=== PATIENT | male | born 1990 | race Two or more races ===

== ENCOUNTER 2025-04-06 14:15 | Outpatient (AMB) | payer OTHER, SELFPAY ==
--- NOTE | 2025-04-06 14:23 | HO.NEPHOV ---
Vital Signs 04/06/25 14:34 Height 6 ft 1 in Weight 322 lb 2 oz BMI 42.5 BP 130/100 H Blood Pressure Location Lt brachial Position Sitting Pulse 81 Pulse Source Pulse Oximeter Pulse Oximetry (%) 97 Oxygen Delivery Method Room Air Intake Visit Reasons: ENP: Nephrotic Syndrome-Conf Box Office Manager Required: No Accompanied by: Self / Same As Patient Allergies No Known Allergies Allergy (Verified 04/22/25 11:09) HPI Comments Details: Thank you for referring Heather for evaluation of MARIA ALEJANDRA and nephrotic range proteinuria. He had influenza in December 2024 and after that he started developing edema and was found to have nephrotic range proteinuria. His renal function was normal at that time. He had quite a bit of weight gain with edema as well as shortness of breath. He underwent extensive work by his primary care physician and had seen other renal physicians in different practice for the same complaint. He even underwent renal biopsy and was told at that time that he has FSGS. Initially he refused renal biopsy for some months and he continued to have worsening proteinuria, with a proteinuria going up to over 17 g. He was given Bumex, torsemide, furosemide, metolazone, Aldactone as well as losartan in the past. His previous renal physician felt that he was not adherent with his directions and he had been playing around with medications as well as multiple medical providers. During the course of months his serum creatinine started to rise with a drop in GFR. His previous renal physician has recommended admission to the hospital for intravenous diuretics, kidney biopsy and immunosuppression. He had multiple ER visits as well as urgent care consultations for various reasons including diffuse pains, weight gain and continued worsening of edema. It was thought in the past that he may have bowel wall edema and p.o. medications will be unsuccessful. He was prescribed prednisone by his previous renal MD. He was told that he may end up with ESRD. He is being seen today in consultation for a 2nd opinion as well as take over of his renal care. [facility] Medical History (Updated 04/27/25 @ 07:01 by Joe Dhaliwal MD) Vitamin D deficiency disease Snoring Polyarthralgia Nephrotic syndrome Morbid obesity with body mass index (BMI) of 40.0 or higher Hyperlipidemia Gastroesophageal reflux disease with esophagitis without hemorrhage Fatty liver Erectile dysfunction due to diseases classified elsewhere Elevated ALT measurement Family History Father Bladder cancer Brother Kidney stone Mother Renal cyst Social History Alcohol intake: never Patient Tobacco Use Status: Never used Tobacco Review of Systems Const All systems reviewed & are unremarkable except as noted in HPI and below Physical Exam Vital Signs: Last Vital Signs Pulse 81 04/06/25 14:34 BP 130/100 H 04/06/25 14:34 Pulse Ox 97 04/06/25 14:34 Oxygen Delivery Method Room Air 04/06/25 14:34 BMI result Body Mass Index 42.5 Const General: comfortable and no acute distress Orientation/consciousness: patient oriented x3 HEENT Head: Yes normocephalic Mouth: Normal oral and palatal mucosa present Eyes EOM: EOMs intact bilaterally Neck Neck: Yes supple Resp Auscultation: clear to auscultation bilaterally Cardio Jugular venous distension: no JVD Rate: regular rate GI Palpation (GI): Soft to palpation Auscultation: normal bowel sounds General: Yes no CVA tenderness Back/Spine/Pelvis Back: no CVA tenderness Skin General skin exam: no rashes or lesions noted Neuro General: patient oriented x3 and moves all extremities Extrem General: Yes edema Results Reviewed Nephrology Results: Sodium 139 mmol/L (135-145) 04/20/25 Potassium 4.7 mmol/L (3.3-5.1) 04/20/25 Chloride 105 mmol/L (96-108) 04/20/25 Carbon Dioxide 25 mmol/L (22-29) 04/20/25 BUN 84 mg/dL (9-16) H 04/20/25 Creatinine 1.67 mg/dL (0.5-1.4) H 04/20/25 Urine Creatinine 49.21 mg/dL 04/20/25 Protein/Creatinin Ratio 12.96 (<0.2) H 04/20/25 Assessment & Plan Assessment & Plan (1) MARIA ALEJANDRA (acute kidney injury): Code(s): N17.9 - Acute kidney failure, unspecified Category: Medical (2) FSGS (focal segmental glomerulosclerosis): Code(s): N05.1 - Unspecified nephritic syndrome with focal and segmental glomerular lesions Category: Medical (3) Nephrotic syndrome: Code(s): N04.9 - Nephrotic syndrome with unspecified morphologic changes Category: Medical (4) Edema: Code(s): R60.9 - Edema, unspecified Category: Medical Qualifiers: Edema type: generalized Qualified Code(s): R60.1 - Generalized edema Plan Focus of treatment for his FSGS will include the following Dietary sodium restriction Antihypertensive therapy Renin-angiotensin system inhibition SGLT2 inhibitors Lipid lowering Anticoagulation Treatment of edema For the time being he will continue on high-dose prednisone. He will benefit from calcineurin inhibitor. I plan to initiate him on cyclosporine and see whether he is going to respond to it.Those with glucocorticoid-dependent FSGS may be alternatively treated with MMF/EC-MPS or rituximab or cytotoxic therapy like cyclophosphamide. In general, the duration of therapy varies according to the degree and rapidity of response (eg, faster taper for patients who achieve a quick remission), whether complete or partial remission is achieved, and the degree of glucocorticoid toxicity. If a complete remission is achieved within 8 to 12 weeks, I continue the initial dose of?prednisone for one to two more weeks and then taper the dose over two to three months. One strategy is to switch to alternate-day prednisone (double the daily dose but to a maximum of 80 to 120 mg), and then decrease the dose by approximately one-third every two to three weeks. If a partial remission is achieved by 8 to 12 weeks, we can taper prednisone slowly over three to nine months. We initially switch to alternate-day dosing and decrease the dose by one-third approximately every six weeks. For patients who have had a substantial reduction (>50 percent from baseline) in proteinuria by 8 to 12 weeks but do not meet criteria for partial remission (ie, proteinuria remains >3.5 g/day), the decision to continue high-dose prednisone or modify therapy is based upon the severity of glucocorticoid toxicity, the risk of continued therapy, and whether protein excretion is continuing to fall. Prednisone can be continued, for example, in patients whose proteinuria continues to decline, provided they are not experiencing severe side effects from therapy. If, at any time after a complete or partial remission is attained, proteinuria increases while the prednisone?is being tapered, we stop the taper and temporarily maintain the current prednisone dose while adding a CNI or, if the eGFR is <30 mL/min/1.73 m2, MMF/EC-MPS. Although the use of MMF/EC-MPS is not supported by evidence, some authors and editors of this topic use it in this setting based on its potential role as a glucocorticoid-sparing agent, its safe use in patients with low eGFR, and its role as maintenance therapy in other glomerular diseases such as minimal change disease and lupus nephritis. Adult patients who have little or no reduction in proteinuria after 16 weeks of daily?prednisone are presumed to be glucocorticoid resistant. In such patients, we prefer to add a CNI (or MMF if the eGFR is low) and switch to alternate-day prednisone with a progressive taper in prednisone therapy, reducing the dose by approximately one-third every week. (some of the references in management as mentioned above are taken from up-to-date ([employer]). Follow-up blood work was ordered and is going to see me for continued care. Time spent for retrieving his medical records from other hospitals, reviewing the data, notes, patient encounter, documentation and review of literature included 75 minutes. Answered all questions. Orders: Orders Creatinine 04/06/25 N17.9 - Acute kidney failure, unspecified Protein Creatinine Ratio, Ur 2 Weeks N17.9 - Acute kidney failure, unspecified Creatinine 2 Weeks N17.9 - Acute kidney failure, unspecified Calcium 04/06/25 N17.9 - Acute kidney failure, unspecified Electrolytes 04/06/25 N17.9 - Acute kidney failure, unspecified Blood Urea Nitrogen 04/06/25 N17.9 - Acute kidney failure, unspecified Protein Creatinine Ratio, Ur 04/06/25 N17.9 - Acute kidney failure, unspecified Blood Urea Nitrogen 2 Weeks N17.9 - Acute kidney failure, unspecified Electrolytes 2 Weeks N17.9 - Acute kidney failure, unspecified Coding Level of Care Code New Pt Level 5 (85358) Diagnoses MARIA ALEJANDRA (acute kidney injury) N17.9 FSGS (focal segmental glomerulosclerosis) N05.1 Nephrotic syndrome N04.9 Generalized edema R60.1 Edema type: generalized
--- OUTSIDE RECORDS SUMMARY | 2025-04-06 14:24 | XMS_ITS | Clinical Summary ---
Author Organization [facility] Address [address] [address] Phone Care Team Providers Care Entry Level Chemist Name Role Phone Tiara Fields Primary Care Provider Allergies No known active allergies Medications losartan (COZAAR) 100 MG tablet Take 1 tablet (100 mg total) by mouth 1 (one) time each day 90 tablet 3 01/27/20 25 026 Active furosemide (Lasix) 40 MG tablet Take 1 tablet (40 mg total) by mouth in the morning and 1 tablet (40 mg total) in the evening and 1 tablet (40 mg total) before bedtime. 270 tablet 3 03/15/20 25 Active spironolactone (Aldactone) 25 MG tablet Take 1 tablet (25 mg total) by mouth in the morning and 1 tablet (25 mg total) in the evening. 180 tablet 3 03/15/20 25 026 Active metOLazone 5 MG tablet Take 1 tablet (5 mg total) by mouth 1 (one) time each day if needed (edema) 90 tablet 3 03/15/20 25 026 Active predniSONE (DELTASONE) 20 MG tablet Take 4 tablets (80 mg total) by mouth 1 (one) time each day 120 tablet 03/31/20 25 025 Active ergocalciferol 1.25 MG (61631 UT) capsule Take 1 capsule by mouth 1 (one) time per week 12/15/19 25 025 torsemide (DEMADEX) 20 MG tablet Take 3 tablets (60 mg total) by mouth in the morning and 3 tablets (60 mg total) in the evening. 540 tablet 3 01/27/20 25 025 Discontinued spironolactone (Aldactone) 25 MG tablet Take 1 tablet (25 mg total) by mouth 1 (one) time each day 30 tablet 11 01/27/20 25 025 Discontinued(Re order (does not appear on AVS)) bumetanide (BUMEX) 2 MG tablet Take 1 tablet (2 mg total) by mouth in the morning and 1 tablet (2 mg total) in the evening. 180 tablet 3 02/26/20 25 025 Discontinued Active Problems Problem Noted Date Diagnosed Date Glomerulonephritis 01/26/2025 Hematuria, not otherwise specified 01/26/2025 Localized edema 01/26/2025 Hypertension 01/26/2025 Proteinuria, not otherwise specified 01/25/2025 Nephrotic syndrome 01/14/2025 Fatty liver 01/14/2025 Body mass index 40+ - severely obese 12/14/2024 Multiple joint pain 12/14/2024 Vitamin D deficiency 05/18/2020 Overview (01/25/2025): 98367 units for 8 weeks Dyslipidemia 04/07/2019 Snoring 03/30/2019 Overview (01/25/2025): 03/2019 Home Sleep Study did not reveal sleep apnea or nocturnal hypoxia. Encounters Date Type Department Care Team Description 04/03/2025 Documentation Only [facility] [address] [phone] Valeriy Pulliam MD 04/02/2025 Office Communication [facility] [address] [phone] Valeriy Pulliam MD 04/02/2025 Telephone [facility] [address] [phone] Stephanie Morley MA 03/31/2025 Office Communication [facility] [address] [phone] Radames Malhotra MD 03/31/2025 Documentation Only [facility] [address] [phone] Valeriy Pulliam MD 03/30/2025 Office Communication [facility] [address] [phone] Joanna Hayes 03/22/2025 Orders Only [facility] [address] [phone] Valeriy Pulliam MD Glomerulonephritis; Nephrotic syndrome; Proteinuria, not otherwise specified; Vitamin D deficiency, not otherwise specified; Localized edema; Hypertension; Dyslipidemia 03/19/2025 Telephone [facility] [address] [phone] Glory Stark MD 03/17/2025 Office Communication [facility] [address] [phone] Valeriy Pulliam MD 03/17/2025 Refill [facility] [address] [phone] Radha Nolasco MA 03/17/2025 Refill [facility] [address] [phone] Radha Nolasco MA 03/15/2025 8:40 AM EDT Office Visit [facility] [address] [phone] Valeriy Pulliam MD Glomerulonephritis (Primary Dx); Nephrotic syndrome; Proteinuria, not otherwise specified; Vitamin D deficiency, not otherwise specified; Localized edema; Hypertension; Dyslipidemia 03/15/2025 Orders Only [facility] [address] [phone] Valeriy Pulliam MD 03/15/2025 Office Communication [facility] [address] [phone] Valeriy Pulliam MD 03/15/2025 Office Communication [facility] [address] [phone] Valeriy Pulliam MD 03/08/2025 Office Communication [facility] [address] [phone] Karan Corrigan 03/04/2025 Telephone [facility] [address] [phone] Stephanie Morley MA 02/25/2025 9:40 AM EDT Office Visit [facility] [address] [phone] Valeriy Pulliam MD Glomerulonephritis (Primary Dx); Hypertension; Dyslipidemia; Nephrotic syndrome; Proteinuria, not otherwise specified; Vitamin D deficiency, not otherwise specified 02/08/2025 Office Communication [facility] [address] [phone] Valeriy Pulliam MD 02/03/2025 Office Communication [facility] [address] [phone] Verna Baumann 01/28/2025 Office Communication [facility] [address] [phone] Helen Selby 01/26/2025 11:00 AM EDT Office Visit [facility] [address] [phone] Valeriy Pulliam MD Proteinuria, not otherwise specified (Primary Dx); Nephrotic syndrome; Hyperlipidemia, not otherwise specified; Glomerulonephritis; Hypertension; Hematuria, not otherwise specified; Localized edema 01/26/2025 Office Communication [facility] [address] [phone] Valeriy Pulliam MD 01/26/2025 Office Communication [facility] [address] [phone] Valeriy Pulliam MD from Last 3 Months Social History Tobacco Use Types Packs/Day Years Used Date Smoking Tobacco: Never Assessed Sex and Gender Information Value Date Recorded Sex Assigned at Not on file Legal Sex Male 1:01 PM EDT Gender Identity Not on file Sexual Orientation Not on file Last Filed Vital Signs Vital Sign Reading Time Taken Comments Blood Pressure 150/90 03/15/2025 8:53 AM EDT Pulse 88 03/15/2025 8:53 AM EDT Temperature - - Respiratory Rate - - Oxygen Saturation 96% 03/15/2025 8:53 AM EDT Inhaled Oxygen Concentration - - Weight 155 kg (341 lb 3.2 oz) 03/15/2025 8:53 AM EDT Height 185.4 cm (6' 1 ) 01/26/2025 11:09 AM EDT Body Mass Index 45.02 01/26/2025 11:09 AM EDT Plan of Treatment Upcoming Encounters Date Type Department Care Team (Late st Contact Info) Description 04/15/2025 9:00 AM EDT Office Visit [facility] [address] [phone] Valeriy Pulliam MD [address] [phone] Health Maintenance Due Date Last Done Comments Pneumococcal Vaccine: Peds ( 0 to 5 Years) and At-Risk Patients (6 to 49 Years) (1 of 2 - PCV) 2011 Hepatitis B Vaccine (3 of 3 - 19+ 3-dose series) 04/29/2025 01/07/2025, 10/29/2024 Influenza Vaccine Completed 07/12/2024, 09/08/2020 Procedures Procedure Name Priority Date/Time Associated Diagnosis Comments PTH, INTACT Routine 03/15/2025 5:16 PM EDT MAGNESIUM Routine 03/15/2025 5:16 PM EDT URIC ACID Routine 03/15/2025 5:16 PM EDT VITAMIN D 25 HYDROXY Routine 03/15/2025 5:16 PM EDT PROTEIN / CREATININE RATIO, URINE Routine 03/15/2025 5:16 PM EDT RENAL FUNCTION PANEL Routine 03/15/2025 5:16 PM EDT COMPREHENSIVE METABOLIC PANEL Routine 03/15/2025 5:16 PM EDT CBC AND DIFFERENTIAL Routine 03/15/2025 5:16 PM EDT ANCA SCREEN, TITER IF POSITIVE Routine 02/22/2025 1:06 PM EDT Proteinuria, not otherwise specified Nephrotic syndrome Hyperlipidemia, not otherwise specified SHAYNA W/REFLEX Routine 02/22/2025 1:06 PM EDT Proteinuria, not otherwise specified Nephrotic syndrome Hyperlipidemia, not otherwise specified GLOMERULAR BASEMENT MEMBRANE ANTIBODIES Routine 02/22/2025 1:06 PM EDT Proteinuria, not otherwise specified Nephrotic syndrome Hyperlipidemia, not otherwise specified CBC AND DIFFERENTIAL Routine 02/22/2025 1:06 PM EDT Proteinuria, not otherwise specified Nephrotic syndrome Hyperlipidemia, not otherwise specified PROTEIN / CREATININE RATIO, URINE Routine 02/22/2025 1:06 PM EDT Proteinuria, not otherwise specified Nephrotic syndrome Hyperlipidemia, not otherwise specified URINE ALBUMIN / CREATININE RATIO Routine 02/22/2025 1:06 PM EDT Proteinuria, not otherwise specified Nephrotic syndrome Hyperlipidemia, not otherwise specified URINALYSIS WITH MICROSCOPIC Routine 02/22/2025 1:06 PM EDT Proteinuria, not otherwise specified Nephrotic syndrome Hyperlipidemia, not otherwise specified MAGNESIUM Routine 02/22/2025 1:06 PM EDT Proteinuria, not otherwise specified Nephrotic syndrome Hyperlipidemia, not otherwise specified PHOSPHATE ( PHOSPHORUS) Routine 02/22/2025 1:06 PM EDT Proteinuria, not otherwise specified Nephrotic syndrome Hyperlipidemia, not otherwise specified PHOSPHOLIPASE A2 RECEPTOR ANTIBODIES, SERUM Routine 02/22/2025 1:06 PM EDT Proteinuria, not otherwise specified Nephrotic syndrome Hyperlipidemia, not otherwise specified COMPREHENSIVE METABOLIC PANEL Routine 02/22/2025 1:06 PM EDT Proteinuria, not otherwise specified Nephrotic syndrome Hyperlipidemia, not otherwise specified MICROSCOPIC EXAMINATION - DO NOT USE Routine 02/22/2025 1:06 PM EDT ANTISTREPTOLYSIN O SCREEN Routine 02/22/2025 1:06 PM EDT Proteinuria, not otherwise specified Nephrotic syndrome Hyperlipidemia, not otherwise specified from Last 3 Months Results * (ABNORMAL) Protein, Total, Random Urine w/Creatinine (Protein/Creat Ratio) (03/15/2025 5:16 PM EDT) Only the most recent of2 resultswithin the time period is included. Creatinine, Ur 138.0 Not Estab. mg/dL [facility] Protein, Ur 2,347.5 Not Estab. mg/dL [facility] Comment: Results confirmed on dilution. Urine Protein/Creati nine Ratio 17,011(H) 0 - 200 mg/g creat [facility] 03/15/2025 5:16 PM EDT 03/15/2025 us Valeriy Pulliam MD LAB URINE ORDERABLES Final Re sult [facility] [address] [place] [address] * (ABNORMAL) Vitamin D 25 Hydroxy (03/15/2025 5:16 PM EDT) Vitamin D, 25-OH, Total 8.4(L) 30.0 - 100.0 ng/mL [facility] Comment: Vitamin D deficiency has been defined by the Hitchcock of Medicine and an Endocrine Society practice guideline as a level of serum 25-OH vitamin D less than 20 ng/mL (1,2). The Endocrine Society went on to further define vitamin D insufficiency as a level between 21 and 29 ng/mL (2). 1. IOM ([place] of Medicine). 2010. Dietary reference ?? intakes for calcium and D. [place]: The ?? National Gopeers Press. 2. Magdalena MF, Nita LEON, Sondra CANNON, et al. ?? Evaluation, treatment, and prevention of vitamin D ?? deficiency: an Endocrine Society clinical practice ?? guideline. JCEM. 2010; 96(7):1911-30. 03/15/2025 5:16 PM EDT 03/15/2025 us Valeriy Pulliam MD LAB BLOOD ORDERABLES Final Re sult [facility] [address] [place] [address] * CBC and Differential (03/15/2025 5:16 PM EDT) Only the most recent of2 resultswithin the time period is included. WBC 8.6 3.4 - 10.8 x10E3/uL [facility] RBC 4.82 4.14 - 5.80 x10E6/uL [facility] Hemoglobin 14.4 13.0 - 17.7 g/dL [facility] Hematocrit 44.3 37.5 - 51.0 % [facility] MCV 92 79 - 97 fL [facility] MCH 29.9 26.6 - 33.0 pg [facility] MCHC 32.5 31.5 - 35.7 g/dL [facility] RDW 14.7 11.6 - 15.4 % [facility] Platelets 347 150 - 450 x10E3/uL [facility] Neutrophils Relative 58 Not Estab. % [facility] Lymphocytes Relative 31 Not Estab. % [facility] Monocytes 6 Not Estab. % [facility] Eosinophils Relative 4 Not Estab. % [facility] Basophils Relative 1 Not Estab. % [facility] Neutrophils Absolute 4.9 1.4 - 7.0 x10E3/uL [facility] Lymphocytes Absolute 2.7 0.7 - 3.1 x10E3/uL [facility] Monocytes Absolute 0.5 0.1 - 0.9 x10E3/uL [facility] Eosinophils Absolute 0.4 0.0 - 0.4 x10E3/uL [facility] Basophils Absolute 0.0 0.0 - 0.2 x10E3/uL [facility] Immature Granulocytes 0 Not Estab. % [facility] Immature Grans (Absolute) 0.0 0.0 - 0.1 x10E3/uL [facility] 03/15/2025 5:16 PM EDT 03/15/2025 us Valeriy Pulliam MD LAB BLOOD ORDERABLES Final Re sult [facility] [address] [place] [address] * (ABNORMAL) Uric Acid (03/15/2025 5:16 PM EDT) Uric Acid 10.0(H) 3.8 - 8.4 mg/dL [facility] Comment:Therapeutic target f or gout patients: <6.0 03/15/2025 5:16 PM EDT 03/15/2025 Valeriy Pulliam MD LAB BLOOD ORDERABLES Final Re sult [facility] [address] [place] [address] * PTH, Intact (03/15/2025 5:16 PM EDT) PTH 43 15 - 65 pg/mL [facility] 03/15/2025 5:16 PM EDT 03/15/2025 Valeriy Pulliam MD LAB BLOOD ORDERABLES Final Re sult Performing Organization Address [facility] de Phone Number [facility] [address] [place] [address] * (ABNORMAL) Magnesium (03/15/2025 5:16 PM EDT) Only the most recent of2 resultswithin the time period is included. Magnesium 2.6(H) 1.6 - 2.3 mg/dL [facility] 03/15/2025 5:16 PM EDT 03/15/2025 Valeriy Pulliam MD LAB BLOOD ORDERABLES Final Re sult Performing Organization Address [facility]/ZIP Co de Phone Number [facility] [address] [place] [address] * Renal Function Panel (03/15/2025 5:16 PM EDT) Phosphorus 3.5 2.8 - 4.1 mg/dL [facility] 03/15/2025 5:16 PM EDT 03/15/2025 us Valeriy Pulliam MD LAB BLOOD ORDERABLES Final Re sult [facility] [address] [place] [address] * (ABNORMAL) Comprehensive Metabolic Panel (03/15/2025 5:16 PM EDT) Only the most recent of2 resultswithin the time period is included. Pathologist [facility] Glucose 80 70 - 99 mg/dL [facility] BUN 37(H) 6 - 20 mg/dL [facility] Creatinine 1.28(H) 0.76 - 1.27 mg/dL [facility] eGFR CKD-EPI CR 2020 76 >59 mL/min/1.7 3 [facility] BUN/Creatinine Ratio 29(H) 9 - 20 [facility] Sodium 145(H) 134 - 144 mmol/L [facility] Potassium 5.1 3.5 - 5.2 mmol/L [facility] Chloride 110(H) 96 - 106 mmol/L [facility] Bicarbonate (CO2) 16(L) 20 - 29 mmol/L [facility] Total Protein 4.3(LL) 6.0 - 8.5 g/dL [facility] Albumin 2.2(L) 4.1 - 5.1 g/dL [facility] Globulin 2.1 1.5 - 4.5 g/dL [facility] Total Bilirubin <0.2 0.0 - 1.2 mg/[facility] Phosphatase 65 44 - 121 IU/L [facility] AST (SGOT) 16 0 - 40 IU/L [facility] ALT (SGPT) 16 0 - 44 IU/L [facility] Calcium 8.3(L) 8.7 - 10.2 mg/dL [facility] 03/15/2025 5:16 PM EDT 03/15/2025 us Valeriy Pulliam MD LAB BLOOD ORDERABLES Final Re sult Performing Organization Address [facility] Co de Phone Number [facility] [address] [place] [address] * Phospholipase A2 Receptor Antibodies, Serum (02/22/2025 1:06 PM EDT) Anti-PLA2R <1.8 0.0 - 19.9 RU/mL [facility] Comment: ?Negative ?<14.0 ?Borderline ??14.0 - 19.9 ?Positive ?>19.9 Blood specimen (specimen) Venous blood / Unknown 02/22/2025 1:06 PM EDT 02/22/2025 us Valeriy Pulliam MD LAB BLOOD ORDERABLES Final Re sult [facility] [address] [place] [address] * ANCA AB Scrn with titer (02/22/2025 1:06 PM EDT) C-ANCA <1:20 Neg:<1:20 titer [facility] Perinuclear (P-ANCA) <1:20 Neg:<1:20 titer [facility] Comment: The presence of positive fluorescence exhibiting P-ANCA or C-ANCA patterns alone is not specific for the diagnosis of Dionicio's Granulomatosis (WG) or microscopic polyangiitis. Decisions about treatment should not be based solely on ANCA IFA results. ??The International ANCA Group Consensus recommends follow up testing of positive sera with both CT-3 and MPO-ANCA enzyme immunoassays. As many as 5% serum samples are positive only by EIA. Ref. AM J Clin Pathol 1999;111:507-513. Atypical p-ANCA <1:20 Neg:<1:20 titer [facility] Comment: The atypical pANCA pattern has been observed in a significant percentage of patients with ulcerative colitis, primary sclerosing cholangitis and autoimmune hepatitis. Blood specimen (specimen) Venous blood / Unknown 02/22/2025 1:06 PM EDT 02/22/2025 Valeriy Pulliam MD LAB BLOOD ORDERABLES Final Re sult Performing Organization Address [facility] Co de Phone Number [facility] [address] [place] [address] * (ABNORMAL) Microscopic Examination (02/22/2025 1:06 PM EDT) WBC, Urine 0-5 0 - 5 /hpf [facility] RBC, Urine 11-30(A) 0 - 2 /hpf [facility] Squamous Epithelial, Urine 0-10 0 - 10 /hpf [facility] Casts None seen None seen /lpf [facility] Bacteria, Urine None seen None seen/Few [facility] 02/22/2025 1:06 PM EDT 02/22/2025 Valeriy Pulliam MD LAB MICROBIOLOGY - GENERAL OR DERABLES Final Result [facility] [address] [place] [address] * SHAYNA W/Reflex (02/22/2025 1:06 PM EDT) Pathologist [facility] SHAYNA Negative Negative [facility] 02/22/2025 1:06 PM EDT 02/22/2025 Valeriy Pulliam MD LAB BLOOD ORDERABLES Final Re sult Performing Organization Address [facility] Co de Phone Number [facility] [address] [place] [address] * Glomerular Basement Membrane Antibodies (02/22/2025 1:06 PM EDT) [facility] ANTI-GBM AB <0.2 0.0 - 0.9 units [facility] Blood specimen (specimen) Venous blood / Unknown 02/22/2025 1:06 PM EDT 02/22/2025 us Valeriy Pulliam MD LAB BLOOD ORDERABLES Final Re sult Performing Organization Address [facility] Co de Phone Number [facility] [address] [place] [phone] * (ABNORMAL) Urine Albumin / Creatinine Ratio (02/22/2025 1:06 PM EDT) Pathologist [facility] Albumin, Urine 8,624.6 Not Estab. ug/mL [facility] Albumin/Creatin ine Ratio 5,106(H) 0 - 29 mg/g creat [facility] Comment: ? Normal: ?0 - ??29 ? Moderately increased: 30 - 300 ? Severely increased: ? >300 Urine specimen (specimen) Urine specimen obtained by clean catch procedure / Unknown 02/22/2025 1:06 PM EDT 02/22/2025 us Valeriy Pulliam MD LAB URINE ORDERABLES Final Re sult [facility] [address] [place] [address] * (ABNORMAL) Urinalysis with microscopic (02/22/2025 1:06 PM EDT) Pathologist [facility] Specific [place], Urine 1.028 1.005 - 1.030 [facility] pH Urine 6.0 5.0 - 7.5 [facility] Color, Urine Yellow Yellow [facility] Appearance Urine Clear Clear [facility] WBC Esterase Urine Negative Negative [facility] Protein, Ur 4+(A) Negative/Tra ce [facility] Glucose, Ur Negative Negative [facility] Ketones, Urine Negative Negative [facility] Blood Urine Trace(A) Negative [facility] [phone] Bilirubin Urine Negative Negative [facility] Urobilinogen Urine 0.2 0.2 - 1.0 mg/dL [facility] [phone] Nitrite, Urine Negative Negative [facility] Microscopic Examination See below: [facility] Comment:Microscopic was doreen cated and was performed. Urine specimen (specimen) Urine specimen obtained by clean catch procedure / Unknown 02/22/2025 1:06 PM EDT 02/22/2025 us Valeriy Pulliam MD LAB URINE ORDERABLES Final Re sult Performing Organization Address [facility] Co de Phone Number [facility] [address] [place] [address] * Antistreptolysin O screen (02/22/2025 1:06 PM EDT) ASO 175.1 0.0 - 200.0 IU/mL [facility] Blood specimen (specimen) Venous blood / Unknown 02/22/2025 1:06 PM EDT 02/22/2025 us Valeriy Pulliam MD LAB MICROBIOLOGY - GENERAL OR DERABLES Final Result Performing Organization Address [facility] Co de Phone Number [facility] [address] [place] [address] * Phosphorus (02/22/2025 1:06 PM EDT) Phosphorus 2.9 2.8 - 4.1 mg/dL [facility] Blood specimen (specimen) Venous blood / Unknown 02/22/2025 1:06 PM EDT 02/22/2025 us Valeriy Pulliam MD LAB BLOOD ORDERABLES Final Re sult [facility] [address] [place] [address] from Last 3 Months Insurance [facility] Medicaid Care Teams Entry Level Chemist Relationship Specialty Start Date End Date Tiara Fields [address] [place] [phone] PCP - General 03/15/25
[2025-04-06 14:34] VITALS: BP 130/100; PULSE 81; O2SAT 97; BMI 42.5
== END 2025-04-06 15:26 | disposition home or self-care (01) ==
PROVIDERS: PCP Family Medicine; Visit Provider Internal Medicine Nephrology
DX: N17.9 Acute kidney failure, unspecified (principal); N05.1 Unspecified nephritic syndrome with focal and segmental glomerular lesions; N04.9 Nephrotic syndrome with unspecified morphologic changes; R60.1 Generalized edema
CPT/HCPCS: 99205; 99417

== ENCOUNTER → 2025-04-06 14:15 | Outpatient (BNVA) | payer OTHER, SELFPAY | PROVIDERS: PCP Family Medicine; Visit Provider Internal Medicine Nephrology | DX: R80.9 Proteinuria, unspecified (principal); N17.9 Acute kidney failure, unspecified; N04.1 Nephrotic syndrome with focal and segmental glomerular lesions; R60.1 Generalized edema | CPT/HCPCS: 99202 ==

== ENCOUNTER 2025-04-20 15:10 | Outpatient (REF) | payer OTHER, SELFPAY ==
--- OUTSIDE RECORDS SUMMARY | 2025-04-20 18:20 | XMS_ITS | Clinical Summary ---
Author Organization [address] Address [address] [place] [phone] Phone Care Team Providers Care Antique Refinisher Name Role Phone Tiara Fields MD Primary Care Pr ovider Allergies No known active allergies Medications dicyclomine (BENTYL) 10 mg capsuleIndicati ons:Irritable bowel syndrome with mixed bowel habits Take 1 capsule (10 mg total) by mouth 3 (three) times a day if needed (loose stools, abdominal discomfort). 90 capsule 11 5 01/28/20 26 Active losartan (COZAAR) 100 mg tablet Take 1 tablet (100 mg total) by mouth 1 (one) time each day. 5 Active metOLazone (ZAROXOLYN) 5 mg tablet Take 1 tablet (5 mg total) by mouth 1 (one) time each day if needed (edema) for up to 14 days. 14 tablet 5 Active bumetanide (BUMEX) 2 mg tablet Take 1 tablet (2 mg total) by mouth 3 (three) times a day. 90 each 5 03/21/20 26 Active Active Problems Problem Noted Date Diagnosed Date Severe obesity (CMS/HCC V24, CMS/HCC V28) 2024 Fluid overload 03/20/2025 Localized edema 01/26/2025 Hypertension 01/26/2025 Hematuria 01/26/2025 Proteinuria 01/25/2025 Nephrotic syndrome 01/14/2025 Assessment & Plan (01/18/2025 6:39 PM EDT): Patient was called to discuss his test results from today which are as above We discussed additional testing to try to identify etiology of the nephrotic syndrome . He is in agreement with getting additional testing which are ordered including HIV/syphilis testing ? His recent influenza A infection leading to nephrotic syndrome. Could be a possibility. He was not treated with Tamiflu when he went to urgent care Will obtain Renal US He has proteinuria and microscopic hematuria He is referred urgently to nephrology Will check leg Vein US to r/o DVT and obtain US to check for venous insufficiency With nephrotic syndrome he is at higher risk of blood clots Will obtain ECHO Continue lasix Start losartan Orders: Ambulatory referral to Nephrology; Future losartan (Cozaar) 25 mg tablet; Take 1 tablet (25 mg total) by mouth 1 (one) time each day. HIV 1,2 antibody, p24 antigen with reflex to differentiation; Future Prealbumin; Future C3 complement; Future C4 complement; Future Protein electrophoresis, random, urine; Future Protein electrophoresis, serum; Future Treponema pallidum antibody with reflex to RPR and particle agglutination; Future Cryoglobulin; Future Vascular US duplex lower extremity venous bilateral; Future Creatine kinase; Future CBC and differential; Future Gastroesophageal reflux dise ase with esophagitis without hemorrhage 01/14/2025 Assessment & Plan (01/18/2025 6:39 PM EDT): Will check H pylori testing Orders: Helicobacter pylori breath test; Future Fatty liver 01/14/2025 Assessment & Plan (01/26/2025 5:39 PM EDT): MRI scheduled. Further recommendations pending study findings Will repeat labwork at follow up. Assessment & Plan (01/18/2025 6:39 PM EDT): US results are as above Will obtain MRI as recommended Referred to GI Orders: Ambulatory referral to Gastroenterology; Future MR Abdomen wo Contrast; Future Elevated ALT measurement 12/15/2024 Erectile dysfunction due to diseases classified elsewhere 12/14/2024 Assessment & Plan (12/14/2024 1:30 PM EST): Follow-up with urology Orders: CBC and differential; Future Comprehensive metabolic panel; Future Ambulatory referral to Urology; Future Morbid obesity with BMI of 4 0.0-44.9, adult ([facility] V24, [facility] V28) 12/14/2024 Assessment & Plan (12/14/2024 1:30 PM EST): Interested in weight loss medication. Referred to bariatric surgery Orders: Ambulatory referral to Bariatric Surgery; Future Polyarthralgia 12/14/2024 Assessment & Plan (12/14/2024 1:30 PM EST): Will check labs. Orders: Rheumatoid factor; Future Uric acid; Future Borrelia burgdorferi antibody; Future SHAYNA IFA with titer and pattern; Future Sedimentation rate; Future Creatine kinase and CKMB; Future COVID-19 09/04/2021 Overview (11/05/2024): 08/25/2021, tested at local drive through. Was in ER 09/01/2021 as his SOB, cough didn't improve. He doesn't know how he got it. Vitamin D deficiency disease 05/18/2020 Overview (11/05/2024): 30210 units for 8 weeks Assessment & Plan (12/14/2024 1:30 PM EST): Will update vitamin D level. He sporadically uses 10,000 units of vitamin D. Advised that this is excessive but he disagrees Orders: Vitamin D 25 hydroxy; Future Hyperlipidemia 04/07/2019 Assessment & Plan (12/14/2024 1:30 PM EST): Currently not on any medications. Will update fasting lipid panel Orders: Lipid panel with reflex to direct LDL; Future Dyslipidemia 04/07/2019 Snoring 03/30/2019 Overview (11/05/2024): 03/2019 Home Sleep Study did not reveal sleep apnea or nocturnal hypoxia. Encounters Date Type Department Care Team Description 03/24/2025 Lab Requisition [facility] - Main Lab [address] [facility] [place] [address] Lukasz Basurto MD Proteinuria, unspecified 03/20/2025 12:13 PM EDT - 03/21/2025 3:53 PM EDT Hospital Encounter [facility] Medical Surgical Unit [address] [place] [address] Pop Lopez MD Santoyo-Pacheco, Omar D, MD Nephrotic syndrome (Primary Dx); Hypermagnesemia; Hyperkalemia; Bilateral lower extremity edema; Other proteinuria; Hematuria, unspecified type Discharge Disposition: Home or Self Care 03/10/2025 Telephone Adult Medicine [address] [phone] Tiara Fields MD Referral 02/10/2025 7:16 PM EDT - 02/10/2025 11:59 PM EDT Hospital Encounter [facility] MRI [address] [place] [address] Fatty liver Discharge Disposition: Home or Self Care 01/28/2025 10:00 AM EDT - 01/28/2025 11:59 PM EDT Hospital Encounter [facility] Ultrasound [address] [place] [address] Leg swelling Discharge Disposition: Home or Self Care 01/27/2025 Telephone Gastroenterology - [address] [place] [phone] Salome [place] 01/27/2025 Telephone Gastroenterology - [address] [facility] [address] [address] [place] 01/26/2025 4:08 PM EDT - 01/26/2025 11:59 PM EDT Hospital Encounter [facility] Xray [address] [place] [address] Irritable bowel syndrome with mixed bowel habits Discharge Disposition: Home or Self Care 01/26/2025 2:40 PM EDT Consult Gastroenterology - [address] [phone] Aline Shah PA Irritable bowel syndrome with mixed bowel habits (Primary Dx); Nausea and vomiting, unspecified vomiting type; History of hematemesis; Fatty liver 01/18/2025 2:45 PM EDT - 01/18/2025 11:59 PM EDT Hospital Encounter Radiology Department - [address] [phone] Discharge Disposition: Home or Self Care 01/18/2025 11:16 AM EDT - 01/18/2025 11:59 PM EDT Hospital Encounter Radiology Department - [address] [phone] Nephrotic syndrome Discharge Disposition: Home or Self Care from Last 3 Months Immunizations Name Administration Dates Next Due Influenza Quadravalent, MDCK , 0.5ml, preservative free (Flucelvax) 6mo and older 07/12/2024,09/08/2020 Td Tetanus diptheria (Tdvax) 7yo and older 09/08 Medical History Medical History Date Comments 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 pylori infection 07/27/2019 DX:H. pylori infection Hyperlipidemia DX:Hyperlipidemi a Vitamin D deficiency DX:Vitamin D deficiency Nephrotic syndrome Fatty liver Family History Medical History Relation Name Comments bladder cancer Father Colon cancer Neg Hx Relation Name Status Comments Father Social History Tobacco Use Types Packs/Day Years Used Date Smoking Tobacco: Former Cigarettes 1.5 10 Cigars Smokeless Tobacco: Never Tobacco Cessation:Counseling Given: Not Answered Alcohol Use Standard Drinks/Week Comments No 0 (1 standard drink = 0.6 oz pur e alcohol) Housing Instability Answer Date Recorde d Are you worried that in the next 2 months you may not have stable housing? No 12/11/2024 Food Access & Nutrition Answer Date Rec orded Do you have access to a vari ety of food including fruits and vegetables? Yes 12/11/2024 Access to Healthcare Answer Date Record ed Within the last 3 months, miranda w many times did you visit the emergency department for your medical care? 0 12/11/2024 Health Literacy Answer Date Recorded How often do you need to hav e someone help you when you read instructions, pamphlets, or other written material from your doctor or pharmacy? Never 12/11/2024 Caregiver: How often do you need to have someone help you when you read instructions, pamphlets, or other written material from your doctor or pharmacy? Not on file 12/11/2024 Financial Risk Answer Date Recorded How hard is it for you to pa y for the very basics like food, housing, medical care, and air conditioning / heating? Not very hard 12/11/2024 Transportation Answer Date Recorded Has the lack of transportati on kept you from meetings, work, or from getting things needed for daily living? No Has the lack of transportati on kept you from medical appointments or from getting medications? No 12/11/2024 Social Isolation Answer Date Recorded How often do you feel lonely or isolated from th ose around you? Often 12/11/2024 Food Risk Answer Date Recorded Within the past 12 months we worried whether our food would run out before we got money to buy more. Never true 12/11/2024 Within the past 12 months th e food we bought just didn't last and we didn't have money to get more. Never true 12/11/2024 Dependent Care Answer Date Recorded Do you need help finding or paying for care for your loved ones. For example, children librarian or elderly care for an older adult? No 12/11/2024 Education Answer Date Recorded Do you think completing more education or training, like finishing a GED, going to college, or learning a trade, would be helpful for you? Yes 12/11/2024 Employment and Income Answer Date Recor ded During the last four weeks, have you been actively looking for work? Yes 12/11/2024 Living Situation Answer Date Recorded What is your living situation? 0 12/11/2024 Interpersonal Safety Answer Date Record ed Physical Abuse 03/20/2025 Verbal Abuse 03/20/2025 Sex and Gender Information Value Date Recorded Sex Assigned at Male 12/11/2024 9:36 PM EST Legal Sex Male 9:47 PM EST Gender Identity Male 12/11/2024 9:36 PM EST Sexual Orientation Straight 12/11/2024 9: 36 PM EST Obstetrics History Last Filed Vital Signs Vital Sign Reading Time Taken Comments Blood Pressure 151/90 03/21/2025 2:24 PM EDT Pulse 94 03/21/2025 2:24 PM EDT Temperature 36 ??C (96.8 ??F) 03/21/2025 2:24 PM EDT Respiratory Rate 17 03/21/2025 7:00 AM EDT Oxygen Saturation 96% 03/21/2025 2:24 PM EDT Inhaled Oxygen Concentration - - Weight 151 kg (332 lb 3.2 oz) 03/21/2025 6:25 AM EDT Height 185.4 cm (6' 0.99 ) 03/20/2025 7:00 PM ED T Body Mass Index 43.84 03/20/2025 7:00 PM EDT Plan of Treatment Upcoming Encounters Date Type Department Care Team (Late st Contact Info) Description 2025 3:30 PM EDT Office Visit Gastroenterology - [address] [facility] [address] [place] [address] Aline Shah PA [address] [place] [address] Health Maintenance Due Date Last Done Comments Pneumococcal Vaccine: Pediatrics (0 to 5 Years) and At-Risk Patients (6 to 64 Years) (1 of 2 - PCV) 2011 HPV Vaccines (3 - 3-dose SCDM series) 04/29/2025 01/07/2025, 10/29/2024 Depression Screening 12/11/2025 12/11/2024 Social Influencers of Health Screening 12/11/2025 12/11/2024 Hypertension/CHF/CAD Annual BMP Blood Test 04/12/2026 04/12/2025, 04/12/2025, 03/21/2025, Additional history exists Cholesterol Screening (Lipid Panel) 04/12/2030 04/12/2025, 12/14/2024, 04/23/2024, Additional history exists DTaP,Tdap,and Td Vaccines (2 - Td or Tdap) 09/08/2030 09/08/2020 Hepatitis C Screening Completed 03/11/2019 Influenza Vaccine Completed 07/12/2024, 09/08/2020 Hepatitis B Vaccines Completed 01/07/2025, 10/29/20 HIV Screening Completed 01/15/2025, 03/11/2019 COVID-19 Vaccine Discontinued HIB Vaccines Aged Out No longer eligi ble based on patient's age to complete this topic Hepatitis A Vaccines Aged Out No long er eligible based on patient's age to complete this topic IPV Vaccines Aged Out No longer eligi ble based on patient's age to complete this topic MMR Vaccines Aged Out No longer eligi ble based on patient's age to complete this topic Meningococcal ACWY Vaccine Aged Out N o longer eligible based on patient's age to complete this topic Meningococcal B Vaccine Aged Out No l onger eligible based on patient's age to complete this topic RSV Immunization Patients Under 20 months Aged Out No longer eligible based on patient's age to complete this topic Varicella Vaccines Aged Out No longer eligible based on patient's age to complete this topic Procedures Procedure Name Priority Date/Time Associated Diagnosis Comments AP KIDNEY BIOPSY Routine 03/24/2025 Proteinuria, unspecified TISSUE EXAM Routine 03/24/2025 Proteinuria, unspecified ECG ANNOTATED 03/22/2025 US RETROPERITONEAL LIMITED Routine 03/21/2025 10:25 AM EDT CBC WITH AUTO DIFFERENTIAL Routine 03/21/2025 7:04 AM EDT CBC AND DIFFERENTIAL Routine 03/21/2025 7:04 AM EDT MAGNESIUM Routine 03/21/2025 7:04 AM EDT BASIC METABOLIC PANEL Routine 03/21/2025 7:04 AM EDT MAGNESIUM Routine 03/20/2025 8:05 PM EDT BASIC METABOLIC PANEL Routine 03/20/2025 8:05 PM EDT ECG 12-LEAD STAT 03/20/2025 3:23 PM EDT VAS US DUPLEX LOWER EXT VENOUS BILAT STAT 03/20/2025 1:55 PM EDT Nephrotic syndrome LOWE URINE CULTURE TUBE STAT 03/20/2025 1:18 PM EDT URINALYSIS WITH REFLEX MICROSCOPIC AND CULTURE STAT 03/20/2025 1:18 PM EDT URINALYSIS WITH REFLEX MICROSCOPIC AND CULTURE STAT 03/20/2025 1:18 PM EDT CBC WITH AUTO DIFFERENTIAL STAT 03/20/2025 1:14 PM EDT MAGNESIUM STAT 03/20/2025 1:14 PM EDT COMPREHENSIVE METABOLIC PANEL STAT 03/20/2025 1:14 PM EDT CBC AND DIFFERENTIAL STAT 03/20/2025 1:14 PM EDT MR ABDOMEN WO CONTRAST Routine 9:08 PM EDT Fatty liver VAS US DUPLEX LOWER EXT VENOUS INSUFFICIENCY BILATERAL Routine 01/28/2025 10:59 AM EDT Leg swelling XR ABDOMEN 1 VIEW Routine 01/26/2025 4:2 1 PM EDT Irritable bowel syndrome with mixed bowel habits ECG 12-LEAD TRACING ONLY Routine 01/18/2025 4:35 PM EDT Other chest pain US RETROPERITONEAL LIMITED Routine 01/18/2025 3:32 PM EDT Nephrotic syndrome VAS US DUPLEX LOWER EXT VENOUS BILAT STAT 01/18/2025 3:24 PM EDT Leg swelling Nephrotic syndrome HIV 1, 2 ANTIBODY, P24 ANTIGEN WITH REFLEX TO DIFFERENTIATION Routine 01/15/2025 1:17 PM EST Nephrotic syndrome LIPID PANEL WITH REFLEX TO DIRECT LDL Routine 12/14/2024 1:12 PM EST Mixed hyperlipidemia HM HEPATITIS C SCREENING Routine 03/11/2019 from Last 3 Months or Most Recently Relevant to Health Maintenance Results * AP Kidney biopsy (03/24/2025) Scan Result See Scanned Result 04/13/2025 10:06 PM EDT EXTERNAL LAB (NON-INTERFAC ED) Tissue Left kidney structure / Unknown 03/24/2025 03/24/2025 1:28 PM EDT us Lukasz Basurto MD LAB PATHOLOGY ORDERABLES Final Result EXTERNAL LAB (NON-INTERFACED) * Tissue Exam (03/24/2025) Addendum This case was sent to [facility], Department of Pathology, [place], [place] (CLIA: [id number]). 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 Segmentally thin glomerular basement membranes - Measurement in tissue reprocessed from paraffin block is not exact - Genetic testing is strongly recommended to also rule out an underlying genetic abnormality of basement membrane components Acute tubular injury Mild and focal acute interstitial nephritis Mild chronic changes of the parenchyma, including: - No global glomerulosclerosis - Tubular atrophy and interstitial fibrosis (5% of the cortex) - Mild arterial and arteriolar sclerosis The case was discussed with Dr. Ferrara on 03/25/2025 at 11:22 am. Final Diagnosis by Maria De Jesus Patrick M.D., Ph.D., Electronically signed on Saturday April 12, 2025 at 05:23:18PM (See scanned report for full kidney biopsy diagnosis from [facility], [place], [place]) 04/13/2025 11:41 AM EDT [facility] ([facility]) [facility] Addendum electronically signed by Chinmay Grant MD on 04/13/2025 at 11:41 AM Final Diagnosis Kidney, left-biopsy for light, immunofluorescence and electron microscopy: -Submitted to [facility], [place], [place]. See supplemental report 04/13/2025 11:41 AM EDT [facility] Clinical Information 3 18g core samples from left kidney Proteinuria 04/13/2025 11:41 AM EDT [facility] Gross Description A. Kidney, Left, core biopsies: Labeled kidney L . Received in formalin for light microscopy are two acosta-pink soft tissue cores, each measuring approximately 1.1 x 0.1 cm. Received in Noel fixative for Immunofluorescence is a 1.1 x 0.1 cm acosta-pink soft tissue core. Received in Glutaraldehyde for electron microscopy is a 0.2 x 0.1 cm acosta-pink soft tissue core. The specimen is entirely submitted to [facility] for analysis. LUKE 04/13/2025 11:41 AM EDT [facility] Disclaimer Unless otherwise specified, all tissue is 10% NB formalin fixed and paraffin embedded. 04/13/2025 11:41 AM EDT [facility] Tissue Left kidney structure / Unknown 03/24/2025 03/24/2025 1:27 PM EDT Lukasz Basurto MD LAB PATHOLOGY ORDERABLES Edited Result - Final [facility] [address] [place] [address], * ECG-Annotated (03/22/2025) us Provider Onbase ECG ORDERABLES Final Result * US Retroperitoneal Limited (03/21/2025 10:25 AM EDT) Only the most recent of2 resultswithin the time period is included. Anatomical Region Laterality Modality Body Ultrasound 03/21/2025 10:1 1 AM EDT Impressions 03/21/2025 10:12 AM EDT Unremarkable ultrasound bladder. Normal bilateral ureteral jets seen. -------- FINAL REPORT -------- Dictated By: Benoit Fuller Dictated Date: 03/21/2025 10:11 ET Assigned Physician: Benoit Fuller Reviewed and Electronically Signed By: Benoit Fuller Signed Date: 03/21/2025 10:12 ET Workstation ID: [id number] Transcribed By: Self Edit Transcribed Date: 03/21/2025 10:11 ET Narrative 03/21/2025 10:12 AM EDT EXAMINATION: Ultrasound retroperitoneum limited. CLINICAL INDICATION: UTI. Check ureteral jets. TECHNIQUE: Limited imaging through the pelvis for bladder evaluation was performed. The kidneys were not evaluated. FINDINGS: The bladder is mildly distended with normal bilateral ureteral jets seen. No bladder wall thickening or echogenic stones noted. Procedure Note Benoit Fuller MD - 03/21/2025 EXAMINATION: Ultrasound retroperitoneum limited. CLINICAL INDICATION: UTI. Check ureteral jets. TECHNIQUE: Limited imaging through the pelvis for bladder evaluation wasperformed. The kidneys were not evaluated. FINDINGS: The bladder is mildly distended with normal bilateral ureteraljets seen. No bladder wall thickening or echogenic stones noted. IMPRESSION: Unremarkable ultrasound bladder. Normal bilateral ureteral jets seen. -------- FINAL REPORT -------- Dictated By: Benoit Fuller Dictated Date: 03/21/2025 10:11 ET Assigned Physician: Benoit Fuller Reviewed and Electronically Signed By: Benoit Fuller Signed Date: 03/21/2025 10:12 ET Workstation ID: [id number] Transcribed By: Self Edit Transcribed Date: 03/21/2025 10:11 ET us Devante Goss MD IMG US PROCEDURES Judy l Result * CBC auto differential (03/21/2025 7:04 AM EDT) Only the most recent of2 resultswithin the time period is included. WBC 8.6 4.8 - 10.8 K/[facility] LAB HEMETOLOGY METHOD 03/21/2025 7:59 AM EDT [facility] RBC 5.10 4.50 - 5.50 M/mcL LAB HEMETOLOGY METHOD 03/21/2025 7:[address] [facility] Hemoglobin 15.3 13.5 - 17.5 g/dL LAB HEMETOLOGY METHOD 03/21/2025 7:[address] [facility] Hematocrit 47.0 42.0 - 54.0 % LAB HEMETOLOGY METHOD 03/21/2025 7:[address] [facility] MCV 92.2 79.0 - 98.0 FL LAB HEMETOLOGY METHOD 03/21/2025 7:[address] [facility] MCH 30.0 27.0 - 32.0 pcg LAB HEMETOLOGY METHOD 03/21/2025 7:[address] [facility] MCHC 32.6 32.0 - 37.0 g/dL LAB HEMETOLOGY METHOD 03/21/2025 7:[address] [facility] RDW 13.6 11.0 - 15.0 % LAB HEMETOLOGY METHOD 03/21/2025 7:[address] [facility] Platelets 377 130 - 400 K/mcL LAB HEMETOLOGY METHOD 03/21/2025 7:[address] [facility] MPV 10.6 7.0 - 11.0 FL LAB HEMETOLOGY METHOD 03/21/2025 7:[address] [facility] NRBC 0.0 <1.0 % LAB HEMETOLOGY METHOD 03/21/2025 7:[address] [facility] NRBC Absolute 0.00 <0.10 K/mcL LAB HEMETOLOGY METHOD 03/21/2025 7:[address] [facility] Neutrophils Relative 49.6 % LAB HEMETOLOGY METHOD 03/21/2025 7:[address] [facility] Lymphocytes Relative 39.5 % LAB HEMETOLOGY METHOD 03/21/2025 7:[address] [facility] Monocytes Relative 6.9 % LAB HEMETOLOGY METHOD 03/21/2025 7:[address] [facility] Eosinophils Relative 3.6 % LAB HEMETOLOGY METHOD 03/21/2025 7:[address] [facility] Basophils Relative 0.2 % LAB HEMETOLOGY METHOD 03/21/2025 7:[address] [facility] Immature Granulocytes Relative 0.2 % LAB HEMETOLOGY METHOD 03/21/2025 7:[address] [facility] Neutrophils Absolute 4.25 1.50 - 7.00 K/mcL LAB HEMETOLOGY METHOD 03/21/2025 7:[address] [facility] Lymphocytes Absolute 3.39 1.00 - 5.00 K/mcL LAB HEMETOLOGY METHOD 03/21/2025 7:[address] [facility] Monocytes Absolute 0.59 0.20 - 1.00 K/mcL LAB HEMETOLOGY METHOD 03/21/2025 7:[address] [facility] Eosinophils Absolute 0.31 0.00 - 0.50 K/mcL LAB HEMETOLOGY METHOD 03/21/2025 7:[address] [facility] Basophils Absolute 0.02 0.00 - 0.20 K/mcL LAB HEMETOLOGY METHOD 03/21/2025 7:[address] [facility] Immature Granulocytes Absolute 0.02 0.00 - 0.03 K/mcL LAB HEMETOLOGY METHOD 03/21/2025 7:[address] [facility] Blood Venous blood specimen / Unknown Venipuncture / Unknown 03/21/2025 7:04 AM EDT 03/21/2025 7:44 AM EDT Pop Lopez MD LAB BLOOD ORDERABLES Final Re sult Performing Organization Address City/[facility]/ZIP Co de Phone Number [facility] [address] [place] [address], * (ABNORMAL) Magnesium (03/21/2025 7:04 AM EDT) Only the most recent of3 resultswithin the time period is included. [facility] Magnesium 2.7(H) 1.9 - 2.6 mg/dL LAB CHEMISTRY METHOD 03/21/2025 8:24 AM EDT [facility] Blood Venous blood specimen / Unknown Venipuncture / Unknown 03/21/2025 7:04 AM EDT 03/21/2025 7:45 AM EDT Pop Lopez MD LAB BLOOD ORDERABLES Final Re sult Performing Organization Address [place]/[facility]/ZIP Co de Phone Number [facility] [address] [place] [address], [place] [phone] * (ABNORMAL) Basic metabolic panel (03/21/2025 7:04 AM EDT) Only the most recent of2 resultswithin the time period is included. [facility] Sodium 138 133 - 145 mmol/L LAB CHEMISTRY METHOD 03/21/2025 8:[address] [facility] Potassium 4.7 3.5 - 5.5 mmol/L LAB CHEMISTRY METHOD 03/21[facility]2025 [facility] Chloride 106 96 - 110 mmol/L LAB CHEMISTRY METHOD 03/21/2025 8:[address] [facility] CO2 27 21 - 32 mmol/L LAB CHEMISTRY METHOD 03/21/2025 8:[address] [facility] Anion Gap 5 3 - 11 LAB CHEMISTRY METHOD 03/21/2025 8:[address] [facility] Glucose 87 70 - 100 mg/dL LAB CHEMISTRY METHOD 03/21/2025 8:24 AM EDT [facility] BUN 42(H) 5 - 25 mg/dL LAB CHEMISTRY METHOD 03/21/2025 8:24 AM EDT [facility] Creatinine 1.64(H) 0.70 - 1.30 mg/dL LAB CHEMISTRY METHOD 03/21/2025 8:24 AM EDT [facility] eGFR 57(L) >=60 mL/min/1. 73m2 LAB CHEMISTRY METHOD 03/21/2025 8:24 AM EDT [facility] Comment:Calculation based on the Chronic Kidney Disease Epidemiology Collaboration (CKD-EPI) equation refit without adjustment for race. BUN/Creatinine Ratio 25.6 LAB CHEMISTRY METHOD 03/21/2025 8:24 AM EDT [facility] Calcium 8.8 8.5 - 10.5 mg/dL LAB CHEMISTRY METHOD 03/21/2025 8:24 AM EDT [facility] Blood Venous blood specimen / Unknown Venipuncture / Unknown 03/21/2025 7:04 AM EDT 03/21/2025 7:45 AM EDT Pop Lopez MD LAB BLOOD ORDERABLES Final Re sult [facility] [address] [place] [address], * ECG 12 lead (03/20/2025 3:23 PM EDT) Ventricular Rate ECG 79 BPM GEMUSE Atrial Rate 79 BPM GEMUSE P-R Interval 176 ms GEMUSE QRS Duration 86 ms GEMUSE Q-T Interval 374 ms GEMUSE QTc 428 ms GEMUSE P Wave [place] 45 degrees GEMUSE R [place] 30 degrees GEMUSE T [place] 26 degrees GEMUSE ECG Interpretation Normal sinus rhythm No previous ECGs available Confirmed by CHLOE SCOTT ([id number]) on 03/20/2025 11:24:01 PM GEMUSE 03/20/2025 3:23 PM EDT 03/20/2025 11:24 PM EDT us Marci VERGARA ECG ORDERABLES Final Resu lt GEMUSE * Vascular US Duplex Lower Extremity Venous Bilateral (03/20/2025 1:55 PM EDT) Only the most recent of2 resultswithin the time period is included. Anatomical Region Laterality Modality Vascular, Abdomen Ultrasound 03/20/2025 2:11 PM EDT Impressions 03/20/2025 2:15 PM EDT The peroneal veins could not be visualized. ??No visible deep venous thrombosis of either lower extremity. -------- FINAL REPORT -------- Dictated By: Cristian Walker Dictated Date: 03/20/2025 14:11 ET Assigned Physician: Cristian Walker Reviewed and Electronically Signed By: Cristian Walker Signed Date: 03/20/2025 14:15 ET Workstation ID: [id number] Transcribed By: Self Edit Transcribed Date: 03/20/2025 14:13 ET Narrative 03/20/2025 2:15 PM EDT PROCEDURE: Bilateral lower extremity venous duplex ultrasound. HISTORY: edema hx. nephrotic sx., edema. COMPARISON: 01/28/2025. TECHNIQUE: Grayscale, color Doppler, and spectral Doppler ultrasound evaluation of the deep venous structures of the lower extremities. ??Augmentation and compression maneuvers were performed. FINDINGS: The peroneal veins could not be visualized. ??The other deep venous structures of the lower extremities demonstrate normal compressibility with normal color and spectral Doppler flow and a normal response to augmentation maneuvers. Procedure Note Cristian Walker MD - 03/20/2025 PROCEDURE: Bilateral lower extremity venous duplex ultrasound. HISTORY: edema hx. nephrotic sx., edema. COMPARISON: 01/28/2025. TECHNIQUE: Grayscale, color Doppler, and spectral Doppler ultrasoundevaluation of the deep venous structures of the lower extremities.Augmentation and compression maneuvers were performed. FINDINGS: The peroneal veins could not be visualized. The other deep venousstructures of the lower extremities demonstrate normal compressibilitywith normal color and spectral Doppler flow and a normal response toaugmentation maneuvers. IMPRESSION: The peroneal veins could not be visualized. No visible deep venousthrombosis of either lower extremity. -------- FINAL REPORT -------- Dictated By: Cristian Walker Dictated Date: 03/20/2025 14:11 ET Assigned Physician: Cristian Walker Reviewed and Electronically Signed By: Cristian Walker Signed Date: 03/20/2025 14:15 ET Workstation ID: [id number] Transcribed By: Self Edit Transcribed Date: 03/20/2025 14:13 ET Marci VERGARA CV VASCULAR PROCEDURES Fin al Result * (ABNORMAL) Urinalysis with reflex microscopic and culture (03/20/2025 1:18 PM EDT) Specific [place] Urine 1.025 1.003 - 1.030 LAB URINALYSIS - AUTOMATED METHOD [facility] pH, Urine 6.0 5.0 - 8.0 pH LAB URINALYSIS - AUTOMATED METHOD 03/20/2025 1:[address] [facility] Leukocytes, Urine Negative Negative LAB URINALYSIS - AUTOMATED METHOD 03/20/2025 1:[address] [facility] Nitrite, Urine Negative Negative LAB URINALYSIS - AUTOMATED METHOD 03/20/2025 1:[address] [facility] Protein, Urine >=1000(A) <=Trace mg/dL LAB URINALYSIS - AUTOMATED METHOD 03/20/2025 1:[address] [facility] Glucose, Urine Negative Negative mg/dL LAB URINALYSIS - AUTOMATED METHOD 03/20/2025 1:[address] [facility] Ketones, Urine Negative Negative mg/dL LAB URINALYSIS - AUTOMATED METHOD 03/20/2025 [facility] Urobilinogen , Urine 0.2 0.2 - 1.0 mg/dL LAB URINALYSIS - AUTOMATED METHOD 03/20/2025 1:[address] [facility] Bilirubin, Urine Negative Negative LAB URINALYSIS - AUTOMATED METHOD 03/20/2025 1:[address] [facility] Blood, Urine Moderate(A) Negative LAB URINALYSIS - AUTOMATED METHOD 03/20/2025 1:[address] [facility] RBC, Urine 6.0(H) 0 - 4 /HPF LAB URINALYSIS - AUTOMATED METHOD 03/20/2025 1:[address] [facility] WBC, Urine 6.0(H) 0 - 4 /HPF LAB URINALYSIS - AUTOMATED METHOD 03/20/2025 1:[address] [facility] Squamous Epithelial, Urine 20 0 - 60 /LPF LAB URINALYSIS - AUTOMATED METHOD 03/20/2025 1:[address] [facility] Bacteria, Urine Few(A) Negative /HPF LAB URINALYSIS - AUTOMATED METHOD 03/20/2025 1:[address] [facility] Hyaline Casts, Urine 60.6(H) 0 - 3 /LPF LAB URINALYSIS - AUTOMATED METHOD 03/20/2025 1:[address] [facility] Other Casts, Urine 10-20 COARSE GRANULAR /LPF LAB URINALYSIS - AUTOMATED METHOD 03/20/2025 1:[address] [facility] Urine Urine specimen obtained by clean catch procedure / Unknown Non-blood Collection / Unknown 03/20/2025 1:18 PM EDT 03/20/2025 1:26 PM EDT us Marci VERGARA LAB URINE ORDERABLES Final Result [facility] [address] [place] [address], [place] [phone] * Lowe urine culture tube (03/20/2025 1:18 PM EDT) [facility] Extra Tube Hold for add-ons. 03/20/2025 3:01 PM EDT [facility] Comment:Auto resulted. Urine Urine specimen obtained by clean catch procedure / Unknown Non-blood Collection / Unknown 03/20/2025 1:18 PM EDT 03/20/2025 1:26 PM EDT Marci VERGARA LAB URINE ORDERABLES Final Result [facility] [address] [place] [address], [place] [phone] * (ABNORMAL) Comprehensive metabolic panel (03/20/2025 1:14 PM EDT) [facility] Sodium 139 133 - 145 mmol/L LAB CHEMISTRY METHOD 03/20/2025 2:[address] [facility] Potassium 5.6(H) 3.5 - 5.5 mmol/L LAB CHEMISTRY METHOD 03/20/2025 2:[address] [facility] Chloride 108 96 - 110 mmol/L LAB CHEMISTRY METHOD 03/20/2025 2:[address] [facility] CO2 26 21 - 32 mmol/L LAB CHEMISTRY METHOD 03/20/2025 2:[address] [facility] Anion Gap 5 3 - 11 LAB CHEMISTRY METHOD 03/20/2025 2:[address] [facility] Glucose 85 70 - 100 mg/dL LAB CHEMISTRY METHOD 03/20/2025 2:[address] [facility] BUN 39(H) 5 - 25 mg/dL LAB CHEMISTRY METHOD 03/20/2025 2:[address] [facility] Comment:Results verified by repeat testing Creatinine 1.35(H) 0.70 - 1.30 mg/dL LAB CHEMISTRY METHOD 03/20/2025 2:[address] [facility] eGFR 72 >=60 mL/min/1. 73m2 LAB CHEMISTRY METHOD 03/20/2025 2:[address] [facility] Comment:Calculation based on the Chronic Kidney Disease Epidemiology Collaboration (CKD-EPI) equation refit without adjustment for race. BUN/Creatinine Ratio 28.9 LAB CHEMISTRY METHOD 03/20/2025 2:[address] [facility] Calcium 9.0 8.5 - 10.5 mg/dL LAB CHEMISTRY METHOD 03/20/2025 2:[address] [facility] AST (SGOT) 14 10 - 42 unit/L LAB CHEMISTRY METHOD 03/20/2025 2:[address] [facility] ALT (SGPT) 18 10 - 60 unit/L LAB CHEMISTRY METHOD 03/20/2025 2:[address] [facility] Comment:Results verified by repeat testing Alkaline Phosphatase 71 42 - 121 unit/L LAB CHEMISTRY METHOD 03/20/2025 2:[address] [facility] Total Protein 4.5(L) 6.0 - 8.0 g/dL LAB CHEMISTRY METHOD 03/20/2025 2:[address] [facility] Albumin 1.3(L) 3.2 - 5.0 g/dL LAB CHEMISTRY METHOD 03/20/2025 2:[address] [facility] Comment:Results verified by repeat testing Total Bilirubin 0.2 0.0 - 1.4 mg/dL LAB CHEMISTRY METHOD 03/20/2025 2:[address] [facility] Blood Venous blood specimen / Unknown Venipuncture / Unknown 03/20/2025 1:14 PM EDT 03/20/2025 1:26 PM EDT us Marci VERGARA LAB BLOOD ORDERABLES Final Result [facility] [address] [place] [address], [place] [phone] * MR Abdomen wo Contrast (02/10/2025 9:08 PM EDT) Anatomical Region Laterality Modality Body Magnetic Resonan ce 02/11/2025 7:00 PM EDT Impressions 02/11/2025 7:19 PM EDT Severe hepatic steatosis and hepatomegaly. ??No imaging evidence of cirrhosis or portal hypertension. -------- FINAL REPORT -------- Dictated By: JASPER SHARMA Dictated Date: 02/11/2025 19:00 ET Assigned Physician: JASPER SHARMA Reviewed and Electronically Signed By: JASPER SHARMA Signed Date: 02/11/2025 19:19 ET Workstation ID: [id number] Transcribed By: Self Edit Transcribed Date: 02/11/2025 19:00 ET Narrative 02/11/2025 7:19 PM EDT PROCEDURE: Abdominal MRI INDICATION: Liver disease TECHNIQUE: Multiplanar, multisequence MRI of the abdomen Without contrast. COMPARISON: ??No priors available. FINDINGS: Severe hepatic steatosis with hepatomegaly. ??Liver measures 26 cm in craniocaudal dimension. ??Liver contours are smooth. ??No focal liver lesions. Gallbladder and biliary tree are normal. Pancreas, spleen, and adrenal glands are normal. Kidneys are normal. Abdominal aorta is normal in size. ??No retroperitoneal or mesenteric lymphadenopathy. ??Retroaortic left renal vein noted. Visualized portions of the bowel are normal. ??No ascites or fluid collection. Small hiatal hernia. ??Visualized intrathoracic structures are otherwise normal. No suspicious marrow replacing lesions throughout the bones. ??Superficial soft tissues are normal. Procedure Note Jasper Sharma MD - 02/11/2025 PROCEDURE: Abdominal MRI INDICATION: Liver disease TECHNIQUE: Multiplanar, multisequence MRI of the abdomen Withoutcontrast. COMPARISON: No priors available. FINDINGS: Severe hepatic steatosis with hepatomegaly. Liver measures 26 cm incraniocaudal dimension. Liver contours are smooth. No focal liverlesions. Gallbladder and biliary tree are normal. Pancreas, spleen, and adrenal glands are normal. Kidneys are normal. Abdominal aorta is normal in size. No retroperitoneal or mesentericlymphadenopathy. Retroaortic left renal vein noted. Visualized portions of the bowel are normal. No ascites or fluidcollection. Small hiatal hernia. Visualized intrathoracic structures are otherwisenormal. No suspicious marrow replacing lesions throughout the bones. Superficialsoft tissues are normal. IMPRESSION: Severe hepatic steatosis and hepatomegaly. No imaging evidence ofcirrhosis or portal hypertension. -------- FINAL REPORT -------- Dictated By: JASPER SHARMA Dictated Date: 02/11/2025 19:00 ET Assigned Physician: JASPER SHARMA Reviewed and Electronically Signed By: JASPER SHARMA Signed Date: 02/11/2025 19:19 ET Workstation ID: [id number] Transcribed By: Self Edit Transcribed Date: 02/11/2025 19:00 ET us Tiara Fields MD IMG MRI PROCEDUR ES Final Result * Vascular US duplex lower extremity venous insufficiency bilateral (01/28/2025 10:59 AM EDT) Anatomical Region Laterality Modality Vascular, Abdomen Ultrasound 01/28/2025 11:1 8 AM EDT Impressions 01/28/2025 11:22 AM EDT There is no evidence of thrombus or of reflux in the venous systems of the lower extremities bilaterally. Code 13888 -------- FINAL REPORT -------- Dictated By: Gregg Pope Dictated Date: 01/28/2025 11:18 ET Assigned Physician: Gregg Pope Reviewed and Electronically Signed By: Gregg Pope Signed Date: 01/28/2025 11:22 ET Workstation ID: [id number] Transcribed By: Self Edit Transcribed Date: 01/28/2025 11:18 ET Narrative 01/28/2025 11:22 AM EDT HISTORY: The patient is a 34-year-old male with bilateral lower extremity swelling. FINDINGS: Real-time ultrasonography of the venous systems of the lower extremities bilaterally is performed. In the right lower extremity, the common femoral, femoral, and popliteal veins are widely patent, without evidence of thrombus. There is normal compressibility and augmentation. The visualized calf veins, as well as the greater saphenous vein, are patent. The diameter of the greater saphenous vein in the upper thigh is 4.3 mm; in the mid thigh, 3.8 mm; and in the lower thigh, 4.8 mm. No venous reflux is seen In the left lower extremity, the common femoral, femoral, and popliteal veins are widely patent, without evidence of thrombus. There is normal compressibility and augmentation. The visualized calf veins, as well as the greater saphenous vein, are patent. The diameter of the greater saphenous vein in the upper thigh is 6.1 mm; in the mid thigh, 3.9 mm; and in the lower thigh, 3.7 mm. No venous reflux is seen. Procedure Note Gregg Pope MD - 01/28/2025 HISTORY: The patient is a 34-year-old male with bilateral lower extremityswelling. FINDINGS: Real-time ultrasonography of the venous systems of the lowerextremities bilaterally is performed. In the right lower extremity, thecommon femoral, femoral, and popliteal veins are widely patent, withoutevidence of thrombus. There is normal compressibility and augmentation.The visualized calf veins, as well as the greater saphenous vein, arepatent. The diameter of the greater saphenous vein in the upper thigh is4.3 mm; in the mid thigh, 3.8 mm; and in the lower thigh, 4.8 mm. Novenous reflux is seen In the left lower extremity, the common femoral, femoral, and poplitealveins are widely patent, without evidence of thrombus. There is normalcompressibility and augmentation. The visualized calf veins, as well asthe greater saphenous vein, are patent. The diameter of the greatersaphenous vein in the upper thigh is 6.1 mm; in the mid thigh, 3.9 mm; andin the lower thigh, 3.7 mm. No venous reflux is seen. IMPRESSION: There is no evidence of thrombus or of reflux in the venous systems of thelower extremities bilaterally. Code 81705 -------- FINAL REPORT -------- Dictated By: Gregg Pope Dictated Date: 01/28/2025 11:18 ET Assigned Physician: Gregg Pope Reviewed and Electronically Signed By: Gregg Pope Signed Date: 01/28/2025 11:22 ET Workstation ID: [id number] Transcribed By: Self Edit Transcribed Date: 01/28/2025 11:18 ET Tiara Fields MD CV VASCULAR PROC EDURES Final Result * XR Abdomen 1 View (01/26/2025 4:21 PM EDT) Anatomical Region Laterality Modality Body Radiographic Alissa ging 01/27/2025 7:49 AM EDT Impressions 01/27/2025 7:50 AM EDT Nonobstructive bowel gas pattern. There is no radiographic evidence of constipation as questioned clinically. Code 99140 -------- FINAL REPORT -------- Dictated By: Gregg Pope Dictated Date: 01/27/2025 07:49 ET Assigned Physician: Gregg Pope Reviewed and Electronically Signed By: Gregg Pope Signed Date: 01/27/2025 07:50 ET Workstation ID: [id number] Transcribed By: Self Edit Transcribed Date: 01/27/2025 07:49 ET Narrative 01/27/2025 7:50 AM EDT HISTORY: The patient is a 34-year-old male with postprandial diarrhea, as well as constipation. FINDINGS: Supine radiographs of the abdomen demonstrate normal appearance of the bony structures. The bowel gas pattern is nonobstructive. The volume of fecal material is not unusually increased. No mass or radiopaque calculus is seen. Procedure Note Gregg Pope MD - 01/27/2025 HISTORY: The patient is a 34-year-old male with postprandial diarrhea, aswell as constipation. FINDINGS: Supine radiographs of the abdomen demonstrate normal appearanceof the bony structures. The bowel gas pattern is nonobstructive. Thevolume of fecal material is not unusually increased. No mass or radiopaquecalculus is seen. IMPRESSION: Nonobstructive bowel gas pattern. There is no radiographic evidence ofconstipation as questioned clinically. Code 41877 -------- FINAL REPORT -------- Dictated By: Gregg Pope Dictated Date: 01/27/2025 07:49 ET Assigned Physician: Gregg Pope Reviewed and Electronically Signed By: Gregg Pope Signed Date: 01/27/2025 07:50 ET Workstation ID: [id number] Transcribed By: Self Edit Transcribed Date: 01/27/2025 07:49 ET Aline VERGARA IMG XR PROCEDURES Final Result * ECG 12 lead Tracing Only (01/18/2025 4:35 PM EDT) Tiara Fields MD ECG ORDERABLES Final Result * HIV 1,2 antibody, p24 antigen with reflex to differentiation (01/15/2025 1:17 PM EST) Pathologist [facility] [place] HIV Combo AB/AG Negative Negative LAB CHEMISTRY METHOD 01/15/2025 7:53 PM EST [facility] Blood Venous blood specimen / Unknown Venipuncture / Unknown 01/15/2025 1:17 PM EST 01/15/2025 1:17 PM EST Narrative [facility] - 01/15/2025 7:53 PM EST This assay is a 4th generation assay allowing for earlier detection of HIV infection by detecting the presence of the HIV-1 p24 antigen as well as the traditional antibodies to HIV type 1 (including group O) and type 2. ??Use of a 4th generation assay is the current CDC recommendation for HIV screening. Tiara Fields MD LAB BLOOD ORDERA BLES Final Result [facility] [address] [place] [address], [place] [phone] * (ABNORMAL) Lipid panel with reflex to direct LDL (12/14/2024 1:12 PM EST) Pathologist [facility] [place] Cholesterol 235(H) 0 - 200 mg/dL LAB CHEMISTRY METHOD 12/14/2024 5:58 PM EST [facility] Triglycerides 173(H) 0 - 150 mg/dL LAB CHEMISTRY METHOD 12/14/2024 5:58 PM [facility] HDL 42 >=40 mg/dL LAB CHEMISTRY METHOD 12/14/2024 5:58 PM [facility] LDL Calculated 158(H) 0 - 100 mg/dL LAB CHEMISTRY METHOD 12/14/2024 5:58 PM [facility] VLDL Cholesterol Thiago 34.6 mg/dL LAB CHEMISTRY METHOD 12/14/2024 5:58 PM [facility] Non HDL Chol. (LDL+VLDL) 193(H) <145 mg/dL LAB CHEMISTRY METHOD 12/14/2024 5:58 PM [facility] Chol/HDL Ratio 5.6(H) 0.0 - 4.4 LAB CHEMISTRY METHOD 12/14/2024 5:58 PM [facility] Blood Venous blood specimen / Unknown Venipuncture / Unknown 12/14/2024 1:12 PM EST 12/14/2024 1:12 PM EST Tiara Fields MD LAB BLOOD ORDERA BLES Final Result [facility] [address] [place] [address], * Hepatitis C Screening (03/11/2019) Pathologist [facility] Hepatitis C Screening Abstracted Historical Provider HEALTH MAINTENANCE Final Result from Last 3 Months or Most Recently Relevant to Health Maintenance Insurance [facility] [place] [address] Advance Directives * Full Code - Default (Latest Code Status on File) Date Activated Date Inactivated Comments 03/20/2025 5:08 PM 03/21/2025 6:01 PM This is orde r is used when code status has not been discussed with the patient, or code status is otherwise unknown/unconfirmed To update the patient's code status, place a code status order. Do not modify or discontinue any currently active code status orders. Care Teams Antique Refinisher Relationship Specialty Start Date End Date Tiara Fields MD [address] [place] [id number] PCP - General 02/10/24
[2025-04-20 18:27] LABS: Anion Gap 14 (12-20); Blood Urea Nitrogen 84 mg/dL (9-16); Carbon Dioxide 25 mmol/L (22-29); Chloride 105 mmol/L (96-108); Estimated Glomerular Filt Rate 48; Potassium 4.7 mmol/L (3.3-5.1); Sodium 139 mmol/L (135-145)
[2025-04-20 18:35] LABS: Creatinine Urine 49.21 mg/dL
[2025-04-20 18:59] LABS: Protein/Creatinine Ratio, Ur 12.96 (<0.2); Total Protein Urine Random 638 mg/dL (<12)
== END 2025-04-20 15:11 | disposition home or self-care (01) ==
LOC: HO.HKASLDS 15:10
PROVIDERS: Visit Provider Internal Medicine Nephrology
DX: N17.9 Acute kidney failure, unspecified (principal)
CPT/HCPCS: 36415; 80051; 82565; 82570; 84156; 84520

== ENCOUNTER 2025-04-22 11:01 | Outpatient (AMB) | payer OTHER, SELFPAY ==
--- NOTE | 2025-04-22 11:08 | HO.NEPHOV ---
Vital Signs 04/22/25 11:09 Height 6 ft 1 in Weight 313 lb 8 oz BMI 41.4 BP 130/90 H Blood Pressure Location Lt brachial Position Sitting Pulse 98 Pulse Source Pulse Oximeter Pulse Oximetry (%) 97 Oxygen Delivery Method Room Air Intake Visit Reasons: Dr Dhaliwal pt- [facility] [place] ER low K level/LVM Jelly Filter Tender Required: No Accompanied by: Self / Same As Patient Allergies No Known Allergies Allergy (Verified 04/22/25 11:09) HPI Comments Details: 34-year-old male with morbid obesity, vitamin-D deficiency is here for a follow-up visit from ED for hypokalemia. His labs are worrisome for 12 g proteinuria, creatinine 1.67 with GFR 48. He was seen in [facility] emergency for body cramps and dizziness and his K 2.9 and received 2 packs of KCl and his repeat K was was 3.3. 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 He is currently on Bumex 2mg every other day and metolozone. His base weight is around 300lbs according to him. [facility] Medical History (Updated 04/22/25 @ 11:18 by Joshua Pedro MD) Vitamin D deficiency disease Snoring Polyarthralgia Nephrotic syndrome Morbid obesity with body mass index (BMI) of 40.0 or higher Hyperlipidemia Gastroesophageal reflux disease with esophagitis without hemorrhage Fatty liver Erectile dysfunction due to diseases classified elsewhere Elevated ALT measurement Family History Father Bladder cancer Brother Kidney stone Mother Renal cyst Social History Alcohol intake: never Patient Tobacco Use Status: Never used Tobacco Review of Systems Const Details: Const + body aches, Denies chills, Denies excessive sweating and + fatigue Eyes Denies blurry vision and Denies change in vision ENT Denies bleeding gums and Denies change in voice Card Denies chest pain and Denies leg ulcers Resp Denies cough and Denies excessive phlegm production GI Denies abdominal pain and Denies bloating Denies hematuria, Denies urinary frequency and Denies difficulty voiding Musc Denies abnormal gait Neuro Denies Neuro-related abnormal movements, Denies abnormal gait and Denies behavioral changes Psych Denies behavioral changes and Denies change in appetite Endo Denies change in body appearance, Denies cold intolerance, Denies excessive sweating and Denies fatigue Physical Exam Vital Signs: Last Vital Signs Pulse 98 04/22/25 11:09 BP 130/90 H 04/22/25 11:09 Pulse Ox 97 04/22/25 11:09 Oxygen Delivery Method Room Air 04/22/25 11:09 BMI result Body Mass Index 41.4 General: Not in any acute distress, comfortable, sitting on the chair Nutritional Appearance: Morbidly obese, poorly nourished Eyes: appearance normal, both eyes and all related structures; Alignment and Position: alignment normal and position normal Neck: No lymphadenopathy, no thyromegaly Resp: bilateral air entry equal, no added sounds present Cardio: Regular rate, regular rhythm; Heart sounds: S1 normal heart sound present and S2 normal heart sound present, no edema GI: soft, nontender, no guarding, no hepatosplenomegaly : bladder normal to inspection, bladder normal to palpation, no renal angle tenderness Skin: no rashes or lesions noted and elasticity normal Neuro: oriented to person, oriented to place, oriented to time and moves all extremities Results Reviewed Nephrology Results: Sodium 139 mmol/L (135-145) 04/20/25 Potassium 4.7 mmol/L (3.3-5.1) 04/20/25 Chloride 105 mmol/L (96-108) 04/20/25 Carbon Dioxide 25 mmol/L (22-29) 04/20/25 BUN 84 mg/dL (9-16) H 04/20/25 Creatinine 1.67 mg/dL (0.5-1.4) H 04/20/25 Urine Creatinine 49.21 mg/dL 04/20/25 Protein/Creatinin Ratio 12.96 (<0.2) H 04/20/25 Assessment & Plan Assessment & Plan (1) Chronic kidney disease: Code(s): N18.9 - Chronic kidney disease, unspecified Category: Medical Plan Nephrotic syndrome: Patient was diagnosed with nephrotic syndrome secondary to FSGS, started on prednisone 80 mg along with Bumex 40 mg b.i.d. and metolazone 5 mg daily. He had some issues with adjusting his medications, has seen 3 evp sales in the past 2 months. Most recently he had hypokalemia down to 2.9 leading to ER visit secondary to cramps possibly secondary to over-diuresis. He has an upcoming visit with Dr. Whipple (who is out of town currently) on Saturday, who we will continue to manage his nephrotic syndrome. I sent the prescription for potassium chloride 20 mEq b.i.d. in the meantime. I asked the patient to weigh he has weight everyday in the morning and adjust his Bumex according to the weight. Take Bumex 4 mg b.i.d. as 2 mg doses not working, if the weight loss is more than 2 lb decrease to 4 mg daily, if there is weight gain add metolazone. The overall goal is to loose about 2 lb everyday. Coding Level of Care Code New Pt Level 4 (69145) Diagnoses Chronic kidney disease N18.9
[2025-04-22 11:09] VITALS: BP 130/90; PULSE 98; O2SAT 97; BMI 41.4
--- OUTSIDE RECORDS SUMMARY | 2025-04-22 12:59 | XMS_ITS | Clinical Summary ---
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 Role Phone Tiara Fields MD Primary [...] obesity with BMI of 4 0.0-44.9, adult ([facility] V24, [facility] V28) 12/14/2024 Assessment & Plan (12/14/2024 [...] Vitamin D deficiency disease 05/18/2020 Overview (11/05/2024): 03023 units for 8 weeks Assessment & Plan [...] Department Care Team Description 03/24/2025 Lab Requisition [facility] - Main Lab [address] [facility] [place] [address] Lukasz Basurto MD Proteinuria, unspecified 03/20/2025 12:13 PM EDT - 03/21/2025 3:53 PM EDT Hospital Encounter [facility] Unit [address] [place] [address] Pop Lopez MD Santoyo-Pacheco, Omar D, MD Nephrotic syndrome (Primary Dx); Hypermagnesemia; Hyperkalemia; Bilateral lower extremity edema; Other proteinuria; Hematuria, unspecified type Discharge Disposition: Home or Self Care 03/10/2025 Telephone Adult Medicine [address] [phone] Tiara Fields MD Referral 02/10/2025 7:16 PM EDT - 02/10/2025 11:59 PM EDT Hospital Encounter [facility] MRI [address] [place] [address] Fatty liver Discharge Disposition: Home or Self Care 01/28/2025 10:00 AM EDT - 01/28/2025 11:59 PM EDT Hospital Encounter [facility] Ultrasound [address] [place] [address] Leg swelling Discharge Disposition: Home or Self Care 01/27/2025 Telephone Gastroenterology - [address] [place] [phone] [place] 01/27/2025 Telephone Gastroenterology - [address] [facility] [address] [address] [place] 01/26/2025 4:08 PM EDT - 01/26/2025 11:59 PM EDT Hospital Encounter [facility] Xray [address] [place] [address] Irritable bowel syndrome with mixed bowel habits Discharge Disposition: Home or Self Care 01/26/2025 2:40 PM EDT Consult Gastroenterology - [address] [address] Aline Shah PA Irritable bowel syndrome with mixed bowel habits (Primary Dx); Nausea and vomiting, unspecified vomiting type; History of hematemesis; Fatty liver from Last 3 Months Immunizations Name Administration [...] ed Within the last 3 months, miranda mayes many times did you visit the emergency [...] care for your loved ones. For example, child care centre director or elderly care for an older adult? [...] Office Visit Gastroenterology - [address] [place] [phone] Aline Shah PA [address] [place] [address] Health Maintenance Due Date Last Done Comments [...] Irritable bowel syndrome with mixed bowel habits HIV 1, 2 ANTIBODY, P24 ANTIGEN WITH [...] (03/24/2025) Addendum This case was sent to [facility], Department of Pathology, [place], [place] (CLIA: [id number]). Their diagnosis is summarized as follows: Pathologic [...] report for full kidney biopsy diagnosis from [facility], [place], [place]) 04/13/2025 11:41 AM [facility] Addendum electronically signed by Chinmay Grant MD on 04/13/2025 at 11:41 AM Final Diagnosis Kidney, left-biopsy for light, immunofluorescence and electron microscopy: -Submitted to [place], [place]. See supplemental report 04/13/2025 11:41 AM [facility] Clinical Information 3 18g core samples from left kidney Proteinuria 04/13/2025 11:41 AM [facility] Gross Description A. Kidney, Left, [...] core. The specimen is entirely submitted to [facility] for analysis. LUKE 04/13/2025 11:41 AM [facility] Disclaimer Unless otherwise specified, all tissue is 10% NB formalin fixed and paraffin embedded. 04/13/2025 11:41 AM EDT [facility] Tissue Left kidney structure / Unknown 03/24/2025 03/24/2025 1:27 PM EDT us Lukasz Basurto MD LAB PATHOLOGY ORDERABLES Edited Result - Final [facility] [address] [place] [address], [place] [phone] * ECG-Annotated (03/22/2025) us Provider Onbase ECG ORDERABLES Final Result * US Retroperitoneal Limited (03/21/2025 10:25 AM EDT) Anatomical Region Laterality Modality Body Ultrasound 03/21/2025 10:1 1 AM EDT Impressions 03/21/2025 10:12 AM EDT Unremarkable ultrasound bladder. Normal bilateral ureteral jets seen. -------- FINAL REPORT -------- Dictated By: Benoit Fuller Dictated Date: 03/21/2025 10:11 ET Assigned Physician: Benoit Fuller Reviewed and Electronically Signed By: Benoit Fuller Signed Date: 03/21/2025 10:12 ET Workstation ID: [id number] Transcribed By: Self Edit Transcribed Date: 03/21/2025 [...] Signed Date: 03/21/2025 10:12 ET Workstation ID: [id number] Transcribed By: Self Edit Transcribed Date: 03/21/2025 10:11 ET us Devante Goss MD IMG US PROCEDURES Judy l Result * CBC auto differential (03/21/2025 7:04 AM EDT) Only the most recent of2 resultswithin the time period is included. WBC 8.6 4.8 - 10.8 K/mcL LAB HEMETOLOGY METHOD 03/21/2025 7:59 AM EDT [facility] RBC 5.10 4.50 - 5.50 M/mcL LAB HEMETOLOGY METHOD 03/21/2025 7:59 AM EDT [facility] Hemoglobin 15.3 13.5 - 17.5 g/dL LAB HEMETOLOGY METHOD 03/21/2025 7:59 AM [facility] Hematocrit 47.0 42.0 - 54.0 % LAB HEMETOLOGY METHOD 03/21/2025 7:59 AM EDT [facility] MCV 92.2 79.0 - 98.0 FL LAB HEMETOLOGY [facility] MCH 30.0 27.0 - 32.0 pcg LAB HEMETOLOGY METHOD [facility] MCHC 32.6 32.0 - 37.0 g/dL LAB HEMETOLOGY METHOD 03/21/2025 7:59 AM [facility] RDW 13.6 11.0 - 15.0 % LAB HEMETOLOGY METHOD 03/21/2025 7:59 AM [facility] Platelets 377 130 - 400 K/mcL LAB HEMETOLOGY METHOD 03/21/2025 7:59 AM [facility] MPV 10.6 7.0 - 11.0 FL LAB HEMETOLOGY METHOD 03/21/2025 7:59 AM [facility] NRBC 0.0 <1.0 % LAB HEMETOLOGY METHOD 03/21/2025 7:59 AM [facility] NRBC Absolute 0.00 <0.10 K/mcL LAB HEMETOLOGY METHOD 03/21/2025 7:59 AM [facility] Neutrophils Relative 49.6 % LAB HEMETOLOGY METHOD 03/21/2025 7:59 AM [facility] Lymphocytes Relative 39.5 % LAB HEMETOLOGY METHOD 03/21/2025 7:59 AM [facility] Monocytes Relative 6.9 % LAB HEMETOLOGY METHOD 03/21/2025 7:59 AM [facility] Eosinophils Relative 3.6 % LAB HEMETOLOGY METHOD 03/21/2025 7:59 AM [facility] Basophils Relative 0.2 % LAB HEMETOLOGY METHOD 03/21/2025 7:59 AM [facility] Immature Granulocytes Relative 0.2 % LAB HEMETOLOGY METHOD 03/21/2025 7:59 AM [facility] Neutrophils Absolute 4.25 1.50 - 7.00 K/mcL LAB HEMETOLOGY METHOD 03/21/2025 7:59 AM [facility] Lymphocytes Absolute 3.39 1.00 - 5.00 K/mcL LAB HEMETOLOGY METHOD 03/21/2025 7:59 AM EDT [facility] Monocytes Absolute 0.59 0.20 - 1.00 K/mcL LAB HEMETOLOGY METHOD 03/21/2025 7:59 AM EDT [facility] Eosinophils Absolute 0.31 0.00 - 0.50 K/mcL LAB HEMETOLOGY METHOD 03/21/2025 7:59 AM EDT [facility] Basophils Absolute 0.02 0.00 - 0.20 K/mcL LAB HEMETOLOGY METHOD 03/21/2025 7:59 AM EDT [facility] Immature Granulocytes Absolute 0.02 0.00 - 0.03 K/[facility] LAB HEMETOLOGY METHOD 03/21/2025 7:59 AM EDT [facility] Blood Venous blood specimen / Unknown Venipuncture / Unknown 03/21/2025 7:04 AM EDT 03/21/2025 7:44 AM EDT us Pop Lopez MD LAB BLOOD ORDERABLES Final Re sult Performing Organization Address City/[facility]/ZIP Co de Phone Number [facility] [address] [place] [phone], * (ABNORMAL) Magnesium (03/21/2025 7:04 AM EDT) Only the most recent of3 resultswithin the time period is included. Magnesium 2.7(H) 1.9 - 2.6 mg/dL LAB CHEMISTRY METHOD 03/21/2025 8:24 AM EDT [facility] Blood Venous blood specimen / Unknown Venipuncture / Unknown 03/21/2025 7:04 AM EDT 03/21/2025 7:45 AM EDT us Pop Lopez MD LAB BLOOD ORDERABLES Final Re sult [facility] [address] [place] [address], [place] [phone] * (ABNORMAL) Basic metabolic panel (03/21/2025 7:04 AM EDT) Only the most recent of2 resultswithin the time period is included. Sodium 138 133 - 145 mmol/L LAB CHEMISTRY METHOD 03/21/2025 8:24 AM [facility] Potassium 4.7 3.5 - 5.5 mmol/L LAB CHEMISTRY METHOD 03/21/2025 8:24 AM [facility] Chloride 106 96 - 110 mmol/L LAB CHEMISTRY METHOD 03/21/2025 8:24 AM [facility] CO2 27 21 - 32 mmol/L LAB CHEMISTRY METHOD 03/21/2025 8:24 AM [facility] Anion Gap 5 3 - 11 LAB CHEMISTRY METHOD 03/21/2025 8:24 AM [facility] Glucose 87 70 - 100 mg/dL LAB CHEMISTRY METHOD 03/21/2025 8:24 AM [facility] BUN 42(H) 5 - 25 mg/dL LAB CHEMISTRY METHOD 03/21/2025 8:24 AM [facility] Creatinine 1.64(H) 0.70 - 1.30 mg/dL LAB CHEMISTRY METHOD 03/21/2025 8:24 AM [facility] eGFR 57(L) >=60 mL/min/1. 73m2 LAB CHEMISTRY METHOD 03/21/2025 8:24 AM [facility] Comment:Calculation based on the Chronic Kidney Disease Epidemiology Collaboration (CKD-EPI) equation refit without adjustment for race. BUN/Creatinine Ratio 25.6 LAB CHEMISTRY METHOD 03/21/2025 8:24 AM [facility] Calcium 8.8 8.5 - 10.5 mg/dL LAB CHEMISTRY METHOD 03/21/2025 8:24 AM [facility] Blood Venous blood specimen / Unknown Venipuncture / Unknown 03/21/2025 7:04 AM EDT 03/21/2025 7:45 AM EDT Pop Lopez MD LAB BLOOD ORDERABLES Final Re sult Performing Organization Address City/[facility]/ZIP Co de Phone Number [facility] [address] [place] [address], [place] [phone] * ECG 12 lead (03/20/2025 3:23 PM EDT) Ventricular Rate ECG 79 BPM GEMUSE Atrial Rate 79 BPM GEMUSE P-R Interval 176 ms GEMUSE QRS Duration 86 ms GEMUSE Q-T Interval 374 ms GEMUSE QTc 428 ms GEMUSE P Wave [place] 45 degrees GEMUSE R [place] 30 degrees GEMUSE T [place] 26 degrees GEMUSE ECG Interpretation Normal sinus rhythm No previous ECGs available Confirmed by CHLOE SCOTT ([id number]) on 03/20/2025 11:24:01 PM GEMUSE 03/20/2025 3:23 PM EDT 03/20/2025 11:24 PM EDT Marci VERGARA ECG ORDERABLES Final Resu lt GEMUSE * Vascular US Duplex Lower Extremity Venous Bilateral (03/20/2025 1:55 PM EDT) Anatomical Region Laterality Modality Vascular, Abdomen Ultrasound 03/20/2025 2:11 PM EDT Impressions 03/20/2025 2:15 PM EDT The peroneal veins could not be visualized. ??No visible deep venous thrombosis of either lower extremity. -------- FINAL REPORT -------- Dictated By: Cristian Walekr Dictated Date: 03/20/2025 14:11 ET Assigned Physician: Cristian Walker Reviewed and Electronically Signed By: Cristian Walker Signed Date: 03/20/2025 14:15 ET Workstation ID: [id number] Transcribed By: Self Edit Transcribed Date: 03/20/2025 [...] Signed Date: 03/20/2025 14:15 ET Workstation ID: [id number] Transcribed By: Self Edit Transcribed Date: 03/20/2025 14:13 ET Marci VERGARA CV VASCULAR PROCEDURES Fin al Result * (ABNORMAL) Urinalysis with reflex microscopic and culture (03/20/2025 1:18 PM EDT) Pathologist [facility] Specific [place] Urine 1.025 1.003 - 1.030 LAB URINALYSIS - AUTOMATED METHOD 03/20/2025 1:58 PM [facility] pH, Urine 6.0 5.0 - 8.0 pH LAB URINALYSIS - AUTOMATED METHOD 03/20/2025 1:58 PM [facility] Leukocytes, Urine Negative Negative LAB URINALYSIS - AUTOMATED METHOD 03/20/2025 1:58 PM [facility] Nitrite, Urine Negative Negative LAB URINALYSIS - AUTOMATED METHOD 03/20/2025 1:58 PM [facility] Protein, Urine >=1000(A) <=Trace mg/dL LAB URINALYSIS - AUTOMATED METHOD 03/20/2025 1:58 PM [facility] Glucose, Urine Negative Negative mg/dL LAB URINALYSIS - AUTOMATED METHOD 03/20/2025 1:58 PM [facility] Ketones, Urine Negative Negative mg/dL LAB URINALYSIS - AUTOMATED METHOD 03/20/2025 1:58 PM [facility] Urobilinogen , Urine 0.2 0.2 - 1.0 mg/dL LAB URINALYSIS - AUTOMATED METHOD 03/20/2025 1:58 PM [facility] Bilirubin, Urine Negative Negative LAB URINALYSIS - AUTOMATED METHOD 03/20/2025 1:58 PM [facility] Blood, Urine Moderate(A) Negative LAB URINALYSIS - AUTOMATED METHOD 03/20/2025 1:58 PM [facility] RBC, Urine 6.0(H) 0 - 4 /HPF LAB URINALYSIS - AUTOMATED METHOD 03/20/2025 1:58 PM [facility] WBC, Urine 6.0(H) 0 - 4 /HPF LAB URINALYSIS - AUTOMATED METHOD 03/20/2025 1:58 PM [facility] Squamous Epithelial, Urine 20 0 - 60 /LPF LAB URINALYSIS - AUTOMATED METHOD 03/20/2025 1:58 PM EDT [facility] Bacteria, Urine Few(A) Negative /HPF LAB URINALYSIS - AUTOMATED METHOD 03/20/2025 1:58 PM EDT [facility] Hyaline Casts, Urine 60.6(H) 0 - 3 /LPF LAB URINALYSIS - AUTOMATED METHOD 03/20/2025 1:58 PM EDT [facility] Other Casts, Urine 10-20 COARSE GRANULAR /LPF LAB URINALYSIS - AUTOMATED METHOD 03/20/2025 1:58 PM EDT [facility] Urine Urine specimen obtained by clean catch procedure / Unknown Non-blood Collection / Unknown 03/20/2025 1:18 PM EDT 03/20/2025 1:26 PM EDT Marci VERGARA LAB URINE ORDERABLES Final Result Performing Organization Address [facility]/ZIP Co de Phone Number [facility] [address] [place] [address], [place] [phone] * Lowe urine culture tube (03/20/2025 1:18 PM EDT) Pathologist [facility] Extra Tube Hold for add-ons. 03/20/2025 3:01 PM EDT [facility] Comment:Auto resulted. Urine Urine specimen obtained by clean catch procedure / Unknown Non-blood Collection / Unknown 03/20/2025 1:18 PM EDT 03/20/2025 1:26 PM EDT Marci VERGARA LAB URINE ORDERABLES Final Result [facility] [address] [place] [address], [place] [phone] * (ABNORMAL) Comprehensive metabolic panel (03/20/2025 1:14 PM EDT) Sodium 139 133 - 145 mmol/L LAB CHEMISTRY METHOD 03/20/2025 2:16 PM [facility] Potassium 5.6(H) 3.5 - 5.5 mmol/L LAB CHEMISTRY METHOD 03/20/2025 2:16 PM [facility] Chloride 108 96 - 110 mmol/L LAB CHEMISTRY METHOD 03/20/2025 2:16 PM [facility] CO2 26 21 - 32 mmol/L LAB CHEMISTRY METHOD 03/20/2025 2:16 PM [facility] Anion Gap 5 3 - 11 LAB CHEMISTRY METHOD 03/20/2025 2:16 PM [facility] Glucose 85 70 - 100 mg/dL LAB CHEMISTRY METHOD 03/20/2025 2:16 PM [facility] BUN 39(H) 5 - 25 mg/dL LAB CHEMISTRY METHOD 03/20/2025 2:16 PM [facility] Comment:Results verified by repeat testing Creatinine 1.35(H) 0.70 - 1.30 mg/dL LAB CHEMISTRY METHOD 03/20/2025 2:16 PM [facility] eGFR 72 >=60 mL/min/1. 73m2 LAB CHEMISTRY METHOD 03/20/2025 2:16 PM [facility] Comment:Calculation based on the Chronic Kidney Disease Epidemiology Collaboration (CKD-EPI) equation refit without adjustment for race. BUN/Creatinine Ratio 28.9 LAB CHEMISTRY METHOD 03/20/2025 2:16 PM [facility] Calcium 9.0 8.5 - 10.5 mg/dL LAB CHEMISTRY METHOD 03/20/2025 2:16 PM [facility] AST (SGOT) 14 10 - 42 unit/L LAB CHEMISTRY METHOD 03/20/2025 2:16 PM [facility] ALT (SGPT) 18 10 - 60 unit/L LAB CHEMISTRY METHOD 03/20/2025 2:16 PM [facility] Comment:Results verified by repeat testing Alkaline Phosphatase 71 42 - 121 unit/L LAB CHEMISTRY METHOD 03/20/2025 2:16 PM EDT [facility] Total Protein 4.5(L) 6.0 - 8.0 g/dL LAB CHEMISTRY METHOD 03/20/2025 2:16 PM EDT [facility] Albumin 1.3(L) 3.2 - 5.0 g/dL LAB CHEMISTRY METHOD 03/20/2025 2:16 PM EDT [facility] Comment:Results verified by repeat testing Total Bilirubin 0.2 0.0 - 1.4 mg/dL LAB CHEMISTRY METHOD 03/20/2025 2:16 PM EDT [facility] Blood Venous blood specimen / Unknown Venipuncture / Unknown 03/20/2025 1:14 PM EDT 03/20/2025 1:26 PM EDT Marci VERGARA LAB BLOOD ORDERABLES Final Result [facility] [address] [place] [address], [place] [phone] * MR Abdomen wo Contrast (02/10/2025 9:08 [...] Signed Date: 02/11/2025 19:19 ET Workstation ID: [id number] Transcribed By: Self Edit Transcribed Date: 02/11/2025 [...] Signed Date: 02/11/2025 19:19 ET Workstation ID: [id number] Transcribed By: Self Edit Transcribed Date: 02/11/2025 19:00 ET us Tiara Fields MD [facility] MRI PROCEDUR ES Final Result * Vascular US duplex lower extremity venous insufficiency bilateral (01/28/2025 10:59 AM EDT) Anatomical Region Laterality Modality Vascular, Abdomen Ultrasound 01/28/2025 11:1 8 AM EDT Impressions 01/28/2025 11:22 AM EDT There is no evidence of thrombus or of reflux in the venous systems of the lower extremities bilaterally. Code 58312 -------- FINAL REPORT -------- Dictated By: Gregg Pope Dictated Date: 01/28/2025 11:18 ET Assigned Physician: Gregg Pope Reviewed and Electronically Signed By: Gregg Pope Signed Date: 01/28/2025 11:22 ET Workstation ID: [id number] Transcribed By: Self Edit Transcribed Date: 01/28/2025 [...] venous systems of thelower extremities bilaterally. Code 61105 -------- FINAL REPORT -------- Dictated By: Gregg Pope Dictated Date: 01/28/2025 11:18 ET Assigned Physician: Gregg Pope Reviewed and Electronically Signed By: Gregg Pope Signed Date: 01/28/2025 11:22 ET Workstation ID: [id number] Transcribed By: Self Edit Transcribed Date: 01/28/2025 11:18 ET Tiara Fields MD CV VASCULAR PROC EDURES Final Result * XR Abdomen 1 View (01/26/2025 4:21 PM EDT) Anatomical Region Laterality Modality Body Radiographic Alissa ging 01/27/2025 7:49 AM EDT Impressions 01/27/2025 7:50 AM EDT Nonobstructive bowel gas pattern. There is no radiographic evidence of constipation as questioned clinically. Code 43551 -------- FINAL REPORT -------- Dictated By: Gregg Pope Dictated Date: 01/27/2025 07:49 ET Assigned Physician: Gregg Pope Reviewed and Electronically Signed By: Gregg Pope Signed Date: 01/27/2025 07:50 ET Workstation ID: [id number] Transcribed By: Self Edit Transcribed Date: 01/27/2025 [...] radiographic evidence ofconstipation as questioned clinically. Code 91852 -------- FINAL REPORT -------- Dictated By: Gregg Pope Dictated Date: 01/27/2025 07:49 ET Assigned Physician: Gregg Pope Reviewed and Electronically Signed By: Gregg Pope Signed Date: 01/27/2025 07:50 ET Workstation ID: [id number] Transcribed By: Self Edit Transcribed Date: 01/27/2025 07:49 ET Aline VERGARA IMG XR PROCEDURES Final Result * HIV 1,2 antibody, p24 antigen with reflex to differentiation (01/15/2025 1:17 PM EST) HIV Combo AB/AG Negative Negative LAB CHEMISTRY METHOD 01/15/2025 7:53 PM EST [facility] Blood Venous blood specimen / Unknown Venipuncture / Unknown 01/15/2025 1:17 PM EST 01/15/2025 1:17 PM EST Narrative [facility] - 01/15/2025 7:53 PM EST [...] MD LAB BLOOD ORDERA BLES Final Result [facility] [address] [place] [address], [place] [phone] * (ABNORMAL) Lipid panel with reflex to direct LDL (12/14/2024 1:12 PM EST) Cholesterol 235(H) 0 - 200 mg/dL LAB CHEMISTRY METHOD 12/14/2024 5:58 PM EST [facility] Triglycerides 173(H) 0 - 150 mg/dL LAB CHEMISTRY METHOD 12/14/2024 5:58 PM EST [facility] HDL 42 >=40 mg/dL LAB CHEMISTRY METHOD 12/14/2024 5:58 PM EST [facility] LDL Calculated 158(H) 0 - 100 mg/dL LAB CHEMISTRY METHOD 12/14/2024 5:58 PM EST [facility] VLDL Cholesterol Thiago 34.6 mg/dL LAB CHEMISTRY METHOD 12/14/2024 5:58 PM EST [facility] Non HDL Chol. (LDL+VLDL) 193(H) <145 mg/dL LAB CHEMISTRY METHOD 12/14/2024 5:58 PM EST [facility] Chol/HDL Ratio 5.6(H) 0.0 - 4.4 LAB CHEMISTRY METHOD 12/14/2024 5:58 PM [facility] Blood Venous blood specimen / Unknown Venipuncture / Unknown 12/14/2024 1:12 PM EST 12/14/2024 1:12 PM EST us Tiraa Fields MD LAB BLOOD ORDERA BLES Final Result [facility] [address] [place] [address], * Hepatitis C Screening (03/11/2019) Hepatitis C Screening Abstracted Historical Provider HEALTH MAINTENANCE Final Result from Last 3 Months or Most Recently Relevant to Health Maintenance Insurance [facility] [employer] Advance Directives * Full Code - Default [...] currently active code status orders. Care Teams Diesel Maintenance Electrician Relationship Specialty Start Date End Date Tiara Fields MD [address] [place] [id number] PCP - General 02/10/24
== END 2025-04-22 12:02 | disposition home or self-care (01) ==
LOC: HO.HKAS 11:01
PROVIDERS: PCP Family Medicine; Visit Provider Internal Medicine Critical Care Medicine
DX: N18.9 Chronic kidney disease, unspecified (principal)
CPT/HCPCS: 99204

== ENCOUNTER → 2025-04-22 11:01 | Outpatient (BNVA) | payer OTHER, SELFPAY | PROVIDERS: PCP Family Medicine; Visit Provider Internal Medicine Critical Care Medicine | DX: E87.6 Hypokalemia (principal); E55.9 Vitamin D deficiency, unspecified; E66.01 Morbid (severe) obesity due to excess calories | CPT/HCPCS: 99202 ==

== ENCOUNTER 2025-04-27 15:49 | Outpatient (AMB) | payer OTHER, SELFPAY ==
[2025-04-27 16:12] VITALS: BP 140/98; PULSE 124; O2SAT 98; BMI 41.0
--- NOTE | 2025-04-27 16:12 | HO.NEPHOV_ITS ---
Vital Signs 04/27/25 16:12 Height 6 ft 1 in Weight 311 lb BMI 41.0 BP 140/98 H Blood Pressure Location Lt brachial Position Sitting Pulse 124 H Pulse Source Pulse Oximeter Pulse Oximetry (%) 98 Oxygen Delivery Method Room Air Intake Visit Reasons: 2wk follow-up w/[facility] [employer] Business Partner Consultant Required: No Accompanied by: Spouse Allergies No Known Allergies Allergy (Verified 04/27/25 16:14) HPI Comments Details: Heather was seen for follow up of MARIA ALEJANDRA and nephrotic range proteinuria on a backdrop of newly diagnosed biopsy proven primary FSGS. He had influenza in December 2024 and after that he started developing edema and was found to have nephrotic range proteinuria. His renal function was normal at that time. He had quite a bit of weight gain with edema as well as shortness of breath. He underwent extensive work by his primary care physician and had seen other renal physicians in different practice for the same complaint. He even underwent renal biopsy and was told at that time that he has FSGS. Initially he refused renal biopsy for some months and he continued to have worsening proteinuria, with a proteinuria going up to over 17 g. He was given Bumex, torsemide, furosemide, metolazone, Aldactone as well as losartan in the past. His previous renal physician felt that he was not adherent with his directions and he had been playing around with medications as well as multiple medical providers. During the course of months his serum creatinine started to rise with a drop in GFR. His previous renal physician has recommended admission to the hospital for intravenous diuretics, kidney biopsy and immunosuppression. He had multiple ER visits as well as urgent care consultations for various reasons including diffuse pains, weight gain and continued worsening of edema. It was thought in the past that he may have bowel wall edema and p.o. medications will be unsuccessful. He was prescribed prednisone by his previous renal MD. He was told that he may end up with ESRD. He has been taking PO prednisone since last visit. He developed cramps on diuretics and had been seen in ER and by my colleague. He also had cut back Bumex to 1 mg today without any medical guidance. He C/O having cramps as well as edema. [facility] Medical History (Updated 04/27/25 @ 07:01 by Joe Dhaliwal MD) Vitamin D deficiency disease Snoring Polyarthralgia Nephrotic syndrome Morbid obesity with body mass index (BMI) of 40.0 or higher Hyperlipidemia Gastroesophageal reflux disease with esophagitis without hemorrhage Fatty liver Erectile dysfunction due to diseases classified elsewhere Elevated ALT measurement Family History Father Bladder cancer Brother Kidney stone Mother Renal cyst Social History Alcohol intake: never Patient Tobacco Use Status: Never used Tobacco Review of Systems Const All systems reviewed & are unremarkable except as noted in HPI and below Physical Exam Vital Signs: Last Vital Signs Pulse 124 H 04/27/25 16:12 BP 140/98 H 04/27/25 16:12 Pulse Ox 98 04/27/25 16:12 Oxygen Delivery Method Room Air 04/27/25 16:12 BMI result Body Mass Index 41.0 Const General: comfortable and no acute distress Orientation/consciousness: patient oriented x3 HEENT Head: Yes normocephalic Mouth: Normal oral and palatal mucosa present Eyes EOM: EOMs intact bilaterally Neck Neck: Yes supple Resp Auscultation: clear to auscultation bilaterally Cardio Jugular venous distension: no JVD Rate: regular rate GI Palpation (GI): Soft to palpation Auscultation: normal bowel sounds General: Yes no CVA tenderness Back/Spine/Pelvis Back: no CVA tenderness Skin General skin exam: no rashes or lesions noted Neuro General: patient oriented x3 and moves all extremities Extrem General: Yes pedal edema Results Reviewed Nephrology Results: Sodium, (135-145) 139 mmol/L 04/20/25 Potassium, (3.3-5.1) 4.7 mmol/L 04/20/25 Chloride, (96-108) 105 mmol/L 04/20/25 Carbon Dioxide, (22-29) 25 mmol/L 04/20/25 BUN, (9-16) 84 mg/dL H 04/20/25 Creatinine, (0.5-1.4) 1.67 mg/dL H 04/20/25 Urine Creatinine 49.21 mg/dL 04/20/25 Protein/Creatinin Ratio, (<0.2) 12.96 H 04/20/25 Assessment & Plan Assessment & Plan (1) Edema: Code(s): R60.9 - Edema, unspecified Category: Medical Qualifiers: Edema type: generalized Qualified Code(s): R60.1 - Generalized edema (2) Nephrotic syndrome: Code(s): N04.9 - Nephrotic syndrome with unspecified morphologic changes Category: Medical (3) FSGS (focal segmental glomerulosclerosis): Code(s): N05.1 - Unspecified nephritic syndrome with focal and segmental glomerular lesions Category: Medical (4) MARIA ALEJANDRA (acute kidney injury): Code(s): N17.9 - Acute kidney failure, unspecified Category: Medical Plan Focus of treatment for his FSGS will include the following Dietary sodium restriction Antihypertensive therapy Renin-angiotensin system inhibition SGLT2 inhibitors Lipid lowering Anticoagulation Treatment of edema For the time being he will continue on high-dose prednisone. He will benefit from calcineurin inhibitor. I asked him to continue diuretics and started losartan 25 mg daily. I plan to initiate him on cyclosporine and see whether he is going to respond to it.Those with glucocorticoid-dependent FSGS may be alternatively treated with MMF/EC-MPS or rituximab or cytotoxic therapy like cyclophosphamide. In general, the duration of therapy varies according to the degree and rapidity of response (eg, faster taper for patients who achieve a quick remission), whether complete or partial remission is achieved, and the degree of glucocorticoid toxicity. If a complete remission is achieved within 8 to 12 weeks, I continue the initial dose of?prednisone for one to two more weeks and then taper the dose over two to three months. One strategy is to switch to alternate-day prednisone (double the daily dose but to a maximum of 80 to 120 mg), and then decrease the dose by approximately one-third every two to three weeks. If a partial remission is achieved by 8 to 12 weeks, we can taper prednisone slowly over three to nine months. We initially switch to alternate- day dosing and decrease the dose by one-third approximately every six weeks. For patients who have had a substantial reduction (>50 percent from baseline) in proteinuria by 8 to 12 weeks but do not meet criteria for partial remission (ie, proteinuria remains >3.5 g/day), the decision to continue high-dose prednisone or modify therapy is based upon the severity of glucocorticoid toxicity, the risk of continued therapy, and whether protein excretion is continuing to fall. Prednisone can be continued, for example, in patients whose proteinuria continues to decline, provided they are not experiencing severe side effects from therapy. If, at any time after a complete or partial remission is attained, proteinuria increases while the prednisone?is being tapered, we stop the taper and temporarily maintain the current prednisone dose while adding a CNI or, if the eGFR is <30 mL/min/1.73 m2, MMF/EC-MPS. Although the use of MMF/EC-MPS is not supported by evidence, some authors and editors of this topic use it in this setting based on its potential role as a glucocorticoid-sparing agent, its safe use in patients with low eGFR, and its role as maintenance therapy in other glomerular diseases such as minimal change disease and lupus nephritis. Adult patients who have little or no reduction in proteinuria after 16 weeks of daily?prednisone are presumed to be glucocorticoid resistant. In such patients, we prefer to add a CNI (or MMF if the eGFR is low) and switch to alternate-day prednisone with a progressive taper in prednisone therapy, reducing the dose by approximately one-third every week. (some of the references in management as mentioned above are taken from up-to-date ([email or web address]). Follow-up blood work was ordered and is going to see me for continued care.Answered all questions. Orders: Orders Blood Urea Nitrogen 2 Weeks N04.9 - Nephrotic syndrome with unspecified morphologic changes, N05.1 - Unspecified nephritic syndrome with focal and segmental glomerular lesions, N17.9 - Acute kidney failure, unspecified, R60.1 - Generalized edema Electrolytes 2 Weeks N04.9 - Nephrotic syndrome with unspecified morphologic changes, N05.1 - Unspecified nephritic syndrome with focal and segmental glomerular lesions, N17.9 - Acute kidney failure, unspecified, R60.1 - Generalized edema Calcium 2 Weeks N04.9 - Nephrotic syndrome with unspecified morphologic changes, N05.1 - Unspecified nephritic syndrome with focal and segmental glomerular lesions, N17.9 - Acute kidney failure, unspecified, R60.1 - Generalized edema Creatinine 2 Weeks N04.9 - Nephrotic syndrome with unspecified morphologic changes, N05.1 - Unspecified nephritic syndrome with focal and segmental glomerular lesions, N17.9 - Acute kidney failure, unspecified, R60.1 - Generalized edema Magnesium 2 Weeks N04.9 - Nephrotic syndrome with unspecified morphologic changes, N05.1 - Unspecified nephritic syndrome with focal and segmental glomerular lesions, N17.9 - Acute kidney failure, unspecified, R60.1 - Generalized edema Protein Creatinine Ratio, Ur 2 Weeks N04.9 - Nephrotic syndrome with unspecified morphologic changes, N05.1 - Unspecified nephritic syndrome with focal and segmental glomerular lesions, N17.9 - Acute kidney failure, unspecified, R60.1 - Generalized edema Medications: New losartan 25 mg PO DAILY 30 tabs 4RF Changed From prednisone 80 mg PO DAILY To prednisone 80 mg (4 x 20 mg) PO DAILY 120 tabs 3RF 30 days Coding Level of Care Code Est Pt Level 4 (60245) Diagnoses Generalized edema R60.1 Edema type: generalized Nephrotic syndrome N04.9 FSGS (focal segmental glomerulosclerosis) N05.1 MARIA ALEJANDRA (acute kidney injury) N17.9
--- OUTSIDE RECORDS SUMMARY | 2025-04-27 18:16 | XMS_ITS | Clinical Summary ---
Author Organization [address] Address [address] [place] [phone] Phone Care Team Providers Care Edger Machine Setter Name Role Phone Tiara Fields MD Primary [...] obesity with BMI of 4 0.0-44.9, adult ([facility] V24, [facility] V28) 12/14/2024 Assessment & Plan (12/14/2024 [...] Vitamin D deficiency disease 05/18/2020 Overview (11/05/2024): 60803 units for 8 weeks Assessment & Plan [...] Encounters Date Type Department Care Team Description 2025 Nurse Triage Adult Medicine [address] [phone] Tiara Fields MD Extremity Weakness; Leg Swelling 04/23/2025 Telephone Adult Medicine [address] [phone] iTara Fields MD ER follow up 03/24/2025 Lab Requisition [facility] - Main Lab [address] [facility] [place] [phone] Lukasz Basurto MD Proteinuria, unspecified 03/20/2025 12:13 PM EDT - 03/21/2025 3:53 PM EDT Hospital Encounter [facility] Medical Surgical Unit [address] [place] [address] Pop Lopez MD Santoyo-Pacheco, Omar D, MD Nephrotic syndrome (Primary Dx); Hypermagnesemia; Hyperkalemia; Bilateral lower extremity edema; Other proteinuria; Hematuria, unspecified type Discharge Disposition: Home or Self Care 03/10/2025 Telephone Adult Medicine [address] [phone] Tiara Fields MD Referral 02/10/2025 7:16 PM EDT - 02/10/2025 11:59 PM EDT Hospital Encounter [facility] MRI [address] [place] [address] Fatty liver Discharge Disposition: Home or Self Care 01/28/2025 10:00 AM EDT - 01/28/2025 11:59 PM EDT Hospital Encounter [facility] Ultrasound [address] [place] [address] Leg swelling Discharge Disposition: Home or Self Care 01/27/2025 Telephone Gastroenterology - [address] [facility] [address] [place] [phone] [place] 01/27/2025 Telephone Gastroenterology - [address] [facility] [address] [phone] [place] 01/26/2025 4:08 PM EDT - 01/26/2025 11:59 PM EDT Hospital Encounter [facility] Xray [address] [place] [address] Irritable bowel syndrome with mixed bowel habits Discharge Disposition: Home or Self Care 01/26/2025 2:40 PM EDT Consult Gastroenterology - [address] [facility] [address] [place] [phone] Aline Shah PA Irritable bowel syndrome with [...] for your loved ones. For example, child protective services specialist or elderly care for an older adult? [...] Care Team (Late st Contact Info) Description 04/30/2025 9:30 AM EDT Office Visit Adult Medicine [address] [phone] Phyllis Martino PA [address] [place] [address] Health Maintenance Due Date Last Done Comments [...] Routine 12/14/2024 1:12 PM EST Mixed hyperlipidemia HEPATITIS C SCREENING Routine 03/11/2019 from Last [...] (03/24/2025) Addendum This case was sent to [facility], Department of Pathology, [place], [place] (CLIA: [id number]). Their diagnosis is summarized as follows: Pathologic [...] report for full kidney biopsy diagnosis from [facility], [place], [place]) 04/13/2025 11:41 AM [facility] Addendum electronically signed by Chinmay Grant MD on 04/13/2025 at 11:41 AM Final Diagnosis Kidney, left-biopsy for light, immunofluorescence and electron microscopy: -Submitted to [facility], [place], [place]. See supplemental report 04/13/2025 11:41 AM [facility] Clinical Information 3 18g core samples from left kidney Proteinuria 04/13/2025 11:41 AM [facility] Gross Description A. Kidney, Left, core [...] core. The specimen is entirely submitted to [facility] [place] for analysis. LUKE 04/13/2025 11:41 AM EDT [facility] Disclaimer Unless otherwise specified, all tissue is 10% NB formalin fixed and paraffin embedded. 04/13/2025 11:41 AM EDT [facility] Tissue Left kidney structure / Unknown 03/24/2025 03/24/2025 1:27 PM EDT Lukasz Basurto MD LAB PATHOLOGY ORDERABLES Edited Result - Final [facility] [address] [place] [address], [place] [phone] * ECG-Annotated (03/22/2025) Provider Onbase MD ECG ORDERABLES Final Result * US Retroperitoneal [...] Signed Date: 03/21/2025 10:12 ET Workstation ID: [id number] Transcribed By: Self Edit Transcribed Date: 03/21/2025 [...] Signed Date: 03/21/2025 10:12 ET Workstation ID: [id number] Transcribed By: Self Edit Transcribed Date: 03/21/2025 10:11 ET us Devante Goss MD IMG US PROCEDURES Judy l Result * CBC auto differential (03/21/2025 7:04 AM EDT) Only the most recent of2 resultswithin the time period is included. WBC 8.6 4.8 - 10.8 K/mcL LAB HEMETOLOGY METHOD 03/21/2025 7:59 AM EDT [facility] RBC 5.10 4.50 - 5.50 M/mcL LAB HEMETOLOGY METHOD 03/21/2025 7:59 AM EDT [facility] Hemoglobin 15.3 13.5 - 17.5 g/dL LAB HEMETOLOGY METHOD 03/21/2025 7:59 AM EDT [facility] Hematocrit 47.0 42.0 - 54.0 % LAB HEMETOLOGY METHOD 03/21/2025 7:59 AM [facility] MCV 92.2 79.0 - 98.0 FL LAB HEMETOLOGY METHOD 03/21/2025 7:59 AM [facility] MCH 30.0 27.0 - 32.0 pcg LAB HEMETOLOGY METHOD 03/21/2025 7:59 AM [facility] MCHC 32.6 32.0 - 37.0 g/dL LAB HEMETOLOGY METHOD 03/21/2025 7:59 AM [facility] RDW 13.6 11.0 - 15.0 % LAB HEMETOLOGY METHOD 03/21/2025 7:59 AM [facility] Platelets 377 130 - 400 K/mcL LAB HEMETOLOGY METHOD 03/21/2025 7:59 AM [facility] MPV 10.6 7.0 - 11.0 FL LAB HEMETOLOGY METHOD 03/21/2025 7:59 AM [facility] NRBC 0.0 <1.0 % LAB HEMETOLOGY METHOD 03/21/2025 7:59 AM [facility] NRBC Absolute 0.00 <0.10 K/mcL LAB HEMETOLOGY METHOD 03/21/2025 7:59 AM [facility] Neutrophils Relative 49.6 % LAB HEMETOLOGY METHOD 03/21/2025 7:59 AM [facility] Lymphocytes Relative 39.5 % LAB HEMETOLOGY METHOD 03/21/2025 7:59 AM [facility] Monocytes Relative 6.9 % LAB HEMETOLOGY METHOD 03/21/2025 7:59 AM [facility] Eosinophils Relative 3.6 % LAB HEMETOLOGY METHOD 03/21/2025 7:59 AM [facility] Basophils Relative 0.2 % LAB HEMETOLOGY METHOD 03/21/2025 7:59 AM EDT [facility] Immature Granulocytes Relative 0.2 % LAB HEMETOLOGY METHOD 03/21/2025 7:59 AM EDT [facility] Neutrophils Absolute 4.25 1.50 - 7.00 K/mcL LAB HEMETOLOGY METHOD 03/21/2025 7:59 AM EDT [facility] Lymphocytes Absolute 3.39 1.00 - 5.00 K/mcL LAB HEMETOLOGY METHOD 03/21/2025 7:59 AM EDT [facility] Monocytes Absolute 0.59 0.20 - 1.00 K/mcL LAB HEMETOLOGY METHOD 03/21/2025 7:59 AM EDT [facility] Eosinophils Absolute 0.31 0.00 - 0.50 K/mcL LAB HEMETOLOGY METHOD 03/21/2025 7:59 AM EDT [facility] Basophils Absolute 0.02 0.00 - 0.20 K/mcL LAB HEMETOLOGY METHOD 03/21/2025 7:59 AM EDT [facility] Immature Granulocytes Absolute 0.02 0.00 - 0.03 K/mcL LAB HEMETOLOGY METHOD 03/21/2025 7:59 AM EDT [facility] Blood Venous blood specimen / Unknown Venipuncture / Unknown 03/21/2025 7:04 AM EDT 03/21/2025 7:44 AM EDT us Pop Lopez MD LAB BLOOD ORDERABLES Final Re sult [facility]) [facility] [address] [place] [address], * (ABNORMAL) Magnesium (03/21/2025 7:04 AM EDT) Only the most recent of3 resultswithin the time period is included. Magnesium 2.7(H) 1.9 - 2.6 mg/dL LAB CHEMISTRY METHOD 03/21/2025 8:24 AM [facility] Blood Venous blood specimen / Unknown Venipuncture / Unknown 03/21/2025 7:04 AM EDT 03/21/2025 7:45 AM EDT us Pop Lopez MD LAB BLOOD ORDERABLES Final Re sult [facility] [address] [place] [address], * (ABNORMAL) Basic metabolic panel (03/21/2025 7:04 AM EDT) Only the most recent of2 resultswithin the time period is included. Sodium 138 133 - 145 mmol/L LAB CHEMISTRY METHOD 03/21/2025 8:24 AM [facility] Potassium 4.7 3.5 - 5.5 mmol/L LAB CHEMISTRY METHOD 03/21/2025 8:24 AM [facility] Chloride 106 96 - 110 mmol/L LAB CHEMISTRY METHOD 03/21/2025 8:24 AM [facility] CO2 27 21 - 32 mmol/L LAB CHEMISTRY METHOD 03/21/2025 8:24 AM [facility] Anion Gap 5 3 - 11 LAB CHEMISTRY METHOD 03/21/2025 8:24 AM [facility] Glucose 87 70 - 100 mg/dL LAB CHEMISTRY METHOD 03/21/2025 8:24 AM [facility] BUN 42(H) 5 - 25 mg/dL LAB CHEMISTRY METHOD 03/21/2025 8:24 AM [facility] Creatinine 1.64(H) 0.70 - 1.30 mg/dL LAB CHEMISTRY METHOD 03/21/2025 8:24 AM [facility] eGFR 57(L) >=60 mL/min/1. 73m2 LAB CHEMISTRY METHOD 03/21/2025 8:24 AM EDT [facility] Comment:Calculation based on the Chronic Kidney Disease Epidemiology Collaboration (CKD-EPI) equation refit without adjustment for race. BUN/Creatinine Ratio 25.6 LAB CHEMISTRY METHOD 03/21/2025 8:24 AM EDT [facility] Calcium 8.8 8.5 - 10.5 mg/dL LAB CHEMISTRY METHOD 03/21/2025 8:24 AM EDT [facility] Blood Venous blood specimen / Unknown Venipuncture / Unknown 03/21/2025 7:04 AM EDT 03/21/2025 7:45 AM EDT us Pop Lopez MD LAB BLOOD ORDERABLES Final Re sult Performing Organization Address [facility] Co de Phone Number [facility] [address] [place] [address], [place] [phone] * ECG 12 lead (03/20/2025 3:23 PM EDT) Ventricular Rate ECG 79 BPM GEMUSE Atrial Rate 79 BPM GEMUSE P-R Interval 176 ms GEMUSE QRS Duration 86 ms GEMUSE Q-T Interval 374 ms GEMUSE QTc 428 ms GEMUSE P Wave [place] 45 degrees GEMUSE R [place] 30 degrees GEMUSE T [place] 26 degrees GEMUSE ECG Interpretation Normal sinus rhythm No previous ECGs available Confirmed by CHLOE SCOTT ([id number]) on 03/20/2025 11:24:01 PM GEMUSE 03/20/2025 3:23 PM EDT 03/20/2025 11:24 PM EDT us Marci VERGARA ECG ORDERABLES Final Resu lt Performing Organization Address City/[facility]/ZIP Co de Phone Number GEMUSE * Vascular US Duplex Lower Extremity [...] Signed Date: 03/20/2025 14:15 ET Workstation ID: [id number] Transcribed By: Self Edit Transcribed Date: 03/20/2025 [...] Signed Date: 03/20/2025 14:15 ET Workstation ID: [id number] Transcribed By: Self Edit Transcribed Date: 03/20/2025 14:13 ET Marci VERGARA CV VASCULAR PROCEDURES Fin al Result * (ABNORMAL) Urinalysis with reflex microscopic and culture (03/20/2025 1:18 PM EDT) Specific [place] Urine 1.025 1.003 - 1.030 LAB URINALYSIS - AUTOMATED METHOD [facility] pH, Urine 6.0 5.0 - 8.0 pH LAB URINALYSIS - AUTOMATED METHOD 03/20/2025 1:58 PM [facility] Leukocytes, Urine Negative Negative LAB URINALYSIS - AUTOMATED METHOD 03/20/2025 1:58 PM [facility] Nitrite, Urine Negative Negative LAB URINALYSIS - AUTOMATED METHOD 03/20/2025 1:58 PM [facility] Protein, Urine >=1000(A) <=Trace mg/dL LAB URINALYSIS - AUTOMATED METHOD 03/20/2025 1:58 PM [facility] Glucose, Urine Negative Negative mg/dL LAB URINALYSIS - AUTOMATED METHOD 03/20/2025 1:58 PM [facility] Ketones, Urine Negative Negative mg/dL LAB URINALYSIS - AUTOMATED METHOD 03/20/2025 1:58 PM [facility] Urobilinogen , Urine 0.2 0.2 - 1.0 mg/dL LAB URINALYSIS - AUTOMATED METHOD 03/20/2025 1:58 PM [facility] Bilirubin, Urine Negative Negative LAB URINALYSIS - AUTOMATED METHOD 03/20/2025 1:58 PM [facility] Blood, Urine Moderate(A) Negative LAB URINALYSIS - AUTOMATED METHOD 03/20/2025 1:58 PM [facility] RBC, Urine 6.0(H) 0 - 4 /HPF LAB URINALYSIS - AUTOMATED METHOD 03/20/2025 1:58 PM EDT [facility] WBC, Urine 6.0(H) 0 - 4 /HPF LAB URINALYSIS - AUTOMATED METHOD 03/20/2025 1:58 PM EDT [facility] Squamous Epithelial, Urine 20 0 - 60 /LPF LAB URINALYSIS - AUTOMATED METHOD 03/20/2025 1:58 PM EDT [facility] Bacteria, Urine Few(A) Negative /HPF LAB URINALYSIS - AUTOMATED METHOD 03/20/2025 1:58 PM EDT [facility] Hyaline Casts, Urine 60.6(H) 0 - 3 /LPF LAB URINALYSIS - AUTOMATED METHOD 03/20/2025 1:58 PM EDT [facility] Other Casts, Urine 10-20 COARSE GRANULAR /LPF LAB URINALYSIS - AUTOMATED METHOD 03/20/2025 1:58 PM EDT [facility] Urine Urine specimen obtained by clean catch procedure / Unknown Non-blood Collection / Unknown 03/20/2025 1:18 PM EDT 03/20/2025 1:26 PM EDT Marci VERGARA LAB URINE ORDERABLES Final Result [facility] [address] [place] [address], * Lowe urine culture tube (03/20/2025 1:18 PM EDT) Extra Tube Hold for add-ons. 03/20/2025 3:01 PM EDT [facility] Comment:Auto resulted. Urine Urine specimen obtained by clean catch procedure / Unknown Non-blood Collection / Unknown 03/20/2025 1:18 PM EDT 03/20/2025 1:26 PM EDT us Marci VERGARA LAB URINE ORDERABLES Final Result [facility] [address] [place] [address], * (ABNORMAL) Comprehensive metabolic panel (03/20/2025 1:14 PM EDT) Sodium 139 133 - 145 mmol/L LAB CHEMISTRY METHOD 03/20/2025 2:16 PM EDT [facility] Potassium 5.6(H) 3.5 - 5.5 mmol/L LAB CHEMISTRY METHOD 03/20/2025 2:16 PM T [facility] Chloride 108 96 - 110 mmol/L LAB CHEMISTRY METHOD 03/20/2025 2:16 PM [facility] CO2 26 21 - 32 mmol/L LAB CHEMISTRY METHOD 03/20/2025 2:16 PM [facility] Anion Gap 5 3 - 11 LAB CHEMISTRY METHOD 03/20/2025 2:16 PM [facility] Glucose 85 70 - 100 mg/dL LAB CHEMISTRY METHOD 03/20/2025 2:16 PM [facility] BUN 39(H) 5 - 25 mg/dL LAB CHEMISTRY METHOD 03/20/2025 2:16 PM [facility] Comment:Results verified by repeat testing Creatinine 1.35(H) 0.70 - 1.30 mg/dL LAB CHEMISTRY METHOD 03/20/2025 2:16 PM [facility] eGFR 72 >=60 mL/min/1. 73m2 LAB CHEMISTRY METHOD 03/20/2025 2:16 PM [facility] Comment:Calculation based on the Chronic Kidney Disease Epidemiology Collaboration (CKD-EPI) equation refit without adjustment for race. BUN/Creatinine Ratio 28.9 LAB CHEMISTRY METHOD 03/20/2025 2:16 PM T [facility] Calcium 9.0 8.5 - 10.5 mg/dL LAB CHEMISTRY METHOD 03/20/2025 2:16 PM EDT [facility] AST (SGOT) 14 10 - 42 unit/L LAB CHEMISTRY METHOD 03/20/2025 2:16 PM T [facility] ALT (SGPT) 18 10 - 60 unit/L LAB CHEMISTRY METHOD 03/20/2025 2:16 PM EDT [facility] Comment:Results verified by repeat testing Alkaline Phosphatase 71 42 - 121 unit/L LAB CHEMISTRY METHOD 03/20/2025 2:16 PM EDT [facility] Total Protein 4.5(L) 6.0 - 8.0 g/dL LAB CHEMISTRY METHOD 03/20/2025 2:16 PM T [facility] Albumin 1.3(L) 3.2 - 5.0 g/dL LAB CHEMISTRY METHOD 03/20/2025 2:16 PM EDT [facility] Comment:Results verified by repeat testing Total Bilirubin 0.2 0.0 - 1.4 mg/dL LAB CHEMISTRY METHOD 03/20/2025 2:16 PM T [facility] Blood Venous blood specimen / Unknown Venipuncture / Unknown 03/20/2025 1:14 PM EDT 03/20/2025 1:26 PM EDT Marci VERGARA LAB BLOOD ORDERABLES Final Result [facility] [address] [place] [address], [place] [phone] * MR Abdomen wo Contrast (02/10/2025 9:08 [...] Signed Date: 02/11/2025 19:19 ET Workstation ID: [id number] Transcribed By: Self Edit Transcribed Date: 02/11/2025 [...] Signed Date: 02/11/2025 19:19 ET Workstation ID: [id number] Transcribed By: Self Edit Transcribed Date: 02/11/2025 [...] systems of the lower extremities bilaterally. Code 45465 -------- FINAL REPORT -------- Dictated By: Gregg Pope Dictated Date: 01/28/2025 11:18 ET Assigned Physician: Gregg Pope Reviewed and Electronically Signed By: Gregg Pope Signed Date: 01/28/2025 11:22 ET Workstation ID: [id number] Transcribed By: Self Edit Transcribed Date: 01/28/2025 [...] venous systems of thelower extremities bilaterally. Code 55855 -------- FINAL REPORT -------- Dictated By: Gregg Pope Dictated Date: 01/28/2025 11:18 ET Assigned Physician: Gregg Pope Reviewed and Electronically Signed By: Gregg Pope Signed Date: 01/28/2025 11:22 ET Workstation ID: [id number] Transcribed By: Self Edit Transcribed Date: 01/28/2025 11:18 ET us Tiara Fields MD CV VASCULAR PROC EDURES Final Result * XR Abdomen 1 View (01/26/2025 4:21 PM EDT) Anatomical Region Laterality Modality Body Radiographic Alissa ging 01/27/2025 7:49 AM EDT Impressions 01/27/2025 7:50 AM EDT Nonobstructive bowel gas pattern. There is no radiographic evidence of constipation as questioned clinically. Code 74721 -------- FINAL REPORT -------- Dictated By: Gregg Pope Dictated Date: 01/27/2025 07:49 ET Assigned Physician: Gregg Pope Reviewed and Electronically Signed By: Gregg Pope Signed Date: 01/27/2025 07:50 ET Workstation ID: [id number] Transcribed By: Self Edit Transcribed Date: 01/27/2025 [...] radiographic evidence ofconstipation as questioned clinically. Code 08688 -------- FINAL REPORT -------- Dictated By: Gregg Pope Dictated Date: 01/27/2025 07:49 ET Assigned Physician: Gregg Pope Reviewed and Electronically Signed By: Gregg Pope Signed Date: 01/27/2025 07:50 ET Workstation ID: [id number] Transcribed By: Self Edit Transcribed Date: 01/27/2025 07:49 ET us Aline VERGARA IMG XR PROCEDURES Final Result * HIV 1,2 antibody, p24 antigen with reflex to differentiation (01/15/2025 1:17 PM EST) [facility] HIV Combo AB/AG Negative Negative LAB CHEMISTRY METHOD 01/15/2025 7:53 PM [facility] Blood Venous blood specimen / Unknown Venipuncture / Unknown 01/15/2025 1:17 PM EST 01/15/2025 1:17 PM EST [facility] - 01/15/2025 7:53 PM EST This [...] MD LAB BLOOD ORDERA BLES Final Result [facility] [address] [place] [address], [place] [phone] * (ABNORMAL) Lipid panel with reflex to direct LDL (12/14/2024 1:12 PM EST) [facility] Cholesterol 235(H) 0 - 200 mg/dL LAB CHEMISTRY METHOD 12/14/2024 5:58 PM [facility] Triglycerides 173(H) 0 - 150 mg/dL LAB CHEMISTRY METHOD 12/14/2024 5:58 PM [facility] HDL 42 >=40 mg/dL LAB CHEMISTRY METHOD 12/14/2024 5:58 PM [facility] LDL Calculated 158(H) 0 - 100 mg/dL LAB CHEMISTRY METHOD 12/14/2024 5:58 PM [facility] VLDL Cholesterol [place] 34.6 mg/dL LAB CHEMISTRY METHOD 12/14/2024 5:58 PM [facility] Non HDL Chol. (LDL+VLDL) 193(H) <145 mg/dL LAB CHEMISTRY METHOD 12/14/2024 5:58 PM EST [facility] Chol/HDL Ratio 5.6(H) 0.0 - 4.4 LAB CHEMISTRY METHOD 12/14/2024 5:58 PM EST [facility] Blood Venous blood specimen / Unknown Venipuncture / Unknown 12/14/2024 1:12 PM EST 12/14/2024 1:12 PM EST Tiara Fields MD LAB BLOOD ORDERA BLES Final Result [facility] [address] [place] [address], * Hepatitis C Screening (03/11/2019) [facility] Hepatitis C Screening Abstracted Historical Provider HEALTH MAINTENANCE Final Result from Last 3 Months or Most Recently Relevant to Health Maintenance Insurance [facility] Advance Directives * Full Code - [...] currently active code status orders. Care Teams Edger Machine Setter Relationship Specialty Start Date End Date OgundTiara zafar MD [address] [place] [phone] PCP - General 02/10/24
== END 2025-04-27 16:50 | disposition home or self-care (01) ==
LOC: HO.HKAS 15:49
PROVIDERS: PCP Family Medicine; Visit Provider Internal Medicine Nephrology
DX: R60.1 Generalized edema (principal); N04.9 Nephrotic syndrome with unspecified morphologic changes; N05.1 Unspecified nephritic syndrome with focal and segmental glomerular lesions; N17.9 Acute kidney failure, unspecified
CPT/HCPCS: 99214

== ENCOUNTER → 2025-04-27 15:49 | Outpatient (BNVA) | payer OTHER, SELFPAY | PROVIDERS: PCP Family Medicine; Visit Provider Internal Medicine Nephrology | DX: R60.1 Generalized edema (principal); N04.9 Nephrotic syndrome with unspecified morphologic changes; N05.1 Unspecified nephritic syndrome with focal and segmental glomerular lesions; N17.9 Acute kidney failure, unspecified | CPT/HCPCS: 99212 ==

== ENCOUNTER 2025-05-17 16:51 | Outpatient (REF) | payer OTHER, SELFPAY ==
--- OUTSIDE RECORDS SUMMARY | 2025-05-17 16:54 | XMS_ITS | Encounter Summary ---
Author Organization [facility] Address [address] [place] [address] Care Team Providers Care Echocardiographer Name Role Phone Tiara Fields MD Primary Care Pr ovider Reason for Visit * Reason Onset Date Comments Extremity Weakness 2025 Leg Swelling 2025 Encounter Details Date Type Department Care Team (Late st Contact Info) Description 2025 Nurse Triage Adult Medicine [address] [phone] Tiara Fields MD [address] [place] [id number] Extremity Weakness; Leg Swelling Social History Tobacco Use Types Packs/Day Years Used Date Smoking Tobacco: Former Cigarettes 1.5 10 Cigars Smokeless Tobacco: Never Alcohol Use Standard Drinks/Week Comments No 0 [...] care for your loved ones. For example, children's entertainer or elderly care for an older adult? [...] Orientation Straight 12/11/2024 9: 36 PM EST documented as of this encounter Progress Notes * Jolanta Hagen RN - 2025 1:41 PM EDT Reason for Disposition [1] Can't walk or can barely walk AND [2] new-onset Answer Assessment - Initial Assessment Questions 1. ONSET: When did the swelling start? (e.g., minutes, hours, days) Left Leg cramping , warmth , no redness swelling from calf to toes increase cramping bring toes toward love causes pain Numbness on feet 2. LOCATION: What part of the leg is swollen? Are both legs swollen or just one leg? Both legs are swollen but left is having increase cramping and warmth 3. SEVERITY: How bad is the swelling? (e.g., localized; mild, moderate, severe) increase swellingin both legs severe in left leg - NONE: No ankle or leg swelling. - LOCALIZED: Small area of swelling localized to one leg. - MILD Edema: Swelling limited to foot and ankle, pitting edema < 1/4 inch (6 mm) deep, rest andelevation eliminate most or all swelling. - MODERATE Edema: Swelling of lower leg to knee, pitting edema > 1/4 inch (6 mm) deep, rest and elevation only partially reduce swelling. - SEVERE Edema: Swelling extends above knee, facial or hand swelling may also be present. Severe pt. Relates this swelling to his kidney disease 4. REDNESS: Does the swelling look red or infected? No redness but has warmth calf down to toes 5. PAIN: Is the swelling painful to touch? If Yes, ask: How painful is it? (Scale 1-10; mild, moderate or severe) Cramping 6. FEVER: Do you have a fever? If Yes, ask: What is it, how was it measured, and when did it start? No fever or chills 7. CAUSE: What do you think is causing the leg swelling? Kidney disease 8. MEDICAL HISTORY: Do you have a history of blood clots (e.g., DVT), cancer, heart failure, kidney disease, or liver failure? Kidney disease 9. RECURRENT SYMPTOM: Have you had leg swelling before? If Yes, ask: When was the last time? What happened that time? 3weeks with worsening symptoms 10. OTHER SYMPTOMS: Do you have any other symptoms? (e.g., chest pain, difficulty breathing) No chest pain , sob or dizziness now but had cp last week 11. : Is there any chance you are ? When was your last menstrual period? N/A Protocols used: Leg Swelling and Edema-A-AH Advised to be evaluated in the ER. R/o DVT or electrolyte imbalance * Sarahi Pollard - 2025 1:11 PM EDT Patient call requires triage: Symptoms patient is presenting: patient is reporting left leg weakness, swelling, cramping and is concerned for blood clots. Numbness in left foot, also. Some in the R foot. He is asking for an US today. Patient does not want to go to the ER. Says his heart rate is elevated at 144. Please advise. How long has patient had these symptoms?: Saturday For ALL patients calling to schedule any appointment (routine, sick visit, follow up, consult, etc.) in the outpatient setting please ask the following questions: Do you have fever of higher than 101, sore throat with difficulty swallowing or severe shortness ofbreath? no If YES to any of these above symptoms, send a message to triage and do not book. Red dot. If no, an audio or video visit should be booked. Have you had close contact with someone with Coronavirus in the last 14 days? no Have you traveled abroad? no Have you traveled recently to another state outside of [place], [place], [place], [place], [place], [place], [place]? no o If yes, did you quarantine for 14 days or have a negative covid test? no If yes to any of the above, patient is not to be scheduled in office until after 14 day quarantine or negative covid test. If pain or injury related was it due to an accident at work or from a motor vehicle accident? If yes, date of accident/Injury: No If yes, gather 3rd constitution party insurance information Third Republican Information: not applicable PCP: Tiara Fields MD Payor: [employer] PLAN / Plan: [employer] MEDICAID / Product Type: *No Product type* / documented in this encounter Plan of Treatment Upcoming Encounters Date Type Department Care Team (Late st Contact Info) Description 05/18/2025 2:30 PM EDT Nutrition Internal Medicine - [place] [address] [facility] [address] [place] [phone] Olga Murphy, RD [address] [place] [phone] 05/27/2025 9:30 AM EDT Ancillary Procedure [facility] Cardiology [facility] [address] [facility] [address] [place] [address] 05/27/2025 10:30 AM EDT Ancillary Procedure [facility] - [facility] [address] [phone] 07/28/2025 2:00 PM EDT Office Visit Adult Medicine [address] [phone] Tiara Fields MD [address] [place] [phone] documented as of this encounter Visit Diagnoses Not on filedocumented in this encounter Additional Health Concerns Assessment Noted Time PHQ-9 Depression Total Score: 24 025 9:42 PM EST documented as of this encounter Care Teams Echocardiographer Relationship Specialty Start Date End Date Tiara Fields MD [address] [place] [phone] PCP - General 02/10/24 documented as of this encounter
[2025-05-17 17:55] LABS: Anion Gap 14 (12-20); Blood Urea Nitrogen 63 mg/dL (9-16); Calcium 8.4 mg/dL (8.4-10.2); Carbon Dioxide 28 mmol/L (22-29); Chloride 103 mmol/L (96-108); Estimated Glomerular Filt Rate 51; Magnesium 2.3 mg/dL (1.6-2.6); Potassium 4.4 mmol/L (3.3-5.1); Sodium 141 mmol/L (135-145)
[2025-05-17 18:51] LABS: Protein/Creatinine Ratio, Ur 18.17 (<0.2); Total Protein Urine Random 1441 mg/dL (<12)
== END 2025-05-17 16:52 | disposition home or self-care (01) ==
LOC: HO.LAB 16:51
PROVIDERS: Visit Provider Internal Medicine Nephrology
DX: N17.9 Acute kidney failure, unspecified (principal); N04.9 Nephrotic syndrome with unspecified morphologic changes; N05.1 Unspecified nephritic syndrome with focal and segmental glomerular lesions; R60.1 Generalized edema
CPT/HCPCS: 36415; 80051; 82310; 82565; 82570; 83735; 84156; 84520

== ENCOUNTER 2025-05-18 10:10 | Outpatient (AMB) | payer OTHER, SELFPAY ==
[2025-05-18 10:12] VITALS: BP 152/98; PULSE 110; O2SAT 97; BMI 39.3
--- NOTE | 2025-05-18 10:12 | HO.NEPHOV ---
Vital Signs 05/18/25 10:12 Height 6 ft 1 in Weight 298 lb BMI 39.3 BP 152/98 H Blood Pressure Location Lt brachial Position Sitting Pulse 110 H Pulse Source Pulse Oximeter Pulse Oximetry (%) 97 Oxygen Delivery Method Room Air Intake Visit Reasons: 2-3 week f/u-[employer] Associate Required: No Accompanied by: Self / Same As Patient Allergies No Known Allergies Allergy (Verified 05/18/25 10:14) HPI Comments Details: Heather was seen for follow up of MARIA ALEJANDRA and nephrotic range proteinuria on a backdrop of newly diagnosed biopsy proven primary FSGS. He had influenza in December 2024 and after that he started developing edema and was found to have nephrotic range proteinuria. His renal function was normal at that time. He had quite a bit of weight gain with edema as well as shortness of breath. He underwent extensive work by his primary care physician and had seen other renal physicians in different practice for the same complaint. He even underwent renal biopsy and was told at that time that he has FSGS. Initially he refused renal biopsy for some months and he continued to have worsening proteinuria, with a proteinuria going up to over 17 g. He was given Bumex, torsemide, furosemide, metolazone, Aldactone as well as losartan in the past. His previous renal physician felt that he was not adherent with his directions and he had been playing around with medications as well as multiple medical providers. During the course of months his serum creatinine started to rise with a drop in GFR. His previous renal physician has recommended admission to the hospital for intravenous diuretics, kidney biopsy and immunosuppression. He had multiple ER visits as well as urgent care consultations for various reasons including diffuse pains, weight gain and continued worsening of edema. It was thought in the past that he may have bowel wall edema and p.o. medications will be unsuccessful. He was prescribed prednisone by his previous renal MD. He was told that he may end up with ESRD. He has been taking PO prednisone. [facility] Medical History (Updated 04/27/25 @ 07:01 by Joe Dhaliwal MD) Vitamin D deficiency disease Snoring Polyarthralgia Nephrotic syndrome Morbid obesity with body mass index (BMI) of 40.0 or higher Hyperlipidemia Gastroesophageal reflux disease with esophagitis without hemorrhage Fatty liver Erectile dysfunction due to diseases classified elsewhere Elevated ALT measurement Family History Father Bladder cancer Brother Kidney stone Mother Renal cyst Social History Alcohol intake: never Patient Tobacco Use Status: Never used Tobacco Review of Systems Const All systems reviewed & are unremarkable except as noted in HPI and below Physical Exam Vital Signs: Last Vital Signs Pulse 110 H 05/18/25 10:12 BP 152/98 H 05/18/25 10:12 Pulse Ox 97 05/18/25 10:12 Oxygen Delivery Method Room Air 05/18/25 10:12 BMI result Body Mass Index 39.3 Const General: comfortable and no acute distress Orientation/consciousness: patient oriented x3 HEENT Head: Yes normocephalic Mouth: Normal oral and palatal mucosa present Eyes EOM: EOMs intact bilaterally Neck Neck: Yes supple Resp Auscultation: clear to auscultation bilaterally Cardio Jugular venous distension: no JVD Rate: regular rate GI Palpation (GI): Soft to palpation Auscultation: normal bowel sounds General: Yes no CVA tenderness Back/Spine/Pelvis Back: no CVA tenderness Skin General skin exam: no rashes or lesions noted Neuro General: patient oriented x3 and moves all extremities Extrem General: Yes no pedal edema Results Reviewed Nephrology Results: Sodium, (135-145) 141 mmol/L 05/17/25 Potassium, (3.3-5.1) 4.4 mmol/L 05/17/25 Chloride, (96-108) 103 mmol/L 05/17/25 Carbon Dioxide, (22-29) 28 mmol/L 05/17/25 BUN, (9-16) 63 mg/dL H 05/17/25 Creatinine, (0.5-1.4) 1.57 mg/dL H 05/17/25 Calcium, (8.4-10.2) 8.4 mg/dL 05/17/25 Urine Creatinine 79.29 mg/dL 05/17/25 Protein/Creatinin Ratio, (<0.2) 18.17 H 05/17/25 Assessment & Plan Assessment & Plan (1) Nephrotic syndrome: Code(s): N04.9 - Nephrotic syndrome with unspecified morphologic changes Category: Medical (2) FSGS (focal segmental glomerulosclerosis): Code(s): N05.1 - Unspecified nephritic syndrome with focal and segmental glomerular lesions Category: Medical Plan Focus of treatment for his FSGS will include the following Dietary sodium restriction Antihypertensive therapy Renin-angiotensin system inhibition SGLT2 inhibitors Lipid lowering Anticoagulation Treatment of edema For the time being he will continue on high-dose prednisone. He will benefit from calcineurin inhibitor. I asked him to continue diuretics and restarted losartan 25 mg daily. ( he has been starting and stopping medications including losartan by himself). I initiated him on cyclosporine and see whether he is going to respond to it. I started at 300 mg bid. Those with glucocorticoid-dependent FSGS may be alternatively treated with MMF/EC-MPS or rituximab or cytotoxic therapy like cyclophosphamide. In general, the duration of therapy varies according to the degree and rapidity of response (eg, faster taper for patients who achieve a quick remission), whether complete or partial remission is achieved, and the degree of glucocorticoid toxicity. If a complete remission is achieved within 8 to 12 weeks, I continue the initial dose of?prednisone and then taper the dose over two to three months. One strategy is to switch to alternate-day prednisone (double the daily dose but to a maximum of 80 to 120 mg), and then decrease the dose by approximately one-third every two to three weeks. If a partial remission is achieved by 8 to 12 weeks, we can taper prednisone slowly over three to nine months. We initially switch to alternate-day dosing and decrease the dose by one-third approximately every six weeks. For patients who have had a substantial reduction (>50 percent from baseline) in proteinuria by 8 to 12 weeks but do not meet criteria for partial remission (ie, proteinuria remains >3.5 g/day), the decision to continue high-dose prednisone or modify therapy is based upon the severity of glucocorticoid toxicity, the risk of continued therapy, and whether protein excretion is continuing to fall. Prednisone can be continued, for example, in patients whose proteinuria continues to decline, provided they are not experiencing severe side effects from therapy. If, at any time after a complete or partial remission is attained, proteinuria increases while the prednisone?is being tapered, we stop the taper and temporarily maintain the current prednisone dose while adding a CNI or, if the eGFR is <30 mL/min/1.73 m2, MMF/EC-MPS. Although the use of MMF/EC-MPS is not supported by evidence, some authors and editors of this topic use it in this setting based on its potential role as a glucocorticoid-sparing agent, its safe use in patients with low eGFR, and its role as maintenance therapy in other glomerular diseases such as minimal change disease and lupus nephritis. Adult patients who have little or no reduction in proteinuria after 16 weeks of daily?prednisone are presumed to be glucocorticoid resistant. In such patients, we prefer to add a CNI (or MMF if the eGFR is low) and switch to alternate-day prednisone with a progressive taper in prednisone therapy, reducing the dose by approximately one-third every week. (some of the references in management as mentioned above are taken from up-to-date ([employer]). Follow-up blood work was ordered and is going to see me for continued care.Answered all questions. Orders: Orders Protein Creatinine Ratio, Ur 2 Weeks N04.9 - Nephrotic syndrome with unspecified morphologic changes, N05.1 - Unspecified nephritic syndrome with focal and segmental glomerular lesions Calcium 2 Weeks N04.9 - Nephrotic syndrome with unspecified morphologic changes, N05.1 - Unspecified nephritic syndrome with focal and segmental glomerular lesions Electrolytes 2 Weeks N04.9 - Nephrotic syndrome with unspecified morphologic changes, N05.1 - Unspecified nephritic syndrome with focal and segmental glomerular lesions Blood Urea Nitrogen 2 Weeks N04.9 - Nephrotic syndrome with unspecified morphologic changes, N05.1 - Unspecified nephritic syndrome with focal and segmental glomerular lesions Creatinine 2 Weeks N04.9 - Nephrotic syndrome with unspecified morphologic changes, N05.1 - Unspecified nephritic syndrome with focal and segmental glomerular lesions Albumin Level 2 Weeks N04.9 - Nephrotic syndrome with unspecified morphologic changes, N05.1 - Unspecified nephritic syndrome with focal and segmental glomerular lesions Medications: New cyclosporine 300 mg (3 x 100 mg) PO BID 180 caps 3RF 30 days Coding Level of Care Code Est Pt Level 4 (70893) Diagnoses Nephrotic syndrome N04.9 FSGS (focal segmental glomerulosclerosis) N05.1
--- OUTSIDE RECORDS SUMMARY | 2025-05-18 10:57 | XMS_ITS | Encounter Summary ---
Author Organization [facility] Address [address] [address] Phone Care Team Providers Care Manager Ambulatory Name Role Phone Tiara Fields Primary Care Provider Encounter Details Date Type Department Care Team (Late st Contact Info) Description 01/28/2025 Office Communication [facility] [address] [phone] Helen Selby Social History Tobacco Use Types Packs/Day Years Used Date Smoking Tobacco: Never Assessed Sex and Gender Information Value Date Recorded Sex Assigned at Not on file Legal Sex Male 1:01 PM EDT Gender Identity Not on file Sexual Orientation Not on file documented as of this encounter Miscellaneous Notes * Telephone Encounter - Jyoti Durbin - 02/04/2025 1:35 PM EDT Patient is scheduled at [facility] for 02/12/2025 * Telephone Encounter - Helen Selby - 01/28/2025 8:57 AM EDT Spoke with Dagmar from Dr. Lopez office, she states they reached out to the patient on 01.27.2025 and patient is refusing to do the biopsy. I did tiger Dr. Pulliam with this information on 01.27.2025. However, I am still working on booking the Ct scan. Can you please make a separate order for the Ct scan? documented in this encounter Plan of Treatment Upcoming Encounters Date Type Department Care Team (Late st Contact Info) Description 05/24/2025 9:00 AM EDT Office Visit [facility] [address] [phone] Valeriy Pulliam MD [address] [place] [phone] 05/27/2025 Orders Only [facility] [address] [phone] Valeriy Pulliam MD [facility] [address] [address] Glomerulonephritis; Hypertension; Dyslipidemia; Nephrotic syndrome; Proteinuria, not otherwise specified; Vitamin D deficiency, not otherwise specified documented as of this encounter Visit Diagnoses Not on filedocumented in this encounter Care Teams Manager Ambulatory Relationship Specialty Start Date End Date Tiara Fields [address] [place] [phone] PCP - General 03/15/25 documented as of this encounter
--- OUTSIDE RECORDS SUMMARY | 2025-05-18 10:57 | XMS_ITS | Encounter Summary ---
Author Organization [facility] Address [address] [place] [address] Care Team Providers Care Silk Presser Name Role Phone Tiara Fields MD Primary Care Pr ovider Reason for Visit * Reason Onset Date Comments Extremity Weakness 2025 Leg Swelling 2025 Encounter Details Date Type Department Care Team (Late st Contact Info) Description 2025 Nurse Triage Adult Medicine [address] [phone] Tiara Fields MD [address] [place] [phone] Extremity Weakness; Leg Swelling Social History Tobacco [...] care for your loved ones. For example, early childhood education specialist or elderly care for an older [...] traveled recently to another state outside of [place], [place], [place], [place], [place], [place], [place]? no o If yes, did you quarantine [...] of accident/Injury: No If yes, gather 3rd libertarian insurance information Third Green Party Information: not applicable PCP: Tiara Fields MD Payor: [employer] PL[employer] / Plan: [employer] MEDICAID / Product Type: *No Product type* / documented in this encounter Plan of Treatment Upcoming Encounters Date Type Department Care Team (Late st Contact Info) Description 05/18/2025 2:30 PM EDT Nutrition Internal Medicine - [place] [address] [facility] [address] [place] [phone] Olga Murphy, RD [address] [place] [phone] 05/27/2025 9:30 AM EDT Ancillary Procedure [facility] Cardiology [facility] [address] [facility] 101 [place] [address] 05/27/2025 10:30 AM EDT Ancillary Procedure [facility] [address] [phone] 07/28/2025 2:00 PM EDT Office Visit Adult Medicine [address] [phone] Tiara Fields MD [address] [place] [address] documented as of this encounter Visit Diagnoses Not on filedocumented in this encounter Additional Health Concerns Assessment Noted Time PHQ-9 Depression Total Score: 24 025 9:42 PM EST documented as of this encounter Care Teams Silk Presser Relationship Specialty Start Date End Date Tiara Fields MD [address] [place] [phone] PCP - General 02/10/24 documented as of this encounter
== END 2025-05-18 10:45 | disposition home or self-care (01) ==
LOC: HO.HKAS 10:11
PROVIDERS: PCP Family Medicine; Visit Provider Internal Medicine Nephrology
DX: N04.9 Nephrotic syndrome with unspecified morphologic changes (principal); N05.1 Unspecified nephritic syndrome with focal and segmental glomerular lesions
CPT/HCPCS: 99214

== ENCOUNTER → 2025-05-18 10:10 | Outpatient (BNVA) | payer OTHER, SELFPAY | PROVIDERS: PCP Family Medicine; Visit Provider Internal Medicine Nephrology | DX: N05.1 Unspecified nephritic syndrome with focal and segmental glomerular lesions (principal); N04.9 Nephrotic syndrome with unspecified morphologic changes | CPT/HCPCS: 99212 ==

== ENCOUNTER 2025-05-31 16:20 | Outpatient (REF) | payer OTHER, SELFPAY ==
--- OUTSIDE RECORDS SUMMARY | 2025-05-31 16:25 | XMS_ITS | Clinical Summary ---
Author Organization [facility] Address [address] [place] [phone] Phone Care Team Providers Care Supervising Appraiser Name Role Phone Tiara Fields MD Primary Care Pr ovider Allergies No known active allergies Medications lidocaine 2 % Soln Use as directed 15 mL in the mouth or throat every 4 (four) hours as needed. 100 mL 3 Active cetirizine (ZYRTEC) 10 MG tablet Take 1 tablet (10 mg total) by mouth daily. 30 tablet 4 Active ondansetron (ZOFRAN-ODT) 4 MG disintegrating tablet (To-Go) Take 1-2 tablet(s) by mouth every 8 hours as needed for nausea/vomit ing 6 tablet 5 Active methocarbamoL (ROBAXIN) 500 MG tablet Take 2 tablets (1,000 mg total) by mouth 4 (four) times a day for 3 days, THEN 1 tablet (500 mg total) 4 (four) times a day for 3 days. 36 tablet 5 05/03/20 25 Encounters Date Type Department Care Team Description 2025 5:50 PM EDT - 2025 11:02 PM EDT Emergency [facility] [address] [place] [address] Yordan Tripathi MD Discharge Disposition: Home or Self Care 03/24/2025 11:43 AM EDT - 03/24/2025 11:59 PM EDT Hospital Encounter [facility] Anatomic Pathology [address] [place] [address] Discharge Disposition: Home or Self Care from Last 3 Months Social History Tobacco Use Types Packs/Day Years Used Date Smoking Tobacco: Former Cigarettes Smokeless Tobacco: Never Tobacco Cessation:Counseling Given: Not Answered Alcohol Use Standard Drinks/Week Comments Never 0 (1 standard drink = 0.6 oz pur e alcohol) Education Answer Date Recorded Are you interested in more education? Not on ernestine e 03/09/2023 Are you concerned about learning? Not on file 03/09/2023 No 03/09/2023 No 03/09/2023 Food Answer Date Recorded Within the past 6 months we worried whether our food would run out before we got money to buy more. Never True 2025 Within the past 6 months the food we bought just didn't last and we didn't have enough money to get more. Never True Residential Stability Answer Date Recor ded What is your housing situation today? I have janine sing 2025 How many times have you move d in the past 12 months? I choose not to answer 2025 Paying for Meds Answer Date Recorded Do you have trouble paying for medicines? No 2025 Paying Utility Bills Answer Date Record ed Do you have trouble paying your heating or elect ricity bill? No 2025 Transportation Answer Date Recorded Has the lack of transportati on kept you from medical appointments or from getting medications? No 2025 Digital Access Answer Date Recorded No 2025 Yes 2025 Do you have reliable internet access at home? Ye s 2025 Do you have a device (e.g., phone, tablet, computer) with a working camera? Yes 2025 Intimate Partner Violence Answer Date R ecorded Are you denied basic needs s uch as food, clothing, or medical care? No 2025 In the past 12 months have y ou been in a relationship with a person who hurts, threatens, or tries to control you? No 2025 Are you denied basic needs s uch as food, clothing, or medical care? No 2025 In the past 12 months have y ou been in a relationship with a person who hurts, threatens, or tries to control you? No 2025 Sex and Gender Information Value Date Recorded Sex Assigned at Male 09/13/2021 4:44 PM EDT Legal Sex Male 4:34 PM EDT Gender Identity Male 09/13/2021 4:44 PM EDT Sexual Orientation Don't know 09/21/2024 3: 24 AM EST Last Filed Vital Signs Vital Sign Reading Time Taken Comments Blood Pressure 135/86 2025 10:37 PM EDT Pulse 77 2025 10:37 PM EDT Temperature 36.5 C (97.7 F) 2025 10:37 PM EDT Respiratory Rate 18 2025 10:37 PM EDT Oxygen Saturation 100% 2025 10:37 PM EDT Inhaled Oxygen Concentration - - Weight 141.1 kg (311 lb) 2025 5:50 PM EDT Height 185.4 cm (6' 1 ) 12/24/2024 2:24 AM EST Body Mass Index 41.03 12/24/2024 2:24 AM EST Plan of Treatment Health Maintenance Due Date Last Done Comments DEPRESSION SCREENING 2004 SMOKING Hx and SMOKELESS TOB ACCO SCREENING 2005 HEPATITIS C SCREENING 2010 HIV ONE-TIME SCREENING (18-6 5 YEARS) 2010 COVID-19 VACCINE (2023-2 5 season) 2024 Adult Td,Tdap Booster 09/08/2030 09/08/2020 HEPATITIS A VACCINES Aged Out No long er eligible based on patient's age to complete this topic HIB VACCINES Aged Out No longer eligi ble based on patient's age to complete this topic MENINGOCOCCAL VACCINES (ACWY) Aged Out No longer eligible based on patient's age to complete this topic MENINGOCOCCAL VACCINES (B) Aged Out N o longer eligible based on patient's age to complete this topic PNEUMOCOCCAL VACCINES (0-49 years) Aged Out No longer eligible based on patient's age to complete this topic Medical Devices Not on file Procedures Procedure Name Priority Date/Time Associated Diagnosis Comments D-DIMER STAT 2025 10:20 PM EDT TROPONIN STAT 2025 10:20 PM EDT URINE SEDIMENT STAT 2025 9:52 PM EDT URINALYSIS W/REFLEX URINE CULTURE STAT 2025 9:52 PM EDT ECG 12-LEAD STAT 2025 9:41 PM EDT TROPONIN Routine 2025 8:29 PM EDT CPK (CREATINE KINASE) STAT 2025 8:29 PM EDT PHOSPHORUS STAT 2025 8:29 PM EDT MAGNESIUM STAT 2025 8:29 PM EDT BASIC METABOLIC PANEL STAT 2025 8:29 PM EDT CBC AND DIFFERENTIAL STAT 2025 8:29 PM EDT US LOWER EXTREMITY VEINS DUPLEX COMPLETE (BILATERAL) Routine 2025 6:33 PM EDT Edema, unspecified type Left leg pain Right leg pain ANATOMIC PATHOLOGY Routine 03/24/2025 12 :00 AM EDT from Last 3 Months Results * D-dimer (2025 10:20 PM EDT) D-DIMER <215 <500 ng/mL FEU [facility] Comment:In patients with low to moderate pre-test probability scores for VTE (PE or DVT), a D-Dimer cut-off less than 500 ng/mL (FEU) has a negative predictive value (NPV) of 97 to 100%. Blood 2025 10:2 0 PM EDT 2025 10:23 PM EDT us Yordan Tripathi MD LAB BLOOD ORDERABLES Fin al Result [address] [address] * (ABNORMAL) Troponin (2025 10:20 PM EDT) Only the most recent of2 resultswithin the time period is included. Troponin-T, HS Gen5 26(H) 0 - 14 ng/L [facility] Blood 2025 10:2 0 PM EDT 2025 10:23 PM EDT us Yordan Tripathi MD LAB BLOOD ORDERABLES Fin al Result Performing Organization Address City/[facility]/ZIP Co de Phone Number [address] [address] * (ABNORMAL) Urinalysis w/reflex Urine Culture (2025 9:52 PM EDT) COLOR Yellow Yellow [facility] CLARITY Clear [facility] GLUCOSE 2+(A) Negative [facility] BILI Negative Negative [facility] KETONES Negative Negative [facility] SPECIFIC GRAVITY 1.020 1.005 - 1.030 [facility] BLOOD 1+(A) Negative [facility] PH 6.0 5.0 - 8.0 [facility] Protein-UA 3+(A) Negative [facility] NITRITE Negative Negative [facility] Leukocyte esterase, ur Negative Negative [facility] Urine (Urine) 2025 9:5 2 PM EDT 2025 9:56 PM EDT us Yordan Tripathi MD URINE ORDERABLES Final R esult [address] [address] * (ABNORMAL) Urine sediment (2025 9:52 PM EDT) WBC 5-10(A) NONE SEEN /hpf [facility] RBC 3-5(A) NONE SEEN /hpf [facility] URINE EPITHELIAL NONE SEEN NONE SEEN [facility] MUCUS Trace(A) NONE SEEN /hpf [facility] BACTERIA NONE SEEN NONE SEEN /hpf [facility] 2025 9:52 PM EDT 2025 9:56 PM EDT us Yordan Tripathi MD URINE ORDERABLES Final R esult Performing Organization Address [facility] Co de Phone Number [address] [address] * ECG 12-LEAD (2025 9:41 PM EDT) Ventricular Rate EKG/MIN 78 BPM [facility] Atrial Rate 78 BPM [facility] IN Interval 172 ms [facility] QRS Duration 88 ms [facility] QT Interval 376 ms [facility] QTC Interval 428 ms [facility] P [place] 36 degrees [facility] R Wave [place] 10 degrees [facility] T Wave [place] 23 degrees [facility] 2025 9:41 PM EDT 04/28/2025 6:01 PM EDT Narrative [facility] - 04/28/2025 6:01 PM EDT Normal sinus rhythm Normal ECG When compared with ECG of 30-Dec-2023 02:38, No significant change was found Confirmed by Kurt Mcfarlane ([id number]) on 04/28/2025 6:01:07 PM us Yordan Tripathi MD ECG ORDERABLES Final Re sult Performing Organization Address [facility] Co de Phone Number [facility] * (ABNORMAL) CBC and differential (2025 8:29 PM EDT) WBC 12.49(H) 4.00 - 11.00 K/uL [facility] RBC 4.82 4.50 - 5.90 M/uL [facility] HGB 14.6 13.5 - 17.5 g/dL [facility] HCT 43.8 41.0 - 53.0 % [facility] PLT 285 150 - 450 K/uL [facility] MCV 90.9 80.0 - 100.0 fL [facility] MCH 30.3 27.0 - 31.0 pg [facility] MCHC 33.3 32.0 - 36.0 g/dL [facility] RDW 13.2 11.5 - 14.5 % [facility] MPV 9.7 8.4 - 12.0 fL [facility] NRBC 0.00 0.00 /100 WBCs [facility] ABSOLUTE NRBC 0.00 0.00 K/uL [facility] DIFF METHOD Auto [facility] NEUTS 83.3(H) 48.0 - 76.0 % [facility] LYMPHS 12.6(L) 18.0 - 41.0 % [facility] MONOS 2.9(L) 4.0 - 11.0 % [facility] EOS 0.0 0.0 - 5.0 % [facility] BASOS 0.2 0.0 - 1.5 % [facility] Granulocytes, immature (%) 1.0(H) 0.0 - 0.9 % [facility] ABSOLUTE NEUTS 10.42(H) 1.92 - 7.60 K/uL [facility] ABSOLUTE LYMPHS 1.57 0.72 - 4.10 K/uL [facility] ABSOLUTE MONOS 0.36 0.16 - 1.10 K/uL [facility] ABSOLUTE EOS 0.00 0.00 - 0.50 K/uL [facility] ABSOLUTE BASOS 0.02 0.00 - 0.15 K/uL [facility] Granulocytes, immature 0.12(H) 0.00 - 0.09 K/uL [facility] Blood 2025 8:29 PM EDT 2025 8:32 PM EDT us Yordan Tripathi MD LAB BLOOD ORDERABLES Fin al Result [address] [address] * Phosphorus (2025 8:29 PM EDT) PHOSPHORUS 4.3 2.7 - 4.5 mg/dL [facility] Blood 2025 8:29 PM EDT 2025 8:32 PM EDT us Yordan Tripathi MD LAB BLOOD ORDERABLES Fin al Result Performing Organization Address [facility]/ZIP Co de Phone Number [address] [address] * (ABNORMAL) Magnesium (2025 8:29 PM EDT) MAGNESIUM 2.8(H) 1.6 - 2.6 mg/dL [facility] Blood 2025 8:29 PM EDT 2025 8:32 PM EDT us Yordan Tirpathi MD LAB BLOOD ORDERABLES Fin al Result Performing Organization Address [facility] Co de Phone Number [address] [address] * CPK (creatine kinase) (2025 8:29 PM EDT) CREATINE KINASE 35 35 - 232 U/L [facility] Blood 2025 8:29 PM EDT 2025 8:32 PM EDT us Yordan Tripathi MD LAB BLOOD ORDERABLES Fin al Result Performing Organization Address [facility] Co de Phone Number [address] [address] * (ABNORMAL) Basic metabolic panel (2025 8:29 PM EDT) SODIUM 136 133 - 146 mmol/L [facility] CHLORIDE 98 96 - 108 mmol/L [facility] POTASSIUM 4.4 3.3 - 5.1 mmol/L [facility] CO2 29 21 - 35 mmol/L [facility] BUN 67(H) 6 - 19 mg/dL [facility] CREATININE 1.70(H) 0.5 - 1.5 mg/dL [facility] GLUCOSE 122(H) 70 - 99 mg/dL [facility] CALCIUM 8.8 8.4 - 10.3 mg/dL [facility] EGFR 54(L) >59 mL/min/1.7 3m2 [facility] Comment:Estimated glomerular filtration rate calculated using the CKD-EPI refit equation. ANION GAP 13 10 - 20 mmol/L [facility] Blood 2025 8:29 PM EDT 2025 8:32 PM EDT us Yordan Tripathi MD LAB BLOOD ORDERABLES Fin al Result [facility] [address] [place] [address] * US Lower Extremity Veins Duplex Complete (Bilateral) (2025 6:33 PM EDT) Anatomical Region Laterality Modality Ultrasound 2025 8:53 PM EDT Impressions 2025 9:00 PM EDT No deep vein thrombosis in the visualized veins of either lower extremity. Narrative 2025 9:00 PM EDT US LOWER EXTREMITY VEINS DUPLEX COMPLETE (BILATERAL) Referring clinician's provided indication for this examination in Epic: Edema; Left Leg Pain; Right Leg Pain; bilateral LE edema, concern for bilateral DVT TECHNIQUE: Lower extremity venous ultrasound with color and spectral Doppler. COMPARISON: None FINDINGS: Right lower extremity Common femoral vein: Normal compressibility and flow characteristics. Femoral vein: Normal compressibility and flow characteristics. Proximal profunda femoral vein: Normal compressibility. Popliteal vein: Normal compressibility and flow characteristics. Posterior tibial veins: Normal compressibility. Peroneal veins: Normal compressibility. Gastrocnemius veins: Normal compressibility. Great saphenous vein: Normal compressibility at the saphenofemoral junction. Other: None. Left lower extremity Common femoral vein: Normal compressibility and flow characteristics. Femoral vein: Normal compressibility and flow characteristics. Proximal profunda femoral vein: Normal compressibility. Popliteal vein: Normal compressibility and flow characteristics. Posterior tibial veins: Normal compressibility. Peroneal veins: Normal compressibility. Gastrocnemius veins: Normal compressibility. Great saphenous vein: Normal compressibility at the saphenofemoral junction. Other: No popliteal fossa cyst. Procedure Note Alejandra Jordan MD, JACLYN - 2025 US LOWER EXTREMITY VEINS DUPLEX COMPLETE (BILATERAL) Referring clinician's provided indication for this examination in Epic:Edema; Left Leg Pain; Right Leg Pain; bilateral LE edema, concern forbilateral DVT TECHNIQUE: Lower extremity venous ultrasound with color and spectralDoppler. COMPARISON: None FINDINGS: Right lower extremity Common femoral vein: Normal compressibility and flow characteristics. Femoral vein: Normal compressibility and flow characteristics. Proximal profunda femoral vein: Normal compressibility. Popliteal vein: Normal compressibility and flow characteristics. Posterior tibial veins: Normal compressibility. Peroneal veins: Normal compressibility. Gastrocnemius veins: Normal compressibility. Great saphenous vein: Normal compressibility at the saphenofemoraljunction. Other: None. Left lower extremity Common femoral vein: Normal compressibility and flow characteristics. Femoral vein: Normal compressibility and flow characteristics. Proximal profunda femoral vein: Normal compressibility. Popliteal vein: Normal compressibility and flow characteristics. Posterior tibial veins: Normal compressibility. Peroneal veins: Normal compressibility. Gastrocnemius veins: Normal compressibility. Great saphenous vein: Normal compressibility at the saphenofemoraljunction. Other: No popliteal fossa cyst. IMPRESSION: No deep vein thrombosis in the visualized veins of either lowerextremity. Esteban Vasquez MD [facility] VASCULAR Final Res ult * Anatomic Pathology (03/24/2025 12:00 AM EDT) 03/24/2025 03/25/2025 [facility] CL[facility] LAB[facility]ATORIES - 04/12/2025 5:24 PM EDT CASE: [id number] PATIENT: HEATHER PANIAGUA Date: 1990 Sex: Male [facility] Department of Pathology [address] [place] [address] CLIA License No.: [id number] Marketing Representative: Dr. Jayden Tristan M.D., Ph.D. Physician: VALERIY PULLIAM M.D. Procedure Date: 03/24/2025 Resident: Ankita Stover M.D. Pathologist: Maria De Jesus Patrick M.D., Ph.D. 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 ) - DIFFUSE EFFACEMENT OF THE PODOCYTE FOOT PROCESSES AND LOSS OF SLIT DIAPHRAGMS - IgG/NEPHRIN STAINING IS NEGATIVE FOR COLOCALIZATION; NEPHRIN-MEDIATED PODOCYTOPATHY IS UNLIKELY, BUT ANOTHER AUTOANTIBODY CANNOT BE EXCLUDED - IN THIS YOUNG PATIENT, GENETIC TESTING SHOULD ALSO BE PERFORMED TO EXCLUDE AN GENETIC PODOCYTE VULNERABILITY SEGMENTALLY THIN GLOMERULAR BASEMENT MEMBRANES - MEASUREMENT IN TISSUE REPROCESSED FROM PARAFFIN BLOCK IS NOT EXACT - GENETIC TESTING IS STRONGLY RECOMMENDED TO ALSO RULE OUT AN UNDERLYING GENETIC ABNORMALITY OF BASEMENT MEMBRANE COMPONENTS ACUTE TUBULAR INJURY MILD AND FOCAL ACUTE INTERSTITIAL NEPHRITIS MILD CHRONIC CHANGES OF THE PARENCHYMA, INCLUDING: - NO GLOBAL GLOMERULOSCLEROSIS - TUBULAR ATROPHY AND INTERSTITIAL FIBROSIS (5% OF THE CORTEX) - MILD ARTERIAL AND ARTERIOLAR SCLEROSIS The case was discussed with Dr. Pulliam on 03/26/2025 at 11:22am. MICROSCOPIC DESCRIPTION: Sections of formalin-fixed, paraffin embedded tissue were evaluated using H&E, PAS, JMS, and trichrome stains. An H&E-stained frozen section taken from the tissue allocated for immunofluorescence microscopy and semi-thin toluidine blue-stained epoxy sections of the tissue processed for electron microscopy were also evaluated using light microscopy. The sample consists of renal cortex with 17 glomeruli (LM-16; IF-1; EM-0), of which none are globally sclerosed. The glomeruli are enlarged. One glomerulus shows an early tip lesion with adhesion at the tubular pole. Another glomerulus shows early segmental collapsing features. The glomerular capillary loops are of normal thickness and texture. No basement membrane spikes, craters, or double contours are seen in the glomeruli. Significant endocapillary proliferation or cellular crescents are not seen in the glomeruli. The mesangium appears unremarkable. Non-atrophic tubules are enlarged and show mild distension. There is multifocal loss of the brush border of the proximal tubular epithelium. Tubular epithelium is focally flattened. Tubular epithelial cells reveal focal microvesicular degeneration. Many tubules contain protein reabsorption granules in the epithelial cells. Few tubules contain PAS-positive hyaline casts. One remote red blood cell cast is present within a tubule. The sample reveals patchy interstitial inflammation, associated with mild interstitial edema and no significant tubulitis. Obvious signs of a viral cytopathic effect are not seen in the sample. The interstitium contains mild interstitial inflammation in areas of atrophy. The infiltrates are composed of mononuclear and polymorphonuclear cells. Approximately 5% of the renal cortex shows tubular atrophy and interstitial fibrosis. Arteries show mild sclerosis. Arterioles show mild sclerosis. There is vasoconstriction of the arteries and arterioles. IMMUNOFLUORESCENCE MICROSCOPY: KIDNEY BIOPSY #: [id number] The sections of the sample submitted for immunofluorescence studies were incubated with antibodies specific for the heavy chains of IgG, IgA, and IgM, for kappa and lambda light chains, fibrin, albumin, and complement components C3 and C1q. Immunofluorescence staining for IgG/nephrin is also performed. The sample contains 1 glomerulus. Glomeruli with global sclerosis are not seen. The single glomerulus is enlarged and compressed at the tissue edge. There is fine granular reactivity for IgA (trace), IgM (trace) and C3 (trace) in the mesangium. There is no fine dusting of IgG over the podocytes. Nephrin is mildy clustered, but IgG/nephrin dual stain is negative for colocalizing staining. There is no difference in reactivity between kappa and lambda light chains in the background of the tissue. The immunofluorescence microscopy tests performed at [facility] were developed and their performance characteristics determined by the Immunohistochemistry Laboratories in the Department of Pathology at [facility]. They have not been cleared or approved by the U.S. Food and Drug Administration (FDA). The FDA has determined that such clearance or approval is not necessary. ELECTRON MICROSCOPY: KIDNEY BIOPSY #: [id number] Blocks: 2 Blocks examined: 2 thick sections; 1 thin sections. The sample originally submitted for electron microscopy examination contains no glomeruli. The sample originally submitted for light microscopy was retrieved from the paraffin block and reprocessed for ultrastructural examination; it contains 4 glomeruli with no global sclerosis; 2 glomeruli are examined ultrastructurally. The tissue shows mild processing artifact. The podocytes reveal global and diffuse effacement of their foot processes, and microvillous transformation as well as vacuolization of the cytoplasm. The glomerular basement membranes appear slightly irregular and segmentally attenuated. No electron dense deposits are present along the capillary loops. The endothelial cells show no significant changes. The mesangium reveals normal cellular elements and a normal amount of matrix. No electron dense deposits are present in the mesangium. CLINICAL DATA: History: 34y/o male with new onset nephrotic syndrome (+edema with 35lb weight gain, hypoalbuminemia, and proteinuria). sCr 0.80, UPCR 7.98, SHAYNA, complement, RPR, RF, HIV, HepB, HepC, SPEP, ANCA, PLA2r, and anti-GBM all negative/normal. Renal ultrasound normal. TISSUE SUBMITTED: A/1. Kidney biopsy for light microscopy B/2. Kidney biopsy for immunofluorescence microscopy C/3. Kidney biopsy for electron microscopy GROSS DESCRIPTION: The specimen is received in 3 parts, each labeled with the patient's name and medical record number. Part A received in formalin labeled Kidney biopsy for light microscopy consists of 2 acosta, cylindrical, soft tissue core(s) (1.2 and 1.1 cm in length x 0.1 cm in diameter). The specimen is submitted in toto for light microscopy. A1: 2 fragments Part B received in Noel transport media labeled Kidney biopsy for immunofluorescent microscopy consists of one acosta, cylindrical, soft tissue core(s) (1.1 cm in length x 0.1 cm in diameter). The specimen is submitted in toto for immunofluorescence microscopy. Part C received in EM fixative labeled Kidney biopsy for electron microscopy consists of one acosta, cylindrical, soft tissue core(s) (0.2 cm in length x 0.1 cm in diameter). The specimen is submitted in toto for electron microscopy. Dictated by: Mirian Sarah By his/her signature below, the senior physician certifies that he/she personally conducted a microscopic examination ( gross only exam if so stated) of the described specimen(s) and rendered or confirmed the diagnosis(es) related thereto. Final Diagnosis by Maria De Jesus Patrick M.D., Ph.D., Electronically signed on Saturday April 12, 2025 at 05:23:18PM us Valeriy Pulliam MD PATHOLOGY ORDERABLES nal Result [facility] [address] [place] [id number] from Last [address] [place] [address] [employer] [address] [place], [place] [address]Y [employer] [address] [place], [place] [address] [place] [address] [place] [address] [employer] [place] [address] [place] [address] [employer] [place] [address] [place] [address] [employer] [place] [address] [place] [address] [employer] [place] [address] [place] [address] [employer] Care Teams Supervising Appraiser Relationship Specialty Start Date End Date Tiara Fields MD [address] [place] [id number] PCP - General Family Medicine 04/27/25 Additional Source Comments The information contained in this document represents components of the legal health record. It is not the complete legal health record.[facility]
--- OUTSIDE RECORDS SUMMARY | 2025-05-31 16:25 | XMS_ITS | Encounter Summary ---
Author Organization [facility] Address [address] [place] [address] Care Team Providers Care Export Clerk Name Role Phone Tiara Fields MD Primary Care Pr ovider Reason for Visit * Reason Onset Date Comments Extremity Weakness 2025 Leg Swelling 2025 Encounter Details Date Type Department Care Team (Late st Contact Info) Description 2025 Nurse Triage Adult Medicine [address] [phone] Tiara Fields MD [address] [place] [phone] Extremity Weakness; Leg Swelling Social History Tobacco [...] care for your loved ones. For example, childcare aide or elderly care for an older adult? [...] traveled recently to another state outside of [place], [place], [place], [place], [place], [place], [place]? no o If yes, did you quarantine [...] of accident/Injury: No If yes, gather 3rd democrat insurance information [employer] Alliance Party Information: not applicable PCP: Tiara Fields MD Payor: [employer] PLAN / Plan: [employer] MEDICAID / Product Type: *No Product type* / documented in this encounter Plan of Treatment Upcoming Encounters Date Type Department Care Team (Late st Contact Info) Description 07/28/2025 2:00 PM EDT Office Visit Adult Medicine [facility] [address] [place] [address] Tiara Fields MD [address] [place] [phone] documented as of this encounter Visit Diagnoses Not on filedocumented in this encounter Additional Health Concerns Infection Onset Date Last Indicated Resolved Time Respiratory Rule-Out 05/24/2025 05/24/2025 025 6:27 PM EDT COVID-19 Rule-Out 05/24/2025 05/24/2025 05/24/2025 6:27 PM EDT Parainfluenza Virus 05/24/2025 05/24/2025 Assessment Noted Time PHQ-9 Depression Total Score: 24 025 9:42 PM EST documented as of this encounter Care Teams Export Clerk Relationship Specialty Start Date End Date Tiara Fields MD [address] [place] [address] PCP - General 02/10/24 documented as of this encounter
--- OUTSIDE RECORDS SUMMARY | 2025-05-31 16:25 | XMS_ITS | Encounter Summary ---
Author Organization [facility] Address [address] [address] Phone Care Team Providers Care Pbx Installer Name Role Phone Tiara Fields Primary Care Provider Encounter Details Date Type Department Care Team (Late st Contact Info) Description 01/28/2025 Office Communication [facility] [address] [phone] Helen Selby Social History Tobacco [...] documented in this encounter Plan of Treatment Not on file documented as of this encounter Visit Diagnoses Not on filedocumented in this encounter Care Teams Pbx Installer Relationship Specialty Start Date End Date Tiara Fields [address] [place] [address] PCP - General 03/15/25 documented as of this encounter
[2025-05-31 17:39] LABS: Albumin Level 2.7 g/dL (3.5-5.0); Anion Gap 17 (12-20); Blood Urea Nitrogen 77 mg/dL (9-16); Calcium 8.5 mg/dL (8.4-10.2); Carbon Dioxide 25 mmol/L (22-29); Chloride 106 mmol/L (96-108); Estimated Glomerular Filt Rate 60; Magnesium 2.0 mg/dL (1.6-2.6); Potassium 4.1 mmol/L (3.3-5.1); Sodium 144 mmol/L (135-145)
[2025-05-31 18:10] LABS: Protein/Creatinine Ratio, Ur 14.54 (<0.2); Total Protein Urine Random 541 mg/dL (<12)
== END 2025-05-31 16:21 | disposition home or self-care (01) ==
LOC: HO.LAB 16:20
PROVIDERS: PCP Family Medicine; Visit Provider Internal Medicine Nephrology
DX: N04.9 Nephrotic syndrome with unspecified morphologic changes (principal); N05.1 Unspecified nephritic syndrome with focal and segmental glomerular lesions; N17.9 Acute kidney failure, unspecified; R60.1 Generalized edema
CPT/HCPCS: 36415; 80051; 82040; 82310; 82565; 82570; 83735; 84156; 84520

== ENCOUNTER 2025-06-01 16:21 | Outpatient (AMB) | payer OTHER, SELFPAY ==
--- NOTE | 2025-06-01 16:44 | HO.NEPHOV ---
Vital Signs 06/01/25 16:47 Height 6 ft 1 in Weight 300 lb 1 oz BMI 39.6 BP 122/82 Blood Pressure Location Lt brachial Position Sitting Pulse 115 H Pulse Source Pulse Oximeter Pulse Oximetry (%) 97 Oxygen Delivery Method Room Air Intake Visit Reasons: 2wk follow up-Conf Service Loss Control Consultant Required: No Accompanied by: Self / Same As Patient Allergies No Known Allergies Allergy (Verified 06/01/25 16:45) Medication List - Last Reconciled 06/01/25 by Joe Dhaliwal MD aspirin 81 mg PO DAILY bumetanide 4 mg PO TID PRN cyclobenzaprine 10 mg PO DAILY cyclosporine 100 mg PO BID dicyclomine 10 mg PO TID empagliflozin (Jardiance) 10 mg PO DAILY losartan 25 mg PO BID 30 days metolazone 5 mg PO DAILY PRN metoprolol succinate ER 25 mg PO DAILY prednisone 80 mg (4 x 20 mg) PO DAILY 30 days rosuvastatin 5 mg PO DAILY HPI Comments Details: Heather was seen for follow up of MARIA ALEJANDRA and nephrotic range proteinuria on a backdrop of newly diagnosed biopsy proven primary FSGS. He had influenza in December 2024 and after that he started developing edema and was found to have nephrotic range proteinuria. His renal function was normal at that time. He had quite a bit of weight gain with edema as well as shortness of breath. He underwent extensive work by his primary care physician and had seen other renal physicians in different practice for the same complaint. He even underwent renal biopsy and was told at that time that he has FSGS. Initially he refused renal biopsy for some months and he continued to have worsening proteinuria, with a proteinuria going up to over 17 g. He was given Bumex, torsemide, furosemide, metolazone, Aldactone as well as losartan in the past. His previous renal physician felt that he was not adherent with his directions and he had been playing around with medications as well as multiple medical providers. During the course of months his serum creatinine started to rise with a drop in GFR. His previous renal physician has recommended admission to the hospital for intravenous diuretics, kidney biopsy and immunosuppression. He had multiple ER visits as well as urgent care consultations for various reasons including diffuse pains, weight gain and continued worsening of edema. It was thought in the past that he may have bowel wall edema and p.o. medications will be unsuccessful. He was prescribed prednisone by his previous renal MD which he did not take but started taking when transitioned to my care. He still continued to contact the old renal care team for various reasons. He recently had respiratory illness and his cyclosporin was reduced to 100 m bid by someone else. He has been in prophylactic Bactrim. He claims to be compliant with prednisone as well as losartan & Jardiance. He was told in the past by his past renal MD that he may end up with ESRD. His serum creatinine has been stable and his BP is at goal. He is also taking another opinion from [facility] through his previous renal MD's practice. [facility] Medical History (Updated 04/27/25 @ 07:01 by Joe Dhaliwal MD) Vitamin D deficiency disease Snoring Polyarthralgia Nephrotic syndrome Morbid obesity with body mass index (BMI) of 40.0 or higher Hyperlipidemia Gastroesophageal reflux disease with esophagitis without hemorrhage Fatty liver Erectile dysfunction due to diseases classified elsewhere Elevated ALT measurement Family History Father Bladder cancer Brother Kidney stone Mother Renal cyst Social History Alcohol intake: never Patient Tobacco Use Status: Never used Tobacco Review of Systems Const All systems reviewed & are unremarkable except as noted in HPI and below Physical Exam Vital Signs: Last Vital Signs Pulse 115 H 06/01/25 16:47 BP 122/82 06/01/25 16:47 Pulse Ox 97 06/01/25 16:47 Oxygen Delivery Method Room Air 06/01/25 16:47 BMI result Body Mass Index 39.6 Const General: comfortable and no acute distress Orientation/consciousness: patient oriented x3 HEENT Head: Yes normocephalic Mouth: Normal oral and palatal mucosa present Eyes EOM: EOMs intact bilaterally Neck Neck: Yes supple Resp Auscultation: clear to auscultation bilaterally Cardio Jugular venous distension: no JVD Rate: regular rate GI Palpation (GI): Soft to palpation Auscultation: normal bowel sounds General: Yes no CVA tenderness Back/Spine/Pelvis Back: no CVA tenderness Skin General skin exam: no rashes or lesions noted Neuro General: patient oriented x3 and moves all extremities Extrem General: Yes edema Results Reviewed Nephrology Results: Sodium, (135-145) 144 mmol/L 05/31/25 Potassium, (3.3-5.1) 4.1 mmol/L 05/31/25 Chloride, (96-108) 106 mmol/L 05/31/25 Carbon Dioxide, (22-29) 25 mmol/L 05/31/25 BUN, (9-16) 77 mg/dL H 05/31/25 Creatinine, (0.5-1.4) 1.37 mg/dL 05/31/25 Calcium, (8.4-10.2) 8.5 mg/dL 05/31/25 Urine Creatinine 37.21 mg/dL 05/31/25 Protein/Creatinin Ratio, (<0.2) 14.54 H 05/31/25 Assessment & Plan Assessment & Plan (1) MARIA ALEJANDRA (acute kidney injury): Code(s): N17.9 - Acute kidney failure, unspecified Category: Medical (2) Edema: Code(s): R60.9 - Edema, unspecified Category: Medical Qualifiers: Edema type: generalized Qualified Code(s): R60.1 - Generalized edema (3) FSGS (focal segmental glomerulosclerosis): Code(s): N05.1 - Unspecified nephritic syndrome with focal and segmental glomerular lesions Category: Medical (4) Nephrotic syndrome: Code(s): N04.9 - Nephrotic syndrome with unspecified morphologic changes Category: Medical Plan Focus of treatment for his FSGS will include the following Dietary sodium restriction Antihypertensive therapy Renin-angiotensin system inhibition SGLT2 inhibitors Lipid lowering Anticoagulation Treatment of edema For the time being he will continue on high-dose prednisone. He will benefit from calcineurin inhibitor. I asked him to continue diuretics and restarted losartan 25 mg daily. ( he has been starting and stopping medications including losartan by himself). I initiated him on cyclosporine and see whether he is going to respond to it, at 300 mg bid which someone else reduced to 100 mg bid. I asked him to increase it to 200 mg bid with an intent to increase it more. He should continue current dose of Jardiance for now which I plan to increase to 25 mg at next visit. I also increased his losartan to 25 mg bid which I plan to maximize with time , clinical response and labs results. Those with glucocorticoid-dependent FSGS may be alternatively treated with MMF/EC-MPS or rituximab or cytotoxic therapy like cyclophosphamide. In general, the duration of therapy varies according to the degree and rapidity of response (eg, faster taper for patients who achieve a quick remission), whether complete or partial remission is achieved, and the degree of glucocorticoid toxicity. If a complete remission is achieved within 8 to 12 weeks, I continue the initial dose of?prednisone and then taper the dose over two to three months. One strategy is to switch to alternate-day prednisone (double the daily dose but to a maximum of 80 to 120 mg), and then decrease the dose by approximately one-third every two to three weeks. If a partial remission is achieved by 8 to 12 weeks, we can taper prednisone slowly over three to nine months. We initially switch to alternate-day dosing and decrease the dose by one-third approximately every six weeks. For patients who have had a substantial reduction (>50 percent from baseline) in proteinuria by 8 to 12 weeks but do not meet criteria for partial remission (ie, proteinuria remains >3.5 g/day), the decision to continue high-dose prednisone or modify therapy is based upon the severity of glucocorticoid toxicity, the risk of continued therapy, and whether protein excretion is continuing to fall. Prednisone can be continued, for example, in patients whose proteinuria continues to decline, provided they are not experiencing severe side effects from therapy. If, at any time after a complete or partial remission is attained, proteinuria increases while the prednisone?is being tapered, we stop the taper and temporarily maintain the current prednisone dose while adding a CNI or, if the eGFR is <30 mL/min/1.73 m2, MMF/EC-MPS. Although the use of MMF/EC-MPS is not supported by evidence, some authors and editors of this topic use it in this setting based on its potential role as a glucocorticoid-sparing agent, its safe use in patients with low eGFR, and its role as maintenance therapy in other glomerular diseases such as minimal change disease and lupus nephritis. Adult patients who have little or no reduction in proteinuria after 16 weeks of daily?prednisone are presumed to be glucocorticoid resistant. In such patients, we prefer to add a CNI (or MMF if the eGFR is low) and switch to alternate-day prednisone with a progressive taper in prednisone therapy, reducing the dose by approximately one-third every week. (some of the references in management as mentioned above are taken from up-to-date ([employer] Follow-up blood work was ordered and is going to see me for continued care.Answered all questions. Orders: Orders Protein Creatinine Ratio, Ur 3 Weeks N17.9 - Acute kidney failure, unspecified, R60.1 - Generalized edema Albumin Level 3 Weeks N17.9 - Acute kidney failure, unspecified, R60.1 - Generalized edema Medications: Changed From losartan 25 mg PO DAILY 30 tabs 4RF To losartan 25 mg PO BID 60 tabs 4RF 30 days From bumetanide 4 mg (2 x 2 mg) PO TID 30 days 180 tabs 1RF To bumetanide 4 mg PO TID PRN From cyclosporine 100 mg PO BID To cyclosporine 200 mg (2 x 100 mg) PO BID 120 caps 1RF 30 days Coding Level of Care Code Est Pt Level 4 (63394) Diagnoses MARIA ALEJANDRA (acute kidney injury) N17.9 Generalized edema R60.1 Edema type: generalized FSGS (focal segmental glomerulosclerosis) N05.1 Nephrotic syndrome N04.9
--- OUTSIDE RECORDS SUMMARY | 2025-06-01 16:44 | XMS_ITS | Encounter Summary ---
Author Organization [facility] Address [address] [address] Phone Care Team Providers Care Sr Account Executive Name Role Phone Tiara Fields Primary Care Provider [phone] Encounter Details Date Type Department Care Team (Late st Contact Info) Description 01/28/2025 Office Communication [facility] [address] [phone] Helen Selby Social History Tobacco [...] 1:35 PM EDT Patient is scheduled at [facility] for 02/12/2025 * Telephone Encounter - [...] on filedocumented in this encounter Care Teams Sr Account Executive Relationship Specialty Start Date End Date Tiara Fields [address] [place] [address] PCP - General 03/15/25 documented as of this encounter
--- OUTSIDE RECORDS SUMMARY | 2025-06-01 16:44 | XMS_ITS | Encounter Summary ---
Author Organization [facility] Address [address] [place] [address] Care Team Providers Care Maintenance Supervisor Name Role Phone Tiara Fields MD Primary Care Pr ovider Reason for Visit * Reason Onset Date Comments Extremity Weakness 2025 Leg Swelling 2025 Encounter Details Date Type Department Care Team (Late st Contact Info) Description 2025 Nurse Triage Adult Medicine [address] [phone] Tiara Fields MD [address] [place] [phone] Extremity Weakness; Leg Swelling Social History Tobacco [...] for your loved ones. For example, child support investigator or elderly care for an older adult? [...] traveled recently to another state outside of [place], [place], [place], [place], [place], [place], [place]? no o If yes, did you quarantine [...] gather 3rd constitution party insurance information Third Green Party Information: not applicable PCP: Tiara Fields MD Payor: [employer] PLAN / Plan: [employer] MEDICAID / Product Type: *No Product type* / documented in this encounter Plan of Treatment Upcoming Encounters Date Type Department Care Team (Late st Contact Info) Description 07/28/2025 2:00 PM EDT Office Visit Adult Medicine [facility] [address] [place] [address] Tiara Fields MD [address] [place] [address] documented as of this encounter Visit Diagnoses Not on filedocumented in this encounter Additional Health Concerns Infection Onset Date Last Indicated Resolved Time Respiratory Rule-Out 05/24/2025 05/24/2025 025 6:27 PM EDT COVID-19 Rule-Out 05/24/2025 05/24/2025 05/24/2025 6:27 PM EDT Parainfluenza Virus 05/24/2025 05/24/2025 Assessment Noted Time PHQ-9 Depression Total Score: 24 025 9:42 PM EST documented as of this encounter Care Teams Maintenance Supervisor Relationship Specialty Start Date End Date Tiara Fields MD [address] [place] [address] PCP - General 02/10/24 documented as of this encounter
--- OUTSIDE RECORDS SUMMARY | 2025-06-01 16:44 | XMS_ITS | Clinical Summary ---
Author Organization [facility] Address [address] [facility] [address] [place] [phone] Phone Care Team Providers Care Pear Picker Name Role Phone Tiara Fields MD Primary [...] 11:02 PM EDT Emergency [facility] [address] [place] [address] Yordan Tripathi MD Discharge Disposition: Home or Self Care 03/24/2025 11:43 AM EDT - 03/24/2025 11:59 PM EDT Hospital Encounter [facility] Anatomic Pathology [address] [place] [address] Discharge Disposition: Home or Self Care from [...] PM EDT) D-DIMER <215 <500 ng/mL FEU [facility] Comment:In patients with low to moderate pre-test probability scores for VTE (PE or DVT), a D-Dimer cut-off less than 500 ng/mL (FEU) has a negative predictive value (NPV) of 97 to 100%. Blood 2025 10:2 0 PM EDT 2025 10:23 PM EDT us Yordan Tripathi MD LAB BLOOD ORDERABLES Fin al Result [address] [address] * (ABNORMAL) Troponin (2025 10:20 PM EDT) Only the most recent of2 resultswithin the time period is included. Troponin-T, HS Gen5 26(H) 0 - 14 ng/L [facility] Blood 2025 10:2 0 PM EDT 2025 10:23 PM EDT us Yordan Tripathi MD LAB BLOOD ORDERABLES Fin al Result Performing Organization Address City/[facility]/ZIP Co de Phone Number [address] [address] * (ABNORMAL) Urinalysis w/reflex Urine Culture (2025 9:52 PM EDT) COLOR Yellow Yellow [facility] CLARITY Clear [facility] GLUCOSE 2+(A) Negative [facility] BILI Negative Negative [facility] KETONES Negative Negative [facility] SPECIFIC GRAVITY 1.020 1.005 - 1.030 [facility] BLOOD 1+(A) Negative [facility] PH 6.0 5.0 - 8.0 [facility] Protein-UA 3+(A) Negative [facility] NITRITE Negative Negative [facility] Leukocyte esterase, ur Negative Negative [facility] Urine (Urine) 2025 9:5 2 PM EDT 2025 9:56 PM EDT us Yordan Tripathi MD URINE ORDERABLES Final R esult [address] [address] * (ABNORMAL) Urine sediment (2025 9:52 PM EDT) WBC 5-10(A) NONE SEEN /hpf [facility] RBC 3-5(A) NONE SEEN /hpf [facility] URINE EPITHELIAL NONE SEEN NONE SEEN [facility] MUCUS Trace(A) NONE SEEN /hpf [facility] BACTERIA NONE SEEN NONE SEEN /hpf [facility] 2025 9:52 PM EDT 2025 9:56 PM EDT us Yordan Tripathi MD URINE ORDERABLES Final R esult Performing Organization Address [facility] [place]/[facility] Co de Phone Number [address] [address] * ECG 12-LEAD (2025 9:41 PM EDT) Ventricular Rate EKG/MIN 78 BPM [facility] Atrial Rate 78 BPM [facility] KS Interval 172 ms [facility] QRS Duration 88 ms [facility] QT Interval 376 ms [facility] QTC Interval 428 ms [facility] P [place] 36 degrees [facility] R Wave [place] 10 degrees [facility] T Wave [place] 23 degrees [facility] 2025 9:41 PM EDT 04/28/2025 6:01 PM EDT Narrative [facility] - 04/28/2025 6:01 PM EDT Normal sinus rhythm Normal ECG When compared with ECG of 30-Dec-2023 02:38, No significant change was found Confirmed by Kurt Mcfarlane ([id number]) on 04/28/2025 6:01:07 PM us Yordan Tripathi MD ECG ORDERABLES Final Re sult Performing Organization Address [facility] [place]/[facility] Co de Phone Number [facility] * (ABNORMAL) CBC and differential (2025 8:29 PM EDT) WBC 12.49(H) 4.00 - 11.00 K/uL [facility] RBC 4.82 4.50 - 5.90 M/uL [facility] HGB 14.6 13.5 - 17.5 g/dL [facility] HCT 43.8 41.0 - 53.0 % [facility] PLT 285 150 - 450 K/uL [facility] MCV 90.9 80.0 - 100.0 fL [facility] MCH 30.3 27.0 - 31.0 pg [facility] MCHC 33.3 32.0 - 36.0 g/dL [facility] RDW 13.2 11.5 - 14.5 % [facility] MPV 9.7 8.4 - 12.0 fL [facility] NRBC 0.00 0.00 /100 WBCs [facility] ABSOLUTE NRBC 0.00 0.00 K/uL [facility] DIFF METHOD Auto [facility] NEUTS 83.3(H) 48.0 - 76.0 % [facility] LYMPHS 12.6(L) 18.0 - 41.0 % [facility] MONOS 2.9(L) 4.0 - 11.0 % [facility] EOS 0.0 0.0 - 5.0 % [facility] BASOS 0.2 0.0 - 1.5 % [facility] Granulocytes, immature (%) 1.0(H) 0.0 - 0.9 % [facility] ABSOLUTE NEUTS 10.42(H) 1.92 - 7.60 K/uL [facility] ABSOLUTE LYMPHS 1.57 0.72 - 4.10 K/uL [facility] ABSOLUTE MONOS 0.36 0.16 - 1.10 K/uL [facility] ABSOLUTE EOS 0.00 0.00 - 0.50 K/uL [facility] ABSOLUTE BASOS 0.02 0.00 - 0.15 K/uL [facility] Granulocytes, immature 0.12(H) 0.00 - 0.09 K/uL [facility] Blood 2025 8:29 PM EDT 2025 8:32 PM EDT us Yordan Tripathi MD LAB BLOOD ORDERABLES Fin al Result [address] [address] * Phosphorus (2025 8:29 PM EDT) PHOSPHORUS 4.3 2.7 - 4.5 mg/dL [facility] Blood 2025 8:29 PM EDT 2025 8:32 PM EDT us Yordan Tripathi MD LAB BLOOD ORDERABLES Fin al Result Performing Organization Address [facility] [place]/[facility]/ZIP Co de Phone Number [address] [address] * (ABNORMAL) Magnesium (2025 8:29 PM EDT) MAGNESIUM 2.8(H) 1.6 - 2.6 mg/dL [facility] Blood 2025 8:29 PM EDT 2025 8:32 PM EDT us Yordan Tripathi MD LAB BLOOD ORDERABLES Fin al Result Performing Organization Address [facility] Co de Phone Number [address] [address] * CPK (creatine kinase) (2025 8:29 PM EDT) CREATINE KINASE 35 35 - 232 U/L [facility] Blood 2025 8:29 PM EDT 2025 8:32 PM EDT us Yodran Tripathi MD LAB BLOOD ORDERABLES Fin al Result Performing Organization Address [facility] [place]/[facility] Co de Phone Number [address] [address] * (ABNORMAL) Basic metabolic panel (2025 8:29 PM EDT) SODIUM 136 133 - 146 mmol/L [facility] CHLORIDE 98 96 - 108 mmol/L [facility] POTASSIUM 4.4 3.3 - 5.1 mmol/L [facility] CO2 29 21 - 35 mmol/L [facility] BUN 67(H) 6 - 19 mg/dL [facility] CREATININE 1.70(H) 0.5 - 1.5 mg/dL [facility] GLUCOSE 122(H) 70 - 99 mg/dL [facility] CALCIUM 8.8 8.4 - 10.3 mg/dL [facility] EGFR 54(L) >59 mL/min/1.7 3m2 [facility] Comment:Estimated glomerular filtration rate calculated using the CKD-EPI refit equation. ANION GAP 13 10 - 20 mmol/L [facility] Blood 2025 8:29 PM EDT 2025 8:32 PM EDT us Yordan Tripathi MD LAB BLOOD ORDERABLES Fin al Result [facility] [address] [place] [address] * [place] Lower Extremity Veins [...] veins of either lowerextremity. Esteban Vasquez MD [facility] VASCULAR Final Res ult * Anatomic Pathology (03/24/2025 12:00 AM EDT) 03/24/2025 03/25/2025 [facility] - 04/12/2025 5:24 PM EDT CASE: [id number] PATIENT: HEATHER PANIAGUA Date: 1990 Sex: Male [facility] Department of Pathology [address] [place] [address] CLIA License No.: [id number] Mechanical Ordnance Assembler: Dr. Jayden Tristan M.D., Ph.D. Physician: VALERIY [...] microscopy tests performed at [facility] were developed and their performance characteristics determined by the [facility] Laboratories in the Department of Pathology at [facility]. They have not been cleared or approved [...] Valeriy Pulliam MD PATHOLOGY ORDERABLES nal Result [facility] [address] [place] [phone] from Last [address] [place] [address] [place] - 2Y [employer] [place] [address] [place] [address] [employer] [place] [address] [place] [address] [address] [place] [address] [employer] [place] [address] [place] [address] [employer] [address] [place] [address] [employer] [address] [address] [employer] [place] [address] [place] [address] [employer] Care Teams Pear Picker Relationship Specialty Start Date End Date Tiara Fields MD [address] [place] [phone] PCP - General Family Medicine 04/27/25 Additional Source Comments The information contained in this document represents components of the legal health record. It is not the complete legal health record.[facility]
--- OUTSIDE RECORDS SUMMARY | 2025-06-01 16:44 | XMS_ITS ---
Author Name [facility] Organization Unknown Care Team Organization Name Specialty Phone Email Start Date End Da te [facility] Rhona Marino Primary Care 01/16/2023 06/29/20 [facility] Argelia Goldman Primary Care 09/18/202206/11
[2025-06-01 16:47] VITALS: BP 122/82; PULSE 115; O2SAT 97; BMI 39.6
== END 2025-06-01 17:10 | disposition home or self-care (01) ==
LOC: HO.HKAS 16:21
PROVIDERS: PCP Family Medicine; Visit Provider Internal Medicine Nephrology
DX: N17.9 Acute kidney failure, unspecified (principal); R60.1 Generalized edema; N05.1 Unspecified nephritic syndrome with focal and segmental glomerular lesions; N04.9 Nephrotic syndrome with unspecified morphologic changes
CPT/HCPCS: 99214

== ENCOUNTER → 2025-06-01 16:21 | Outpatient (BNVA) | payer OTHER, SELFPAY | PROVIDERS: PCP Family Medicine; Visit Provider Internal Medicine Nephrology | DX: R60.1 Generalized edema (principal); N17.9 Acute kidney failure, unspecified; N05.1 Unspecified nephritic syndrome with focal and segmental glomerular lesions; N04.9 Nephrotic syndrome with unspecified morphologic changes | CPT/HCPCS: 99212 ==

== ENCOUNTER 2025-06-28 14:52 | Outpatient (REF) | payer OTHER, SELFPAY ==
--- OUTSIDE RECORDS SUMMARY | 2025-06-28 15:34 | XMS_ITS | Encounter Summary ---
Author Organization [facility] Address [address] [place] [address] Care Team Providers Care Tiler Name Role Phone Tiara Fields MD Primary Care Pr ovider Reason for Visit * Reason Onset Date Comments Extremity Weakness 2025 Leg Swelling 2025 Encounter Details Date Type Department Care Team (Late st Contact Info) Description 2025 Nurse Triage Adult Medicine [address] [phone] Tiara Fields MD [address] [place] [phone] Extremity Weakness; Leg Swelling Social History Tobacco [...] for your loved ones. For example, children's librarian or elderly care for an older [...] traveled recently to another state outside of [place], [place], [place], [place], [place], [place], [place]? no o If yes, did you quarantine [...] yes, gather 3rd libertarian insurance information Third Libertarian Information: not applicable PCP: Tiara Fields MD Payor: Skout PLAN / Plan: [employer] MEDICAID / Product Type: *No Product type* / documented in this encounter Plan of Treatment Upcoming Encounters Date Type Department Care Team (Late st Contact Info) Description 07/28/2025 2:00 PM EDT Office Visit Adult Medicine [facility] [address] [place] [address] Tiara Fields MD [address] [place] [phone] documented as of this encounter Visit Diagnoses Not on filedocumented in this encounter Additional Health Concerns Infection Onset Date Last Indicated Resolved Time Respiratory Rule-Out 05/24/2025 05/24/2025 025 6:27 PM EDT COVID-19 Rule-Out 05/24/2025 05/24/2025 05/24/2025 6:27 PM EDT Parainfluenza Virus 05/24/2025 05/24/2025 Assessment Noted Time PHQ-9 Depression Total Score: 24 025 9:42 PM EST documented as of this encounter Care Teams Tiler Relationship Specialty Start Date End Date Tiara Fields MD [address] [place] [address] PCP - General 02/10/24 documented as of this encounter
--- OUTSIDE RECORDS SUMMARY | 2025-06-28 15:34 | XMS_ITS | Encounter Summary ---
Author Organization [facility] Address [address] [address] Phone Care Team Providers Care Tennis Player Name Role Phone Tiara Fields Primary Care Provider Encounter Details Date Type Department Care Team (Late st Contact Info) Description 01/28/2025 Office Communication [facility] [address] [phone] Helen Selby Social History Tobacco [...] 1:35 PM EDT Patient is scheduled at [facility] for 02/12/2025 * Telephone Encounter - Helen [...] on filedocumented in this encounter Care Teams Tennis Player Relationship Specialty Start Date End Date Tiara Fields [address] [place] [address] PCP - General 03/15/25 documented as of this encounter
[2025-06-28 18:31] LABS: Albumin Level 2.6 g/dL (3.5-5.0)
[2025-06-28 19:14] LABS: Protein/Creatinine Ratio, Ur 11.23 (<0.2); Total Protein Urine Random 838 mg/dL (<12)
== END 2025-06-28 14:53 | disposition home or self-care (01) ==
LOC: HO.HKASLDS 14:52
PROVIDERS: Visit Provider Internal Medicine Nephrology
DX: R60.1 Generalized edema (principal); N17.9 Acute kidney failure, unspecified
CPT/HCPCS: 36415; 82040; 82570; 84156

== ENCOUNTER 2025-06-29 11:38 | Outpatient (AMB) | payer OTHER, SELFPAY ==
--- NOTE | 2025-06-29 11:40 | HO.NEPHOV ---
Vital Signs 06/29/25 11:41 Height 6 ft 1 in Weight 319 lb 6 oz BMI 42.1 BP 154/100 H Blood Pressure Location Lt brachial Position Sitting Pulse 101 H Pulse Source Pulse Oximeter Pulse Oximetry (%) 98 Oxygen Delivery Method Room Air Intake Visit Reasons: Jun f/u w/labs-Conf Applicator Sprayer Required: No Accompanied by: Brother Allergies No Known Allergies Allergy (Verified 06/29/25 11:40) HPI Comments Details: Heather was seen for follow up of MARIA ALEJANDRA and nephrotic range proteinuria on a backdrop of newly diagnosed biopsy proven primary FSGS. He had influenza in December 2024 and after that he started developing edema and was found to have nephrotic range proteinuria. His renal function was normal at that time. He had quite a bit of weight gain with edema as well as shortness of breath. He underwent extensive work by his primary care physician and had seen other renal physicians in different practice for the same complaint. He even underwent renal biopsy and was told at that time that he has FSGS. Initially he refused renal biopsy for some months and he continued to have worsening proteinuria, with a proteinuria going up to over 17 g. He was given Bumex, torsemide, furosemide, metolazone, Aldactone as well as losartan in the past. His previous renal physician felt that he was not adherent with his directions and he had been playing around with medications as well as multiple medical providers. During the course of months his serum creatinine started to rise with a drop in GFR. His previous renal physician has recommended admission to the hospital for intravenous diuretics, kidney biopsy and immunosuppression. He had multiple ER visits as well as urgent care consultations for various reasons including diffuse pains, weight gain and continued worsening of edema. It was thought in the past that he may have bowel wall edema and p.o. medications will be unsuccessful. He was prescribed prednisone by his previous renal MD which he did not take but started taking when transitioned to my care. He still continued to contact the old renal care team for various reasons. He recently had respiratory illness and his cyclosporin was reduced to 100 m bid by someone else. He has been in prophylactic Bactrim. He claims to be compliant with prednisone as well as losartan & Jardiance. He was told in the past by his past renal MD that he may end up with ESRD. His serum creatinine has been stable and his BP is at goal. He is also taking another opinion from [facility] through his previous renal MD's practice. [facility] Medical History (Updated 04/27/25 @ 07:01 by Joe Dhaliwal MD) Vitamin D deficiency disease Snoring Polyarthralgia Nephrotic syndrome Morbid obesity with body mass index (BMI) of 40.0 or higher Hyperlipidemia Gastroesophageal reflux disease with esophagitis without hemorrhage Fatty liver Erectile dysfunction due to diseases classified elsewhere Elevated ALT measurement Family History Father Bladder cancer Brother Kidney stone Mother Renal cyst Social History Alcohol intake: never Patient Tobacco Use Status: Never used Tobacco Review of Systems Const All systems reviewed & are unremarkable except as noted in HPI and below Physical Exam Vital Signs: Last Vital Signs Pulse 101 H 06/29/25 11:41 BP 154/100 H 06/29/25 11:41 Pulse Ox 98 06/29/25 11:41 Oxygen Delivery Method Room Air 06/29/25 11:41 BMI result Body Mass Index 42.1 Const General: comfortable and no acute distress Orientation/consciousness: patient oriented x3 HEENT Head: Yes normocephalic Mouth: Normal oral and palatal mucosa present Eyes EOM: EOMs intact bilaterally Neck Neck: Yes supple Resp Auscultation: clear to auscultation bilaterally Cardio Jugular venous distension: no JVD Rate: regular rate GI Palpation (GI): Soft to palpation Auscultation: normal bowel sounds General: Yes no CVA tenderness Back/Spine/Pelvis Back: no CVA tenderness Skin General skin exam: no rashes or lesions noted Neuro General: patient oriented x3 and moves all extremities Results Reviewed Nephrology Results: Sodium, (135-145) 144 mmol/L 05/31/25 Potassium, (3.3-5.1) 4.1 mmol/L 05/31/25 Chloride, (96-108) 106 mmol/L 05/31/25 Carbon Dioxide, (22-29) 25 mmol/L 05/31/25 BUN, (9-16) 77 mg/dL H 05/31/25 Creatinine, (0.5-1.4) 1.37 mg/dL 05/31/25 Calcium, (8.4-10.2) 8.5 mg/dL 05/31/25 Urine Creatinine 74.64 mg/dL 06/28/25 Protein/Creatinin Ratio, (<0.2) 11.23 H 06/28/25 Assessment & Plan Assessment & Plan (1) Nephrotic syndrome: Code(s): N04.9 - Nephrotic syndrome with unspecified morphologic changes Category: Medical (2) FSGS (focal segmental glomerulosclerosis): Code(s): N05.1 - Unspecified nephritic syndrome with focal and segmental glomerular lesions Category: Medical Plan Focus of treatment for his FSGS will include the following Dietary sodium restriction Antihypertensive therapy Renin-angiotensin system inhibition SGLT2 inhibitors Lipid lowering Anticoagulation Treatment of edema For the time being he will continue on high-dose prednisone. I reduced it to 60 mg daily. He will benefit from calcineurin inhibitor. I asked him to continue diuretics and increased losartan to 50 mg twice daily. ( he has H/O starting and stopping medications including losartan by himself). I asked him to C/W current dose of cyclosporin for now( levels ordered). I increased his Jardiance to 25 mg daily. Those with glucocorticoid-dependent FSGS may be alternatively treated with MMF/EC-MPS or rituximab or cytotoxic therapy like cyclophosphamide. In general, the duration of therapy varies according to the degree and rapidity of response (eg, faster taper for patients who achieve a quick remission), whether complete or partial remission is achieved, and the degree of glucocorticoid toxicity. If a complete remission is achieved within 8 to 12 weeks, I continue the initial dose of?prednisone and then taper the dose over two to three months. One strategy is to switch to alternate-day prednisone (double the daily dose but to a maximum of 80 to 120 mg), and then decrease the dose by approximately one-third every two to three weeks. If a partial remission is achieved by 8 to 12 weeks, we can taper prednisone slowly over three to nine months. We initially switch to alternate-day dosing and decrease the dose by one-third approximately every six weeks. For patients who have had a substantial reduction (>50 percent from baseline) in proteinuria by 8 to 12 weeks but do not meet criteria for partial remission (ie, proteinuria remains >3.5 g/day), the decision to continue high-dose prednisone or modify therapy is based upon the severity of glucocorticoid toxicity, the risk of continued therapy, and whether protein excretion is continuing to fall. Prednisone can be continued, for example, in patients whose proteinuria continues to decline, provided they are not experiencing severe side effects from therapy. If, at any time after a complete or partial remission is attained, proteinuria increases while the prednisone?is being tapered, we stop the taper and temporarily maintain the current prednisone dose while adding a CNI or, if the eGFR is <30 mL/min/1.73 m2, MMF/EC-MPS. Although the use of MMF/EC-MPS is not supported by evidence, some authors and editors of this topic use it in this setting based on its potential role as a glucocorticoid-sparing agent, its safe use in patients with low eGFR, and its role as maintenance therapy in other glomerular diseases such as minimal change disease and lupus nephritis. Adult patients who have little or no reduction in proteinuria after 16 weeks of daily?prednisone are presumed to be glucocorticoid resistant. In such patients, we prefer to add a CNI (or MMF if the eGFR is low) and switch to alternate-day prednisone with a progressive taper in prednisone therapy, reducing the dose by approximately one-third every week. (some of the references in management as mentioned above are taken from up-to-date ([facility]). Follow-up blood work was ordered and is going to see me for continued care.Answered all questions. Orders: Orders Creatinine 3 Weeks N04.9 - Nephrotic syndrome with unspecified morphologic changes, N05.1 - Unspecified nephritic syndrome with focal and segmental glomerular lesions Electrolytes 3 Weeks N04.9 - Nephrotic syndrome with unspecified morphologic changes, N05.1 - Unspecified nephritic syndrome with focal and segmental glomerular lesions Calcium 3 Weeks N04.9 - Nephrotic syndrome with unspecified morphologic changes, N05.1 - Unspecified nephritic syndrome with focal and segmental glomerular lesions Blood Urea Nitrogen 3 Weeks N04.9 - Nephrotic syndrome with unspecified morphologic changes, N05.1 - Unspecified nephritic syndrome with focal and segmental glomerular lesions Magnesium 3 Weeks N04.9 - Nephrotic syndrome with unspecified morphologic changes, N05.1 - Unspecified nephritic syndrome with focal and segmental glomerular lesions Albumin Level 3 Weeks N04.9 - Nephrotic syndrome with unspecified morphologic changes, N05.1 - Unspecified nephritic syndrome with focal and segmental glomerular lesions Protein Creatinine Ratio, Ur 3 Weeks N04.9 - Nephrotic syndrome with unspecified morphologic changes, N05.1 - Unspecified nephritic syndrome with focal and segmental glomerular lesions Cyclosporine 3 Weeks N05.1 - Unspecified nephritic syndrome with focal and segmental glomerular lesions Medications: Changed From empagliflozin (Jardiance) 10 mg PO DAILY To empagliflozin 25 mg PO DAILY 30 tabs 4RF From losartan 25 mg PO BID 30 days 60 tabs 4RF To losartan 50 mg PO BID 60 tabs 4RF 30 days From prednisone 80 mg (4 x 20 mg) PO DAILY 30 days 120 tabs 3RF To prednisone 60 mg (3 x 20 mg) PO DAILY 90 tabs 3RF 30 days Coding Level of Care Code Est Pt Level 4 (71338) Diagnoses Nephrotic syndrome N04.9 FSGS (focal segmental glomerulosclerosis) N05.1
[2025-06-29 11:41] VITALS: BP 154/100; PULSE 101; O2SAT 98; BMI 42.1
--- OUTSIDE RECORDS SUMMARY | 2025-06-29 13:09 | XMS_ITS | Encounter Summary ---
Author Organization [facility] Address [address] [address] Phone Care Team Providers Care Epic Cadence Analyst Name Role Phone Tiara Fields Primary Care Provider Encounter Details Date Type Department Care Team (Late st Contact Info) Description 01/28/2025 Office Communication [facility] [address] [phone] Helen Selby Social History Tobacco [...] 1:35 PM EDT Patient is scheduled at [facility] for 02/12/2025 * Telephone Encounter - Helen [...] on filedocumented in this encounter Care Teams Epic Cadence Analyst Relationship Specialty Start Date End Date Tiara Fields [address] [place] [address] PCP - General 03/15/25 documented as of this encounter
--- OUTSIDE RECORDS SUMMARY | 2025-06-29 13:09 | XMS_ITS | Clinical Summary ---
Author Organization [facility] Address [address] [place] [phone] Phone Care Team Providers Care Audit Machine Operator Name Role Phone Tiara Fields MD Primary [...] for nausea/vomit ing 6 tablet 5 Active Encounters Date Type Department Care Team Description 2025 5:50 PM EDT - 2025 11:02 PM EDT Emergency [facility] [address] [place] [address] Yordan Tripathi MD Discharge Disposition: Home or Self Care from [...] your housing situation today? I have janine arrieta 2025 How many times have you move [...] type Left leg pain Right leg pain from Last 3 Months Results * D-dimer (2025 10:20 PM EDT) D-DIMER <215 <500 ng/mL FEU [facility] Comment:In patients with low to moderate pre-test probability scores for VTE (PE or DVT), a D-Dimer cut-off less than 500 ng/mL (U) has a negative predictive value (NPV) of 97 to 100%. Blood 2025 10:2 0 PM EDT 2025 10:23 PM EDT us Yordan Tripathi MD LAB BLOOD ORDERABLES Fin al Result [address] [address] * (ABNORMAL) Troponin (2025 10:20 PM EDT) Only the most recent of2 resultswithin the time period is included. Troponin-T, HS Gen5 26(H) 0 - 14 ng/L [facility] Blood 2025 10:2 0 PM EDT 2025 10:23 PM EDT us Yordan Tripathi MD LAB BLOOD ORDERABLES Fin al Result Performing Organization Address [facility] Co de Phone Number [address] [address] * (ABNORMAL) Urinalysis w/reflex Urine Culture (2025 9:52 PM EDT) COLOR Yellow Yellow [facility] CLARITY Clear [facility] GLUCOSE 2+(A) Negative [facility] BILI Negative Negative [facility] KETONES Negative Negative [facility] SPECIFIC GRAVITY 1.020 1.005 - 1.030 [facility] BLOOD 1+(A) Negative [facility] PH 6.0 5.0 - 8.0 [facility] Protein-UA 3+(A) Negative [facility] NITRITE Negative Negative [facility] Leukocyte esterase, ur Negative Negative [facility] Urine (Urine) 2025 9:5 2 PM EDT 2025 9:56 PM EDT us Yordan Tripathi MD URINE ORDERABLES Final R esult Performing Organization Address [facility] Co de Phone Number [address] [address] * (ABNORMAL) Urine sediment (2025 9:52 PM EDT) WBC 5-10(A) NONE SEEN /hpf [facility] RBC 3-5(A) NONE SEEN /hpf [facility] URINE EPITHELIAL NONE SEEN NONE SEEN [facility] MUCUS Trace(A) NONE SEEN /hpf [facility] BACTERIA NONE SEEN NONE SEEN /hpf [facility] 2025 9:52 PM EDT 2025 9:56 PM EDT Yordan Tripathi MD URINE ORDERABLES Final R esult Performing Organization Address [facility]/ZIP Co de Phone Number [address] [address] * ECG 12-LEAD (2025 9:41 PM EDT) Ventricular Rate EKG/MIN 78 BPM [facility] Atrial Rate 78 BPM [facility] SD Interval 172 ms [facility] QRS Duration 88 ms [facility] QT Interval 376 ms [facility] QTC Interval 428 ms [facility] P Huddy 36 degrees [facility] R Wave Huddy 10 degrees [facility] T Wave [place] 23 degrees [facility] 2025 9:41 PM EDT 04/28/2025 6:01 PM EDT Narrative [facility] - 04/28/2025 6:01 PM EDT Normal sinus rhythm Normal ECG When compared with ECG of 30-Dec-2023 02:38, No significant change was found Confirmed by Kurt Mcfarlane ([id number]) on 04/28/2025 6:01:07 PM us Yordan Tripathi MD ECG ORDERABLES Final Re sult [facility] * (ABNORMAL) CBC and differential (2025 8:29 PM EDT) WBC 12.49(H) 4.00 - 11.00 K/uL [facility] RBC 4.82 4.50 - 5.90 M/uL [facility] HGB 14.6 13.5 - 17.5 g/dL [facility] HCT 43.8 41.0 - 53.0 % [facility] PLT 285 150 - 450 K/uL [facility] MCV 90.9 80.0 - 100.0 fL [facility] MCH 30.3 27.0 - 31.0 pg [facility] MCHC 33.3 32.0 - 36.0 g/dL [facility] RDW 13.2 11.5 - 14.5 % [facility] MPV 9.7 8.4 - 12.0 fL [facility] NRBC 0.00 0.00 /100 WBCs [facility] ABSOLUTE NRBC 0.00 0.00 K/uL [facility] DIFF METHOD Auto [facility] NEUTS 83.3(H) 48.0 - 76.0 % [facility] LYMPHS 12.6(L) 18.0 - 41.0 % [facility] MONOS 2.9(L) 4.0 - 11.0 % [facility] EOS 0.0 0.0 - 5.0 % [facility] BASOS 0.2 0.0 - 1.5 % [facility] Granulocytes, immature (%) 1.0(H) 0.0 - 0.9 % [facility] ABSOLUTE NEUTS 10.42(H) 1.92 - 7.60 K/uL [facility] ABSOLUTE LYMPHS 1.57 0.72 - 4.10 K/uL [facility] ABSOLUTE MONOS 0.36 0.16 - 1.10 K/uL [facility] ABSOLUTE EOS 0.00 0.00 - 0.50 K/uL [facility] ABSOLUTE BASOS 0.02 0.00 - 0.15 K/uL [facility] Granulocytes, immature 0.12(H) 0.00 - 0.09 K/uL [facility] Blood 2025 8:29 PM EDT 2025 8:32 PM EDT Yordan Tripathi MD LAB BLOOD ORDERABLES Fin al Result [address] [address] * Phosphorus (2025 8:29 PM EDT) PHOSPHORUS 4.3 2.7 - 4.5 mg/dL [facility] Blood 2025 8:29 PM EDT 2025 8:32 PM EDT Yordan Tripathi MD LAB BLOOD ORDERABLES Fin al Result [address] [address] * (ABNORMAL) Magnesium (2025 8:29 PM EDT) MAGNESIUM 2.8(H) 1.6 - 2.6 mg/dL [facility] Blood 2025 8:29 PM EDT 2025 8:32 PM EDT us Yordan Tripathi MD LAB BLOOD ORDERABLES Fin al Result Performing Organization Address City/[facility]/ZIP Co de Phone Number [address] [address] * CPK (creatine kinase) (2025 8:29 PM EDT) CREATINE KINASE 35 35 - 232 U/L [facility] Blood 2025 8:29 PM EDT 2025 8:32 PM EDT us Yordan Tripathi MD LAB BLOOD ORDERABLES Fin al Result Performing Organization Address [facility] Co de Phone Number [address] [address] * (ABNORMAL) Basic metabolic panel (2025 8:29 PM EDT) SODIUM 136 133 - 146 mmol/L [facility] CHLORIDE 98 96 - 108 mmol/L [facility] POTASSIUM 4.4 3.3 - 5.1 mmol/L [facility] CO2 29 21 - 35 mmol/L [facility] BUN 67(H) 6 - 19 mg/dL [facility] CREATININE 1.70(H) 0.5 - 1.5 mg/dL [facility] GLUCOSE 122(H) 70 - 99 mg/dL [facility] CALCIUM 8.8 8.4 - 10.3 mg/dL [facility] EGFR 54(L) >59 mL/min/1.7 3m2 [facility] Comment:Estimated glomerular filtration rate calculated using the CKD-EPI refit equation. ANION GAP 13 10 - 20 mmol/L [facility] Blood 2025 8:29 PM EDT 2025 8:32 PM EDT us Yordan Tripathi MD LAB BLOOD ORDERABLES Fin al Result [address] [address] * US Lower Extremity Veins Duplex Complete [...] veins of either lowerextremity. Esteban Vasquez MD [facility] VASCULAR Final Res ult from Last 3 Months Insurance [employer] [place] [address] [address] [place] [address] [employer] [address] [place] [email or web address] [place] [address] [address] [place] [address] [place] [address] [place] [address] [facility] [place] [address] [place] [address] [facility] Care Teams Audit Machine Operator Relationship Specialty Start Date End Date Tiara Fields MD [address] [place] [address] PCP - General Family Medicine 04/27/25 Additional Source Comments The information contained in this document represents components of the legal health record. It is not the complete legal health record.[facility]
== END 2025-06-29 12:18 | disposition home or self-care (01) ==
LOC: HO.HKAS 11:38
PROVIDERS: PCP Family Medicine; Visit Provider Internal Medicine Nephrology
DX: N04.9 Nephrotic syndrome with unspecified morphologic changes (principal); N05.1 Unspecified nephritic syndrome with focal and segmental glomerular lesions
CPT/HCPCS: 99214

== ENCOUNTER → 2025-06-29 11:38 | Outpatient (BNVA) | payer OTHER, SELFPAY | PROVIDERS: PCP Family Medicine; Visit Provider Internal Medicine Nephrology | DX: N04.9 Nephrotic syndrome with unspecified morphologic changes (principal); N05.1 Unspecified nephritic syndrome with focal and segmental glomerular lesions | CPT/HCPCS: 99212 ==

== ENCOUNTER 2025-07-26 16:07 | Outpatient (REF) | payer OTHER, SELFPAY ==
[2025-07-26 18:27] LABS: Albumin Level 2.7 g/dL (3.5-5.0); Anion Gap 12 (12-20); Blood Urea Nitrogen 63 mg/dL (9-16); Calcium 8.3 mg/dL (8.4-10.2); Carbon Dioxide 19 mmol/L (22-29); Chloride 112 mmol/L (96-108); Estimated Glomerular Filt Rate > 60; Magnesium 2.3 mg/dL (1.6-2.6); Potassium 4.2 mmol/L (3.3-5.1); Sodium 139 mmol/L (135-145)
[2025-07-26 18:44] LABS: Protein/Creatinine Ratio, Ur 17.34 (<0.2); Total Protein Urine Random 936 mg/dL (<12)
--- OUTSIDE RECORDS SUMMARY | 2025-07-26 21:17 | XMS_ITS | Clinical Summary ---
Author Organization [facility] Address [address] [place] [phone] Phone Care Team Providers Care Welding Machine Operator Electro Gas Name Role Phone Tiara Fields MD Primary [...] 11:02 PM EDT Emergency [facility] [address] [place] [address] Yordan Tripathi MD Discharge Disposition: Home or [...] HIV ONE-TIME SCREENING (18-6 5 YEARS) 2010 INFLUENZA VACCINE (#1) 2025 09/08/2020 COVID-19 VACCINE (2023-2 5 season) 2025 Adult Td,Tdap Booster 09/08/2030 09/08/2020 HEPATITIS A [...] PM EDT) D-DIMER <215 <500 ng/mL FEU [facility] Comment:In patients with low to moderate pre-test probability scores for VTE (PE or DVT), a D-Dimer cut-off less than 500 ng/mL ([facility]) has a negative predictive value (NPV) of 97 to 100%. Blood 2025 10:2 0 PM EDT 2025 10:23 PM EDT us Yordan Tripathi MD LAB BLOOD ORDERABLES Fin al Result [address] [address] * (ABNORMAL) Troponin (2025 10:20 PM EDT) Only the most recent of2 resultswithin the time period is included. Troponin-T, HS Gen5 26(H) 0 - 14 ng/L [facility] Blood 2025 10:2 0 PM EDT 2025 10:23 PM EDT us Yordan Tripathi MD LAB BLOOD ORDERABLES Fin al Result Performing Organization Address [facility] Co de Phone Number [address] [address] * (ABNORMAL) Urinalysis w/reflex Urine Culture (2025 9:52 PM EDT) COLOR Yellow Yellow [facility] CLARITY Clear [facility] GLUCOSE 2+(A) Negative [facility] BILI Negative Negative [facility] KETONES Negative Negative [facility] SPECIFIC GRAVITY 1.020 1.005 - 1.030 [facility] BLOOD 1+(A) Negative [facility] PH 6.0 5.0 - 8.0 [facility] Protein-UA 3+(A) Negative [facility] NITRITE Negative Negative [facility] Leukocyte esterase, ur Negative Negative [facility] Urine (Urine) 2025 9:5 2 PM EDT 2025 9:56 PM EDT us oYrdan Tripathi MD URINE ORDERABLES Final R esult Performing Organization Address [facility] Co de Phone Number [address] [address] * (ABNORMAL) Urine sediment (2025 9:52 PM EDT) WBC 5-10(A) NONE SEEN /hpf [facility] RBC 3-5(A) NONE SEEN /hpf [facility] URINE EPITHELIAL NONE SEEN NONE SEEN [facility] MUCUS Trace(A) NONE SEEN /hpf [facility] BACTERIA NONE SEEN NONE SEEN /hpf [facility] 2025 9:52 PM EDT 2025 9:56 PM EDT us Yordan Tripathi MD URINE ORDERABLES Final R esult Performing Organization Address City/[facility]/ZIP Co de Phone Number [address] [address] * ECG 12-LEAD (2025 9:41 PM EDT) Ventricular Rate EKG/MIN 78 BPM [facility] Atrial Rate 78 BPM [facility] SD Interval 172 ms [facility] QRS Duration 88 ms [facility] QT Interval 376 ms [facility] QTC Interval 428 ms [facility] P [place] 36 degrees [facility] R Wave [place] 10 degrees [facility] T Wave [place] 23 degrees [facility] 2025 9:41 PM EDT [...] EDT) WBC 12.49(H) 4.00 - 11.00 K/uL [facility] RBC 4.82 4.50 - 5.90 M/uL [facility] HGB 14.6 13.5 - 17.5 g/dL [facility] HCT 43.8 41.0 - 53.0 % [facility] PLT 285 150 - 450 K/uL [facility] MCV 90.9 80.0 - 100.0 [facility] MCH 30.3 27.0 - 31.0 pg [facility] MCHC 33.3 32.0 - 36.0 g/dL [facility] RDW 13.2 11.5 - 14.5 % [facility] MPV 9.7 8.4 - 12.0 [facility] NRBC 0.00 0.00 /100 WBCs [facility] ABSOLUTE NRBC 0.00 0.00 K/uL [facility] DIFF METHOD Auto [facility] NEUTS 83.3(H) 48.0 - 76.0 % [facility] LYMPHS 12.6(L) 18.0 - 41.0 % [facility] MONOS 2.9(L) 4.0 - 11.0 % [facility] EOS 0.0 0.0 - 5.0 % [facility] BASOS 0.2 0.0 - 1.5 % [facility] Granulocytes, immature (%) 1.0(H) 0.0 - 0.9 % [facility] ABSOLUTE NEUTS 10.42(H) 1.92 - 7.60 K/uL [facility] ABSOLUTE LYMPHS 1.57 0.72 - 4.10 K/uL [facility] ABSOLUTE MONOS 0.36 0.16 - 1.10 K/uL [facility] ABSOLUTE EOS 0.00 0.00 - 0.50 K/uL [facility] ABSOLUTE BASOS 0.02 0.00 - 0.15 K/uL [facility] Granulocytes, immature 0.12(H) 0.00 - 0.09 K/uL [facility] Blood 2025 8:29 PM EDT 2025 8:32 PM EDT us Yordan Tripathi MD LAB BLOOD ORDERABLES Fin al Result Performing Organization Address City/[facility] Co de Phone Number [address] [address] * Phosphorus (2025 8:29 PM EDT) PHOSPHORUS 4.3 2.7 - 4.5 mg/dL [facility] Blood 2025 8:29 PM EDT 2025 8:32 PM EDT Yordan Tripathi MD LAB BLOOD ORDERABLES Fin al Result Performing Organization Address [facility] Co de Phone Number [address] [address] * (ABNORMAL) Magnesium (2025 8:29 PM EDT) MAGNESIUM 2.8(H) 1.6 - 2.6 mg/dL [facility] Blood 2025 8:29 PM EDT 2025 8:32 PM EDT us Yordan Tripathi MD LAB BLOOD ORDERABLES Fin al Result Performing Organization Address [facility]/ZIP Co de Phone Number [address] [address] * CPK (creatine kinase) (2025 8:29 PM EDT) CREATINE KINASE 35 35 - 232 U/L [facility] Blood 2025 8:29 PM EDT 2025 8:32 PM EDT us Yordan Tripathi MD LAB BLOOD ORDERABLES Fin al Result Performing Organization Address [facility] Co de Phone Number [address] [address] * (ABNORMAL) Basic metabolic panel (2025 8:29 PM EDT) SODIUM 136 133 - 146 mmol/L [facility] CHLORIDE 98 96 - 108 mmol/L [facility] POTASSIUM 4.4 3.3 - 5.1 mmol/L [facility] CO2 29 21 - 35 mmol/L [facility] BUN 67(H) 6 - 19 mg/dL [facility] CREATININE 1.70(H) 0.5 - 1.5 mg/dL [facility] GLUCOSE 122(H) 70 - 99 mg/dL [facility] CALCIUM 8.8 8.4 - 10.3 mg/dL [facility] EGFR 54(L) >59 mL/min/1.7 3m2 [facility] Comment:Estimated glomerular filtration rate calculated using the CKD-EPI refit equation. ANION GAP 13 10 - 20 mmol/L [facility] Blood 2025 8:29 PM EDT 2025 8:32 PM EDT us Yordan Tripathi MD LAB BLOOD ORDERABLES Fin al Result [address] [address] * US Lower Extremity Veins Duplex Complete [...] in the visualized veins of either lowerextremity. [facility] MD [facility] VASCULAR Final Res ult from Last 3 Months Insurance [employer] M[employer] [facility] [place] [address] [place] [address] [employer] [place] [address] [place] [address] [employer] [place] [place] [address] [employer] [facility] ACO Care Teams Welding Machine Operator Electro Gas Relationship Specialty Start Date End Date Tiara Fields MD [address] [place] [phone] PCP - General Family Medicine 04/27/25 Additional Source Comments The information contained in this document represents components of the legal health record. It is not the complete legal health record.[facility]
--- OUTSIDE RECORDS SUMMARY | 2025-07-26 21:17 | XMS_ITS | Clinical Summary ---
Author Organization [facility] Address [address] [address] Phone Care Team Providers Care Carding Supervisor Name Role Phone Tiara Fields Primary Care Provider [phone] Allergies No known active allergies Medications metOLazone 5 MG tablet Take 1 tablet (5 mg total) by mouth 1 (one) time each day if needed (edema) 90 tablet 3 03/15/2025 Active bumetanide (BUMEX) 2 MG tablet Take 2 tablets (4 mg total) by mouth in the morning and 2 tablets (4 mg total) at noon and 2 tablets (4 mg total) in the evening. 04/15/2025 Active Empagliflozin (Jardiance) 10 MG tablet Take 10 mg by mouth 1 (one) time each day in the morning 30 tablet 3 04/15/2025 Active aspirin EC 81 MG EC tablet Take 1 tablet (81 mg total) by mouth 1 (one) time each day 30 tablet 11 04/15/2025 6 Active polyethylene glycol (GLYCOLAX) 17 g packet Take 17 g by mouth 1 (one) time each day 90 packet 3 04/15/2025 6 Active sulfamethoxazol e-trimethoprim 800-160 MG per tablet Take 1 tablet by mouth 3 (three) times a week 36 tablet 3 04/16/2025 Active rosuvastatin (Crestor) 5 MG tablet Take 1 tablet (5 mg total) by mouth 1 (one) time each day 30 tablet 11 04/15/2025 Active predniSONE (DELTASONE) 20 MG tablet Take 4 tablets (80 mg total) by mouth 1 (one) time each day 360 tablet 3 04/15/2025 Active metoprolol succinate XL (Toprol XL) 25 MG 24 hr tablet Take 1 tablet (25 mg total) by mouth 1 (one) time each day Do not crush or chew. 90 tablet 3 04/26/2025 Active cholecalciferol (VITAMIN D-3) 50 MCG (2000 UT) capsule Take 1 capsule (2,000 Units total) by mouth 1 (one) time each day 90 capsule 3 04/26/2025 6 Active Active Problems Problem Noted Date Diagnosed Date Focal segmental glomerulosclerosis 04/14/2025 Glomerulonephritis 01/26/2025 Localized edema 01/26/2025 Hypertension 01/26/2025 Proteinuria, not otherwise specified 01/25/2025 Nephrotic syndrome 01/14/2025 Fatty liver 01/14/2025 Body mass index 40+ - severely obese 12/14/2024 Vitamin D deficiency 05/18/2020 Overview (01/25/2025): 68796 units for 8 weeks Dyslipidemia 04/07/2019 Resolved Problems Problem Noted Date Diagnosed Date Resolved Date Hematuria, not otherwise specified 01/26/2025 04/14/2025 Multiple joint pain 12/14/2024 04/14/20 25 Snoring 03/30/2019 04/14/2025 Overview (01/25/2025): 03/2019 Home Sleep Study did not reveal sleep apnea or nocturnal hypoxia. Encounters Date Type Department Care Team Description 06/01/2025 Office Communication [facility] [address] [phone] Valeriy Pulliam MD 06/01/2025 Office Communication [facility] [address] [phone] Valeriy Pulliam MD 05/27/2025 Orders Only [facility] [address] [phone] Valeriy Pulliam MD Glomerulonephritis; Hypertension; Dyslipidemia; Nephrotic syndrome; Proteinuria, not otherwise specified; Vitamin D deficiency, not otherwise specified 05/07/2025 Orders Only [facility] [address] [phone] Valeriy Pulliam MD 04/26/2025 Orders Only [facility] [address] [phone] Valeriy Pulliam MD from Last 3 Months Social History Tobacco Use Types Packs/Day Years Used Date Smoking Tobacco: Never Assessed Sex and Gender Information Value Date Recorded Sex Assigned at Not on file Legal Sex Male 1:01 PM EDT Gender Identity Not on file Sexual Orientation Not on file Last Filed Vital Signs Vital Sign Reading Time Taken Comments Blood Pressure 142/94 04/15/2025 9:04 AM EDT Pulse 103 04/15/2025 9:04 AM EDT Temperature - - Respiratory Rate - - Oxygen Saturation 96% 03/15/2025 8:53 AM EDT Inhaled Oxygen Concentration - - Weight 143 kg (315 lb 12.8 oz) 04/15/2025 9:04 A M EDT Height 185.4 cm (6' 1 ) 01/26/2025 11:09 AM EDT Body Mass Index 41.66 01/26/2025 11:09 AM EDT Plan of Treatment Health Maintenance Due Date Last Done Comments Pneumococcal Vaccine: Peds ( 0 to 5 Years) and At-Risk Patients (6 to 49 Years) (1 of 2 - PCV) 2011 Hepatitis B Vaccine (3 of 3 - 19+ 3-dose series) 04/29/2025 01/07/2025, 10/29/2024 Influenza Vaccine (#1) 2025 07/12/2024, 2019 Procedures Procedure Name Priority Date/Time Associated Diagnosis Comments MAGNESIUM Routine 05/07/2025 3:54 PM EDT URIC ACID Routine 05/07/2025 3:54 PM EDT PROTEIN / CREATININE RATIO, URINE Routine 05/07/2025 3:54 PM EDT URINALYSIS WITH MICROSCOPIC Routine 05/07/2025 3:54 PM EDT COMPREHENSIVE METABOLIC PANEL Routine 05/07/2025 3:54 PM EDT CBC AND DIFFERENTIAL Routine 05/07/2025 3:54 PM EDT MICROSCOPIC EXAMINATION - DO NOT USE Routine 05/07/2025 3:54 PM EDT from Last 3 Months Results * (ABNORMAL) Microscopic Examination (05/07/2025 3:54 PM EDT) WBC, Urine None seen 0 - 5 /hpf [facility] RBC, Urine 3-10(A) 0 - 2 /hpf [facility] Squamous Epithelial, Urine 0-10 0 - 10 /hpf [facility] Casts None seen None seen /lpf [facility] Bacteria, Urine None seen None seen/Few [facility] 05/07/2025 3:54 PM EDT 05/07/2025 us Valeriy Pulliam MD LAB MICROBIOLOGY - GENERAL OR DERABLES Final Result [facility] [address] [place] [address] * (ABNORMAL) Protein, Total, Random Urine w/Creatinine (Protein/Creat Ratio) (05/07/2025 3:54 PM EDT) Creatinine, Ur 34.6 Not Estab. mg/dL [facility] Protein, Ur 458.5 Not Estab. mg/dL [facility] Comment: Results confirmed on dilution. Urine Protein/Creati nine Ratio 13,251(H) 0 - 200 mg/g creat [facility] 05/07/2025 3:54 PM EDT 05/07/2025 Valeriy Pulliam MD LAB URINE ORDERABLES Final Re sult [facility] [address] [place] [address] * (ABNORMAL) Urinalysis with microscopic (05/07/2025 3:54 PM EDT) Specific [place], Urine 1.011 1.005 - 1.030 [facility] pH Urine 5.5 5.0 - 7.5 [facility] Color, Urine Yellow Yellow [facility] Appearance Urine Clear Clear [facility] WBC Esterase Urine Negative Negative [facility] [phone] Protein, Ur 3+(A) Negative/Tra ce [facility] Glucose, Ur Trace(A) Negative [facility] Ketones, Urine Negative Negative [facility] Blood Urine Trace(A) Negative [facility] Bilirubin Urine Negative Negative [facility] Urobilinogen Urine 0.2 0.2 - 1.0 mg/dL [facility] [phone] Nitrite, Urine Negative Negative [facility] Microscopic Examination See below: [facility] [phone] Comment:Microscopic was doreen cated and was performed. 05/07/2025 3:54 PM EDT 05/07/2025 us Valeriy Pulliam MD LAB URINE ORDERABLES Final Re sult [facility] [address] [place] [address] * (ABNORMAL) CBC and Differential (05/07/2025 3:54 PM EDT) WBC 12.4(H) 3.4 - 10.8 x10E3/uL [facility] RBC 4.91 4.14 - 5.80 x10E6/uL [facility] Hemoglobin 15.2 13.0 - 17.7 g/dL [facility] Hematocrit 44.5 37.5 - 51.0 % [facility] MCV 91 79 - 97 fL [facility] MCH 31.0 26.6 - 33.0 pg [facility] MCHC 34.2 31.5 - 35.7 g/dL [facility] RDW 14.3 11.6 - 15.4 % [facility] Platelets 332 150 - 450 x10E3/uL [facility] Neutrophils Relative 87 Not Estab. % [facility] Lymphocytes Relative 10 Not Estab. % [facility] Monocytes 1 Not Estab. % [facility] Eosinophils Relative 0 Not Estab. % [facility] Basophils Relative 0 Not Estab. % [facility] Neutrophils Absolute 10.8(H) 1.4 - 7.0 x10E3/uL [facility] Lymphocytes Absolute 1.3 0.7 - 3.1 x10E3/uL [facility] Monocytes Absolute 0.1 0.1 - 0.9 x10E3/uL [facility] Eosinophils Absolute 0.0 0.0 - 0.4 x10E3/uL [facility] Basophils Absolute 0.0 0.0 - 0.2 x10E3/uL [facility] Immature Granulocytes 2 Not Estab. % [facility] Immature Grans (Absolute) 0.2(H) 0.0 - 0.1 x10E3/uL [facility] Comment: (An elevated percentage of Immature Granulocytes has not been found to be clinically significant as a sole clinical predictor of disease. Does NOT include bands or blast cells. associated physiological leukocytosis may also show increased immature granulocytes without clinical significance.) 05/07/2025 3:54 PM EDT 05/07/2025 Valeriy Pulliam MD LAB BLOOD ORDERABLES Final Re sult Performing Organization Address [facility] Co de Phone Number [facility] [address] [place] [address] * (ABNORMAL) Uric Acid (05/07/2025 3:54 PM EDT) Uric Acid 11.1(H) 3.8 - 8.4 mg/dL [facility] Comment:Therapeutic target f or gout patients: <6.0 05/07/2025 3:54 PM EDT 05/07/2025 Valeriy Pulliam MD LAB BLOOD ORDERABLES Final Re sult [facility] [address] [place] [address] * (ABNORMAL) Magnesium (05/07/2025 3:54 PM EDT) Magnesium 2.4(H) 1.6 - 2.3 mg/dL [facility] 05/07/2025 3:54 PM EDT 05/07/2025 us Valeriy Pulliam MD LAB BLOOD ORDERABLES Final Re sult [facility] [address] [place] [address] * (ABNORMAL) Comprehensive Metabolic Panel (05/07/2025 3:54 PM EDT) Glucose 129(H) 70 - 99 mg/dL [facility] BUN 57(H) 6 - 20 mg/dL [facility] Sodium 137 134 - 144 mmol/L [facility] Potassium 4.5 3.5 - 5.2 mmol/L [facility] Chloride 95(L) 96 - 106 mmol/L [facility] Bicarbonate (CO2) 26 20 - 29 mmol/L [facility] Calcium 8.7 8.7 - 10.2 mg/dL [facility] Total Protein 4.9(L) 6.0 - 8.5 g/dL [facility] Albumin 2.8(L) 4.1 - 5.1 g/dL [facility] Globulin 2.1 1.5 - 4.5 g/dL [facility] Total Bilirubin <0.2 0.0 - 1.2 mg/dL [facility] Alkaline Phosphatase 45 44 - 121 IU/L [facility] AST (SGOT) 12 0 - 40 IU/L [facility] ALT (SGPT) 21 0 - 44 IU/L [facility] Creatinine 1.64(H) 0.76 - 1.27 mg/dL [facility] eGFR CKD-EPI CR 2020 56(L) >59 mL/min/1.7 3 [facility] BUN/Creatinine Ratio 35(H) 9 - 20 [facility] 05/07/2025 3:54 PM EDT 05/07/2025 us Valeriy Pulliam MD LAB BLOOD ORDERABLES Final Re sult [facility] [address] [place] [address] from Last 3 Months Insurance Medicaid Care Teams Carding Supervisor Relationship Specialty Start Date End Date Tiara Fields [address] [place] [id number] PCP - General 03/15/25
--- OUTSIDE RECORDS SUMMARY | 2025-07-26 21:17 | XMS_ITS | Encounter Summary ---
Author Organization [facility] Address [address] [place] [address] Care Team Providers Care Tank Bottom Assembler Name Role Phone Tiara Fields MD Primary Care Pr ovider Encounter Details Date Type Department Care Team (Late st Contact Info) Description 03/24/2025 Lab Requisition [facility] - Main Lab [address] [facility] [place] [address] Lukasz Basurto MD [address] [place] [phone] Proteinuria, unspecified Social History Tobacco Use Types Packs/Day Years [...] Record ed Within the last 3 months, ho w many times did you visit the [...] for your loved ones. For example, child therapist or elderly care for an older adult? [...] PM EST documented as of this encounter Plan of Treatment Upcoming Encounters Date Type Department Care Team (Late st Contact Info) Description 07/28/2025 2:00 PM EDT Office Visit Adult Medicine [address] [phone] Tiara Fields, MD [address] [place] [address] 10/15/2025 3:30 PM EST Consult Vascular Surgery - [place] [address] [place] [address] Paola Gunter PA [address] [place] [address] documented as of this encounter Procedures Procedure Name Priority Date/Time Associated Diagnosis Comments AP KIDNEY BIOPSY Routine 03/24/2025 Proteinuria, unspecified TISSUE EXAM Routine 03/24/2025 Proteinuria, unspecified documented in this encounter Results * AP Kidney biopsy (03/24/2025) Scan Result See Scanned Result 04/13/2025 10:06 PM EDT EXTERNAL LAB (NON-INTERFAC ED) Tissue Left kidney structure / Unknown 03/24/2025 03/24/2025 1:28 PM EDT Lukasz Basurto MD LAB PATHOLOGY ORDERABLES Final Result EXTERNAL LAB (NON-INTERFACED) * Tissue Exam (03/24/2025) Addendum This case was sent to [facility], Department of Pathology, [place], [place] (CLIA: [id number]). Their diagnosis is summarized as follows: Pathologic [...] report for full kidney biopsy diagnosis from [facility], [place], [place]) 04/13/2025 11:41 AM [facility] Addendum electronically signed by Chinmay Grant MD on 04/13/2025 at 11:41 AM Final Diagnosis Kidney, left-biopsy for light, immunofluorescence and electron microscopy: -Submitted to [place], [place]. See supplemental report 04/13/2025 11:41 AM [facility] Clinical Information 3 18g core samples from left kidney Proteinuria 04/13/2025 11:41 AM [facility] Gross Description A. Kidney, Left, [...] core. The specimen is entirely submitted to [facility] for analysis. [facility] 04/13/2025 11:41 AM [facility] Disclaimer Unless otherwise specified, all tissue is 10% NB formalin fixed and paraffin embedded. 04/13/2025 11:41 AM [facility] Tissue Left kidney structure / Unknown 03/24/2025 03/24/2025 1:27 PM EDT Lukasz Basurto MD LAB PATHOLOGY ORDERABLES Edited Result - Final [facility] [address] [place] [address], documented in this encounter Visit Diagnoses Diagnosis Proteinuria, unspecified documented in this encounter Additional Health Concerns Infection Onset Date Last Indicated Resolved Time Respiratory Rule-Out 05/24/2025 05/24/2025 025 6:27 PM EDT COVID-19 Rule-Out 05/24/2025 05/24/2025 05/24/2025 6:27 PM EDT Parainfluenza Virus 05/24/2025 05/24/2025 Assessment Noted Time PHQ-9 Depression Total Score: 24 025 9:42 PM EST documented as of this encounter Care Teams Tank Bottom Assembler Relationship Specialty Start Date End Date Tiara Fields MD [address] [place] [phone] PCP - General 02/10/24 documented as of this encounter
--- OUTSIDE RECORDS SUMMARY | 2025-07-26 21:17 | XMS_ITS | Clinical Summary ---
Author Organization [facility] [address] [place] [address] [place] [phone] Phone Care Team Providers Care Trouble Shooter Name Role Phone Tiara Fields MD Primary Care Pr ovider Allergies No known active allergies Medications dicyclomine (BENTYL) 10 mg capsuleIndicati ons:Irritable bowel syndrome with mixed bowel habits Take 1 capsule (10 mg total) by mouth 3 (three) times a day if needed (loose stools, abdominal discomfort). 90 capsule 11 5 01/28/20 26 Active losartan (COZAAR) 100 mg tablet Take 25 mg by mouth 1 (one) time each day. 5 Active metOLazone (ZAROXOLYN) 5 mg tablet Take 1 tablet (5 mg total) by mouth 1 (one) time each day if needed (edema) for up to 14 days. 14 tablet 5 Active bumetanide (BUMEX) 2 mg tablet Take 1 tablet (2 mg total) by mouth 3 (three) times a day. 90 each 5 03/21/20 26 Active aspirin 81 mg EC tablet Take 1 tablet (81 mg total) by mouth 1 (one) time each day. 5 04/15/20 26 Active cholecalciferol (VITAMIN D-3) 50 mcg (2,000 unit) capsule Take 1 capsule (2,000 Units total) by mouth 1 (one) time each day. 5 04/26/20 26 Active cyclobenzaprine (FLEXERIL) 10 mg tablet Take 1 tablet (10 mg total) by mouth if needed for muscle spasms. Active Jardiance 10 mg tablet Take 1 tablet (10 mg total) by mouth 1 (one) time each day in the morning. Active methocarbamoL (ROBAXIN) 500 mg tablet Take 1 tablet (500 mg total) by mouth if needed for muscle spasms. Active metoprolol succinate (TOPROL-XL) 25 mg 24 hr tablet Take 1 tablet (25 mg total) by mouth 1 (one) time each day. 5 04/26/20 26 Active polyethylene glycol (MIRALAX) 17 gram packet Take 17 g by mouth 1 (one) time each day. 5 04/15/20 26 Active potassium chloride (KLOR-CON) 20 mEq packet Take 20 mEq by mouth 1 (one) time each day. Active predniSONE (DELTASONE) 20 mg tablet Take 1 tablet (20 mg total) by mouth 4 (four) times a day. Active sulfamethoxazol e-trimethoprim (BACTRIM DS,SEPTRA DS) 800-160 mg per tablet Take 1 tablet by mouth 3 (three) times a week. Active ergocalciferol (VITAMIN D-2) 1,250 mcg (50,000 unit) capsule Take 1 capsule (50,000 Units total) by mouth 1 (one) time per week. 12 capsule 5 07/26/20 25 Active doxycycline (MONODOX) 100 mg capsule Take 1 capsule (100 mg total) by mouth 2 (two) times a day. Take with at least 8 ounces (large glass) of water, do not lie down for 30 minutes after 14 each 5 Active Active Problems Problem Noted Date Diagnosed Date Chest tightness 05/10/2025 Racing heart beat 05/10/2025 Prediabetes 05/03/2025 Severe obesity (CMS/HCC V24, CMS/HCC V28) 2024 [...] obesity with BMI of 4 0.0-44.9, adult ([facility] V24, [facility] V28) 12/14/2024 Assessment & Plan (12/14/2024 1:30 [...] Vitamin D deficiency disease 05/18/2020 Overview (11/05/2024): 74205 units for 8 weeks Assessment & Plan [...] Encounters Date Type Department Care Team Description 07/20/2025 Telephone Adult Medicine [address] [phone] Tiara Fields MD 07/02/2025 12:52 AM EDT - 07/02/2025 5:18 AM EDT Emergency [facility] Emergency [address] [place] [address] Discharge Disposition: Left Against Medical Advice 07/02/2025 Telephone Adult [address] [phone] Tiara Fields MD 07/02/2025 Nurse Triage Adult [address] [phone] Tiara Fields MD 06/28/2025 1:30 PM EDT Ancillary Procedure [facility] Cardiology [facility] [address] [address] Nephrotic syndrome; Leg swelling 06/02/2025 Telephone [facility] [address] [address] Wesley Garcia MA 05/27/2025 10:30 AM EDT Ancillary Procedure [facility] [address] [address] Nephrotic syndrome; Chest tightness; Racing heart beat 05/27/2025 9:30 AM EDT Ancillary Procedure [facility] Cardiology [facility] - [facility] [address] [address] Leg swelling; Dyspnea on exertion 05/24/2025 2:46 PM EDT - 05/24/2025 7:38 PM EDT Emergency [facility] Emergency [address] [place] [address] Marko Zuluaga MD Community acquired pneumonia of left lower lobe of lung (Primary Dx); Parainfluenza Discharge Disposition: Home or Self Care 05/18/2025 2:30 PM EDT Nutrition Internal Medicine - [place] [address] [place] [phone] [address] Nephrotic syndrome (Primary Dx) 05/10/2025 11:20 AM EDT Office Visit [facility] 154 300 [facility] [address] [place] [phone] Vivaine Orozco MD Racing heart beat (Primary Dx); Chest tightness; Hyperlipidemia, unspecified hyperlipidemia type 04/30/2025 9:30 AM EDT Office Visit [address] [phone] Phyllis Martino PA FSGS (focal segmental glomerulosclerosis) (Primary Dx); Nephrotic syndrome; Primary hypertension; Chest tightness; Racing heart beat; Edema, unspecified type; Paresthesia and pain of extremity; Brain fog; Memory difficulties; Tinnitus of both ears; Vitamin D deficiency disease 2025 Nurse Triage [address] [phone] Tiara Fields MD from Last 3 Months Immunizations Name Administration [...] your loved ones. For example, child care counselor or elderly care for an older adult? [...] Sign Reading Time Taken Comments Blood Pressure 142/99 07/02/2025 1:05 AM EDT Pulse 104 07/02/2025 1:05 AM EDT Temperature 36.8 C (98.2 F) 07/02/2025 1:05 AM EDT Respiratory Rate 20 05/24/2025 6:22 PM EDT Oxygen Saturation 97% 07/02/2025 1:05 AM EDT Inhaled Oxygen Concentration - - Weight 143 kg (315 lb) 07/02/2025 12:56 AM EDT Height 182.9 cm (6') 07/02/2025 12:56 AM EDT Body Mass Index 42.72 07/02/2025 12:56 AM EDT Plan of Treatment Upcoming Encounters Date Type Department Care Team (Late st Contact Info) Description 07/28/2025 2:00 PM EDT Office Visit Adult Medicine [address] [phone] Tiara Fields MD [address] [place] [address] 10/15/2025 3:30 PM EST Consult Vascular Surgery - [place] [address] [address] Paola Gunter PA 300 [facility] [address] [place] [address] Health Maintenance Due Date Last Done Comments Pneumococcal Vaccine: Pediatrics (0 to 5 Years) and At-Risk Patients (6 to 49 Years) (1 of 2 - PCV) 2011 Influenza Vaccine (#1) 2025 07/12/2024, 2019 Social Influencers of Health Screening 12/11/2025 12/11/2024 Hypertension/CHF/CAD Annual BMP Blood Test 05/24/2026 05/24/2025, 05/07/2025, 05/07/2025, Additional history exists Cholesterol Screening (Lipid Panel) 04/12/2030 04/12/2025, 12/14/2024, 04/23/2024, Additional history exists DTaP,Tdap,and Td Vaccines (2 - Td or Tdap) 09/08/2030 09/08/2020 Hepatitis C Screening Completed 03/11/2019 Depression Screening Completed 12/11/2024 Hepatitis B Vaccines Completed 01/07/2025, 10/29/20 HIV Screening Completed 01/15/2025, 03/11/2019 HPV Vaccines Completed 04/08/2025, 12/13, 10/29/2024 COVID-19 Vaccine Discontinued HIB Vaccines Aged Out [...] Procedure Name Priority Date/Time Associated Diagnosis Comments CBC WITH AUTO DIFFERENTIAL STAT 07/02/2025 1:27 AM EDT TYPE AND SCREEN STAT 07/02/2025 1:27 AM EDT CBC AND DIFFERENTIAL STAT 07/02/2025 1:27 AM EDT VAS US DUPLEX LOWER EXT VENOUS INSUFFICIENCY BILATERAL Routine 06/28/2025 2:24 PM EDT Nephrotic syndrome Leg swelling CARDIAC HOLTER MONITOR (REPORT GENERATED IN HOUSE) Routine 05/27/2025 11:16 AM EDT Nephrotic syndrome Chest tightness Racing heart beat TRANSTHORACIC ECHOCARDIOGRAM (TTE) COMPLETE Routine 05/27/2025 10:18 AM EDT Leg swelling Dyspnea on exertion LOWE URINE CULTURE TUBE STAT 05/24/2025 4:11 PM EDT URINALYSIS WITH REFLEX MICROSCOPIC AND CULTURE STAT 05/24/2025 4:11 PM EDT URINALYSIS WITH REFLEX MICROSCOPIC AND CULTURE STAT 05/24/2025 4:11 PM EDT RESPIRATORY VIRUS PANEL MOLECULAR STUDY STAT 05/24/2025 4:10 PM EDT CBC WITH AUTO DIFFERENTIAL STAT 05/24/2025 2:41 PM EDT BASIC METABOLIC PANEL STAT 05/24/2025 2:41 PM EDT CBC AND DIFFERENTIAL STAT 05/24/2025 2:41 PM EDT XR CHEST 2 VIEWS STAT 05/24/2025 12:5 5 PM EDT ECG 12-LEAD Routine 05/10/2025 11:29 AM EDT Chest tightness Racing heart beat VITAMIN E Routine 04/30/2025 3:40 PM EDT Nephrotic syndrome VITAMIN B12 Routine 04/30/2025 3:40 PM EDT Nephrotic syndrome VITAMIN D 25 HYDROXY Routine 04/30/2025 3:40 PM EDT Nephrotic syndrome HEMOGLOBIN A1C Routine 04/30/2025 3:40 PM EDT Nephrotic syndrome BASIC METABOLIC PANEL Routine 04/30/2025 3:40 PM EDT Nephrotic syndrome VITAMIN A Routine 04/30/2025 3:40 PM EDT Nephrotic syndrome [facility]25 [facility] 2025 [facility] 2025 [facility] 2025 HIV 1, 2 ANTIBODY, P24 ANTIGEN WITH REFLEX TO DIFFERENTIATION Routine 01/15/2025 1:17 PM EST Nephrotic syndrome LIPID PANEL WITH REFLEX TO DIRECT LDL Routine 12/14/2024 1:12 PM EST Mixed hyperlipidemia HEPATITIS C SCREENING Routine 03/11/2019 from Last 3 Months or Most Recently Relevant to Health Maintenance Results * (ABNORMAL) CBC auto differential (07/02/2025 1:27 AM EDT) Only the most recent of2 resultswithin the time period is included. WBC 18.4(H) 4.8 - 10.8 K/mcL LAB HEMETOLOGY METHOD 07/02/2025 1:57 AM [facility] RBC 3.50(L) 4.50 - 5.50 M/mcL LAB HEMETOLOGY METHOD 07/02/2025 1:57 AM [facility] Hemoglobin 11.3(L) 13.5 - 17.5 g/dL LAB HEMETOLOGY METHOD 07/02/2025 1:57 AM [facility] Hematocrit 33.1(L) 42.0 - 54.0 % LAB HEMETOLOGY METHOD [facility]02[facility]25 1[facility] MCV 93.5 79.0 - 98.0 FL LAB HEMETOLOGY METHOD 07/02/2025 1:57 AM [facility] MCH 31.9 27.0 - 32.0 pcg LAB HEMETOLOGY METHOD 07/02/2025 1:57 AM [facility] MCHC 34.1 32.0 - 37.0 g/dL LAB HEMETOLOGY METHOD 07/02/2025 1:57 AM [facility] RDW 15.3(H) 11.0 - 15.0 % LAB HEMETOLOGY METHOD 07/02/2025 1:57 AM EDT [facility] Platelets 259 130 - 400 K/mcL LAB HEMETOLOGY METHOD 07/02/2025 1:57 AM [facility] MPV 10.1 7.0 - 11.0 FL LAB HEMETOLOGY METHOD 07/02/2025 1:57 AM T [facility] NRBC 0.0 <1.0 % LAB HEMETOLOGY METHOD 07/02/2025 1:57 AM T [facility] NRBC Absolute 0.00 <0.10 K/mcL LAB HEMETOLOGY METHOD 07/02/2025 1:57 AM [facility] Neutrophils Relative 73.5 % LAB HEMETOLOGY METHOD 07/02/2025 1:57 AM [facility] Lymphocytes Relative 18.1 % LAB HEMETOLOGY METHOD 07/02/2025 1:57 AM [facility] Monocytes Relative 4.7 % LAB HEMETOLOGY METHOD 07/02/2025 1:57 AM [facility] Eosinophils Relative 0.1 % LAB HEMETOLOGY METHOD 07/02/2025 1:57 AM [facility] Basophils Relative 0.4 % LAB HEMETOLOGY METHOD 07/02/2025 1:57 AM [facility] Immature Granulocytes Relative 3.2 % LAB HEMETOLOGY METHOD 07/02/2025 1:57 AM [facility] Neutrophils Absolute 13.55(H) 1.50 - 7.00 K/mcL LAB HEMETOLOGY METHOD 07/02/2025 1:57 AM [facility] Lymphocytes Absolute 3.34 1.00 - 5.00 K/mcL LAB HEMETOLOGY METHOD 07/02/2025 1:57 AM EDT [facility] Monocytes Absolute 0.86 0.20 - 1.00 K/mcL LAB HEMETOLOGY METHOD 07/02/2025 1:57 AM EDT [facility] Eosinophils Absolute 0.01 0.00 - 0.50 K/mcL LAB HEMETOLOGY METHOD 07/02/2025 1:57 AM EDT [facility] Basophils Absolute 0.07 0.00 - 0.20 K/[facility] LAB HEMETOLOGY METHOD 07/02/2025 1:57 AM EDT [facility] Immature Granulocytes Absolute 0.59(H) 0.00 - 0.03 K/mcL LAB HEMETOLOGY METHOD 07/02/2025 1:57 AM EDT [facility] Blood Venous blood specimen / Unknown Venipuncture / Unknown 07/02/2025 1:27 AM EDT 07/02/2025 1:50 AM EDT Radames Pate MD LAB BLOOD ORDERABLES Final Result [facility] [address] [place] [address], * Type and screen (07/02/2025 1:27 AM EDT) ABO Group A 07/02/2025 2:43 AM EDT [facility] Rh Type Positive 07/02/2025 2:43 AM EDT [facility] Antibody Screen Negative 07/02/2025 2:43 AM EDT [facility] Blood Venous blood specimen / Unknown Venipuncture / Unknown 07/02/2025 1:27 AM EDT 07/02/2025 1:50 AM EDT Radames Pate MD LAB BLOOD BANK TEST ORDERAB LES Final Result [facility] [address] [place] [address], [place] [phone] * Vascular US duplex lower extremity venous insufficiency bilateral (06/28/2025 2:24 PM EDT) Right GSK brian 0.42 cm CV VAS LAB Right GSDC brian 0.39 cm CV VAS LAB Right GSMT brian 0.43 cm CV VAS LAB Right GSPC brian 0.30 cm CV VAS LAB Right GSPT brian 0.38 cm CV VAS LAB Right SFJ Diameter 0.75 cm CV VAS LAB Right SSMC brian 0.32 cm CV VAS LAB Right SSPC brian 0.38 cm CV VAS LAB Left GSK brian 0.41 cm CV VAS LAB Left GSDC brian 0.34 cm CV VAS LAB Left GSMT brian 0.29 cm CV VAS LAB Left GSPC brian 0.33 cm CV VAS LAB Left GSPT brian 0.51 cm CV VAS LAB Left SFJ Diameter 0.75 cm CV VAS LAB Left SSMC brian 0.20 cm CV VAS LAB Left SSPC brian 0.24 cm CV VAS LAB Right com fem reflux 633 ms CV VAS LAB Right SFJ Reflux Time 650 ms CV VAS LAB Left GSPC reflux 556 ms CV VAS LAB Anatomical Region Laterality Modality Vascular, Abdomen Ultrasound Narrative 06/29/2025 10:16 AM EDT RIGHT. 1. No evidence of deep vein thrombosis. 2. The femoral and popliteal veins are competent. 0.6-0.7 seconds of reflux at the common femoral and saphenofemoral junction. 3. No superficial venous thrombosis. 4. No venous reflux noted in the small saphenous vein. 5. No venous reflux noted in the greater saphenous vein. LEFT. 1. No evidence of deep vein thrombosis. 2. The saphenofemoral junction, common femoral, femoral, and popliteal veins are competent. 3. No superficial venous thrombosis. 4. No venous reflux noted in the small saphenous vein. 5. 0.6 seconds of isolated reflux in the proximal below-knee greater saphenous vein, otherwise no venous reflux noted in the greater saphenous vein. This is not likely clinically significant. Right Lower Venous No evidence of deep vein thrombosis in the common femoral, deep femoral, proximal femoral, mid femoral, distal femoral, popliteal, greater saphenous, small saphenous, posterior tibial and peroneal veins of the right leg. The vessels showed compressibility. Interrogation showed phasic and spontaneous Doppler signals. Right Venous Insufficiency Duplex The exam was performed with the patient in reverse Trendelenburg. Left Lower Venous No evidence of deep vein thrombosis in the common femoral, deep femoral, proximal femoral, mid femoral, distal femoral, popliteal, greater saphenous, small saphenous, posterior tibial and peroneal veins of the left leg. The vessels showed compressibility. Interrogation showed phasic and spontaneous Doppler signals. Left Venous Insufficiency Duplex The exam was performed with the patient in reverse trendelenburg. Activity Therapy Teacher Details A lowe scale, color and doppler analysis ultrasound was performed. During the study longitudinal and transverse views were obtained. Pulsed wave doppler was performed. us Phyllis VERGARA CV VASCULAR PROCEDURES Final Result * CARDIAC HOLTER MONITOR (REPORT GENERATED IN HOUSE) (05/27/2025 11:16 AM EDT) Anatomical Region Laterality Modality Cardiac Diagnost ic Narrative 06/06/2025 6:31 PM EDT [facility] DIAGNOSTIC TESTING DEPARTMENT [address] [place] [address] TEL: FAX: Type of Test: 48 Hour Holter Monitor Date of Test: 05/27/2025 Ordering Provider: URSULA Leo Reason for Test: Nephrotic syndrome; Chest tightness; Racing heart beat [employer] Ax Technical Architect Findings: 1: Normal Sinus Rhythm with episodes of Sinus Tachycardia. 2: Heart rate range was 60-152 bpm with an average of 93 bpm. Total time in Sinus Tachycardia: 19 hrs 13 mins. 3: Rare PACs and one atrial pair. Two PVCs. 4: No significant pause noted, longest R-R was 1.1 second at 6:27 AM. 5: Diary returned with an episode of palpitations after lunch on (D2) noted. EKG at that time showed episodes of Normal sinus rhythm, Sinus Tachycardia, rare PACs, and one PVC. Heart rates were in the range of 76-150 bpm. Impression: No significant arrhythmias noted. Patient symptoms did not have a clear ECG correlate. Patient spends a significant amount of time in sinus tachycardia or borderline sinus tachycardia-especially during waking hours. Phyllis VERGARA CV CARDIAC SERVICES PROCEDURE S Final Result * (ABNORMAL) TRANSTHORACIC ECHOCARDIOGRAM (TTE) COMPLETE (05/27/2025 10:18 AM EDT) Left Atrium Major Raleigh 5.2 cm CV PACS LA Area Sys (A4C) 13 cm2 CV PACS RA Area 12.6 cm2 CV PACS RA 2D Volume 29 mL CV PACS Aortic Sinus Valsalva 3.7 cm CV PACS Ascending Aorta 3.5 cm CV PACS IVSD 1.1(A) 0.6 - 1.0 cm CV PACS LVIDD 5.1 4.2 - 5.8 cm CV PACS LVIDS 2.8 2.5 - 4.0 cm CV PACS LVOT Diameter 2.3 cm CV PACS LVPWD 1.0 0.6 - 1.0 cm CV PACS MV E' Tissue Velocity Lateral 12 cm/s CV PACS MV E' Tissue Velocity Septal 8 cm/s CV PACS LVOT Area 4.2 cm2 CV PACS MV Deceleration [place] 5.4 m/s2 CV PACS E Wave Deceleration Time 194 119 - 242 ms CV PACS MV PHT 56 ms CV PACS MV Peak A Tristan 0.60 m/s CV PACS MV Peak E Tristan 1.00 m/s CV PACS MV Area PHT 3.9 cm2 CV PACS PV Acceleration Time 77 ms CV PACS PV Acceleration Time 77 ms CV PACS RV Diastolic Basal Dimension 3.9 2.5 - 4.1 cm CV PACS RV S' 15 cm/s CV PACS TAPSE 20 mm CV PACS TR Peak Velocity 1.80 m/s CV PACS TR Peak Gradient 13 mmHg CV PACS E/E' Ratio Septal 13 CV PACS E/E' Ratio Averaged 10 CV PACS Relative Wall Thickness ratio 0.39 0.24 - 0.42 CV PACS FS 45 % CV PACS LV Mass 2D 201 96 - 200 g CV PACS Ascending Aorta Index 1.34 cm/m2 CV PACS RA 2D Volume Index 11 18 - 32 mL/m2 CV PACS LVIDD Index 1.95 cm/m2 CV PACS LVIDS Index 1.07 cm/m2 CV PACS E/A Ratio 1.7 0.8 - 2.0 CV PACS E/E' Ratio Lateral 8 CV PACS LV Mass Index 2D 77 50 - 102 g/m2 CV PACS BSA 2.7 m2 CV PACS LA Volume (BP) 34 mL CV PACS LA Volume Index (BP) 13 mL/m2 CV PACS LA Area Sys (A2C) 17 cm2 CV PACS RV Free Wall Peak S' 15 cm/s CV PACS RA Major [place] 4.6 cm CV PACS RA Major [place] Index 1.8(A) 2.1 - 2.7 cm/m2 CV PACS Right Ventricular Peak Systolic Pressure 16 mmHg CV PACS Est. RA Pressure 3 mmHg CV PACS Anatomical Region Laterality Modality Ultrasound Narrative 05/27/2025 5:15 PM EDT Left ventricle cavity size is normal. Wall thickness is at upper limits of normal. Systolic function is normal with an ejection fraction of 60-65%. There are no regional LV wall motion abnormalities. There is no diastolic dysfunction. Right ventricle cavity is normal. Right ventricular systolic function is normal. No significant valvular abnormalities. Left Ventricle Left ventricle cavity size is normal. Wall thickness is at upper limits of normal. Systolic function is normal with an ejection fraction of 60-65%. There are no regional LV wall motion abnormalities. There is no diastolic dysfunction. Right Ventricle Right ventricle cavity appears normal. Systolic function is normal. Left Atrium Left atrium cavity size is normal. Right Atrium Right atrium cavity is normal. IVC/SVC Inferior vena cava structure is normal. RA pressures is estimated to be 3 mmHg (IVC diameter <21 mm and decreases >50% during inspiration). Mitral Valve Mitral valve structure is normal. There is trace to mild regurgitation. There is no evidence of mitral valve stenosis. Tricuspid Valve The leaflets exhibit normal excursion. There is trace regurgitation. Tricuspid regurgitation is inadequate for estimation of right ventricular systolic pressure. There is no evidence of tricuspid valve stenosis. Aortic Valve The aortic valve is trileaflet. There is no regurgitation or stenosis. Pulmonic Valve Pulmonic valve structure is normal. There is trace pulmonic valve regurgitation. Ascending Aorta The aorta appears normal in size. Pericardium There is no pericardial effusion. Study Details Overall the study quality was technically difficult. Patient declined use of left ventricular opacification agent to enhance imaging. Study was difficult due to: poor endocardial visualization. Tiara Fields MD CV ECHO PROCEDUR ES Final Result * (ABNORMAL) Urinalysis with reflex microscopic and culture (05/24/2025 4:11 PM EDT) Pathologist [facility] Specific [place] Urine 1.025 1.003 - 1.030 LAB URINALYSIS - AUTOMATED METHOD 05/24/2025 6:01 PM [facility] pH, Urine 6.0 5.0 - 8.0 pH LAB URINALYSIS - AUTOMATED METHOD 05/24/2025 6:01 PM [facility] Leukocytes, Urine Negative Negative LAB URINALYSIS - AUTOMATED METHOD 05/24/2025 6:01 PM [facility] Nitrite, Urine Negative Negative LAB URINALYSIS - AUTOMATED METHOD 05/24/2025 6:01 PM [facility] Protein, Urine >=1000(A) <=Trace mg/dL LAB URINALYSIS - AUTOMATED METHOD 05/24/2025 6:01 PM [facility] Glucose, Urine 500(A) Negative mg/dL LAB URINALYSIS - AUTOMATED METHOD 05/24/2025 6:01 PM [facility] Ketones, Urine Negative Negative mg/dL LAB URINALYSIS - AUTOMATED METHOD 05/24/2025 6:01 PM [facility] Urobilinogen , Urine 0.2 0.2 - 1.0 mg/dL LAB URINALYSIS - AUTOMATED METHOD 05/24/2025 6:01 PM [facility] Bilirubin, Urine Negative Negative LAB URINALYSIS - AUTOMATED METHOD 05/24/2025 6:01 PM [facility] Blood, Urine Small(A) Negative LAB URINALYSIS - AUTOMATED METHOD 05/24/2025 6:01 PM EDT [facility] RBC, Urine 3.0 0 - 4 /HPF LAB URINALYSIS - AUTOMATED METHOD 05/24/2025 6:01 PM EDT [facility] WBC, Urine 5.6(H) 0 - 4 /HPF LAB URINALYSIS - AUTOMATED METHOD 05/24/2025 6:01 PM EDT [facility] Squamous Epithelial, Urine >100(H) 0 - 60 /LPF LAB URINALYSIS - AUTOMATED METHOD 05/24/2025 6:01 PM EDT [facility] Bacteria, Urine Few(A) Negative /HPF LAB URINALYSIS - AUTOMATED METHOD 05/24/2025 6:01 PM [facility] Hyaline Casts, Urine 6.4(H) 0 - 3 /LPF LAB URINALYSIS - AUTOMATED METHOD 05/24/2025 6:01 PM [facility] Other Casts, Urine 2-5 Coarse Granular casts. /LPF LAB URINALYSIS - AUTOMATED METHOD 05/24/2025 6:01 PM [facility] Urine Urine specimen obtained by clean catch procedure / Unknown Non-blood Collection / Unknown 05/24/2025 4:11 PM EDT 05/24/2025 5:19 PM EDT Sanjana VERGARA LAB URINE ORDERABLES Fin al Result [facility] [address] [place] [address], * Lowe urine culture tube (05/24/2025 4:11 PM EDT) Extra Tube Hold for add-ons. 05/24/2025 7:01 PM EDT [facility] Comment:Auto resulted. Urine Urine specimen obtained by clean catch procedure / Unknown Non-blood Collection / Unknown 05/24/2025 4:11 PM EDT 05/24/2025 5:19 PM EDT Sanjana VERGARA LAB URINE ORDERABLES Fin al Result [facility] [address] [place] [address], [place] [phone] * (ABNORMAL) Respiratory virus panel molecular study (05/24/2025 4:10 PM EDT) Pathologist [facility] Adenovirus Detection by PCR Not Detected Not Detected LAB MICROBIOLOGY METHOD 05/24/2025 6:27 PM EDT [facility] Influenza A PCR Not Detected Not Detected LAB MICROBIOLOGY METHOD 05/24/2025 6:27 PM EDT [facility] Influenza B PCR Not Detected Not Detected LAB MICROBIOLOGY METHOD 05/24/2025 6:27 PM EDT [facility] Coronavirus 229E Not Detected Not Detected LAB MICROBIOLOGY METHOD 05/24/2025 6:27 PM EDT [facility] Coronavirus HKU1 Not Detected Not Detected LAB MICROBIOLOGY METHOD 05/24/2025 6:27 PM EDT [facility] Coronavirus OC43 Not Detected Not Detected LAB MICROBIOLOGY METHOD 05/24/2025 6:27 PM EDT [facility] Coronavirus NL63 Not Detected Not Detected LAB MICROBIOLOGY METHOD 05/24/2025 6:27 PM EDT [facility] Parainfluenza Virus 1 Not Detected Not Detected LAB MICROBIOLOGY METHOD 05/24/2025 6:27 PM EDT [facility] Parainfluenza Virus 2 Not Detected Not Detected LAB MICROBIOLOGY METHOD 05/24/2025 6:27 PM EDT [facility] Parainfluenza Virus 3 Detected(A ) Not Detected LAB MICROBIOLOGY METHOD 05/24/2025 6:27 PM EDT [facility] Parainfluenza Virus 4 Not Detected Not Detected LAB MICROBIOLOGY METHOD 05/24/2025 6:27 PM EDT [facility] RSV PCR Not Detected Not Detected LAB MICROBIOLOGY METHOD 05/24/2025 6:27 PM EDT [facility] Human Metapneumovirus A and B Not Detected Not Detected LAB MICROBIOLOGY METHOD 05/24/2025 6:27 PM EDT [facility] Rhinovirus/Entero virus Not Detected Not Detected LAB MICROBIOLOGY METHOD 05/24/2025 6:27 PM EDT [facility] Bordetella pertussis Not Detected Not Detected LAB MICROBIOLOGY METHOD 05/24/2025 6:27 PM EDT [facility] Bordetella parapertussis Not Detected Not Detected LAB MICROBIOLOGY METHOD 05/24/2025 6:27 PM EDT [facility] Mycoplasma pneumo by PCR Not Detected Not Detected LAB MICROBIOLOGY METHOD 05/24/2025 6:27 PM EDT [facility] Chlamydia pneumoniae Not Detected Not Detected LAB MICROBIOLOGY METHOD 05/24/2025 6:27 PM EDT [facility] SARS COV-2 Not Detected Not Detected LAB MICROBIOLOGY METHOD 05/24/2025 6:27 PM EDT [facility] Swab Both anterior nares / Unknown Non-blood Collection / Unknown 05/24/2025 4:10 PM EDT 05/24/2025 5:19 PM EDT Narrative [facility] - 05/24/2025 6:27 PM EDT Testing was performed using the Stroz Friedberg Respiratory Pathogen PCR Assay. All results must be correlated with the clinical findings. Results should not be used as the sole basis for diagnosis. False Negative results may occur from the presence of sequence variants in the region targeted by the assay or the presence of inhibitors. Results may be affected by concurrent antiviral/antimicrobial therapy or levels of organisms that are below the limit of detection. us Sanjana VERGARA LAB MICROBIOLOGY - GENER AL ORDERABLES Final Result [facility] [address] [place] [address], * (ABNORMAL) Basic metabolic panel (05/24/2025 2:41 PM EDT) Only the most recent of2 resultswithin the time period is included. Sodium 140 133 - 145 mmol/L LAB CHEMISTRY METHOD 05/24/2025 4:48 PM EDT [facility] Potassium 4.3 3.5 - 5.5 mmol/L LAB CHEMISTRY METHOD 05/24/2025 4:48 PM EDT [facility] Chloride 103 96 - 110 mmol/L LAB CHEMISTRY METHOD [facility]/24[facility]25 [facility] CO2 32 21 - 32 mmol/L LAB CHEMISTRY METHOD 05/24/2025 4:48 PM EDT [facility] Anion Gap 5 3 - 11 LAB CHEMISTRY METHOD 05/24/2025 4:48 PM EDT [facility] Glucose 126(H) 70 - 100 mg/dL LAB CHEMISTRY METHOD 05/24/2025 4:[facility] BUN 72(H) 5 - 25 mg/dL LAB CHEMISTRY METHOD 05/24/2025 4:48 PM [facility] Creatinine 1.73(H) 0.70 - 1.30 mg/dL LAB CHEMISTRY METHOD 05/24/2025 4:48 PM EDT [facility] eGFR 53(L) >=60 mL/min/1. 73m2 LAB CHEMISTRY METHOD 05/24/2025 4:48 PM EDT [facility] Comment:Calculation based on the Chronic Kidney Disease Epidemiology Collaboration (CKD-EPI) equation refit without adjustment for race. BUN/Creatinine Ratio 41.6 LAB CHEMISTRY METHOD 05/24/2025 4:48 PM EDT [facility] Calcium 8.7 8.5 - 10.5 mg/dL LAB CHEMISTRY METHOD 05/24/2025 4:48 PM EDT [facility] Blood Venous blood specimen / Unknown Venipuncture / Unknown 05/24/2025 2:41 PM EDT 05/24/2025 4:16 PM EDT us Radames Pate MD LAB BLOOD ORDERABLES Final Result [facility] [address] [place] [address], * XR Chest 2 Views (05/24/2025 12:55 PM EDT) Anatomical Region Laterality Modality Body Radiographic Alissa ging 05/24/2025 1:19 PM EDT Impressions 05/24/2025 1:20 PM EDT Impression: Patchy airspace infiltrates in the left mid and lower lung, consistent with pneumonia. Telerad URSULA ([id number]) -------- FINAL REPORT -------- Dictated By: Dinorah Jennings Dictated Date: 05/24/2025 13:19 ET Assigned Physician: Dinorah Jennings Reviewed and Electronically Signed By: Dinorah Jennings Signed Date: 05/24/2025 13:20 ET Workstation ID: [id number] Transcribed By: Self Edit Transcribed Date: 05/24/2025 13:19 ET Narrative 05/24/2025 1:20 PM EDT History: Dyspnea. Comparison: 09/01/21 Findings: PA and lateral views. There are patchy airspace infiltrates in the left mid and lower lung. The right lung is clear. The costophrenic angles are sharp. The cardiac silhouette is at the left upper limit of normal for size, unchanged. Hilar contours and pulmonary vascularity appear normal. Procedure Note Dinorah Jennings MD - 05/24/2025 History: Dyspnea. Comparison: 09/01/21 Findings: PA and lateral views. There are patchy airspace infiltrates in the leftmid and lower lung. The right lung is clear. The costophrenic angles aresharp. The cardiac silhouette is at the left upper limit of normal for size,unchanged. Hilar contours and pulmonary vascularity appear normal. IMPRESSION: Impression: Patchy airspace infiltrates in the left mid and lower lung, consistentwith pneumonia. Telerad PA ([id number]) -------- FINAL REPORT -------- Dictated By: Dinorah Jennings Dictated Date: 05/24/2025 13:19 ET Assigned Physician: Dinorah Jennings Reviewed and Electronically Signed By: Dinorah Jennings Signed Date: 05/24/2025 13:20 ET Workstation ID: [id number] Transcribed By: Self Edit Transcribed Date: 05/24/2025 13:19 ET us Radames Pate MD IMG XR PROCEDURES Final Res ult * ECG 12 lead (05/10/2025 11:29 AM EDT) Ventricular Rate ECG 92 BPM GEMUSE Atrial Rate 92 BPM GEMUSE P-R Interval 150 ms GEMUSE QRS Duration 96 ms GEMUSE Q-T Interval 348 ms GEMUSE QTc 430 ms GEMUSE P Wave [place] 48 degrees GEMUSE R [place] 36 degrees GEMUSE T [place] 42 degrees GEMUSE ECG Interpretation Normal sinus rhythm Normal ECG When compared with ECG of 20-MAR-2025 15:23, No significant change was found Confirmed by VIVIANE OROZCO ([id number]) on 05/10/2025 4:53:12 PM GEMUSE 05/10/2025 11:2 9 AM EDT 05/10/2025 4:53 PM EDT us Viviane Orozco MD ECG ORDERABLES Final Result G[facility] * (ABNORMAL) Vitamin A (04/30/2025 3:40 PM EDT) Vitamin A 171(H) 38 - 106 ug/dL 05/05/2025 5:55 AM EDT [facility] Comment: This test was developed and the performance characteristics determined by [facility]. It has not been cleared or approved by the FDA. The laboratory is regulated under CLIA as qualified to perform high-complexity testing. This test is used for patient testing purposes. It should not be regarded as investigational or for research. Test performed at [facility], [address] , [place] [address] Ninfa Vaz MD, PhD - Storekeeper Steward Blood Venous blood specimen / Unknown Venipuncture / Unknown 04/30/2025 3:40 PM EDT 04/30/2025 4:09 PM EDT Phyllis VERGARA LAB BLOOD ORDERABLES Final Re sult Performing Organization Address [facility]/ZIP Co de Phone Number [facility] [address] [place] [address] * (ABNORMAL) Vitamin D 25 hydroxy (04/30/2025 3:40 PM EDT) Vit D, 25-Hydroxy 9.9(L) 30.0 - 80.0 ng/mL LAB CHEMISTRY METHOD 04/30/2025 5:45 PM EDT [facility] Blood Venous blood specimen / Unknown Venipuncture / Unknown 04/30/2025 3:40 PM EDT 04/30/2025 4:10 PM EDT Phyllis VERGARA LAB BLOOD ORDERABLES Final Re sult Performing Organization Address City/[facility]/ZIP Co de Phone Number [facility] [address] [place] [address], [place] [phone] * (ABNORMAL) Vitamin E (04/30/2025 3:40 PM EDT) Vitamin E (Alpha Tocopherol) 3235(H) 500 - 1800 ug/dL 05/05/2025 5:[address] [facility] Comment: This test was developed and the performance characteristics determined by [facility]. It has not been cleared or approved by the FDA. The laboratory is regulated under CLIA as qualified to perform high-complexity testing. This test is used for patient testing purposes. It should not be regarded as investigational or for research. Test performed at [facility], [address], [place] [address] Ninfa Vaz MD, PhD - Storekeeper Steward Blood Venous blood specimen / Unknown Venipuncture / Unknown 04/30/2025 3:40 PM EDT 04/30/2025 4:09 PM EDT Phyllis VERGARA LAB BLOOD ORDERABLES Final Re sult Performing Organization Address City/[facility]/ZIP Co de Phone Number [facility] [address] [place] [address] * Hemoglobin A1c (04/30/2025 3:40 PM EDT) [facility] Hemoglobin A1C 5.9 <6.5 % LAB CHEMISTRY METHOD 05/02/2025 12:44 PM EDT [facility] Mean Bld Glu Estim. 123 mg/dL LAB CHEMISTRY METHOD 05/02/2025 12:44 PM EDT [facility] Blood Venous blood specimen / Unknown Venipuncture / Unknown 04/30/2025 3:40 PM EDT 04/30/2025 4:09 PM EDT us Phyllis VERGARA LAB BLOOD ORDERABLES Final Re sult Performing Organization Address [facility]/ZIP Co de Phone Number [facility] [address] [place] [address], * Vitamin B12 (04/30/2025 3:40 PM EDT) Pathologist [facility] Vitamin B-12 421 250 - 900 pcg/mL LAB CHEMISTRY METHOD 04/30/2025 5:25 PM EDT [facility] Blood Venous blood specimen / Unknown Venipuncture / Unknown 04/30/2025 3:40 PM EDT 04/30/2025 4:10 PM EDT us Phyllis VERGARA LAB BLOOD ORDERABLES Final Re sult Performing Organization Address [facility]/ZIP Co de Phone Number [facility] [address] [place] [address], * External clinical lab (2025) Only the most recent of5 resultswithin the time period is included. Provider [facility] LAB BLOOD ORDERABLES Fin al Result * HIV 1,2 antibody, p24 antigen with reflex to differentiation (01/15/2025 1:17 PM EST) Pathologist [facility] HIV Combo AB/AG Negative Negative LAB CHEMISTRY METHOD 01/15/2025 7:53 PM EST [facility] Blood Venous blood specimen / Unknown Venipuncture / Unknown 01/15/2025 1:17 PM EST 01/15/2025 1:17 PM EST Narrative [facility] - 01/15/2025 7:53 PM EST This assay is a 4th generation assay allowing for earlier detection of HIV infection by detecting the presence of the HIV-1 p24 antigen as well as the traditional antibodies to HIV type 1 (including group O) and type 2. Use of a 4th generation assay is the current CDC recommendation for HIV screening. Tiara Fields MD LAB BLOOD ORDERA BLES Final Result Performing Organization Address [facility]/ZIP Co de Phone Number [facility] [address] [place] [address], * (ABNORMAL) Lipid panel with reflex to direct LDL (12/14/2024 1:12 PM EST) Cholesterol 235(H) 0 - 200 mg/dL LAB CHEMISTRY METHOD 12/14/2024 5:58 PM EST [facility] Triglycerides 173(H) 0 - 150 mg/dL LAB CHEMISTRY METHOD 12/14/2024 5:58 PM EST [facility] HDL 42 >=40 mg/dL LAB CHEMISTRY METHOD 12/14/2024 5:58 PM EST [facility] LDL Calculated 158(H) 0 - 100 mg/dL LAB CHEMISTRY METHOD 12/14/2024 5:58 PM EST [facility] VLDL Cholesterol Thiago 34.6 mg/dL LAB CHEMISTRY METHOD 12/14/2024 5:58 PM [facility] Non HDL Chol. (LDL+VLDL) 193(H) <145 mg/dL LAB CHEMISTRY METHOD 12/14/2024 5:58 PM [facility] Chol/HDL Ratio 5.6(H) 0.0 - 4.4 LAB CHEMISTRY METHOD 12/14/2024 5:58 PM [facility] Blood Venous blood specimen / Unknown Venipuncture / Unknown 12/14/2024 1:12 PM EST 12/14/2024 1:12 PM EST Tiara Fields MD LAB BLOOD ORDERA BLES Final Result [facility] [address] [place] [address], * Hepatitis C Screening (03/11/2019) Pathologist [facility] Hepatitis C Screening Abstracted Historical Provider HEALTH MAINTENANCE Final Result from Last 3 Months or Most Recently Relevant to Health Maintenance Additional Health Concerns Infection Onset Date Last Indicated Parainfluenza Virus 05/24/2025 05/24/2025 Insurance [facility] Advance Directives * Full Code [...] currently active code status orders. Care Teams Trouble Shooter Relationship Specialty Start Date End Date Tiara Fields MD [address] [place] [address] [phone] PCP - General 02/10/24
--- OUTSIDE RECORDS SUMMARY | 2025-07-26 21:17 | XMS_ITS | Encounter Summary ---
Author Organization [facility] Address [address] [address] Phone Care Team Providers Care Diesel Retrofit Installer Name Role Phone Tiara Fields Primary Care Provider Encounter Details Date Type Department Care Team (Late st Contact Info) Description 01/28/2025 Office Communication [facility] [address] [phone] Helen Selby Social History Tobacco [...] 1:35 PM EDT Patient is scheduled at [facility] for 02/12/2025 * Telephone Encounter - [...] on filedocumented in this encounter Care Teams Diesel Retrofit Installer Relationship Specialty Start Date End Date Tiara Fields [address] [place] [address] PCP - General 03/15/25 documented as of this encounter
--- OUTSIDE RECORDS SUMMARY | 2025-07-26 21:17 | XMS_ITS | Encounter Summary ---
Author Organization [facility] Address [address] [place] [address] Care Team Providers Care Journeyman Powerhouse Operator Name Role Phone Tiara Fields MD Primary Care Pr ovider Reason for Visit * Reason Onset Date Comments Extremity Weakness 2025 Leg Swelling 2025 Encounter Details Date Type Department Care Team (Late st Contact Info) Description 2025 Nurse Triage Adult Medicine [address] [phone] Tiara Fields MD [address] [place] [address] Social History Tobacco Use Types Packs/Day Years [...] for your loved ones. For example, children's lunchroom supervisor or elderly care for an older adult? [...] traveled recently to another state outside of [place], [place], [place], [place], [place], [place], [place]? no o If yes, did you quarantine [...] gather 3rd constitution party insurance information Third Democrat Information: not applicable PCP: Tiara Fields MD Payor: [employer] PLAN / Plan: [employer] MEDICAID / Product Type: *No Product type* / documented in this encounter Plan of Treatment Upcoming Encounters Date Type Department Care Team (Late st Contact Info) Description 07/28/2025 2:00 PM EDT Office Visit Adult Medicine [facility] [address] [place], [place] [phone] Tiara Fields MD [address] [place], [place] 10/15/2025 3:30 PM EST Consult Vascular Surgery - [place] [address] [place] [address] Paola Gunter PA [address] [place] [address] documented as of this encounter Visit Diagnoses Not on filedocumented in this encounter Additional Health Concerns Infection Onset Date Last Indicated Resolved Time Respiratory Rule-Out 05/24/2025 05/24/2025 025 6:27 PM EDT COVID-19 Rule-Out 05/24/2025 05/24/2025 05/24/2025 6:27 PM EDT Parainfluenza Virus 05/24/2025 05/24/2025 Assessment Noted Time PHQ-9 Depression Total Score: 24 025 9:42 PM EST documented as of this encounter Care Teams Journeyman Powerhouse Operator Relationship Specialty Start Date End Date Tiara Fields MD [address] [place] [address] PCP - General 02/10/24 documented as of this encounter
== END 2025-07-26 16:08 | disposition home or self-care (01) ==
LOC: HO.HKASLDS 16:07
PROVIDERS: Visit Provider Internal Medicine Nephrology
DX: N05.1 Unspecified nephritic syndrome with focal and segmental glomerular lesions (principal); N04.9 Nephrotic syndrome with unspecified morphologic changes
CPT/HCPCS: 36415; 80051; 80158; 82040; 82310; 82565; 82570; 83735; 84156; 84520

== ENCOUNTER 2025-07-27 11:34 | Outpatient (AMB) | payer OTHER, SELFPAY ==
--- NOTE | 2025-07-27 11:41 | HO.NEPHOV ---
Vital Signs 07/27/25 11:42 Height 6 ft 1 in Weight 311 lb BMI 41.0 BP 150/110 H Blood Pressure Location Lt brachial Position Sitting Pulse 119 H Pulse Source Pulse Oximeter Pulse Oximetry (%) 97 Oxygen Delivery Method Room Air Intake Visit Reasons: 4wk f/u w/labs-[employer] Required: No Accompanied by: Brother Allergies No Known Allergies Allergy (Verified 07/27/25 11:42) HPI Comments Details: Heather was seen for follow up of MARIA ALEJANDRA and nephrotic range proteinuria on a backdrop of newly diagnosed biopsy proven primary FSGS. He had influenza in December 2024 and after that he started developing edema and was found to have nephrotic range proteinuria. His renal function was normal at that time. He had quite a bit of weight gain with edema as well as shortness of breath. He underwent extensive work by his primary care physician and had seen other renal physicians in different practice for the same complaint. He even underwent renal biopsy and was told at that time that he has FSGS. Initially he refused renal biopsy for some months and he continued to have worsening proteinuria, with a proteinuria going up to over 17 g. He was given Bumex, torsemide, furosemide, metolazone, Aldactone as well as losartan in the past. His previous renal physician felt that he was not adherent with his directions and he had been playing around with medications as well as multiple medical providers. During the course of months his serum creatinine started to rise with a drop in GFR. His previous renal physician has recommended admission to the hospital for intravenous diuretics, kidney biopsy and immunosuppression. He had multiple ER visits as well as urgent care consultations for various reasons including diffuse pains, weight gain and continued worsening of edema. It was thought in the past that he may have bowel wall edema and p.o. medications will be unsuccessful. He was prescribed prednisone by his previous renal MD which he did not take but started taking when transitioned to my care. He still continued to contact the old renal care team for various reasons. He recently had respiratory illness and his cyclosporin was reduced to 100 m bid by someone else. He has been in prophylactic Bactrim. He claims to be compliant with prednisone as well as losartan & Jardiance. He was told in the past by his past renal MD that he may end up with ESRD. His serum creatinine has been stable. He is also taking another opinion from [facility] through his previous renal MD's practice. PFSH Medical History (Updated 04/27/25 @ 07:01 by Joe Dhaliwal MD) Vitamin D deficiency disease Snoring Polyarthralgia Nephrotic syndrome Morbid obesity with body mass index (BMI) of 40.0 or higher Hyperlipidemia Gastroesophageal reflux disease with esophagitis without hemorrhage Fatty liver Erectile dysfunction due to diseases classified elsewhere Elevated ALT measurement Family History Father Bladder cancer Brother Kidney stone Mother Renal cyst Social History Alcohol intake: never Patient Tobacco Use Status: Never used Tobacco Review of Systems Const All systems reviewed & are unremarkable except as noted in HPI and below Physical Exam Vital Signs: Last Vital Signs Pulse 119 H 07/27/25 11:42 BP 150/110 H 07/27/25 11:42 Pulse Ox 97 07/27/25 11:42 Oxygen Delivery Method Room Air 07/27/25 11:42 BMI result Body Mass Index 41.0 Const General: comfortable and no acute distress Orientation/consciousness: patient oriented x3 HEENT Head: Yes normocephalic Mouth: Normal oral and palatal mucosa present Eyes EOM: EOMs intact bilaterally Neck Neck: Yes supple Resp Auscultation: clear to auscultation bilaterally Cardio Jugular venous distension: no JVD Rate: regular rate GI Palpation (GI): Soft to palpation Auscultation: normal bowel sounds General: Yes no CVA tenderness Back/Spine/Pelvis Back: no CVA tenderness Skin General skin exam: no rashes or lesions noted Neuro General: patient oriented x3 and moves all extremities Results Reviewed Nephrology Results: Sodium, (135-145) 139 mmol/L 07/26/25 Potassium, (3.3-5.1) 4.2 mmol/L 07/26/25 Chloride, (96-108) 112 mmol/L H 07/26/25 Carbon Dioxide, (22-29) 19 mmol/L L 07/26/25 BUN, (9-16) 63 mg/dL H 07/26/25 Creatinine, (0.5-1.4) 1.28 mg/dL 07/26/25 Calcium, (8.4-10.2) 8.3 mg/dL L 07/26/25 Urine Creatinine 53.97 mg/dL 07/26/25 Protein/Creatinin Ratio, (<0.2) 17.34 H 07/26/25 Assessment & Plan Assessment & Plan (1) Nephrotic syndrome: Code(s): N04.9 - Nephrotic syndrome with unspecified morphologic changes Category: Medical (2) FSGS (focal segmental glomerulosclerosis): Code(s): N05.1 - Unspecified nephritic syndrome with focal and segmental glomerular lesions Category: Medical Plan Focus of treatment for his FSGS will include the following Dietary sodium restriction Antihypertensive therapy Renin-angiotensin system inhibition SGLT2 inhibitors Lipid lowering Anticoagulation Treatment of edema For the time being he will continue on high-dose prednisone 60 mg daily. He will benefit from calcineurin inhibitor. I asked him to continue diuretics and losartan at 50 mg twice daily. ( he has H/O starting and stopping medications in the past including losartan by himself). I asked him to C/W current dose of cyclosporin for now( levels ordered). He should continue Jardiance 25 mg daily. Those with glucocorticoid-dependent FSGS may be alternatively treated with MMF/EC-MPS or rituximab or cytotoxic therapy like cyclophosphamide. In general, the duration of therapy varies according to the degree and rapidity of response (eg, faster taper for patients who achieve a quick remission), whether complete or partial remission is achieved, and the degree of glucocorticoid toxicity. If a complete remission is achieved within 8 to 12 weeks, I continue the initial dose of?prednisone and then taper the dose over two to three months. One strategy is to switch to alternate-day prednisone (double the daily dose but to a maximum of 80 to 120 mg), and then decrease the dose by approximately one-third every two to three weeks. If a partial remission is achieved by 8 to 12 weeks, we can taper prednisone slowly over three to nine months. We initially switch to alternate-day dosing and decrease the dose by one-third approximately every six weeks. For patients who have had a substantial reduction (>50 percent from baseline) in proteinuria by 8 to 12 weeks but do not meet criteria for partial remission (ie, proteinuria remains >3.5 g/day), the decision to continue high-dose prednisone or modify therapy is based upon the severity of glucocorticoid toxicity, the risk of continued therapy, and whether protein excretion is continuing to fall. Prednisone can be continued, for example, in patients whose proteinuria continues to decline, provided they are not experiencing severe side effects from therapy. If, at any time after a complete or partial remission is attained, proteinuria increases while the prednisone?is being tapered, we stop the taper and temporarily maintain the current prednisone dose while adding a CNI or, if the eGFR is <30 mL/min/1.73 m2, MMF/EC-MPS. Although the use of MMF/EC-MPS is not supported by evidence, some authors and editors of this topic in [employer] use it in this setting based on its potential role as a glucocorticoid-sparing agent, its safe use in patients with low eGFR, and its role as maintenance therapy in other glomerular diseases such as minimal change disease and lupus nephritis. Adult patients who have little or no reduction in proteinuria after 16 weeks of daily?prednisone are presumed to be glucocorticoid resistant. In such patients, we prefer to add a CNI (or MMF if the eGFR is low) and switch to alternate-day prednisone with a progressive taper in prednisone therapy, reducing the dose by approximately one-third every week. (some of the references in management as mentioned above are taken from up-to-date ([facility]). Follow-up blood work was ordered and is going to see me for continued care.Answered all questions. Orders: Orders Cyclosporine 1 Day N04.9 - Nephrotic syndrome with unspecified morphologic changes, N05.1 - Unspecified nephritic syndrome with focal and segmental glomerular lesions Cyclosporine 1 Month N04.9 - Nephrotic syndrome with unspecified morphologic changes, N05.1 - Unspecified nephritic syndrome with focal and segmental glomerular lesions Creatinine 1 Month N04.9 - Nephrotic syndrome with unspecified morphologic changes, N05.1 - Unspecified nephritic syndrome with focal and segmental glomerular lesions Electrolytes 1 Month N04.9 - Nephrotic syndrome with unspecified morphologic changes, N05.1 - Unspecified nephritic syndrome with focal and segmental glomerular lesions Calcium 1 Month N04.9 - Nephrotic syndrome with unspecified morphologic changes, N05.1 - Unspecified nephritic syndrome with focal and segmental glomerular lesions Protein Creatinine Ratio, Ur 1 Month N04.9 - Nephrotic syndrome with unspecified morphologic changes, N05.1 - Unspecified nephritic syndrome with focal and segmental glomerular lesions Blood Urea Nitrogen 1 Month N04.9 - Nephrotic syndrome with unspecified morphologic changes, N05.1 - Unspecified nephritic syndrome with focal and segmental glomerular lesions Cyclosporine Today N04.9 - Nephrotic syndrome with unspecified morphologic changes, N05.1 - Unspecified nephritic syndrome with focal and segmental glomerular lesions Coding Level of Care Code Est Pt Level 4 (26094) Diagnoses Nephrotic syndrome N04.9 FSGS (focal segmental glomerulosclerosis) N05.1
[2025-07-27 11:42] VITALS: BP 150/110; PULSE 119; O2SAT 97; BMI 41.0
--- OUTSIDE RECORDS SUMMARY | 2025-07-27 15:44 | XMS_ITS | Clinical Summary ---
Author Organization [facility] [address] [place] [address] [place] [phone] Phone Care Team Providers Care Technical Services Rep Name Role Phone Tiara Fields MD Primary [...] mouth 3 (three) times a week. Active doxycycline (MONODOX) 100 mg capsule Take 1 capsule (100 mg total) by mouth 2 (two) times a day. Take with at least 8 ounces (large glass) of water, do not lie down for 30 minutes after 14 each Active ergocalciferol (VITAMIN D-2) 1,250 mcg (50,000 unit) capsule Take 1 capsule (50,000 Units total) by mouth 1 (one) time per week. 12 capsule 5 07/26/20 25 Active Problems Problem Noted Date Diagnosed Date [...] obesity with BMI of 4 0.0-44.9, adult ([facility] V24, [facility] V28) 12/14/2024 Assessment & Plan [...] Vitamin D deficiency disease 05/18/2020 Overview (11/05/2024): 05776 units for 8 weeks Assessment & Plan [...] Care Team Description 07/20/2025 Telephone Adult Medicine [address] [phone] Tiara Fields MD 07/02/2025 12:52 AM EDT - 07/02/2025 5:18 AM EDT Emergency [facility] Emergency [address] [place] [address] Discharge Disposition: Left Against Medical Advice 07/02/2025 Telephone Adult [address] [phone] Tiara Fields MD 07/02/2025 Nurse Triage Adult [address] [phone] Tiara Fields MD 06/28/2025 1:30 PM EDT Ancillary Procedure [facility] Cardiology [facility] [address] [address] Nephrotic syndrome; Leg swelling 06/02/2025 Telephone [facility] Cardiology [facility] [address] [address] Wesley Garcia MA 05/27/2025 10:30 AM EDT Ancillary Procedure [facility] [address] [phone] Nephrotic syndrome; Chest tightness; Racing heart beat 05/27/2025 9:30 AM EDT Ancillary Procedure [facility] Cardiology [facility] [address] [address] Leg swelling; Dyspnea on exertion 05/24/2025 2:46 PM EDT - 05/24/2025 7:38 PM EDT Emergency [facility] Emergency [address] [place] [address] Marko Zuluaga MD Community acquired pneumonia of left lower lobe of lung (Primary Dx); Parainfluenza Discharge Disposition: Home or Self Care 05/18/2025 2:30 PM EDT Nutrition Internal Medicine - [place] 175 [facility] 200 [place] [phone] [address] Nephrotic syndrome (Primary Dx) 05/10/2025 11:20 AM EDT Office Visit [facility] 154 300 [facility] 154 [place] [phone] Viviane Hensley MD Racing heart beat (Primary Dx); Chest tightness; Hyperlipidemia, unspecified hyperlipidemia type 04/30/2025 9:30 AM EDT Office Visit [address] [phone] Phyllis Martino PA FSGS (focal segmental glomerulosclerosis) (Primary Dx); Nephrotic syndrome; Primary hypertension; Chest tightness; Racing heart beat; Edema, unspecified type; Paresthesia and pain of extremity; Brain fog; Memory difficulties; Tinnitus of both ears; Vitamin D deficiency disease 2025 Nurse Triage [address] [phone] Tiara Fields MD from Last 3 Months [...] for your loved ones. For example, child and family services worker or elderly care for an older adult? [...] 2:00 PM EDT Office Visit Adult Medicine [address] [phone] Tiara Fields MD [address] [place] [address] 10/15/2025 3:30 PM EST Consult Vascular Surgery - [place] [address] [address] Paola Gunter PA 300 [facility] 210 [place] [address] Health Maintenance Due Date Last Done Comments [...] K/mcL LAB HEMETOLOGY METHOD 07/02/2025 1:57 AM [facility] RBC 3.50(L) 4.50 - 5.50 M/mcL LAB HEMETOLOGY METHOD [facility] Hemoglobin 11.3(L) 13.5 - 17.5 g/dL LAB HEMETOLOGY METHOD 07/02/2025 1:57 AM [facility] Hematocrit 33.1(L) 42.0 - 54.0 % LAB HEMETOLOGY METHOD 07/02/2025 1:[facility] MCV 93.5 79.0 - 98.0 FL LAB HEMETOLOGY METHOD 07/02/2025 1:57 AM [facility] MCH 31.9 27.0 - 32.0 pcg LAB HEMETOLOGY METHOD 07/02/2025 1:57 AM [facility] MCHC 34.1 32.0 - 37.0 g/dL LAB HEMETOLOGY METHOD 07/02/2025 1:57 [facility] RDW 15.3(H) 11.0 - 15.0 % LAB HEMETOLOGY METHOD 07/02/2025 1:57 AM [facility] Platelets 259 130 - 400 K/mcL LAB HEMETOLOGY METHOD 07/02/2025 1:57 AM [facility] MPV 10.1 7.0 - 11.0 FL LAB HEMETOLOGY METHOD 07/02/2025 1:57 AM [facility] NRBC 0.0 <1.0 % LAB HEMETOLOGY METHOD 07/02/2025 1:57 AM [facility] NRBC Absolute 0.00 <0.10 K/mcL LAB HEMETOLOGY METHOD 07/02/2025 1:57 AM [facility] Neutrophils Relative 73.5 % LAB HEMETOLOGY METHOD 07/02/2025 1:57 AM [facility] Lymphocytes Relative 18.1 % LAB HEMETOLOGY METHOD 07/02/2025 1:57 AM [facility] Monocytes Relative 4.7 % LAB HEMETOLOGY METHOD 07/02/2025 1:57 AM [facility] Eosinophils Relative 0.1 % LAB HEMETOLOGY METHOD 07/02/2025 1:57 AM [facility] Basophils Relative 0.4 % LAB HEMETOLOGY METHOD 07/02/2025 1:57 AM [facility] Immature Granulocytes Relative 3.2 % LAB HEMETOLOGY METHOD 07/02/2025 1:57 AM [facility] Neutrophils Absolute 13.55(H) 1.50 - 7.00 K/mcL LAB HEMETOLOGY METHOD 07/02/2025 1:57 AM [facility] Lymphocytes Absolute 3.34 1.00 - 5.00 K/mcL LAB HEMETOLOGY METHOD 07/02/2025 1:57 AM EDT [facility] Monocytes Absolute 0.86 0.20 - 1.00 K/mcL LAB HEMETOLOGY METHOD 07/02/2025 1:57 AM EDT [facility] Eosinophils Absolute 0.01 0.00 - 0.50 K/[facility] LAB HEMETOLOGY METHOD 07/02/2025 1:57 AM EDT [facility] Basophils Absolute 0.07 0.00 - 0.20 K/[facility] LAB HEMETOLOGY METHOD 07/02/2025 1:57 AM EDT [facility] Immature Granulocytes Absolute 0.59(H) 0.00 - 0.03 K/[facility] LAB HEMETOLOGY METHOD 07/02/2025 1:57 AM EDT [facility] Blood Venous blood specimen / Unknown Venipuncture / Unknown 07/02/2025 1:27 AM EDT 07/02/2025 1:50 AM EDT Radames Pate MD LAB BLOOD ORDERABLES Final Result [facility] [address] [place] [address], * Type and screen (07/02/2025 1:27 AM EDT) ABO Group A 07/02/2025 2:43 AM EDT [facility] Rh Type Positive 07/02/2025 2:43 AM EDT [facility] Antibody Screen Negative 07/02/2025 2:43 AM EDT [facility] Blood Venous blood specimen / Unknown Venipuncture / Unknown 07/02/2025 1:27 AM EDT 07/02/2025 1:50 AM EDT Radames Pate MD LAB BLOOD BANK TEST ORDERAB LES Final Result [facility] [address] [place] [address], * Vascular US duplex lower extremity venous [...] performed with the patient in reverse trendelenburg. Labor Conciliator Details A lowe scale, color and doppler analysis ultrasound was performed. During the study longitudinal and transverse views were obtained. Pulsed wave doppler was performed. us Phyllis VERGARA CV VASCULAR PROCEDURES Final Result * CARDIAC HOLTER MONITOR (REPORT GENERATED IN HOUSE) (05/27/2025 11:16 AM EDT) Anatomical Region Laterality Modality Cardiac Diagnost ic Narrative 06/06/2025 6:31 PM EDT [facility] DIAGNOSTIC TESTING DEPARTMENT [address] [place] [address] TEL: FAX: Type of Test: 48 Hour Holter Monitor Date of Test: 05/27/2025 Ordering Provider: URSULA Leo Reason for Test: Nephrotic syndrome; Chest tightness; Racing heart beat PVCA Delineator Findings: 1: Normal Sinus Rhythm with episodes [...] (05/27/2025 10:18 AM EDT) Left Atrium Major [place] 5.2 cm CV PACS LA Area Sys [...] Area 4.2 cm2 CV PACS MV Deceleration Mckinley 5.4 m/s2 CV PACS E Wave Deceleration [...] S' 15 cm/s CV PACS RA Major [place] 4.6 cm CV PACS RA Major [place] Index 1.8(A) 2.1 - 2.7 cm/m2 CV [...] and culture (05/24/2025 4:11 PM EDT) Pathologist [facility] Specific Emerson Urine 1.025 1.003 - 1.030 LAB URINALYSIS - AUTOMATED METHOD 05/24/2025 6:01 PM [facility] pH, Urine 6.0 5.0 - 8.0 pH LAB URINALYSIS - AUTOMATED METHOD 05/24/2025 6:01 PM [facility] Leukocytes, Urine Negative Negative LAB URINALYSIS - AUTOMATED METHOD 05/24/2025 6:01 PM [facility] Nitrite, Urine Negative Negative LAB URINALYSIS - AUTOMATED METHOD 05/24/2025 6:01 PM [facility] Protein, Urine >=1000(A) <=Trace mg/dL LAB URINALYSIS - AUTOMATED METHOD 05/24/2025 6:01 PM [facility] Glucose, Urine 500(A) Negative mg/dL LAB URINALYSIS - AUTOMATED METHOD 05/24/2025 6:01 PM [facility] Ketones, Urine Negative Negative mg/dL LAB URINALYSIS - AUTOMATED METHOD 05/24/2025 6:01 PM [facility] Urobilinogen , Urine 0.2 0.2 - 1.0 mg/dL LAB URINALYSIS - AUTOMATED METHOD 05/24/2025 6:01 PM [facility] Bilirubin, Urine Negative Negative LAB URINALYSIS - AUTOMATED METHOD 05/24/2025 6:01 PM [facility] Blood, Urine Small(A) Negative LAB URINALYSIS - AUTOMATED METHOD 05/24/2025 6:01 PM EDT [facility] RBC, Urine 3.0 0 - 4 /HPF LAB URINALYSIS - AUTOMATED METHOD 05/24/2025 6:01 PM EDT [facility] WBC, Urine 5.6(H) 0 - 4 /HPF LAB URINALYSIS - AUTOMATED METHOD 05/24/2025 6:[facility] Squamous Epithelial, Urine >100(H) 0 - 60 /LPF LAB URINALYSIS - AUTOMATED METHOD 05/24/2025 6:01 PM EDT [facility] Bacteria, Urine Few(A) Negative /HPF LAB URINALYSIS - AUTOMATED METHOD 05/24/2025 6:01 PM [facility] Hyaline Casts, Urine 6.4(H) 0 - 3 /LPF LAB URINALYSIS - AUTOMATED METHOD 05/24/2025 6:01 [facility] Other Casts, Urine 2-5 Coarse Granular casts. /LPF LAB URINALYSIS - AUTOMATED METHOD 05/24/2025 6:01 PM [facility] Urine Urine specimen obtained by clean catch procedure / Unknown Non-blood Collection / Unknown 05/24/2025 4:11 PM EDT 05/24/2025 5:19 PM EDT Sanjana VERGARA LAB URINE ORDERABLES Fin al Result [facility] [address] [place] [address], * Lowe urine culture tube (05/24/2025 4:11 PM EDT) Extra Tube Hold for add-ons. 05/24/2025 7:01 PM EDT [facility] Comment:Auto resulted. Urine Urine specimen obtained by clean catch procedure / Unknown Non-blood Collection / Unknown 05/24/2025 4:11 PM EDT 05/24/2025 5:19 PM EDT Sanjana VERGARA LAB URINE ORDERABLES Fin al Result [facility] [address] [place] [address], [place] [phone] * (ABNORMAL) Respiratory virus panel molecular study (05/24/2025 4:10 PM EDT) Pathologist [facility] Adenovirus Detection by PCR Not Detected Not Detected LAB MICROBIOLOGY METHOD 05/24/2025 6:27 PM EDT [facility] Influenza A PCR Not Detected Not Detected LAB MICROBIOLOGY METHOD 05/24/2025 6:27 PM EDT [facility] Influenza B PCR Not Detected Not Detected LAB MICROBIOLOGY METHOD 05/24/2025 6:27 PM EDT [facility] Coronavirus 229E Not Detected Not Detected LAB MICROBIOLOGY METHOD 05/24/2025 6:27 PM EDT [facility] Coronavirus HKU1 Not Detected Not Detected LAB MICROBIOLOGY METHOD 05/24/2025 6:27 PM EDT [facility] Coronavirus OC43 Not Detected Not Detected LAB MICROBIOLOGY METHOD 05/24/2025 6:27 PM EDT [facility] Coronavirus NL63 Not Detected Not Detected LAB MICROBIOLOGY METHOD 05/24/2025 6:27 PM EDT [facility] Parainfluenza Virus 1 Not Detected Not Detected LAB MICROBIOLOGY METHOD 05/24/2025 6:27 PM EDT [facility] Parainfluenza Virus 2 Not Detected Not Detected LAB MICROBIOLOGY METHOD 05/24/2025 6:27 PM EDT [facility] Parainfluenza Virus 3 Detected(A ) Not Detected LAB MICROBIOLOGY METHOD 05/24/2025 6:27 PM EDT [facility] Parainfluenza Virus 4 Not Detected Not Detected LAB MICROBIOLOGY METHOD 05/24/2025 6:27 PM EDT [facility] RSV PCR Not Detected Not Detected LAB MICROBIOLOGY METHOD 05/24/2025 6:27 PM EDT [facility] Human Metapneumovirus A and B Not Detected Not Detected LAB MICROBIOLOGY METHOD 05/24/2025 6:27 PM EDT [facility] Rhinovirus/Entero virus Not Detected Not Detected LAB MICROBIOLOGY METHOD 05/24/2025 6:27 PM EDT [facility] Bordetella pertussis Not Detected Not Detected LAB MICROBIOLOGY METHOD 05/24/2025 6:27 PM EDT [facility] Bordetella parapertussis Not Detected Not Detected LAB MICROBIOLOGY METHOD 05/24/2025 6:27 PM EDT [facility] Mycoplasma pneumo by PCR Not Detected Not Detected LAB MICROBIOLOGY METHOD 05/24/2025 6:27 PM EDT [facility] Chlamydia pneumoniae Not Detected Not Detected LAB MICROBIOLOGY METHOD 05/24/2025 6:27 PM EDT [facility] SARS COV-2 Not Detected Not Detected LAB MICROBIOLOGY METHOD 05/24/2025 6:27 PM EDT [facility] Swab Both anterior nares / Unknown Non-blood Collection / Unknown 05/24/2025 4:10 PM EDT 05/24/2025 5:19 PM EDT [facility] - 05/24/2025 6:27 PM EDT Testing was performed using the [employer] Respiratory Pathogen PCR Assay. All results must [...] MICROBIOLOGY - GENER AL ORDERABLES Final Result [facility] [address] [place] [address], * (ABNORMAL) Basic metabolic panel (05/24/2025 2:41 PM EDT) Only the most recent of2 resultswithin the time period is included. Sodium 140 133 - 145 mmol/L LAB CHEMISTRY METHOD 05/24/2025 4:48 PM EDT [facility] Potassium 4.3 3.5 - 5.5 mmol/L LAB CHEMISTRY METHOD 05/24/2025 4:48 PM EDT [facility] Chloride 103 96 - 110 mmol/L LAB CHEMISTRY METHOD 05/24/2025 4:[facility] CO2 32 21 - 32 mmol/L LAB CHEMISTRY METHOD 05/24/2025 4:48 PM EDT [facility] Anion Gap 5 3 - 11 LAB CHEMISTRY METHOD 05/24/2025 4:48 PM EDT [facility] Glucose 126(H) 70 - 100 mg/dL LAB CHEMISTRY METHOD 05/24/2025 4:[facility] BUN 72(H) 5 - 25 mg/dL LAB CHEMISTRY METHOD 05/24/2025 4:48 [facility] Creatinine 1.73(H) 0.70 - 1.30 mg/dL LAB CHEMISTRY METHOD 05/24/2025 4:48 PM EDT [facility] eGFR 53(L) >=60 mL/min/1. 73m2 LAB CHEMISTRY METHOD 05/24/2025 4:48 PM EDT [facility] Comment:Calculation based on the Chronic Kidney Disease Epidemiology Collaboration (CKD-EPI) equation refit without adjustment for race. BUN/Creatinine Ratio 41.6 LAB CHEMISTRY METHOD 05/24/2025 4:48 PM EDT [facility] Calcium 8.7 8.5 - 10.5 mg/dL LAB CHEMISTRY METHOD 05/24/2025 4:48 PM EDT [facility] Blood Venous blood specimen / Unknown Venipuncture / Unknown 05/24/2025 2:41 PM EDT 05/24/2025 4:16 PM EDT us Radames Pate MD LAB BLOOD ORDERABLES Final Result [facility] [address] [place] [address], * XR Chest 2 Views (05/24/2025 12:55 PM EDT) Anatomical Region Laterality Modality Body Radiographic Alissa ging 05/24/2025 1:19 PM EDT Impressions 05/24/2025 1:20 PM EDT Impression: Patchy airspace infiltrates in the left mid and lower lung, consistent with pneumonia. Telerad URSULA ([id number]) -------- FINAL REPORT -------- Dictated By: Dinorah Jennings Dictated Date: 05/24/2025 13:19 ET Assigned Physician: Dinorah Jennings Reviewed and Electronically Signed By: Dinorah Jennings Signed Date: 05/24/2025 13:20 ET Workstation ID: [id number] Transcribed By: Self Edit Transcribed Date: 05/24/2025 [...] mid and lower lung, consistentwith pneumonia. Telerad URSULA ([id number]) -------- FINAL REPORT -------- Dictated By: Dinorah Jennings Dictated Date: 05/24/2025 13:19 ET Assigned Physician: Dinorah Jennings Reviewed and Electronically Signed By: Dinorah Jennings Signed Date: 05/24/2025 13:20 ET Workstation ID: [id number] Transcribed By: Self Edit Transcribed Date: 05/24/2025 13:19 ET us Radames Pate MD IMG XR PROCEDURES Final Res ult * ECG 12 lead (05/10/2025 11:29 AM EDT) Ventricular Rate ECG 92 BPM GEMUSE Atrial Rate 92 BPM GEMUSE P-R Interval 150 ms GEMUSE QRS Duration 96 ms GEMUSE Q-T Interval 348 ms GEMUSE QTc 430 ms GEMUSE P Wave [place] 48 degrees GEMUSE R [place] 36 degrees GEMUSE T [place] 42 degrees GEMUSE ECG Interpretation Normal sinus rhythm Normal ECG When compared with ECG of 20-MAR-2025 15:23, No significant change was found Confirmed by VIVIANE HENSLEY ([id number]) on 05/10/2025 4:53:12 PM GEMUSE 05/10/2025 11:2 9 AM EDT 05/10/2025 4:53 PM EDT us Viviane Hensley MD ECG ORDERABLES Final Result GEMUSE * (ABNORMAL) Vitamin A (04/30/2025 3:40 PM EDT) Vitamin A 171(H) 38 - 106 ug/dL 05/05/2025 5:55 AM EDT [facility] Comment: This test was developed and the performance characteristics determined by [facility]. It has not been cleared or approved by the FDA. The laboratory is regulated under CLIA as qualified to perform high-complexity testing. This test is used for patient testing purposes. It should not be regarded as investigational or for research. Test performed at [facility], [address] , [place] [address] Ninfa Vaz MD, PhD - [employer] Blood Venous blood specimen / Unknown Venipuncture / Unknown 04/30/2025 3:40 PM EDT 04/30/2025 4:09 PM EDT Phyllis Mratino CA LAB BLOOD ORDERABLES Final Re sult Performing Organization Address City/[facility]/ZIP Co de Phone Number [facility] [address] [place] [address] * (ABNORMAL) Vitamin D 25 hydroxy (04/30/2025 3:40 PM EDT) Vit D, 25-Hydroxy 9.9(L) 30.0 - 80.0 ng/mL LAB CHEMISTRY METHOD 04/30/2025 5:45 PM EDT [facility] Blood Venous blood specimen / Unknown Venipuncture / Unknown 04/30/2025 3:40 PM EDT 04/30/2025 4:10 PM EDT Phyllis Martino CA LAB BLOOD ORDERABLES Final Re sult Performing Organization Address City/[facility]/ZIP Co de Phone Number [facility] [address] [place] [address], [place] [phone] * (ABNORMAL) Vitamin E (04/30/2025 3:40 PM EDT) Vitamin E (Alpha Tocopherol) 3235(H) 500 - 1800 ug/dL 05/05/2025 5:55 AM EDT [facility] Comment: This test was developed and the performance characteristics determined by [facility]. It has not been cleared or approved by the FDA. The laboratory is regulated under CLIA as qualified to perform high-complexity testing. This test is used for patient testing purposes. It should not be regarded as investigational or for research. Test performed at [facility], [address], [place] [address] Ninfa Vaz MD, PhD - [employer] L[employer] Blood Venous blood specimen / Unknown Venipuncture / Unknown 04/30/2025 3:40 PM EDT 04/30/2025 4:09 PM EDT us Phyllis VERGARA LAB BLOOD ORDERABLES Final Re sult [facility] [address] [place] [address] * Hemoglobin A1c (04/30/2025 3:40 PM EDT) [facility] Hemoglobin A1C 5.9 <6.5 % LAB CHEMISTRY METHOD 05/02/2025 12:44 PM EDT [facility] Mean Bld Glu Estim. 123 mg/dL LAB CHEMISTRY METHOD 05/02/2025 12:44 PM EDT [facility] Blood Venous blood specimen / Unknown Venipuncture / Unknown 04/30/2025 3:40 PM EDT 04/30/2025 4:09 PM EDT us Phyllis VERGARA LAB BLOOD ORDERABLES Final Re sult Performing Organization Address City/[facility]/ZIP Co de Phone Number [facility] [address] [place] [address], * Vitamin B12 (04/30/2025 3:40 PM EDT) Pathologist [facility] Vitamin B-12 421 250 - 900 pcg/mL LAB CHEMISTRY METHOD 04/30/2025 5:25 PM EDT [facility] Blood Venous blood specimen / Unknown Venipuncture / Unknown 04/30/2025 3:40 PM EDT 04/30/2025 4:10 PM EDT us Phyllis VERGARA LAB BLOOD ORDERABLES Final Re sult Performing Organization Address [facility]/ZIP Co de Phone Number [facility] [address] [place] [address], [place] [phone] * External clinical lab (2025) Only the most recent of5 resultswithin the time period is included. us Provider [facility] LAB BLOOD ORDERABLES Fin al Result * HIV 1,2 antibody, p24 antigen with reflex to differentiation (01/15/2025 1:17 PM EST) Pathologist [facility] HIV Combo AB/AG Negative Negative LAB CHEMISTRY METHOD 01/15/2025 7:53 PM EST [facility] Blood Venous blood specimen / Unknown Venipuncture / Unknown 01/15/2025 1:17 PM EST 01/15/2025 1:17 PM EST Narrative [facility] - 01/15/2025 7:53 PM EST This [...] ORDERA BLES Final Result Performing Organization Address [facility]/ZIP Co de Phone Number [facility] [address] [place] [address], [place] [phone] * (ABNORMAL) Lipid panel with reflex to direct LDL (12/14/2024 1:12 PM EST) Cholesterol 235(H) 0 - 200 mg/dL LAB CHEMISTRY METHOD 12/14/2024 5:58 PM EST [facility] Triglycerides 173(H) 0 - 150 mg/dL LAB CHEMISTRY METHOD 12/14/2024 5:58 PM EST [facility] HDL 42 >=40 mg/dL LAB CHEMISTRY METHOD 12/14/2024 5:58 PM EST [facility] LDL Calculated 158(H) 0 - 100 mg/dL LAB CHEMISTRY METHOD 12/14/2024 5:58 PM [facility] VLDL Cholesterol Thiago 34.6 mg/dL LAB CHEMISTRY METHOD 12/14/2024 5:58 PM [facility] Non HDL Chol. (LDL+VLDL) 193(H) <145 mg/dL LAB CHEMISTRY METHOD 12/14/2024 5:58 PM [facility] Chol/HDL Ratio 5.6(H) 0.0 - 4.4 LAB CHEMISTRY METHOD 12/14/2024 5:58 PM [facility] Blood Venous blood specimen / Unknown Venipuncture / Unknown 12/14/2024 1:12 PM EST 12/14/2024 1:12 PM EST Tiara Fields MD LAB BLOOD ORDERA BLES Final Result [facility] [address] [place] [address], * Hepatitis C Screening (03/11/2019) Hepatitis C Screening Abstracted Historical Provider HEALTH MAINTENANCE Final Result from Last 3 Months or Most Recently Relevant to Health Maintenance Additional Health Concerns Infection Onset Date Last Indicated Parainfluenza Virus 05/24/2025 05/24/2025 Insurance [employer] Advance Directives * Full Code [...] currently active code status orders. Care Teams Technical Services Rep Relationship Specialty Start Date End Date Tiara Fields MD [address] [place] [address] [phone] PCP - General 02/10/24
--- OUTSIDE RECORDS SUMMARY | 2025-07-27 15:44 | XMS_ITS | Clinical Summary ---
Author Organization [facility] Address [address] [facility] [address] [place] [address] Phone Care Team Providers Care Flexographic Press Operator Name Role Phone Tiara Fields MD [...] 11:02 PM EDT Emergency [facility] [address] [place] [address] Yordan Tripathi MD Discharge Disposition: Home or [...] PM EDT) D-DIMER <215 <500 ng/mL FEU [facility] Comment:In patients with low to moderate pre-test probability scores for VTE (PE or DVT), a D-Dimer cut-off less than 500 ng/mL ([facility]) has a negative predictive value (NPV) of 97 to 100%. Blood 2025 10:2 0 PM EDT 2025 10:23 PM EDT us Yordan Tripathi MD LAB BLOOD ORDERABLES Fin al Result [address] [address] * (ABNORMAL) Troponin (2025 10:20 PM EDT) Only the most recent of2 resultswithin the time period is included. Troponin-T, HS Gen5 26(H) 0 - 14 ng/L [facility] Blood 2025 10:2 0 PM EDT 2025 10:23 PM EDT us Yordan Tripathi MD LAB BLOOD ORDERABLES Fin al Result Performing Organization Address [facility] Co de Phone Number [address] [address] * (ABNORMAL) Urinalysis w/reflex Urine Culture (2025 9:52 PM EDT) COLOR Yellow Yellow [facility] CLARITY Clear [facility] GLUCOSE 2+(A) Negative [facility] BILI Negative Negative [facility] KETONES Negative Negative [facility] SPECIFIC GRAVITY 1.020 1.005 - 1.030 [facility] BLOOD 1+(A) Negative [facility] PH 6.0 5.0 - 8.0 [facility] Protein-UA 3+(A) Negative [facility] NITRITE Negative Negative [facility] Leukocyte esterase, ur Negative Negative [facility] Urine (Urine) 2025 9:5 2 PM EDT 2025 9:56 PM EDT us Yordan Tripathi MD URINE ORDERABLES Final R esult Performing Organization Address [facility] Co de Phone Number [address] [address] * (ABNORMAL) Urine sediment (2025 9:52 PM EDT) WBC 5-10(A) NONE SEEN /hpf [facility] RBC 3-5(A) NONE SEEN /hpf [facility] URINE EPITHELIAL NONE SEEN NONE SEEN [facility] MUCUS Trace(A) NONE SEEN /hpf [facility] BACTERIA NONE SEEN NONE SEEN /hpf [facility] 2025 9:52 PM EDT 2025 9:56 PM EDT us Yordan Tripathi MD URINE ORDERABLES Final R esult Performing Organization Address City/[facility]/ZIP Co de Phone Number [address] [address] * ECG 12-LEAD (2025 9:41 PM EDT) Ventricular Rate EKG/MIN 78 BPM [facility] Atrial Rate 78 BPM [facility] [place] Interval 172 ms [facility] QRS Duration 88 ms [facility] QT Interval 376 ms [facility] QTC Interval 428 ms [facility] P Ward 36 degrees [facility] R Wave Ward 10 degrees [facility] T Wave Ward 23 degrees [facility] 2025 9:41 PM EDT [...] EDT) WBC 12.49(H) 4.00 - 11.00 K/uL [facility] RBC 4.82 4.50 - 5.90 M/uL [facility] HGB 14.6 13.5 - 17.5 g/dL [facility] HCT 43.8 41.0 - 53.0 % [facility] PLT 285 150 - 450 K/uL [facility] MCV 90.9 80.0 - 100.0 [facility] MCH 30.3 27.0 - 31.0 pg [facility] MCHC 33.3 32.0 - 36.0 g/dL [facility] RDW 13.2 11.5 - 14.5 % [facility] MPV 9.7 8.4 - 12.0 [facility] NRBC 0.00 0.00 /100 WBCs [facility] ABSOLUTE NRBC 0.00 0.00 K/uL [facility] DIFF METHOD Auto [facility] NEUTS 83.3(H) 48.0 - 76.0 % [facility] LYMPHS 12.6(L) 18.0 - 41.0 % [facility] MONOS 2.9(L) 4.0 - 11.0 % [facility] EOS 0.0 0.0 - 5.0 % [facility] BASOS 0.2 0.0 - 1.5 % [facility] Granulocytes, immature (%) 1.0(H) 0.0 - 0.9 % [facility] ABSOLUTE NEUTS 10.42(H) 1.92 - 7.60 K/uL [facility] ABSOLUTE LYMPHS 1.57 0.72 - 4.10 K/uL [facility] ABSOLUTE MONOS 0.36 0.16 - 1.10 K/uL [facility] ABSOLUTE EOS 0.00 0.00 - 0.50 K/uL [facility] ABSOLUTE BASOS 0.02 0.00 - 0.15 K/uL [facility] Granulocytes, immature 0.12(H) 0.00 - 0.09 K/uL [facility] Blood 2025 8:29 PM EDT 2025 8:32 PM EDT us Yordan Tripathi MD LAB BLOOD ORDERABLES Fin al Result Performing Organization Address City/[facility] Co de Phone Number [address] [address] * Phosphorus (2025 8:29 PM EDT) PHOSPHORUS 4.3 2.7 - 4.5 mg/dL [facility] Blood 2025 8:29 PM EDT 2025 8:32 PM EDT Yordan Tripathi MD LAB BLOOD ORDERABLES Fin al Result Performing Organization Address [facility] Co de Phone Number [address] [address] * (ABNORMAL) Magnesium (2025 8:29 PM EDT) MAGNESIUM 2.8(H) 1.6 - 2.6 mg/dL [facility] Blood 2025 8:29 PM EDT 2025 8:32 PM EDT us Yordan Tripathi MD LAB BLOOD ORDERABLES Fin al Result Performing Organization Address [facility]/ZIP Co de Phone Number [address] [address] * CPK (creatine kinase) (2025 8:29 PM EDT) CREATINE KINASE 35 35 - 232 U/L [facility] Blood 2025 8:29 PM EDT 2025 8:32 PM EDT us Yordan Tripathi MD LAB BLOOD ORDERABLES Fin al Result Performing Organization Address [facility] Co de Phone Number [address] [address] * (ABNORMAL) Basic metabolic panel (2025 8:29 PM EDT) SODIUM 136 133 - 146 mmol/L [facility] CHLORIDE 98 96 - 108 mmol/L [facility] POTASSIUM 4.4 3.3 - 5.1 mmol/L [facility] CO2 29 21 - 35 mmol/L [facility] BUN 67(H) 6 - 19 mg/dL [facility] CREATININE 1.70(H) 0.5 - 1.5 mg/dL [facility] GLUCOSE 122(H) 70 - 99 mg/dL [facility] CALCIUM 8.8 8.4 - 10.3 mg/dL [facility] EGFR 54(L) >59 mL/min/1.7 3m2 [facility] Comment:Estimated glomerular filtration rate calculated using the CKD-EPI refit equation. ANION GAP 13 10 - 20 mmol/L [facility] Blood 2025 8:29 PM EDT 2025 8:32 PM EDT us Yordan Tripathi MD LAB BLOOD ORDERABLES Fin al Result [address] [address] * US Lower Extremity Veins Duplex Complete [...] in the visualized veins of either lowerextremity. [facility] MD [facility] VASCULAR Final Res ult from Last 3 Months Insurance [email or web address] [facility] [place] [address] [place] [address] [employer] [place] [address] [employer] [place] [address] [place] [address] [employer] [facility] Care Teams Flexographic Press Operator Relationship Specialty Start Date End Date Tiara Fields MD [address] [place] [phone] PCP - General Family Medicine 04/27/25 Additional Source Comments The information contained in this document represents components of the legal health record. It is not the complete legal health record.[facility]
--- OUTSIDE RECORDS SUMMARY | 2025-07-27 15:44 | XMS_ITS | Clinical Summary ---
Author Organization [facility] Address [address] [address] Phone Care Team Providers Care Furnace Erector Name Role Phone Tiara Fields Primary Care Provider Allergies No known active allergies Medications metOLazone [...] 12/14/2024 Vitamin D deficiency 05/18/2020 Overview (01/25/2025): 38822 units for 8 weeks Dyslipidemia 04/07/2019 Resolved Problems Problem Noted Date Diagnosed Date Resolved Date Hematuria, not otherwise specified 01/26/2025 04/14/2025 Multiple joint pain 12/14/2024 04/14/20 25 Snoring 03/30/2019 04/14/2025 Overview (01/25/2025): 03/2019 Home Sleep Study did not reveal sleep apnea or nocturnal hypoxia. Encounters Date Type Department Care Team Description 06/01/2025 Office Communication [facility] [address] [phone] Valeriy Pulliam MD 06/01/2025 Office Communication [facility] [address] [phone] Valeriy Pulliam MD 05/27/2025 Orders Only [facility] [address] [phone] Valeriy Pulliam MD Glomerulonephritis; Hypertension; Dyslipidemia; Nephrotic syndrome; Proteinuria, not otherwise specified; Vitamin D deficiency, not otherwise specified 05/07/2025 Orders Only [facility] [address] [phone] Valeriy Pulliam MD 04/26/2025 Orders Only [facility] [address] [phone] Valeriy Pulliam MD from Last [...] None seen 0 - 5 /hpf [facility] RBC, Urine 3-10(A) 0 - 2 /hpf [facility] Squamous Epithelial, Urine 0-10 0 - 10 /hpf [facility] Casts None seen None seen /lpf [facility] Bacteria, Urine None seen None seen/Few [facility] 05/07/2025 3:54 PM EDT 05/07/2025 us Valeriy Pulliam MD LAB MICROBIOLOGY - GENERAL OR DERABLES Final Result [facility] [address] [place] [address] * (ABNORMAL) Protein, Total, Random Urine w/Creatinine (Protein/Creat Ratio) (05/07/2025 3:54 PM EDT) Creatinine, Ur 34.6 Not Estab. mg/dL [facility] Protein, Ur 458.5 Not Estab. mg/dL [facility] Comment: Results confirmed on dilution. Urine Protein/Creati nine Ratio 13,251(H) 0 - 200 mg/g creat [facility] 05/07/2025 3:54 PM EDT 05/07/2025 Valeriy Pulliam MD LAB URINE ORDERABLES Final Re sult [facility] [address] [place] [address] * (ABNORMAL) Urinalysis with microscopic (05/07/2025 3:54 PM EDT) Specific [place], Urine 1.011 1.005 - 1.030 [facility] pH Urine 5.5 5.0 - 7.5 [facility] Color, Urine Yellow Yellow [facility] Appearance Urine Clear Clear [facility] [place] WBC Esterase Urine Negative Negative [facility] Protein, Ur 3+(A) Negative/Tra ce [facility] Glucose, Ur Trace(A) Negative [facility] Ketones, Urine Negative Negative [facility] [place] Blood Urine Trace(A) Negative [facility] [phone] Bilirubin Urine Negative Negative [facility] Urobilinogen Urine 0.2 0.2 - 1.0 mg/dL [facility] [phone] Nitrite, Urine Negative Negative [facility] Microscopic Examination See below: [facility] [phone] Comment:Microscopic was doreen cated and was performed. 05/07/2025 3:54 PM EDT 05/07/2025 us Valeriy Pulliam MD LAB URINE ORDERABLES Final Re sult [facility] [address] [place] [address] * (ABNORMAL) CBC and Differential (05/07/2025 3:54 PM EDT) WBC 12.4(H) 3.4 - 10.8 x10E3/uL [facility] RBC 4.91 4.14 - 5.80 x10E6/uL [facility] Hemoglobin 15.2 13.0 - 17.7 g/dL [facility] Hematocrit 44.5 37.5 - 51.0 % [facility] MCV 91 79 - 97 fL [facility] MCH 31.0 26.6 - 33.0 pg [facility] MCHC 34.2 31.5 - 35.7 g/dL [facility] RDW 14.3 11.6 - 15.4 % [facility] Platelets 332 150 - 450 x10E3/uL [facility] Neutrophils Relative 87 Not Estab. % [facility] Lymphocytes Relative 10 Not Estab. % [facility] Monocytes 1 Not Estab. % [facility] Eosinophils Relative 0 Not Estab. % [facility] Basophils Relative 0 Not Estab. % [facility] Neutrophils Absolute 10.8(H) 1.4 - 7.0 x10E3/uL [facility] Lymphocytes Absolute 1.3 0.7 - 3.1 x10E3/uL [facility] Monocytes Absolute 0.1 0.1 - 0.9 x10E3/uL [facility] Eosinophils Absolute 0.0 0.0 - 0.4 x10E3/uL [facility] Basophils Absolute 0.0 0.0 - 0.2 x10E3/uL [facility] Immature Granulocytes 2 Not Estab. % [facility] Immature Grans (Absolute) 0.2(H) 0.0 - 0.1 x10E3/uL [facility] Comment: (An elevated percentage of Immature Granulocytes has not been found to be clinically significant as a sole clinical predictor of disease. Does NOT include bands or blast cells. associated physiological leukocytosis may also show increased immature granulocytes without clinical significance.) 05/07/2025 3:54 PM EDT 05/07/2025 Valeriy Pulliam MD LAB BLOOD ORDERABLES Final Re sult Performing Organization Address [facility] Co de Phone Number [facility] [address] [place] [address] * (ABNORMAL) Uric Acid (05/07/2025 3:54 PM EDT) Uric Acid 11.1(H) 3.8 - 8.4 mg/dL [facility] Comment:Therapeutic target f or gout patients: <6.0 05/07/2025 3:54 PM EDT 05/07/2025 Valeriy Pulliam MD LAB BLOOD ORDERABLES Final Re sult [facility] [address] [place] [address] * (ABNORMAL) Magnesium (05/07/2025 3:54 PM EDT) Magnesium 2.4(H) 1.6 - 2.3 mg/dL [facility] 05/07/2025 3:54 PM EDT 05/07/2025 us Valeriy Pluliam MD LAB BLOOD ORDERABLES Final Re sult [facility] [address] [place] [address] * (ABNORMAL) Comprehensive Metabolic Panel (05/07/2025 3:54 PM EDT) Glucose 129(H) 70 - 99 mg/dL [facility] BUN 57(H) 6 - 20 mg/dL [facility] Sodium 137 134 - 144 mmol/L [facility] Potassium 4.5 3.5 - 5.2 mmol/L [facility] Chloride 95(L) 96 - 106 mmol/L [facility] Bicarbonate (CO2) 26 20 - 29 mmol/L [facility] Calcium 8.7 8.7 - 10.2 mg/dL [facility] Total Protein 4.9(L) 6.0 - 8.5 g/dL [facility] Albumin 2.8(L) 4.1 - 5.1 g/dL [facility] Globulin 2.1 1.5 - 4.5 g/dL [facility] Total Bilirubin <0.2 0.0 - 1.2 mg/dL [facility] Alkaline Phosphatase 45 44 - 121 IU/L [facility] AST (SGOT) 12 0 - 40 IU/L [facility] ALT (SGPT) 21 0 - 44 IU/L [facility] Creatinine 1.64(H) 0.76 - 1.27 mg/dL [facility] eGFR CKD-EPI CR 2020 56(L) >59 mL/min/1.7 3 [facility] BUN/Creatinine Ratio 35(H) 9 - 20 [facility] 05/07/2025 3:54 PM EDT 05/07/2025 us Valeriy Pulliam MD LAB BLOOD ORDERABLES Final Re sult [facility] [address] [place] [address] from Last 3 Months Insurance Medicaid Care Teams Furnace Erector Relationship Specialty Start Date End Date Tiara Fields [address] [place] [address] PCP - General 03/15/25
--- OUTSIDE RECORDS SUMMARY | 2025-07-27 15:44 | XMS_ITS | Encounter Summary ---
Author Organization [facility] Address [address] [place] [address] Care Team Providers Care Sack Filler Name Role Phone Tiara Fields MD Primary Care Pr ovider Encounter Details Date Type Department Care Team (Late st Contact Info) Description 03/24/2025 Lab Requisition [facility] - Main Lab [address] [facility] [place] [address] Lukasz Basurto MD [address] [place] [phone] Proteinuria, unspecified Social History Tobacco Use [...] your loved ones. For example, child support case officer or elderly care for an older adult? [...] 2:00 PM EDT Office Visit Adult Medicine [address] [phone] Tiara Fields, MD [address] [place] [address] 10/15/2025 3:30 PM EST Consult Vascular Surgery - [place] [address] [place] [address] Paola Gunter PA [address] [place] [address] documented as of this encounter Procedures Procedure [...] [facility], Department of Pathology, [place], [place] (CLIA: [id number]). Their diagnosis is summarized as follows: Pathologic [...] report for full kidney biopsy diagnosis from [facility], [place], [place]) 04/13/2025 11:[address] [facility] Addendum electronically signed by Chinmay Grant MD on 04/13/2025 at 11:41 AM Final Diagnosis Kidney, left-biopsy for light, immunofluorescence and electron microscopy: -Submitted to [place], [place]. See supplemental report 04/13/2025 11:[address] [facility] Clinical Information 3 18g core samples from left kidney Proteinuria 04/13/2025 11:[address] [facility] Gross Description A. Kidney, Left, [...] core. The specimen is entirely submitted to [facility] for analysis. [facility] 04/13/2025 11:[address] [facility] Disclaimer Unless otherwise specified, all tissue is 10% NB formalin fixed and paraffin embedded. 04/13/2025 11:[address] [facility] Tissue Left kidney structure / Unknown 03/24/2025 03/24/2025 1:27 PM EDT Lukasz Basurto MD LAB PATHOLOGY ORDERABLES Edited Result - Final [facility] [address] [place] [address], documented in this encounter Visit Diagnoses Diagnosis Proteinuria, unspecified documented in this encounter Additional Health Concerns Infection Onset Date Last Indicated Resolved Time Respiratory Rule-Out 05/24/2025 05/24/2025 025 6:27 PM EDT COVID-19 Rule-Out 05/24/2025 05/24/2025 05/24/2025 6:27 PM EDT Parainfluenza Virus 05/24/2025 05/24/2025 Assessment Noted Time PHQ-9 Depression Total Score: 24 025 9:42 PM EST documented as of this encounter Care Teams Sack Filler Relationship Specialty Start Date End Date Tiara Fields MD [address] [place] [phone] PCP - General 02/10/24 documented as of this encounter
--- OUTSIDE RECORDS SUMMARY | 2025-07-27 15:44 | XMS_ITS | Encounter Summary ---
Author Organization [facility] Address [address] [phone] Phone Care Team Providers Care District Manager Postal Service Name Role Phone Tiara Fields Primary Care Provider Encounter Details Date Type Department Care Team (Late st Contact Info) Description 01/28/2025 Office Communication [facility] [address] [phone] Helen Selby Social History Tobacco [...] 1:35 PM EDT Patient is scheduled at [facility] for 02/12/2025 * Telephone Encounter - Helen [...] on filedocumented in this encounter Care Teams District Manager Postal Service Relationship Specialty Start Date End Date Tiara Fields [address] [place] [address] PCP - General 03/15/25 documented as of this encounter
--- OUTSIDE RECORDS SUMMARY | 2025-07-27 15:44 | XMS_ITS | Encounter Summary ---
Author Organization [facility] Address [address] [place] [address] Care Team Providers Care Medical Driver Name Role Phone Tiara Fields MD Primary Care Pr ovider Reason for Visit * Reason Onset Date Comments Extremity Weakness 2025 Leg Swelling 2025 Encounter Details Date Type Department Care Team (Late st Contact Info) Description 2025 Nurse Triage Adult Medicine [address] [phone] Tiara Fields MD [address] [place] [address] Social History Tobacco Use Types Packs/Day Years [...] care for your loved ones. For example, exceptional children's teacher or elderly care for an older adult? [...] traveled recently to another state outside of [place], [place], [place], [place], [place], [place], [place]? no o If yes, did you quarantine [...] not applicable PCP: Tiara Fields MD Payor: [employer] PLAN / Plan: [employer] MEDICAID / Product Type: *No Product type* / documented in this encounter Plan of Treatment Upcoming Encounters Date Type Department Care Team (Late st Contact Info) Description 07/28/2025 2:00 PM EDT Office Visit Adult Medicine [facility] [address] [place], [place] [phone] Tiara Fields MD [address] [place], [place] 10/15/2025 3:30 PM EST Consult Vascular Surgery - [place] [address] [place] [address] Paola Gunter PA [address] [place] [address] documented as of this encounter Visit Diagnoses Not on filedocumented in this encounter Additional Health Concerns Infection Onset Date Last Indicated Resolved Time Respiratory Rule-Out 05/24/2025 05/24/2025 025 6:27 PM EDT COVID-19 Rule-Out 05/24/2025 05/24/2025 05/24/2025 6:27 PM EDT Parainfluenza Virus 05/24/2025 05/24/2025 Assessment Noted Time PHQ-9 Depression Total Score: 24 025 9:42 PM EST documented as of this encounter Care Teams Medical Driver Relationship Specialty Start Date End Date Tiara Fields MD [address] [place] [address] PCP - General 02/10/24 documented as of this encounter
== END 2025-07-27 12:23 | disposition home or self-care (01) ==
LOC: HO.HKAS 11:35
PROVIDERS: PCP Family Medicine; Visit Provider Internal Medicine Nephrology
DX: N04.9 Nephrotic syndrome with unspecified morphologic changes (principal); N05.1 Unspecified nephritic syndrome with focal and segmental glomerular lesions
CPT/HCPCS: 99214

== ENCOUNTER → 2025-07-27 11:34 | Outpatient (BNVA) | payer OTHER, SELFPAY | PROVIDERS: PCP Family Medicine; Visit Provider Internal Medicine Nephrology | DX: N04.9 Nephrotic syndrome with unspecified morphologic changes (principal); N05.1 Unspecified nephritic syndrome with focal and segmental glomerular lesions | CPT/HCPCS: 99212 ==

== ENCOUNTER 2025-07-30 08:03 | Outpatient (REF) | payer OTHER, SELFPAY ==
--- OUTSIDE RECORDS SUMMARY | 2025-07-28 14:00 | XMS_ITS | Encounter Summary ---
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) Tiara Fields MD [address] [place] [address] Phone: tel: fax: Endocrinology - [address] Phone: tel: fax: Referral ID Status Reason Start Date Expiration Date Visits Requested Visits Authorized [id number] Authorized Specialty Services Required 07/28/2025 07/28/2026 1 1 * Consultation (Routine) - Closed Specialty Diagnoses / Procedures Referred By Ernie johnson Referred To Contact Diagnoses Snoring Morbid obesity with BMI of 40.0-44.9, adult (CMS/HCC V24, CMS/HCC V28) Tiara Fields MD [address] [place] [address] Phone: tel: fax: [facility] [place] [id number] [facility] [address] [place] [address] Phone: tel: fax: Referral ID Status Reason Start Date Expiration Date V isits Requested Visits Authorized [id number] Closed Specialty Services Required 07/28/2025 07/28/2026 1 1 Reason for Visit * Reason Comments Follow-up Encounter Details Date Type Department Care Team (Late st Contact Info) Description 07/28/2025 2:00 PM EDT Office Visit Adult Medicine [address] [phone] Tiara Fields MD [address] [place] [address] Nephrotic syndrome (Primary Dx); FSGS (focal segmental glomerulosclerosis); Mixed hyperlipidemia; Prediabetes; Vitamin D deficiency disease; Primary hypertension; Petechiae; 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 For example, child's nurse or elderly care for an older adult? [...] PM EST documented as of this encounter Last Filed Vital Signs Vital Sign Reading Time Taken Comments Blood Pressure 128/84 07/28/2025 2:16 PM EDT Pulse 98 07/28/2025 2:16 PM EDT Temperature 36.8 C (98.2 F) 07/28/2025 2:16 PM EDT Respiratory Rate 16 07/28/2025 2:16 PM EDT Oxygen Saturation - - Inhaled Oxygen Concentration - - Weight 141 kg (310 lb) 07/28/2025 2:16 PM EDT Height 185.4 cm (6' 1 ) 07/28/2025 2:16 PM EDT Body Mass Index 40.9 07/28/2025 2:16 PM EDT documented in this encounter Functional Status * Are you deaf or do you have serious difficulty hearing? Answer Date of Assessment Author No 05/24/2025 7:37 PM EDT Emmie Vasquez RN * Are you blind or do you have serious difficulty seeing, even when wearing glasses? Answer Date of Assessment Author No 05/24/2025 7:37 PM EDT Emmie Vasquez RN * Do you have serious difficulty walking or climbing stairs? Answer Date of Assessment Author No 05/24/2025 7:37 PM EDT Emmie Vasquez RN * Do you have serious difficulty dressing or bathing? Answer Date of Assessment Author No 05/24/2025 7:37 PM EDT Emmie Vasquez RN * Because of a physical, mental, or emotional condition, do you have serious difficulty doing errandsalone such as visiting the doctor? Answer Date of Assessment Author No 05/24/2025 7:37 PM EDT Emmie Vasquez RN documented as of this encounter Mental Status * Because of a physical, mental, or emotional condition, do you have serious difficulty concentrating, remembering, or making decisions? (5 years old or older) Answer Entry Date Author No 05/24/2025 7:37 PM EDT Emmie Vasquez RN documented in this encounter Ordered Prescriptions Prescription Sig Dispense Quantity Refills Last Filled Start Date End Date ammonium lactate (AmLactin) 12 % lotionIndications: Dry skin Apply topically if needed for dry skin. 400 g 07/28/2025 6 clindamycin (CLEOCIN T) 1 % gelIndications:Epi dermal cyst Apply to skin cysts twice a day 60 g 5 07/28/2025 6 ergocalciferol (VITAMIN D-2) 1,250 mcg (50,000 unit) capsuleIndications :Vitamin D deficiency disease Take 1 capsule (50,000 Units total) by mouth 1 (one) time per week. 12 capsule 1 07/28/2025 documented in this encounter Progress Notes * Tiara Fields MD - 07/28/2025 2:00 PM EDTAssociated Problem(s): Nephrotic syndrome He will continue prednisone 60 mg daily, cyclosporine 200 mg twice daily,bumex 2mg 2-3 times a day,losartan 50mg BID, metolazone 5mg daily as needed, potassium 20meQ as needed for muscle cramps, Bactrim 3 times a week and Robaxin 500 mg as needed for muscle spasms/cramps Recent labs showed leukocytosis likely related to his prednisone use Continue nephrology follow-up Will update lab * Tiara Fields MD - 07/28/2025 2:00 PM EDTAssociated Problem(s): Hyperlipidemia Will update labs. Likely related to his kidney disease and obesity Orders: Lipid panel with reflex to direct LDL; Future * Tiara Fields MD - 07/28/2025 2:00 PM EDTAssociated Problem(s): Prediabetes His last A1c was 5.9 in April. Will continue to monitor * Tiara Fields MD - 07/28/2025 2:00 PM EDTAssociated Problem(s): Vitamin D deficiency disease Resume vitamin D 50,000 units weekly Orders: ergocalciferol (VITAMIN D-2) 1,250 mcg (50,000 unit) capsule; Take 1 capsule (50,000 Units total) by mouth 1 (one) time per week. Vitamin D 25 hydroxy; Future * Tiara Fields MD - 07/28/2025 2:00 PM EDTAssociated Problem(s): Hypertension Continue losartan 50 mg twice daily. Blood pressure stable at 128/84 * Tiara Fields MD - 07/28/2025 2:00 PM EDTAssociated Problem(s): Snoring Referred to sleep medicine for sleep study Orders: Ambulatory referral to Sleep Medicine; Future * Tiara Fields MD - 07/28/2025 2:00 PM EDTAssociated Problem(s): Morbid obesity with BMI of 40.0-44.9, adult (CMS/HCC V24, CMS/HCC V28) He Is referred to sleep medicine for sleep study Orders: Ambulatory referral to Sleep Medicine; Future * Tiara Fields MD - 07/28/2025 2:00 PM EDTAssociated Problem(s): FSGS (focal segmental glomerulosclerosis) As above Orders: Ferritin; Future Iron and TIBC; Future * Tiara Fields MD - 07/28/2025 2:00 PM EDTAssociated Problem(s): 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 Will check labs Orders: Vitamin B12; Future Folate; Future * Tiara Fields MD - 07/28/2025 2:00 PM EDTAssociated Problem(s): Dry skin Will treat with ammonium lactate. Will check TSH Orders: Thyroid stimulating hormone with reflex to free t4 and free t3; Future ammonium lactate (AmLactin) 12 % lotion; Apply topically if needed for dry skin. * Tiara Fields MD - 07/28/2025 2:00 PM EDT Images from the original note were not included. Chief Complaint Heather Paniagua is a 35 y.o. male presenting for Follow-up Subjective Her for follow up Presents 9 mins late to this appointment He notes some petechiae on the arms. This is Increasing Nephrotic syndrome/FSGM/hypertension: follows with Dr. Dhaliwal at [facility]. Contiues on prednisone 60mg daily(was previously on 80mg) , cyclosporine 200mg BID, bumex 2mg 2-3 times a day, losartan 50mg BID, metolazone 5mg daily as needed, potassium 20meQ as needed for muscle cramps, Bactrim 3 times a week and Robaxin 500 mg as needed for muscle spasms/cramps He has ongoing bilateral ankle swelling Reports bumex causes generalized muscle cramping, worse in the legs. this is particularly worse if he holds his urine He reports that he is currently unable to work due to his medications which cause numerous side effects . He is planning on applying for Social Security benefits He reports small cysts located in the right ankle that leak fluid. States that they are not painfulor itchy Dyslipidemia: unable to tolerate statin due to side effects of muscle cramping so this was stopped Ardenvoir: He has some cushingoid features-mendez facies, purple striae on the arms and abdomen, thin dry skin, easy bruising, petechiae. 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 He also notes some neuropathy-tingling in the fingertips. States that the cyclosporine causes him to feel short of breath He did complete an echocardiogram in May which was normal He was seen at [facility] on 05/24/2025 for shortness of breath/nasal congestion. Previously went to urgent care and tested for strep/COVID/flu were negative. Labs done showed BUN/creatinine 72/1.73. GFR 53. White blood cell count 12. Hemoglobin/hematocrit 13/40.8. Chest x-ray showed patchy airspace infiltrates in the left mid and lower lung consistent with pneumonia. Resp panel was positive for Parainfluenza 3 . He was discharged on cefpodoxime 200 mg twice daily for 7 days and doxycycline 100 mgtwice daily for 7 days which he completed Notes snoring with sleep and fatigue The following portions of the patient's history were reviewed by a provider in this encounter and updated as appropriate: Meds Problems Allergies: He has No Known Allergies. Medications: Current Outpatient Medications Medication Instructions ammonium lactate (AmLactin) 12 % lotion Topical, As needed aspirin 81 mg EC tablet 1 tablet, Daily bumetanide (BUMEX) 2 mg, oral, 3 times daily cholecalciferol (VITAMIN D-3) 50 mcg (2,000 unit) capsule 1 capsule, Daily clindamycin (CLEOCIN T) 1 % gel Apply to skin cysts twice a day cycloSPORINE (SANDIMMUNE) 200 mg, 2 times daily dicyclomine (BENTYL) 10 mg, oral, 3 times daily PRN ergocalciferol (VITAMIN D-2) 50,000 Units, oral, Weekly Jardiance 10 mg, Every morning losartan (COZAAR) 50 mg, oral, 2 times daily methocarbamoL (ROBAXIN) 500 mg, As needed metOLazone (ZAROXOLYN) 5 mg, oral, Daily PRN polyethylene glycol (MIRALAX) 17 g, Daily potassium chloride (KLOR-CON) 20 mEq packet 20 mEq, Daily predniSONE (DELTASONE) 20 mg tablet 3 tablets, oral, Daily sulfamethoxazole-trimethoprim (BACTRIM DS,SEPTRA DS) 800-160 mg per tablet 1 tablet, 3 times weekly Depression Screening (PHQ2/9): Anxiety Screening: Social Influencer of Health (SIOH): Review of Systems: Review of Systems Objective BP 128/84 Pulse 98 Temp 36.8 ??C (98.2 ??F) Resp 16 Ht 1.854 m (73 ) Wt 141 kg (310 lb) BMI 40.90 kg/m?? Physical Exam Constitutional: General: He is not in acute distress. Appearance: Normal appearance. He is obese. HENT: Head: Normocephalic and atraumatic. Cardiovascular: Rate and Rhythm: Normal rate and regular rhythm. Pulses: Normal pulses. Heart sounds: Normal heart sounds. No murmur heard. Pulmonary: Effort: Pulmonary effort is normal. No respiratory distress. Breath sounds: Normal breath sounds. Abdominal: Palpations: Abdomen is soft. Tenderness: There is no abdominal tenderness. Comments: Obese abdomen Musculoskeletal: Right lower leg: Edema present. Left lower leg: Edema present. Comments: Bl ankle/pedal edema Skin: Comments: Dry skin in the hands; sales development manager color in the skin of the hands compared to the forearms/arms Purple striae located on the arms with some abdominal striae Some petechia on the arms and forearms Neurological: General: No focal deficit present. Mental Status: He is alert and oriented to person, place, and time. Lab Results Component Value Date WBC 18.4 (H) 07/02/2025 HGB 11.3 (L) 07/02/2025 HCT 33.1 (L) 07/02/2025 PLT 259 07/02/2025 CHOL 235 (H) 12/14/2024 TRIG 173 (H) 12/14/2024 HDL 42 12/14/2024 ALT 18 03/20/2025 AST 14 03/20/2025 NA 140 05/24/2025 K 4.3 05/24/2025 CL 103 05/24/2025 CREATININE 1.73 (H) 05/24/2025 BUN 72 (H) 05/24/2025 CO2 32 05/24/2025 TSH 1.61 12/14/2024 HGBA1C 5.9 04/30/2025 MICROALBUR >13,600.0 (H) 01/14/2025 Lab Results Component Value Date LDLCALC 158 (H) 12/14/2024 05/27/25 TRANSTHORACIC ECHOCARDIOGRAM (TTE) COMPLETE (CONTRAST/BUBBLE/3D PRN) 05/27/2025 05/27/2025 Interpretation Summary Left ventricle cavity size is normal. Wall thickness is at upper limits of normal. Systolic function is normal with an ejection fraction of 60-65%. There are no regional LV wall motion abnormalities.There is no diastolic dysfunction. Right ventricle cavity is normal. Right ventricular systolic function is normal. No significant valvular abnormalities. Signed by: Roger Cadet MD on 05/27/2025 5:15 PM Assessment/Plan Assessment & Plan Nephrotic syndrome He will continue prednisone 60 mg daily, cyclosporine 200 mg twice daily,bumex 2mg 2-3 times a day,losartan 50mg BID, metolazone 5mg daily as needed, potassium 20meQ as needed for muscle cramps, Bactrim 3 times a week and Robaxin 500 mg as needed for muscle spasms/cramps Recent labs showed leukocytosis likely related to his prednisone use Continue nephrology follow-up Will update lab FSGS (focal segmental glomerulosclerosis) As above Orders: Ferritin; Future Iron and TIBC; Future Mixed hyperlipidemia Will update labs. Likely related to his kidney disease and obesity Orders: Lipid panel with reflex to direct LDL; Future Prediabetes His last A1c was 5.9 in April. Will continue to monitor Vitamin D deficiency disease Resume vitamin D 50,000 units weekly Orders: ergocalciferol (VITAMIN D-2) 1,250 mcg (50,000 unit) capsule; Take 1 capsule (50,000 Units total) by mouth 1 (one) time per week. Vitamin D 25 hydroxy; Future Primary hypertension Continue losartan 50 mg twice daily. Blood pressure stable at 128/84 Petechiae Likely related to the high-dose prednisone use. 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 She is referred to [place] [facility] Orders: Ambulatory referral to Endocrinology; Future Epidermal cyst Will treat with clindamycin gel Orders: clindamycin (CLEOCIN T) 1 % gel; Apply to skin cysts twice a day Snoring Referred to sleep medicine for sleep study Orders: Ambulatory referral to Sleep Medicine; Future Morbid obesity with BMI of 40.0-44.9, adult (CMS/[facility] V24, [facility] V28) He Is referred to sleep medicine for sleep study Orders: Ambulatory referral to Sleep Medicine; Future Neuropathy 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 Will check labs Orders: Vitamin B12; Future Folate; Future Dry skin Will treat with ammonium lactate. Will check TSH Orders: Thyroid stimulating hormone with reflex to free t4 and free t3; Future ammonium lactate (AmLactin) 12 % lotion; Apply topically if needed for dry skin. History of pneumonia Will obtain chest x-ray to ensure resolution Orders: XR Chest 2 Views; Future he declines influenza vaccine today He is unable to work at this time and is planning to apply for Social Security benefits. He will send in his application. advised to complete release of information so that what ever is needed from Social Security can be sent over if requested. Tiara Fields MD ADULT MEDICINE [address] Dept: [phone] Dept Date of Visit: 07/28/2025 documented in this encounter Plan of Treatment Upcoming Encounters Date Type Department Care Team (Late st Contact Info) Description 10/15/2025 3:30 PM EST Consult Vascular Surgery - [place] [address] [facility] [address] [place] [phone] Paola Gunter PA [address] [facility] [address] [place] [address] 10/27/2025 2:30 PM EST Office Visit [address] [phone] Tiara Fields MD [address] [place] [address] Scheduled Orders Name Type Priority Associated Diagnoses Orde r Schedule Vitamin D 25 hydroxy Lab Routine Vitamin D deficiency disease 1 Occurrences starting 07/28/2025 until 07/28/2026 Comprehensive metabolic panel Lab Routine Petechiae Expected: 07/28/2025, Expires: 07/28/2026 CBC and differential Lab Routine Petechiae Expected: 07/28/2025, Expires: 07/28/2026 Prothrombin time with INR Lab Routine Petechiae 1 Occurrences starting 07/28/2025 until 07/28/2026 Activated partial thromboplastin time Lab Routine Petechiae 1 Occurrences starting 07/28/2025 until 07/28/2026 Lipid panel with reflex to direct LDL Lab Routine Mixed hyperlipidemia 1 Occurrences starting 07/28/2025 until 07/28/2026 Vitamin B12 Lab Routine Neuropathy 1 Occurrences starting 07/28/2025 until 07/28/2026 Folate Lab Routine Neuropathy 1 Occurrences starting 07/28/2025 until 07/28/2026 Thyroid stimulating hormone with reflex to free t4 and free t3 Lab Routine Dry skin Expected: 07/28/2025, Expires: 07/28/2026 Ferritin Lab Routine FSGS (focal segmental glomerulosclerosis) 1 Occurrences starting 07/28/2025 until 07/28/2026 Iron and TIBC Lab Routine FSGS (focal segmental glomerulosclerosis) 1 Occurrences starting 07/28/2025 until 07/28/2026 XR Chest 2 Views Imaging Routine History of pneumonia Expected: 07/28/2025, Expires: 07/28/2026 Scheduled Referrals Name Type Priority Associated Diagnoses Order Schedule Ambulatory referral to Sleep Medicine Outpatient Referral Routine Snoring Morbid obesity with BMI of 40.0-44.9, adult ([facility] V24, [facility] V28) 1 Occurrences starting 07/28/2025 until 07/28/2026 Ambulatory referral to Endocrinology Outpatient Referral Routine Drug-induced Janessa syndrome ([facility] V24) 1 Occurrences starting 07/28/2025 until 07/28/2026 documented as of this encounter Visit Diagnoses Diagnosis Nephrotic syndrome- Primary Nephrotic syndrome with unspecified pathological lesion in kidney 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 Mixed hyperlipidemia Prediabetes Other abnormal glucose Vitamin D deficiency disease Unspecified vitamin D deficiency Primary hypertension Unspecified essential hypertension Petechiae Spontaneous ecchymoses 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) Epidermal cyst Sebaceous cyst Snoring Other dyspnea and respiratory abnormality Morbid obesity with BMI of 40.0-44.9, adult ([facility] V24, [facility] V28) Neuropathy Mononeuritis of unspecified site Dry skin Other symptoms involving skin and integumentary tissues History of pneumonia Personal history of pneumonia (recurrent) documented in this encounter Discontinued Medications Medication Sig Discontinue Reason Start Date End Da te metoprolol succinate (TOPROL-XL) 25 mg 24 hr tablet Take 1 tablet (25 mg total) by mouth 1 (one) time each day. Therapy completed 04/26/2025 07/28/2025 losartan (COZAAR) 100 mg tablet Take 25 mg by mouth 1 (one) time each day. 01/26/2025 07/28/2025 doxycycline (MONODOX) 100 mg capsule Take 1 capsule (100 mg total) by mouth 2 (two) times a day. Take with at least 8 ounces (large glass) of water, do not lie down for 30 minutes after Therapy completed 05/24/2025 07/28/2025 cyclobenzaprine (FLEXERIL) 10 mg tablet Take 1 tablet (10 mg total) by mouth if needed for muscle spasms. Therapy completed 04/17/2025 07/28/2025 documented as of this encounter Historical Medications * This list may reflect changes made after this encounter. cycloSPORINE (SandIMMUNE) 100 mg capsule Take 2 capsules (200 mg total) by mouth 2 (two) times a day. 07/13/2025 losartan (Cozaar) 50 mg tabletIndications:Mi xed hyperlipidemia Take 1 tablet (50 mg total) by mouth 2 (two) times a day. 07/28/2025 added in this encounter Additional Health Concerns Infection Onset Date Last Indicated Resolved Time Parainfluenza Virus 05/24/2025 05/24/2025 Assessment Noted Time PHQ-9 Depression Total Score: 24 025 9:42 PM EST documented as of this encounter Care Teams Document Review Specialist Relationship Specialty Start Date End Date Tiara Fields MD [address] [place] [phone] PCP - General 02/10/24 documented as of this encounter
--- OUTSIDE RECORDS SUMMARY | 2025-07-30 08:10 | XMS_ITS | Encounter Summary ---
Author Organization [facility] Address [address] [phone] Phone Care Team Providers Care Criminal Investigative Agent Name Role Phone Tiara Fields Primary Care Provider Encounter Details Date Type Department Care Team (Late st Contact Info) Description 01/28/2025 Office Communication [facility] [address] [phone] Helen Selby Social History Tobacco [...] 1:35 PM EDT Patient is scheduled at [facility] for 02/12/2025 * Telephone Encounter - Helen [...] on filedocumented in this encounter Care Teams Criminal Investigative Agent Relationship Specialty Start Date End Date Tiara Fields [address] [place] [address] PCP - General 03/15/25 documented as of this encounter
--- OUTSIDE RECORDS SUMMARY | 2025-07-30 08:11 | XMS_ITS | Clinical Summary ---
Author Organization [facility] Address [address] [address] Phone Care Team Providers Care Heel Reducer Name Role Phone Tiara Fields Primary Care [...] 12/14/2024 Vitamin D deficiency 05/18/2020 Overview (01/25/2025): 15589 units for 8 weeks Dyslipidemia 04/07/2019 Resolved Problems Problem Noted Date Diagnosed Date Resolved Date Hematuria, not otherwise specified 01/26/2025 04/14/2025 Multiple joint pain 12/14/2024 04/14/20 25 Snoring 03/30/2019 04/14/2025 Overview (01/25/2025): 03/2019 Home Sleep Study did not reveal sleep apnea or nocturnal hypoxia. Encounters Date Type Department Care Team Description 06/01/2025 Office Communication [facility] [address] [phone] Valeriy Pulliam MD 06/01/2025 Office Communication [facility] [address] [phone] Valeriy Pulliam MD 05/27/2025 Orders Only [facility] [address] [phone] Valeriy Pulliam MD Glomerulonephritis; Hypertension; Dyslipidemia; Nephrotic syndrome; Proteinuria, not otherwise specified; Vitamin D deficiency, not otherwise specified 05/07/2025 Orders Only [facility] [address] [phone] Valeriy Pulliam MD from Last 3 [...] None seen 0 - 5 /hpf [facility] RBC, Urine 3-10(A) 0 - 2 /hpf [facility] Squamous Epithelial, Urine 0-10 0 - 10 /hpf [facility] Casts None seen None seen /lpf [facility] Bacteria, Urine None seen None seen/Few [facility] 05/07/2025 3:54 PM EDT 05/07/2025 Valeriy Pulliam MD LAB MICROBIOLOGY - GENERAL OR DERABLES Final Result [facility] [address] [place] [address] * (ABNORMAL) Protein, Total, Random Urine w/Creatinine (Protein/Creat Ratio) (05/07/2025 3:54 PM EDT) Creatinine, Ur 34.6 Not Estab. mg/dL [facility] Protein, Ur 458.5 Not Estab. mg/dL [facility] Comment: Results confirmed on dilution. Urine Protein/Creati nine Ratio 13,251(H) 0 - 200 mg/g creat [facility] 05/07/2025 3:54 PM EDT 05/07/2025 us Valeriy Pulliam MD LAB URINE ORDERABLES Final Re sult [facility] [address] [place] [address] * (ABNORMAL) Urinalysis with microscopic (05/07/2025 3:54 PM EDT) Specific Marquez, Urine 1.011 1.005 - 1.030 [facility] pH Urine 5.5 5.0 - 7.5 [facility] Color, Urine Yellow Yellow [facility] Appearance Urine Clear Clear [facility] WBC Esterase Urine Negative Negative [facility] Protein, Ur 3+(A) Negative/Tra ce [facility] Glucose, Ur Trace(A) Negative [facility] Ketones, Urine Negative Negative [facility] [phone] Blood Urine Trace(A) Negative [facility] [phone] Bilirubin Urine Negative Negative [facility] Urobilinogen Urine 0.2 0.2 - 1.0 mg/dL [facility] Nitrite, Urine Negative Negative [facility] Microscopic Examination See below: [facility] Comment:Microscopic was doreen cated and was performed. 05/07/2025 3:54 PM EDT 05/07/2025 Valeriy Pulliam MD LAB URINE ORDERABLES Final Re sult [facility] [address] [place] [address] * (ABNORMAL) CBC and Differential (05/07/2025 3:54 PM EDT) [facility] WBC 12.4(H) 3.4 - 10.8 x10E3/uL [facility] RBC 4.91 4.14 - 5.80 x10E6/uL [facility] Hemoglobin 15.2 13.0 - 17.7 g/dL [facility] Hematocrit 44.5 37.5 - 51.0 % [facility] MCV 91 79 - 97 fL [facility] MCH 31.0 26.6 - 33.0 pg [facility] MCHC 34.2 31.5 - 35.7 g/dL [facility] RDW 14.3 11.6 - 15.4 % [facility] Platelets 332 150 - 450 x10E3/uL [facility] Neutrophils Relative 87 Not Estab. % [facility] Lymphocytes Relative 10 Not Estab. % [facility] Monocytes 1 Not Estab. % [facility] Eosinophils Relative 0 Not Estab. % [facility] Basophils Relative 0 Not Estab. % [facility] Neutrophils Absolute 10.8(H) 1.4 - 7.0 x10E3/uL [facility] Lymphocytes Absolute 1.3 0.7 - 3.1 x10E3/uL [facility] Monocytes Absolute 0.1 0.1 - 0.9 x10E3/uL [facility] Eosinophils Absolute 0.0 0.0 - 0.4 x10E3/uL [facility] Basophils Absolute 0.0 0.0 - 0.2 x10E3/uL [facility] Immature Granulocytes 2 Not Estab. % [facility] Immature Grans (Absolute) 0.2(H) 0.0 - 0.1 x10E3/uL [facility] Comment: (An elevated percentage of Immature Granulocytes has not been found to be clinically significant as a sole clinical predictor of disease. Does NOT include bands or blast cells. associated physiological leukocytosis may also show increased immature granulocytes without clinical significance.) 05/07/2025 3:54 PM EDT 05/07/2025 Valeriy Pulliam MD LAB BLOOD ORDERABLES Final Re sult Performing Organization Address [facility] de Phone Number [employer] [facility] [address] [place] [address] * (ABNORMAL) Uric Acid (05/07/2025 3:54 PM EDT) Uric Acid 11.1(H) 3.8 - 8.4 mg/dL [facility] Comment:Therapeutic target f or gout patients: <6.0 05/07/2025 3:54 PM EDT 05/07/2025 Valeriy Pulliam MD LAB BLOOD ORDERABLES Final Re sult Performing Organization Address [facility] de Phone Number [facility] [address] [place] [address] * (ABNORMAL) Magnesium (05/07/2025 3:54 PM EDT) Magnesium 2.4(H) 1.6 - 2.3 mg/dL [facility] 05/07/2025 3:54 PM EDT 05/07/2025 Valeriy Pulliam MD LAB BLOOD ORDERABLES Final Re sult Performing Organization Address [facility]/State/ZIP Co de Phone Number [facility] [address] [place] [address] * (ABNORMAL) Comprehensive Metabolic Panel (05/07/2025 3:54 PM EDT) Glucose 129(H) 70 - 99 mg/dL [facility] BUN 57(H) 6 - 20 mg/dL [facility] Sodium 137 134 - 144 mmol/L [facility] Potassium 4.5 3.5 - 5.2 mmol/L [facility] Chloride 95(L) 96 - 106 mmol/L [facility] Bicarbonate (CO2) 26 20 - 29 mmol/L [facility] Calcium 8.7 8.7 - 10.2 mg/dL [facility] Total Protein 4.9(L) 6.0 - 8.5 g/dL [facility] Albumin 2.8(L) 4.1 - 5.1 g/dL [facility] Globulin 2.1 1.5 - 4.5 g/dL [facility] Total Bilirubin <0.2 0.0 - 1.2 mg/dL [facility] Alkaline Phosphatase 45 44 - 121 IU/L [facility] AST (SGOT) 12 0 - 40 IU/L [facility] ALT (SGPT) 21 0 - 44 IU/L [facility] Creatinine 1.64(H) 0.76 - 1.27 mg/dL [facility] eGFR CKD-EPI CR 2020 56(L) >59 mL/min/1.7 3 [facility] BUN/Creatinine Ratio 35(H) 9 - 20 [facility] 05/07/2025 3:54 PM EDT 05/07/2025 us Valeriy Pulliam MD LAB BLOOD ORDERABLES Final Re sult [facility] [address] [place] [address] from Last 3 Months Insurance Medicaid Care Teams Heel Reducer Relationship Specialty Start Date End Date Tiara Fields [address] [place] [phone] PCP - General 03/15/25
--- OUTSIDE RECORDS SUMMARY | 2025-07-30 08:11 | XMS_ITS | Encounter Summary ---
Author Organization [facility] Address [address] [place] [address] Care Team Providers Care Puddler Helper Name Role Phone Tiara Fields MD Primary Care Pr ovider Reason for Visit * Reason Onset Date Comments Extremity Weakness 2025 Leg Swelling 2025 Encounter Details Date Type Department Care Team (Late st Contact Info) Description 2025 Nurse Triage Adult Medicine [address] [phone] Tiara Fields MD [address] [place] [address] Social History Tobacco Use Types Packs/Day Years [...] for your loved ones. 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 no o If yes, did you quarantine [...] of accident/Injury: No If yes, gather 3rd alliance party insurance information Third Libertarian Information: not applicable PCP: Tiara Fields MD Payor: [employer] PLAN / Plan: [employer] MEDICAID / Product Type: *No Product type* / documented in this encounter Plan of Treatment Upcoming Encounters Date Type Department Care Team (Late st Contact Info) Description 10/15/2025 3:30 PM EST Consult Vascular Surgery - Daniel [address] [place] [address] Paola Gunter PA [address] [place] [address] 10/27/2025 2:30 PM EST Office Visit Adult Medicine [facility] [address] [place], [place] [phone] Tiara Fields MD [address] [place], [place] documented as of this encounter Visit Diagnoses Not on filedocumented in this encounter Additional Health Concerns Infection Onset Date Last Indicated Resolved Time Respiratory Rule-Out 05/24/2025 05/24/2025 025 6:27 PM EDT COVID-19 Rule-Out 05/24/2025 05/24/2025 05/24/2025 6:27 PM EDT Parainfluenza Virus 05/24/2025 05/24/2025 Assessment Noted Time PHQ-9 Depression Total Score: 24 025 9:42 PM EST documented as of this encounter Care Teams Puddler Helper Relationship Specialty Start Date End Date Tiara Fields MD [address] [place] [address] PCP - General 02/10/24 documented as of this encounter
--- OUTSIDE RECORDS SUMMARY | 2025-07-30 08:12 | XMS_ITS | Clinical Summary ---
Author Organization [facility] Address [address] [facility] [place] [phone] Phone Care Team Providers Care Top Precipitator Operator Name Role Phone Tiara Fields MD [...] for nausea/vomit ing 6 tablet 5 Active Social History Tobacco Use Types Packs/Day Years [...] enough money to get more. Never True 5 Residential Stability Answer Date Recor ded What [...] INFLUENZA VACCINE (#1) 2025 09/08/2020 COVID-19 VACCINE (1 - 2023-2 5 season) 2025 Adult Td,Tdap Booster 09/08/2030 [...] this topic Medical Devices Not on file Insurance [employer] [place] [address] [place] [address] [employer] [place] [place] [address] [place] [address] [employer] [place] [address] [place] [address] [employer] [place] [address] [place] [address] [employer] [facility] ACO [place] [id number] Care Teams Top Precipitator Operator Relationship Specialty Start Date End Date Tiara Fields MD [address] [place] [phone] PCP - General Family Medicine 04/27/25 Additional Source Comments The information contained in this document represents components of the legal health record. It is not the complete legal health record.[facility]
--- OUTSIDE RECORDS SUMMARY | 2025-07-30 08:12 | XMS_ITS | Clinical Summary ---
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 90 capsule 11 01/28/20 25 2025 Active metOLazone (ZAROXOLYN) 5 mg tablet Take 1 tablet (5 mg total) by mouth 1 (one) time each day if needed (edema) for up to 14 days. 14 tablet 03/21/20 25 Active bumetanide (BUMEX) 2 mg tablet Take 1 tablet (2 mg total) by mouth 3 (three) times a day. 90 each 03/21/20 25 2025 Active aspirin 81 mg EC tablet Take 1 tablet (81 mg total) by mouth 1 (one) time each day. 04/15/20 25 2025 Active cholecalciferol (VITAMIN D-3) 50 mcg (2,000 unit) capsule Take 1 capsule (2,000 Units total) by mouth 1 (one) time each day. 04/26/20 25 2025 Active Jardiance 10 mg tablet Take 1 tablet (10 mg total) by mouth 1 (one) time each day in the morning. 04/15/20 Active methocarbamoL (ROBAXIN) 500 mg tablet Take 1 tablet (500 mg total) by mouth if needed for muscle spasms. 04/27/20 Active polyethylene glycol (MIRALAX) 17 gram packet Take 17 g by mouth 1 (one) time each day. 04/15/20 25 2025 Active potassium chloride (KLOR-CON) 20 mEq packet Take 20 mEq by mouth 1 (one) time each day. Active predniSONE (DELTASONE) 20 mg tablet Take 3 tablets (60 mg total) by mouth 1 (one) time each day. Active sulfamethoxazole- trimethoprim (BACTRIM DS,SEPTRA DS) 800-160 mg per tablet Take 1 tablet by mouth 3 (three) times a week. Active losartan (Cozaar) 50 mg tabletIndications :Mixed hyperlipidemia Take 1 tablet (50 mg total) by mouth 2 (two) times a day. 07/28/20 Active ergocalciferol (VITAMIN D-2) 1,250 mcg (50,000 unit) capsuleIndication s:Vitamin D deficiency disease Take 1 capsule (50,000 Units total) by mouth 1 (one) time per week. 12 capsule 1 07/28/20 25 2025 Active cycloSPORINE (SandIMMUNE) 100 mg capsule Take 2 capsules (200 mg total) by mouth 2 (two) times a day. 07/13/20 Active clindamycin (CLEOCIN T) 1 % gelIndications:Ep idermal cyst Apply to skin cysts twice a day 60 g 5 07/28/20 25 2025 Active ammonium lactate (AmLactin) 12 % lotionIndications :Dry skin Apply topically if needed for dry skin. 400 g 07/28/20 25 2025 Active losartan (COZAAR) 100 mg tablet Take 25 mg by mouth 1 (one) time each day. 01/27/20 25 2024 Discontinued cyclobenzaprine (FLEXERIL) 10 mg tablet Take 1 tablet (10 mg total) by mouth if needed for muscle spasms. 04/17/20 25 2024 Discontinued(T herapy completed) metoprolol succinate (TOPROL-XL) 25 mg 24 hr tablet Take 1 tablet (25 mg total) by mouth 1 (one) time each day. 04/26/202024 Discontinued(T herapy completed) ergocalciferol (VITAMIN D-2) 1,250 mcg (50,000 unit) capsule Take 1 capsule (50,000 Units total) by mouth 1 (one) time per week. 12 capsule 05/03/202024 doxycycline (MONODOX) 100 mg capsule Take 1 capsule (100 mg total) by mouth 2 (two) times a day. 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 Will check labs Orders: Vitamin B12; Future Folate; Future Dry skin 07/28/2025 Assessment & Plan (07/28/2025 5:54 PM EDT): Will treat with ammonium lactate. Will check TSH Orders: Thyroid stimulating hormone with reflex to free t4 and free t3; Future ammonium lactate (AmLactin) 12 % lotion; Apply topically if needed for dry skin. Chest tightness 05/10/2025 Racing heart beat 05/10/2025 Prediabetes 05/03/2025 Assessment & Plan (07/28/2025 5:54 PM EDT): His last A1c was 5.9 in April. Will continue to monitor FSGS (focal segmental glomerulosclerosis) 2024 Assessment & Plan (07/28/2025 5:54 PM EDT): As above Orders: Ferritin; Future Iron and TIBC; Future Fluid overload 03/20/2025 Localized edema 01/26/2025 Hypertension 01/26/2025 Assessment & Plan (07/28/2025 5:54 PM EDT): Continue losartan 50 mg twice daily. Blood pressure stable at 128/84 Hematuria 01/26/2025 Nephrotic syndrome 01/14/2025 Assessment & Plan (07/28/2025 5:54 PM EDT): He will continue prednisone 60 mg daily, cyclosporine 200 mg twice daily,bumex 2mg 2-3 times a day, losartan 50mg BID, metolazone 5mg daily as needed, potassium 20meQ as needed for muscle cramps, Bactrim 3 times a week and Robaxin 500 mg as needed for muscle spasms/cramps Recent labs showed leukocytosis likely related to his prednisone use Continue nephrology follow-up Will update lab Assessment & Plan (01/18/2025 6:39 PM EDT): [...] obesity with BMI of 4 0.0-44.9, adult ([facility] V24, [facility] V28) 12/14/2024 Assessment & Plan (07/28/2025 5:54 PM EDT): He Is referred to sleep medicine for sleep study Orders: Ambulatory referral to Sleep Medicine; Future Assessment & Plan (12/14/2024 1:30 PM EST): Interested in weight loss medication. Referred to bariatric surgery Orders: Ambulatory referral to Bariatric Surgery; Future Polyarthralgia 12/14/2024 Assessment & Plan (12/14/2024 1:30 PM EST): Will check labs. Orders: Rheumatoid factor; Future Uric acid; Future Borrelia burgdorferi antibody; Future SHAYNA IFA with titer and pattern; Future Sedimentation rate; Future Creatine kinase and CKMB; Future Vitamin D deficiency disease 05/18/2020 Overview (11/05/2024): 22075 units for 8 weeks Assessment & Plan (07/28/2025 5:54 PM EDT): Resume vitamin D 50,000 units weekly Orders: ergocalciferol (VITAMIN D-2) 1,250 mcg (50,000 unit) capsule; Take 1 capsule (50,000 Units total) by mouth 1 (one) time per week. Vitamin D 25 hydroxy; Future Assessment & Plan (12/14/2024 1:30 PM EST): Will update vitamin D level. He sporadically uses 10,000 units of vitamin D. Advised that this is excessive but he disagrees Orders: Vitamin D 25 hydroxy; Future Hyperlipidemia 04/07/2019 Assessment & Plan (07/28/2025 5:54 PM EDT): Will update labs. Likely related to his kidney disease and obesity Orders: Lipid panel with reflex to direct LDL; Future Assessment & Plan (12/14/2024 1:30 PM EST): Currently not on any medications. Will update fasting lipid panel Orders: Lipid panel with reflex to direct LDL; Future Snoring 03/30/2019 Overview (11/05/2024): 03/2019 Home Sleep Study did not reveal sleep apnea or nocturnal hypoxia. Assessment & Plan (07/28/2025 5:54 PM EDT): Referred to sleep medicine for sleep study Orders: Ambulatory referral to Sleep Medicine; Future Resolved Problems Problem Noted Date Diagnosed Date Resolved Date Severe obesity (CMS/[facility] V24, CMS/HCC V28) 04/15/2025 07/28/2025 Proteinuria 01/25/2025 07/28/2025 COVID-19 09/04/2021 07/28/2025 Overview (11/05/2024): 08/25/2021, tested at local drive through. Was in ER 09/01/2021 as his SOB, cough didn't improve. He doesn't know how he got it. Dyslipidemia 04/07/2019 07/28/2025 Encounters Date Type Department Care Team Description 07/28/2025 2:00 PM EDT Office Visit Adult Medicine [address] [phone] Tiara Fields MD Nephrotic syndrome (Primary Dx); FSGS (focal segmental glomerulosclerosis); Mixed hyperlipidemia; Prediabetes; Vitamin D deficiency disease; Primary hypertension; Petechiae; Drug-induced Wilkeson syndrome ([facility] V24); Epidermal cyst; Snoring; Morbid obesity with BMI of 40.0-44.9, adult (CMS/HCC V24, CMS/HCC V28); Neuropathy; Dry skin; History of pneumonia 07/20/2025 Telephone Adult Medicine [address] [phone] Tiara Fields MD 07/02/2025 12:52 AM EDT - 07/02/2025 5:18 AM EDT Emergency [facility] Emergency [address] [place] [address] Discharge Disposition: Left Against Medical Advice 07/02/2025 Telephone Adult Medicine [address] [phone] Tiara Fields MD 07/02/2025 Nurse Triage Adult [address] [phone] Tiara Fields MD 06/28/2025 1:30 PM EDT Ancillary Procedure [facility] Cardiology [facility] [place] [address] [address] Nephrotic syndrome; Leg swelling 06/02/2025 Telephone [facility] Cardiology [facility] [place] [address] [phone] Wesley Garcia MA 05/27/2025 10:30 AM EDT Ancillary Procedure [facility] Cardiology [facility] [place] [address] [address] Nephrotic syndrome; Chest tightness; Racing heart beat 05/27/2025 9:30 AM EDT Ancillary Procedure [facility] Cardiology [facility] [address] [place] [address] Leg swelling; Dyspnea on exertion 05/24/2025 2:46 PM EDT - 05/24/2025 7:38 PM EDT Emergency [facility] Emergency [address] [place] [phone] Marko Zuluaga MD Community acquired pneumonia of left lower lobe of lung (Primary Dx); Parainfluenza Discharge Disposition: Home or Self Care 05/18/2025 2:30 PM EDT Nutrition Internal Medicine - [place] [address] [facility] [address] [place] [phone] [address] Nephrotic syndrome (Primary Dx) 05/10/2025 11:20 AM EDT Office Visit [facility] [address] [facility] [address] [place] [address] Viviane Hensley MD Racing heart beat (Primary Dx); Chest tightness; Hyperlipidemia, unspecified hyperlipidemia type 04/30/2025 9:30 AM EDT Office Visit Adult Medicine [address] [phone] Phyllis Martino PA FSGS (focal segmental glomerulosclerosis) (Primary Dx); Nephrotic syndrome; Primary hypertension; Chest tightness; Racing heart beat; Edema, unspecified type; Paresthesia and pain of extremity; Brain fog; Memory difficulties; Tinnitus of both ears; Vitamin D deficiency disease from Last 3 Months Immunizations Name Administration Dates Next Due HPV 9-valent (Gardisil) 9yo to less than 46yo 04/08/2025,01/07/2025,10/29/2024 HepB-CpG (Heplisav-B) 18yo and older 01/07/2025, 10/29/2024 Influenza Quadravalent, MDCK , 0.5ml, preservative free (Flucelvax) 6mo and older 07/12/2024,09/08/2020 Td Tetanus diptheria (Tdvax) 7yo and older 09/08 Medical History Medical History Date Comments 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 pylori infection 07/27/2019 DX:H. pylori infection Hyperlipidemia DX:Hyperlipidemi a Vitamin D deficiency DX:Vitamin D deficiency Nephrotic syndrome Fatty liver Covid-19 09/04/2021 08/25/2021, test ed at [facility] through. Was in ER 09/01/2021 as his SOB, cough didn't improve. He doesn't know how he got it. Family History Medical History Relation Name Comments [...] your loved ones. For example, child care center assistant director or elderly care for an older [...] 16 07/28/2025 2:16 PM EDT Oxygen Saturation 97% 07/02/2025 1:05 AM EDT Inhaled Oxygen Concentration - - Weight 141 kg (310 lb) 07/28/2025 2:16 PM EDT Height 185.4 cm (6' 1 ) 07/28/2025 2:16 PM EDT Body Mass Index 40.9 07/28/2025 2:16 PM EDT Plan of Treatment Upcoming Encounters Date Type Department Care Team (Late st Contact Info) Description 10/15/2025 3:30 PM EST Consult Vascular Surgery - [place] [address] [place] [address] Paola Gunter PA 300 [facility] [address] [place] [address] 10/27/2025 2:30 PM EST Office Visit Adult Medicine [address] [phone] Tiara Fields MD [address] [place], [place] Health Maintenance Due Date Last Done Comments Social Influencers of Health Screening 12/11/2025 12/11/2024 Hypertension/CHF/CAD Annual BMP Blood Test 05/24/2026 05/24/2025, 05/07/2025, 05/07/2025, Additional history exists Cholesterol Screening (Lipid Panel) 04/12/2030 04/12/2025, 12/14/2024, 04/23/2024, Additional history exists DTaP,Tdap,and Td Vaccines (2 - Td or Tdap) 09/08/2030 09/08/2020 RSV Immunization Adult Patients (1 - 1-dose 75+ series) 2067 Hepatitis C Screening Completed 03/11/2019 Influenza Vaccine Discontinued 07/12/2024, 09/08/2020 Depression Screening Completed 12/11/2024 Hepatitis B Vaccines Completed 01/07/2025, 10/29/20 24 HIV Screening Completed 01/15/2025, 03/11/2019 HPV Vaccines [...] on patient's age to complete this topic Pneumococcal Vaccine: Pediatrics (0 to 5 Years) and At-Risk Patients (6 to 49 Years) Discontinued RSV Immunization Patients Under 20 months Aged [...] Routine 04/30/2025 3:40 PM EDT Nephrotic syndrome HIV 1, 2 ANTIBODY, P24 [...] LAB HEMETOLOGY METHOD 07/02/2025 1:57 AM EDT [facility] RBC 3.50(L) 4.50 - 5.50 M/mcL LAB HEMETOLOGY METHOD 07/02/2025 1:57 AM EDT [facility] Hemoglobin 11.3(L) 13.5 - 17.5 g/dL LAB HEMETOLOGY METHOD 07/02/2025 1:57 AM [facility] Hematocrit 33.1(L) 42.0 - 54.0 % LAB HEMETOLOGY METHOD 07/02/2025 1:57 AM [facility] MCV 93.5 79.0 - 98.0 FL LAB HEMETOLOGY METHOD 07/02/2025 1:57 AM [facility] MCH 31.9 27.0 - 32.0 pcg LAB HEMETOLOGY METHOD 07/02/2025 1:57 AM [facility] MCHC 34.1 32.0 - 37.0 g/dL LAB HEMETOLOGY METHOD 07/02/2025 1:57 AM [facility] RDW 15.3(H) 11.0 - 15.0 % LAB HEMETOLOGY METHOD 07/02/2025 1:57 AM [facility] Platelets 259 130 - 400 K/mcL LAB HEMETOLOGY METHOD 07/02/2025 1:57 AM [facility] MPV 10.1 7.0 - 11.0 FL LAB HEMETOLOGY METHOD 07/02/2025 1:57 AM [facility] NRBC 0.0 <1.0 % LAB HEMETOLOGY METHOD 07/02/2025 1:57 AM [facility] NRBC Absolute 0.00 <0.10 K/mcL LAB HEMETOLOGY METHOD 07/02/2025 1:57 AM [facility] Neutrophils Relative 73.5 % LAB HEMETOLOGY METHOD 07/02/2025 1:57 AM [facility] Lymphocytes Relative 18.1 % LAB HEMETOLOGY METHOD 07/02/2025 1:57 AM [facility] Monocytes Relative 4.7 % LAB HEMETOLOGY METHOD 07/02/2025 1:57 AM [facility] Eosinophils Relative 0.1 % LAB HEMETOLOGY METHOD 07/02/2025 1:57 AM EDT [facility] Basophils Relative 0.4 % LAB HEMETOLOGY METHOD 07/02/2025 1:57 AM EDT [facility] Immature Granulocytes Relative 3.2 % LAB HEMETOLOGY METHOD 07/02/2025 1:57 AM EDT [facility] Neutrophils Absolute 13.55(H) 1.50 - 7.00 K/mcL LAB HEMETOLOGY METHOD 07/02/2025 1:57 AM EDT [facility] Lymphocytes Absolute 3.34 1.00 - 5.00 K/mcL LAB HEMETOLOGY METHOD 07/02/2025 1:57 AM EDT [facility] Monocytes Absolute 0.86 0.20 - 1.00 K/mcL LAB HEMETOLOGY METHOD 07/02/2025 1:57 AM EDT [facility] Eosinophils Absolute 0.01 0.00 - 0.50 K/mcL LAB HEMETOLOGY METHOD 07/02/2025 1:57 AM EDT [facility] Basophils Absolute 0.07 0.00 - 0.20 K/mcL LAB HEMETOLOGY METHOD 07/02/2025 1:57 AM EDT [facility] Immature Granulocytes Absolute 0.59(H) 0.00 - 0.03 K/mcL LAB HEMETOLOGY METHOD 07/02/2025 1:57 AM EDT [facility] Blood Venous blood specimen / Unknown Venipuncture / Unknown 07/02/2025 1:27 AM EDT 07/02/2025 1:50 AM EDT us Radames Pate MD LAB BLOOD ORDERABLES Final Result [facility] [address] [place] [address], * Type and screen (07/02/2025 1:27 AM EDT) ABO Group A 07/02/2025 2:43 AM EDT [facility] Rh Type Positive 07/02/2025 2:43 AM EDT [facility] Antibody Screen Negative 07/02/2025 2:43 AM EDT [facility] Blood Venous blood specimen / Unknown Venipuncture / Unknown 07/02/2025 1:27 AM EDT 07/02/2025 1:50 AM EDT us Radames Pate MD LAB BLOOD BANK TEST ORDERAB LES Final Result [facility]) [facility] [address] [place] [address], [place] [phone] * Vascular US duplex lower extremity venous [...] performed with the patient in reverse trendelenburg. Calculation Clerk Details A lowe scale, color and doppler analysis ultrasound was performed. During the study longitudinal and transverse views were obtained. Pulsed wave doppler was performed. Phyllis VERGARA CV VASCULAR PROCEDURES Final Result * CARDIAC HOLTER MONITOR (REPORT GENERATED IN HOUSE) (05/27/2025 11:16 AM EDT) Anatomical Region Laterality Modality Cardiac Diagnost ic Narrative 06/06/2025 6:31 PM EDT [facility] DI[facility]ST[facility]ING DEPARTMENT [address] [facility], [id number], [place] [address] TEL: FAX: Type of Test: 48 Hour Holter Monitor Date of Test: 05/27/2025 Ordering Provider: URSULA Leo Reason for Test: Nephrotic syndrome; Chest tightness; Racing heart beat [employer] Findings: 1: Normal Sinus Rhythm with episodes [...] or borderline sinus tachycardia-especially during waking hours. us Phyllis VERGARA CV CARDIAC SERVICES PROCEDURE S Final Result * (ABNORMAL) TRANSTHORACIC ECHOCARDIOGRAM (TTE) COMPLETE (05/27/2025 10:18 AM EDT) Left Atrium Major [place] 5.2 cm CV PACS LA Area Sys [...] Area 4.2 cm2 CV PACS MV Deceleration [place] 5.4 m/s2 CV PACS E Wave Deceleration [...] S' 15 cm/s CV PACS RA Major [place] 4.6 cm CV PACS RA Major [place] Index 1.8(A) 2.1 - 2.7 cm/m2 CV [...] microscopic and culture (05/24/2025 4:11 PM EDT) Specific [place] Urine 1.025 1.003 - 1.030 LAB URINALYSIS - AUTOMATED METHOD 05/24/2025 6:01 PM [facility] pH, Urine 6.0 5.0 - 8.0 pH LAB URINALYSIS - AUTOMATED METHOD 05/24/2025 6:01 PM [facility] Leukocytes, Urine Negative Negative LAB URINALYSIS - AUTOMATED METHOD 05/24/2025 6:01 PM [facility] Nitrite, Urine Negative Negative LAB URINALYSIS - AUTOMATED METHOD 05/24/2025 6:01 PM [facility] Protein, Urine >=1000(A) <=Trace mg/dL LAB URINALYSIS - AUTOMATED METHOD 05/24[facility]2025 6:[facility] Glucose, Urine 500(A) Negative mg/dL LAB URINALYSIS - AUTOMATED METHOD 05/24/2025 6:01 PM [facility] Ketones, Urine Negative Negative mg/dL LAB URINALYSIS - AUTOMATED METHOD 05/24/2025 6:01 PM [facility] Urobilinogen , Urine 0.2 0.2 - 1.0 mg/dL LAB URINALYSIS - AUTOMATED METHOD 05/24/2025 6:01 PM [facility] Bilirubin, Urine Negative Negative LAB URINALYSIS - AUTOMATED METHOD 05/24/2025 6:01 PM [facility] Blood, Urine Small(A) Negative LAB URINALYSIS - AUTOMATED METHOD 05/24/2025 6:01 PM [facility] RBC, Urine 3.0 0 - 4 /HPF LAB URINALYSIS - AUTOMATED METHOD 05/24/2025 6:01 PM [facility] WBC, Urine 5.6(H) 0 - 4 /HPF LAB URINALYSIS - AUTOMATED METHOD 05/24/2025 6:01 PM [facility] Squamous Epithelial, Urine >100(H) 0 - 60 /LPF LAB URINALYSIS - AUTOMATED METHOD 05/24/2025 6:01 PM [facility] Bacteria, Urine Few(A) Negative /HPF LAB URINALYSIS - AUTOMATED METHOD 05/24/2025 6:01 PM [facility] Hyaline Casts, Urine 6.4(H) 0 - 3 /LPF LAB URINALYSIS - AUTOMATED METHOD 05/24/2025 6:01 PM [facility] Other Casts, Urine 2-5 Coarse Granular casts. /LPF LAB URINALYSIS - AUTOMATED METHOD 05/24/2025 6:01 PM [facility] Urine Urine specimen obtained by clean catch procedure / Unknown Non-blood Collection / Unknown 05/24/2025 4:11 PM EDT 05/24/2025 5:19 PM EDT us Sanjana VERGARA LAB URINE ORDERABLES Fin al Result Performing Organization Address [facility]/ZIP Co de Phone Number [facility] [address] [place] [address], [place] [phone] * Lowe urine culture tube (05/24/2025 4:11 PM EDT) [facility] Extra Tube Hold for add-ons. 05/24/2025 7:01 PM EDT [facility] Comment:Auto resulted. Urine Urine specimen obtained by clean catch procedure / Unknown Non-blood Collection / Unknown 05/24/2025 4:11 PM EDT 05/24/2025 5:19 PM EDT us Sanjana VERGARA LAB URINE ORDERABLES Fin al Result Performing Organization Address [facility] Co de Phone Number [facility] [address] [place] [address], [place] [phone] * (ABNORMAL) Respiratory virus panel molecular study (05/24/2025 4:10 PM EDT) [facility] Adenovirus Detection by PCR Not Detected Not Detected LAB MICROBIOLOGY METHOD 05/24/2025 6:27 PM EDT [facility] Influenza A PCR Not Detected Not Detected LAB MICROBIOLOGY METHOD 05/24/2025 6:27 PM EDT [facility] Influenza B PCR Not Detected Not Detected LAB MICROBIOLOGY METHOD 05/24/2025 6:27 PM EDT [facility] Coronavirus 229E Not Detected Not Detected LAB MICROBIOLOGY METHOD 05/24/2025 6:27 PM EDT [facility] Coronavirus HKU1 Not Detected Not Detected LAB MICROBIOLOGY METHOD 05/24/2025 6:27 PM EDT [facility] Coronavirus OC43 Not Detected Not Detected LAB MICROBIOLOGY METHOD 05/24/2025 6:27 PM EDT [facility] Coronavirus NL63 Not Detected Not Detected LAB MICROBIOLOGY METHOD 05/24/2025 6:27 PM EDT [facility] Parainfluenza Virus 1 Not Detected Not Detected LAB MICROBIOLOGY METHOD 05/24/2025 6:27 PM EDT [facility] Parainfluenza Virus 2 Not Detected Not Detected LAB MICROBIOLOGY METHOD 05/24/2025 6:27 PM EDT [facility] Parainfluenza Virus 3 Detected(A ) Not Detected LAB MICROBIOLOGY METHOD 05/24/2025 6:27 PM EDT [facility] Parainfluenza Virus 4 Not Detected Not Detected LAB MICROBIOLOGY METHOD 05/24/2025 6:27 PM EDT [facility] RSV PCR Not Detected Not Detected LAB MICROBIOLOGY METHOD 05/24/2025 6:27 PM EDT [facility] Human Metapneumovirus A and B Not Detected Not Detected LAB MICROBIOLOGY METHOD 05/24/2025 6:27 PM EDT [facility] Rhinovirus/Entero virus Not Detected Not Detected LAB MICROBIOLOGY METHOD 05/24/2025 6:27 PM EDT [facility] Bordetella pertussis Not Detected Not Detected LAB MICROBIOLOGY METHOD 05/24/2025 6:27 PM EDT [facility] Bordetella parapertussis Not Detected Not Detected LAB MICROBIOLOGY METHOD 05/24/2025 6:27 PM EDT [facility] Mycoplasma pneumo by PCR Not Detected Not Detected LAB MICROBIOLOGY METHOD 05/24/2025 6:27 PM EDT [facility] Chlamydia pneumoniae Not Detected Not Detected LAB MICROBIOLOGY METHOD 05/24/2025 6:27 PM EDT [facility] SARS COV-2 Not Detected Not Detected LAB MICROBIOLOGY METHOD 05/24/2025 6:27 PM EDT [facility] Swab Both anterior nares / Unknown Non-blood Collection / Unknown 05/24/2025 4:10 PM EDT 05/24/2025 5:19 PM EDT Narrative [facility] - 05/24/2025 6:27 PM EDT Testing was performed using the [employer] Respiratory Pathogen PCR Assay. All results must [...] detection. us Sanjana VERGARA LAB MICROBIOLOGY - [facility] AL ORDERABLES Final Result [facility] [address] [place] [address], * (ABNORMAL) Basic metabolic panel (05/24/2025 2:41 PM EDT) Only the most recent of2 resultswithin the time period is included. Sodium 140 133 - 145 mmol/L LAB CHEMISTRY METHOD 05/24/2025 4:48 PM EDT [facility] Potassium 4.3 3.5 - 5.5 mmol/L LAB CHEMISTRY METHOD 05/24/2025 4:48 PM [facility] Chloride 103 96 - 110 mmol/L LAB CHEMISTRY METHOD 05/24/2025 4:48 PM [facility] CO2 32 21 - 32 mmol/L LAB CHEMISTRY METHOD 05/24/2025 4:48 PM EDT [facility] Anion Gap 5 3 - 11 LAB [facility]STR[facility]/24[facility]25 [facility] Glucose 126(H) 70 - 100 mg/dL LAB CHEMISTRY METHOD 05/24/2025 4:48 PM [facility] BUN 72(H) 5 - 25 mg/dL LAB CHEMISTRY METHOD 05/24/2025 4:48 PM EDT [facility] Creatinine 1.73(H) 0.70 - 1.30 mg/dL LAB CHEMISTRY METHOD 05/24/2025 4:48 PM EDT [facility] eGFR 53(L) >=60 mL/min/1. 73m2 LAB CHEMISTRY METHOD 05/24/2025 4:48 PM EDT [facility] Comment:Calculation based on the Chronic Kidney Disease Epidemiology Collaboration (CKD-EPI) equation refit without adjustment for race. BUN/Creatinine Ratio 41.6 LAB CHEMISTRY METHOD 05/24/2025 4:48 PM EDT [facility] Calcium 8.7 8.5 - 10.5 mg/dL LAB CHEMISTRY METHOD 05/24/2025 4:48 PM EDT [facility] Blood Venous blood specimen / Unknown Venipuncture / Unknown 05/24/2025 2:41 PM EDT 05/24/2025 4:16 PM EDT us Radames Pate MD LAB BLOOD ORDERABLES Final Result [facility] [address] [place] [address], * XR Chest 2 Views (05/24/2025 12:55 PM EDT) Anatomical Region Laterality Modality Body Radiographic Alissa ging 05/24/2025 1:19 PM EDT Impressions 05/24/2025 1:20 PM EDT Impression: Patchy airspace infiltrates in the left mid and lower lung, consistent with pneumonia. Telerad URSULA ([id number]) -------- FINAL REPORT -------- Dictated By: Dinorah Jennings Dictated Date: 05/24/2025 13:19 ET Assigned Physician: Dinorah Jennings Reviewed and Electronically Signed By: Dinorah Jennings Signed Date: 05/24/2025 13:20 ET Workstation ID: [id number] Transcribed By: Self Edit Transcribed Date: 05/24/2025 [...] and lower lung, consistentwith pneumonia. Telerad URSULA ([id number]) -------- FINAL REPORT -------- Dictated By: Dinorah Jennings Dictated Date: 05/24/2025 13:19 ET Assigned Physician: Dinorah Jennings Reviewed and Electronically Signed By: Dinorah Jennings Signed Date: 05/24/2025 13:20 ET Workstation ID: [id number] Transcribed By: Self Edit Transcribed Date: 05/24/2025 13:19 ET us Radames Pate MD IMG XR PROCEDURES Final Res ult * ECG 12 lead (05/10/2025 11:29 AM EDT) Ventricular Rate ECG 92 BPM GEMUSE Atrial Rate 92 BPM GEMUSE P-R Interval 150 ms GEMUSE QRS Duration 96 ms GEMUSE Q-T Interval 348 ms GEMUSE QTc 430 ms GEMUSE P Wave [place] 48 degrees GEMUSE R [place] 36 degrees GEMUSE T [place] 42 degrees GEMUSE ECG Interpretation Normal sinus rhythm Normal ECG When compared with ECG of 20-MAR-2025 15:23, No significant change was found Confirmed by VIVIANE HENSLEY ([id number]) on 05/10/2025 4:53:12 PM GEMUSE 05/10/2025 11:2 9 AM EDT 05/10/2025 4:53 PM EDT Viviane Hensley MD ECG ORDERABLES Final Result Performing Organization Address [facility] de Phone Number GEMUSE * (ABNORMAL) Vitamin A (04/30/2025 3:40 PM EDT) Vitamin A 171(H) 38 - 106 ug/dL 05/05/2025 5:55 AM EDT [facility] Comment: This test was developed and the performance characteristics determined by [facility]. It has not been cleared or approved by the FDA. The laboratory is regulated under CLIA as qualified to perform high-complexity testing. This test is used for patient testing purposes. It should not be regarded as investigational or for research. Test performed at [facility], [address] , [place] [address] Ninfa Vaz MD, PhD - Fluoroscope Operator Blood Venous blood specimen / Unknown Venipuncture / Unknown 04/30/2025 3:40 PM EDT 04/30/2025 4:09 PM EDT Result [facility] Phyllis VERGARA LAB BLOOD ORDERABLES Final Re sult Performing Organization Address [facility] Co de Phone Number [facility] [address] [place] [address] * (ABNORMAL) Vitamin D 25 hydroxy (04/30/2025 3:40 PM EDT) Vit D, 25-Hydroxy 9.9(L) 30.0 - 80.0 ng/mL LAB CHEMISTRY METHOD 04/30/2025 5:45 PM EDT [facility] Blood Venous blood specimen / Unknown Venipuncture / Unknown 04/30/2025 3:40 PM EDT 04/30/2025 4:10 PM EDT Result [facility] Phyllis VERGARA LAB BLOOD ORDERABLES Final Re sult [facility] [address] [place] [address], [place] [phone] * (ABNORMAL) Vitamin E (04/30/2025 3:40 PM EDT) Pathologist [facility] Vitamin E (Alpha Tocopherol) 3235(H) 500 - 1800 ug/dL 05/05/2025 5:55 AM EDT [facility] Comment: This test was developed and the performance characteristics determined by [facility]. It has not been cleared or approved by the FDA. The laboratory is regulated under CLIA as qualified to perform high-complexity testing. This test is used for patient testing purposes. It should not be regarded as investigational or for research. Test performed at [facility], [address] , [place] [address] Ninfa Vaz MD, PhD - Fluoroscope Operator Blood Venous blood specimen / Unknown Venipuncture / Unknown 04/30/2025 3:40 PM EDT 04/30/2025 4:09 PM EDT Phyllis VERGARA LAB BLOOD ORDERABLES Final Re sult [facility] [address] [place] [address] * Hemoglobin A1c (04/30/2025 3:40 PM EDT) [facility] Hemoglobin A1C 5.9 <6.5 % LAB CHEMISTRY METHOD 05/02/2025 12:44 PM EDT [facility] Mean Bld Glu Estim. 123 mg/dL LAB CHEMISTRY METHOD 05/02/2025 12:44 PM EDT [facility] Blood Venous blood specimen / Unknown Venipuncture / Unknown 04/30/2025 3:40 PM EDT 04/30/2025 4:09 PM EDT Phyllis VERGARA LAB BLOOD ORDERABLES Final Re sult Performing Organization Address City/[facility]/ZIP Co de Phone Number [facility] [address] [place] [address], * Vitamin B12 (04/30/2025 3:40 PM EDT) Pathologist [facility] Vitamin B-12 421 250 - 900 pcg/mL LAB CHEMISTRY METHOD 04/30/2025 5:25 PM EDT [facility] Blood Venous blood specimen / Unknown Venipuncture / Unknown 04/30/2025 3:40 PM EDT 04/30/2025 4:10 PM EDT Phyllis VERGARA LAB BLOOD ORDERABLES Final Re sult Performing Organization Address [facility] Co de Phone Number [facility] [address] [place] [address], * HIV 1,2 antibody, p24 antigen with reflex to differentiation (01/15/2025 1:17 PM EST) [facility] HIV Combo AB/AG Negative Negative LAB CHEMISTRY METHOD 01/15/2025 7:53 PM EST [facility] Blood Venous blood specimen / Unknown Venipuncture / Unknown 01/15/2025 1:17 PM EST 01/15/2025 1:17 PM EST Narrative [facility] - 01/15/2025 7:53 PM [...] ORDERA BLES Final Result Performing Organization Address City/[facility]/ZIP Co de Phone Number [facility] [address] [place] [address], * (ABNORMAL) Lipid panel with reflex to direct LDL (12/14/2024 1:12 PM EST) Cholesterol 235(H) 0 - 200 mg/dL LAB CHEMISTRY METHOD 12/14/2024 5:58 PM EST [facility] Triglycerides 173(H) 0 - 150 mg/dL LAB CHEMISTRY METHOD 12/14/2024 5:58 PM EST [facility] HDL 42 >=40 mg/dL LAB CHEMISTRY METHOD 12/14/2024 5:58 PM EST [facility] LDL Calculated 158(H) 0 - 100 mg/dL LAB CHEMISTRY METHOD 12/14/2024 5:58 PM [facility] VLDL Cholesterol Thiago 34.6 mg/dL LAB CHEMISTRY METHOD 12/14/2024 5:58 PM [facility] Non HDL Chol. (LDL+VLDL) 193(H) <145 mg/dL LAB CHEMISTRY METHOD 12/14/2024 5:58 PM EST [facility] Chol/HDL Ratio 5.6(H) 0.0 - 4.4 LAB CHEMISTRY METHOD 12/14/2024 5:58 PM [facility] Blood Venous blood specimen / Unknown Venipuncture / Unknown 12/14/2024 1:12 PM EST 12/14/2024 1:12 PM EST Tiara Fields MD LAB BLOOD ORDERA BLES Final Result [facility] [address] [place] [address], * Hepatitis C Screening (03/11/2019) Hepatitis C Screening Abstracted us Historical Provider HEALTH MAINTENANCE Final Result from Last 3 Months or Most Recently Relevant to Health Maintenance Additional Health Concerns Infection Onset Date Last Indicated Parainfluenza Virus 05/24/2025 05/24/2025 Insurance [facility] Advance Directives * Full Code - [...] currently active code status orders. Care Teams Pipeline Systems Operator Relationship Specialty Start Date End Date Tiara Fields MD [address] [place] [phone] PCP - General 02/10/24
--- OUTSIDE RECORDS SUMMARY | 2025-07-30 08:12 | XMS_ITS | Encounter Summary ---
Author Organization [facility] Address [address] [place] [address] Care Team Providers Care Wire Saw Operator Name Role Phone Tiara Fields MD Primary Care Pr ovider Encounter Details Date Type Department Care Team (Late st Contact Info) Description 03/24/2025 Lab Requisition [facility] - Main Lab [address] [facility] [place] [address] Lukasz Basurto MD [address] [place] [phone] Proteinuria, unspecified Social History Tobacco Use [...] your loved ones. For example, child support officer or elderly care for an older [...] 3:30 PM EST Consult Vascular Surgery - [place] [address] [place] [address] Paola Gunter PA [address] [place] [address] 10/27/2025 2:30 PM EST Office Visit [facility] [address] [place] [address] Tiara Fields MD [address] [place], [place] documented as of this encounter Procedures Procedure [...] [facility], Department of Pathology, [place], [place] (CLIA: [id number]). Their diagnosis is summarized as follows: Pathologic [...] report for full kidney biopsy diagnosis from [facility], [place], [place]) 04/13/2025 11:41 AM [facility] Addendum electronically signed by Chinmay Grant MD on 04/13/2025 at 11:41 AM Final Diagnosis Kidney, left-biopsy for light, immunofluorescence and electron microscopy: -Submitted to [place], [place]. See supplemental report 04/13/2025 11:41 AM [facility] Clinical Information 3 18g core samples from left kidney Proteinuria 04/13/2025 11:41 AM [facility] Gross Description A. Kidney, Left, [...] core. The specimen is entirely submitted to [facility] for analysis. [place] 04/13/2025 11:41 AM [facility] Disclaimer Unless otherwise specified, all tissue is 10% NB formalin fixed and paraffin embedded. 04/13/2025 11:41 AM [facility] Tissue Left kidney structure / Unknown 03/24/2025 03/24/2025 1:27 PM EDT Lukasz Basurto MD LAB PATHOLOGY ORDERABLES Edited Result - Final [facility] [place] ([facility]) [facility] [address] [place] [address], documented in this encounter Visit Diagnoses Diagnosis Proteinuria, unspecified documented in this encounter Additional Health Concerns Infection Onset Date Last Indicated Resolved Time Respiratory Rule-Out 05/24/2025 05/24/2025 025 6:27 PM EDT COVID-19 Rule-Out 05/24/2025 05/24/2025 05/24/2025 6:27 PM EDT Parainfluenza Virus 05/24/2025 05/24/2025 Assessment Noted Time PHQ-9 Depression Total Score: 24 025 9:42 PM EST documented as of this encounter Care Teams Wire Saw Operator Relationship Specialty Start Date End Date Tiara Fields MD [address] [place] [phone] PCP - General 02/10/24 documented as of this encounter
== END 2025-07-30 08:04 | disposition home or self-care (01) ==
LOC: HO.HKASLDS 08:03
PROVIDERS: Visit Provider Internal Medicine Nephrology
DX: N05.1 Unspecified nephritic syndrome with focal and segmental glomerular lesions (principal); N04.9 Nephrotic syndrome with unspecified morphologic changes
CPT/HCPCS: 36415; 80158

== ENCOUNTER 2025-08-24 16:33 | Outpatient (REF) | payer OTHER, SELFPAY ==
[2025-08-24 17:31] LABS: Anion Gap 15 (12-20); Blood Urea Nitrogen 64 mg/dL (9-16); Calcium 8.7 mg/dL (8.4-10.2); Carbon Dioxide 21 mmol/L (22-29); Chloride 112 mmol/L (96-108); Estimated Glomerular Filt Rate 57; Potassium 4.8 mmol/L (3.3-5.1); Sodium 143 mmol/L (135-145)
[2025-08-24 18:12] LABS: Protein/Creatinine Ratio, Ur 10.92 (<0.2); Total Protein Urine Random 993 mg/dL (<12)
--- OUTSIDE RECORDS SUMMARY | 2025-08-24 18:41 | XMS_ITS | Clinical Summary ---
Author Organization [facility] Address [address] [facility] [address] [place] [phone] Phone Care Team Providers Care Entertainment Manager Name Role Phone Tiara Fields MD Primary [...] (#1) 2025 09/08/2020 COVID-19 VACCINE (1 - 2024-2 6 season) 2025 Adult Td,Tdap Booster 09/08/2030 09/08/2020 [...] topic Medical Devices Not on file Insurance [employer] [place] [address] [place] [address] [employer] [place] [address] [place] [address] [employer] [place] [address] [place] [address] [employer] [place] [address] [place] [address] [employer] [facility] [address] [facility] [place] [id number] Care Teams Entertainment Manager Relationship Specialty Start Date End Date Tiara Fields MD [address] [place] [phone] PCP - General Family Medicine 04/27/25 Additional Source Comments The information contained in this document represents components of the legal health record. It is not the complete legal health record.[facility]
== END 2025-08-24 16:34 | disposition home or self-care (01) ==
LOC: HO.LAB 16:33
PROVIDERS: PCP Family Medicine; Visit Provider Internal Medicine Nephrology
DX: N04.9 Nephrotic syndrome with unspecified morphologic changes (principal); N05.1 Unspecified nephritic syndrome with focal and segmental glomerular lesions
CPT/HCPCS: 36415; 80051; 80158; 82310; 82565; 82570; 84156; 84520

== ENCOUNTER 2025-08-26 14:38 | Outpatient (AMB) | payer OTHER, SELFPAY ==
--- NOTE | 2025-08-26 15:20 | HO.NEPHOV_ITS ---
Vital Signs 08/26/25 15:22 Height 6 ft 1 in Weight 307 lb BMI 40.5 BP 140/110 H Blood Pressure Location Lt brachial Position Sitting Pulse 78 Pulse Source Pulse Oximeter Pulse Oximetry (%) 98 Oxygen Delivery Method Room Air Intake Visit Reasons: 1mnth w lab-Conf Bisque Finisher Required: No Accompanied by: Self / Same As Patient Allergies No Known Allergies Allergy (Verified 08/26/25 15:21) HPI Comments Details: Heather was seen for follow up of MARIA ALEJANDRA and nephrotic range proteinuria on a backdrop of newly diagnosed biopsy proven primary FSGS. He had influenza in December 2024 and after that he started developing edema and was found to have nephrotic range proteinuria. His renal function was normal at that time. He had quite a bit of weight gain with edema as well as shortness of breath. He underwent extensive work by his primary care physician and had seen other renal physicians in different practice for the same complaint. He even underwent renal biopsy and was told at that time that he has FSGS. Initially he refused renal biopsy for some months and he continued to have worsening proteinuria, with a proteinuria going up to over 17 g. He was given Bumex, torsemide, furosemide, metolazone, Aldactone as well as losartan in the past. His previous renal physician felt that he was not adherent with his directions and he had been playing around with medications as well as multiple medical providers. During the course of months his serum creatinine started to rise with a drop in GFR. His previous renal physician has recommended admission to the hospital for intravenous diuretics, kidney biopsy and immunosuppression. He had multiple ER visits as well as urgent care consultations for various reasons including diffuse pains, weight gain and continued worsening of edema. It was thought in the past that he may have bowel wall edema and p.o. medications will be unsuccessful. He was prescribed prednisone by his previous renal MD which he did not take but started taking when transitioned to my care. He has been in prophylactic Bactrim. He claims to be compliant with prednisone as well as losartan & Jardiance. He was told in the past by his past renal MD that he may end up with ESRD. His serum creatinine has been stable. He is also taking another opinion from [facility] Medical History (Updated 04/27/25 @ 07:01 by Joe Dhaliwal MD) Vitamin D deficiency disease Snoring Polyarthralgia Nephrotic syndrome Morbid obesity with body mass index (BMI) of 40.0 or higher Hyperlipidemia Gastroesophageal reflux disease with esophagitis without hemorrhage Fatty liver Erectile dysfunction due to diseases classified elsewhere Elevated ALT measurement Family History Father Bladder cancer Brother Kidney stone Mother Renal cyst Social History Alcohol intake: never Patient Tobacco Use Status: Never used Tobacco Review of Systems Const All systems reviewed & are unremarkable except as noted in HPI and below Physical Exam Vital Signs: Last Vital Signs Pulse 78 08/26/25 15:22 BP 140/110 H 08/26/25 15:22 Pulse Ox 98 08/26/25 15:22 Oxygen Delivery Method Room Air 08/26/25 15:22 BMI result Body Mass Index 40.5 Const General: comfortable and no acute distress Orientation/consciousness: patient oriented x3 HEENT Head: Yes normocephalic Mouth: Normal oral and palatal mucosa present Eyes EOM: EOMs intact bilaterally Neck Neck: Yes supple Resp Auscultation: clear to auscultation bilaterally Cardio Jugular venous distension: no JVD Rate: regular rate GI Palpation (GI): Soft to palpation Auscultation: normal bowel sounds General: Yes no CVA tenderness Back/Spine/Pelvis Back: no CVA tenderness Skin General skin exam: no rashes or lesions noted Neuro General: patient oriented x3 and moves all extremities Extrem General: Yes no pedal edema Results Reviewed Nephrology Results: Sodium, (135-145) 143 mmol/L 08/24/25 Potassium, (3.3-5.1) 4.8 mmol/L 08/24/25 Chloride, (96-108) 112 mmol/L H 08/24/25 Carbon Dioxide, (22-29) 21 mmol/L L 08/24/25 BUN, (9-16) 64 mg/dL H 08/24/25 Creatinine, (0.5-1.4) 1.43 mg/dL H 08/24/25 Calcium, (8.4-10.2) 8.7 mg/dL 08/24/25 Urine Creatinine 90.92 mg/dL 08/24/25 Protein/Creatinin Ratio, (<0.2) 10.92 H 08/24/25 Assessment & Plan Assessment & Plan (1) Nephrotic syndrome: Code(s): N04.9 - Nephrotic syndrome with unspecified morphologic changes Category: Medical (2) MARIA ALEJANDRA (acute kidney injury): Code(s): N17.9 - Acute kidney failure, unspecified Category: Medical (3) FSGS (focal segmental glomerulosclerosis): Code(s): N05.1 - Unspecified nephritic syndrome with focal and segmental glomerular lesions Category: Medical (4) Edema: Code(s): R60.9 - Edema, unspecified Category: Medical Qualifiers: Edema type: generalized Qualified Code(s): R60.1 - Generalized edema Plan Focus of treatment for his FSGS will include the following Dietary sodium restriction Antihypertensive therapy Renin-angiotensin system inhibition SGLT2 inhibitors Lipid lowering Anticoagulation Treatment of edema For the time being he will continue on high-dose prednisone 60 mg daily which he can reduce to 50 mg daily for 2 weeks followed by 40 mg daily for now. I asked him to continue diuretics and losartan at 50 mg twice daily. ( he has H/O starting and stopping medications in the past including losartan by himself). I asked him to C/W current dose of cyclosporin for now( levels reviewed). He should continue Jardiance 25 mg daily. Those with glucocorticoid-dependent FSGS may be alternatively treated with MMF/EC-MPS or rituximab or cytotoxic therapy like cyclophosphamide. In general, the duration of therapy varies acc ording to the degree and rapidity of response (eg, faster taper for patients who achieve a quick remission), whether complete or partial remission is achieved, and the degree of glucocorticoid toxicity. If a complete remission is achieved within 8 to 12 weeks, I continue the initial dose of?prednisone and then taper the dose over two to three months. One strategy is to switch to alternate-day prednisone (double the daily dose but to a maximum of 80 to 120 mg), and then decrease the dose by approximately one-third every two to three weeks. If a partial remission is achieved by 8 to 12 weeks, we can taper prednisone slowly over three to nine months. We initially switch to alternate-day dosing and decrease the dose by one-third approximately every six weeks. For patients who have had a substantial reduction (>50 percent from baseline) in proteinuria by 8 to 12 weeks but do not meet criteria for partial remission (ie, proteinuria remains >3.5 g/day), the decision to continue high-dose prednisone or modify therapy is based upon the severity of glucocorticoid toxicity, the risk of continued therapy, and whether protein excretion is continuing to fall. Prednisone can be continued, for example, in patients whose proteinuria continues to decline, provided they are not experiencing severe side effects from therapy. If, at any time after a complete or partial remission is attained, proteinuria increases while the prednisone?is being tapered, we stop the taper and temporarily maintain the current prednisone dose while adding a CNI or, if the eGFR is <30 mL/min/1.73 m2, MMF/EC-MPS. Although the use of MMF/EC-MPS is not supported by evidence, some authors and editors of this topic in [employer] use it in this setting based on its potential role as a glucocorticoid-sparing agent, its safe use in patients with low eGFR, and its role as maintenance therapy in other glomerular diseases such as minimal change disease and lupus nephritis. Adult patients who have little or no reduction in proteinuria after 16 weeks of daily?prednisone are presumed to be glucocorticoid resistant. In such patients, we prefer to add a CNI (or MMF if the eGFR is low) and switch to alternate-day prednisone with a progressive taper in prednisone therapy, reducing the dose by approximately one-third every week. (some of the references in management as mentioned above are taken from [employer] ([employer]). Follow-up blood work was ordered and is going to see me for continued care.Answered all questions. Orders: Orders Blood Urea Nitrogen 1 Month N04.9 - Nephrotic syndrome with unspecified morphologic changes, N05.1 - Unspecified nephritic syndrome with focal and segmental glomerular lesions, N17.9 - Acute kidney failure, unspecified, R60.1 - Generalized edema Creatinine 1 Month N04.9 - Nephrotic syndrome with unspecified morphologic changes, N05.1 - Unspecified nephritic syndrome with focal and segmental glomerular lesions, N17.9 - Acute kidney failure, unspecified, R60.1 - Generalized edema Protein Creatinine Ratio, Ur 1 Month N04.9 - Nephrotic syndrome with unspecified morphologic changes, N05.1 - Unspecified nephritic syndrome with focal and segmental glomerular lesions, N17.9 - Acute kidney failure, unspeci fied, R60.1 - Generalized edema Electrolytes 1 Month N04.9 - Nephrotic syndrome with unspecified morphologic changes, N05.1 - Unspecified nephritic syndrome with focal and segmental glomerular lesions, N17.9 - Acute kidney failure, unspecified, R60.1 - Generalized edema Calcium 1 Month N04.9 - Nephrotic syndrome with unspecified morphologic ijeoma nges, N05.1 - Unspecified nephritic syndrome with focal and segmental glomerular lesions, N17.9 - Acute kidney failure, unspecified, R60.1 - Generalized edema Medications: Changed From prednisone 60 mg (3 x 20 mg) PO DAILY 30 days 90 tabs 3RF To prednisone 50 mg (2.5 x 20 mg) PO DAILY 75 tabs 3RF 30 days From cyclosporine 200 mg (2 x 100 mg) PO BID 30 days 120 caps 1RF To cyclosporine 400 mg (4 x 100 mg) PO BID 240 caps 3RF 30 days Coding Level of Care Code Est Pt Level 4 (96365) Diagnoses Nephrotic syndrome N04.9 MARIA ALEJANDRA (acute kidney injury) N17.9 FSGS (focal segmental glomerulosclerosis) N05.1 Generalized edema R60.1 Edema type: generalized
[2025-08-26 15:22] VITALS: BP 140/110; PULSE 78; O2SAT 98; BMI 40.5
== END 2025-08-26 15:40 | disposition home or self-care (01) ==
LOC: HO.HKAS 14:38
PROVIDERS: PCP Family Medicine; Visit Provider Internal Medicine Nephrology
DX: N04.9 Nephrotic syndrome with unspecified morphologic changes (principal); N17.9 Acute kidney failure, unspecified; N05.1 Unspecified nephritic syndrome with focal and segmental glomerular lesions; R60.1 Generalized edema
CPT/HCPCS: 99214

== ENCOUNTER → 2025-08-26 14:38 | Outpatient (BNVA) | payer OTHER, SELFPAY | PROVIDERS: PCP Family Medicine; Visit Provider Internal Medicine Nephrology | DX: N04.9 Nephrotic syndrome with unspecified morphologic changes (principal); N17.9 Acute kidney failure, unspecified; N05.1 Unspecified nephritic syndrome with focal and segmental glomerular lesions; R60.1 Generalized edema | CPT/HCPCS: 99212 ==

== ENCOUNTER 2025-09-22 16:37 | Outpatient (REF) | payer OTHER, SELFPAY ==
[2025-09-22 17:52] LABS: Anion Gap 11 (12-20); Blood Urea Nitrogen 58 mg/dL (9-16); Calcium 8.9 mg/dL (8.4-10.2); Carbon Dioxide 20 mmol/L (22-29); Chloride 115 mmol/L (96-108); Estimated Glomerular Filt Rate 57; Potassium 4.3 mmol/L (3.3-5.1); Sodium 142 mmol/L (135-145)
[2025-09-22 18:28] LABS: Protein/Creatinine Ratio, Ur 15.50 (<0.2); Total Protein Urine Random 1201 mg/dL (<12)
--- OUTSIDE RECORDS SUMMARY | 2025-09-22 19:08 | XMS_ITS | Encounter Summary ---
Author Organization [facility] Address [address] [place] [address] Care Team Providers Care Distributor Sales Consultant Name Role Phone Tiara Fields MD Primary Care Pr ovider Reason for Visit * Reason Onset Date Comments Extremity Weakness 2025 Leg Swelling 2025 Encounter Details Date Type Department Care Team (Late st Contact Info) Description 2025 Nurse Triage Adult Medicine [address] [phone] Tiara Fields MD [address] [place] [address] Social History Tobacco Use Types Packs/Day Years [...] do you feel lonely or isolated from ose around you? Often 12/11/2024 Food Risk [...] for your loved ones. For example, children's minister or elderly care for an older adult? [...] Date Recorded What is your living situation? Unrecognized valu e 12/11/2024 Interpersonal Safety Answer Date Record ed Physical Abuse Unrecognized value 03/20/2025 Verbal Abuse Unrecognized value 03/20/2025 Sex and Gender Information Value Date [...] recently to another state outside of [place], [place], [place], [place], [place], [place], [place]? no o If yes, did you quarantine [...] gather 3rd constitution party insurance information Third Alliance Party Information: not applicable PCP: Tiara Fields MD Payor: [employer] PLAN / Plan: [employer] MEDICAID / Product Type: *No Product type* / documented in this encounter Plan of Treatment Upcoming Encounters Date Type Department Care Team (Late st Contact Info) Description 10/15/2025 3:30 PM EST Consult Vascular Surgery - [place] [address] [place] [phone] Paola Gunter PA [address] [place] [phone] 10/27/2025 2:30 PM EST Office Visit Adult Medicine [facility] [address] [place] [address] Tiara Fields MD [address] [place] [address] documented as of this encounter Visit Diagnoses Not on filedocumented in this encounter Additional Health Concerns Infection Onset Date Last Indicated Resolved Time Respiratory Rule-Out 05/24/2025 05/24/2025 025 6:27 PM EDT COVID-19 Rule-Out 05/24/2025 05/24/2025 05/24/2025 6:27 PM EDT Parainfluenza Virus 05/24/2025 05/24/2025 Assessment Noted Time PHQ-9 Depression Total Score: 24 025 9:42 PM EST documented as of this encounter Care Teams Distributor Sales Consultant Relationship Specialty Start Date End Date Tiara Fields MD [address] [place] [address] PCP - General 02/10/24 documented as of this encounter
--- OUTSIDE RECORDS SUMMARY | 2025-09-22 19:08 | XMS_ITS | Clinical Summary ---
Author Organization [facility] Address [address] [facility] [address] [place] [phone] Phone Care Team Providers Care Deputy Sheriff Building Guard Name Role Phone Tiara Fields MD Primary [...] patient's age to complete this topic IPV VACCINES Aged Out No longer eligi ble [...] topic Medical Devices Not on file Insurance [employer] [address] [place], [place] [address] [place] [address] [place] [address] [employer] [place] [address] [place] [address] [employer] [place] [place] [address] [place] [address] [employer] [facility] Care Teams Deputy Sheriff Building Guard Relationship Specialty Start Date End Date Tiara Fields MD [address] [place] [phone] PCP - General Family Medicine 04/27/25 Additional Source Comments The information contained in this document represents components of the legal health record. It is not the complete legal health record.[facility]
--- OUTSIDE RECORDS SUMMARY | 2025-09-22 19:08 | XMS_ITS | Clinical Summary ---
Author Organization [address] Address [address] [place] [phone] Phone Care Team Providers Care Behavioral Therapy Coordinator Name Role Phone Tiara Fields MD Primary Care Pr ovider Allergies No known active allergies Medications dicyclomine (BENTYL) 10 mg capsuleIndications :Irritable bowel syndrome with mixed bowel habits Take 1 capsule (10 mg total) by mouth 3 (three) times a day if needed (loose stools, abdominal discomfort). 90 capsule 11 5 01/28/20 26 Active metOLazone (ZAROXOLYN) 5 mg tablet Take [...] time each day. 5 04/15/20 26 Active Jardiance 10 mg tablet Take 1 tablet (10 mg total) by mouth 1 (one) time each day in the morning. 5 Active methocarbamoL (ROBAXIN) 500 mg tablet Take 1 tablet (500 mg total) by mouth if needed for muscle spasms. 5 Active polyethylene glycol (MIRALAX) 17 gram packet Take 17 g by mouth 1 (one) time each day. 5 04/15/20 26 Active potassium chloride (KLOR-CON) 20 mEq packet Take 20 mEq by mouth 1 (one) time each day. Active predniSONE (DELTASONE) 20 mg tablet Take 3 tablets (60 mg total) by mouth 1 (one) time each day. Active sulfamethoxazole-t rimethoprim (BACTRIM DS,SEPTRA DS) 800-160 mg per tablet Take 1 tablet by mouth 3 (three) times a week. Active losartan (Cozaar) 50 mg tabletIndications: Mixed hyperlipidemia Take 1 tablet (50 mg total) by mouth 2 (two) times a day. 5 Active ergocalciferol (VITAMIN D-2) 1,250 mcg (50,000 unit) capsuleIndications :Vitamin D deficiency disease Take 1 capsule (50,000 Units total) by mouth 1 (one) time per week. 12 capsule 1 5 01/13/20 26 Active cycloSPORINE (SandIMMUNE) 100 mg capsule Take 2 capsules (200 mg total) by mouth 2 (two) times a day. 5 Active clindamycin (CLEOCIN T) 1 % gelIndications:Epi dermal cyst Apply to skin cysts twice a day 60 g 5 5 07/28/20 26 Active ammonium lactate (AmLactin) 12 % lotionIndications: Dry skin Apply topically if needed for dry skin. 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 She is referred to [place] neurology Orders: Ambulatory referral to Endocrinology; Future [...] obesity with BMI of 4 0.0-44.9, adult (CMS/[facility] V24, CMS/[facility] V28) 12/14/2024 Assessment & Plan (07/28/2025 5:54 [...] Vitamin D deficiency disease 05/18/2020 Overview (11/05/2024): 44186 units for 8 weeks Assessment & Plan [...] Date Diagnosed Date Resolved Date Severe obesity ([facility] V24, [facility] V28) 04/15/2025 07/28/2025 Proteinuria 01/25/2025 07/28/2025 COVID-19 09/04/2021 07/28/2025 Overview (11/05/2024): 08/25/2021, tested at local [facility]. Was in ER 09/01/2021 as his SOB, cough didn't improve. He doesn't know how he got it. 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 ([facility] V24); Epidermal cyst; Snoring; Morbid obesity with BMI of 40.0-44.9, adult ([facility] V24, [facility] V28); Neuropathy; Dry skin; History of pneumonia 07/20/2025 Telephone Adult Medicine [address] [phone] Tiara Fields MD 07/02/2025 12:52 AM EDT - 07/02/2025 5:18 AM EDT Emergency [facility] Emergency [address] [place] [address] Discharge Disposition: Left Against Medical Advice 07/02/2025 Telephone Adult Medicine [facility] [address] [place] [address] Tiara Fields MD 07/02/2025 Nurse Triage Adult Medicine [facility] [address] [place] [phone] Tiara Fields MD 06/28/2025 1:30 PM EDT Ancillary Procedure [facility] [address] [place] [address] Nephrotic syndrome; Leg swelling from Last 3 Months Immunizations Immunization Administration Dates Next Due HPV 9-valent (Gardisil) [...] liver Covid-19 09/04/2021 08/25/2021, test ed at [facility]. Was in ER 09/01/2021 as his SOB, [...] for your loved ones. For example, childcare worker or elderly care for an older [...] 3:30 PM EST Consult Vascular Surgery - [place] [address] [place] [address] Paola Gunter PA [address] [place] [address] 10/27/2025 2:30 PM EST Office Visit Adult Medicine [facility] [address] [place] [address] Tiara Fields MD [address] [place], [place] Health Maintenance Due Date Last Done [...] Procedure Name Priority Date/Time Associated Diagnosis Comments XR CHEST 2 VIEWS Routine 08/05/2025 9:57 AM EDT History of pneumonia CBC WITH AUTO DIFFERENTIAL STAT 07/02/2025 1:27 AM EDT TYPE AND SCREEN STAT 07/02/2025 1:27 AM EDT CBC AND DIFFERENTIAL STAT 07/02/2025 1:27 AM EDT VAS US DUPLEX LOWER EXT VENOUS INSUFFICIENCY BILATERAL Routine 06/28/2025 2:24 PM EDT Nephrotic syndrome Leg swelling BASIC METABOLIC PANEL STAT 05/24/2025 2:41 PM EDT HIV 1, 2 ANTIBODY, P24 ANTIGEN WITH REFLEX TO DIFFERENTIATION Routine 01/15/2025 1:17 PM EST Nephrotic syndrome LIPID PANEL WITH REFLEX TO DIRECT LDL Routine 12/14/2024 1:12 PM EST Mixed hyperlipidemia HM HEPATITIS C SCREENING Routine 03/11/2019 from Last 3 Months or Most Recently Relevant to Health Maintenance Results * XR Chest 2 Views (08/05/2025 9:57 AM EDT) Anatomical Region Laterality Modality Body Radiographic Alissa ging 08/05/2025 11:4 0 AM EDT Narrative 08/05/2025 11:41 AM EDT Chest, 2 views. History of pneumonia. No prior chest radiographs are available for comparison. Examination is limited due to body habitus. There is no pneumothorax, pleural effusions or focal consolidations. Cardiomediastinal silhouette is unremarkable. CONCLUSIONS: No acute radiographic abnormalities. -------- FINAL REPORT -------- Dictated By: Ambika Bonilla Dictated Date: 08/05/2025 11:40 ET Assigned Physician: Ambika Bonilla Reviewed and Electronically Signed By: Ambika Bonilla Signed Date: 08/05/2025 11:41 ET Workstation ID: [id number] Transcribed By: Self Edit Transcribed Date: 08/05/2025 11:40 ET Procedure Note Ambika Bonilla MD - 08/05/2025 Chest, 2 views. History of pneumonia. No prior chest radiographs are available for comparison. Examination is limited due to body habitus. There is no pneumothorax,pleural effusions or focal consolidations. Cardiomediastinal silhouette isunremarkable. CONCLUSIONS: No acute radiographic abnormalities. -------- FINAL REPORT -------- Dictated By: Ambika Bonilla Dictated Date: 08/05/2025 11:40 ET Assigned Physician: Ambika Bonilla Reviewed and Electronically Signed By: Ambika Bonilla Signed Date: 08/05/2025 11:41 ET Workstation ID: [id number] Transcribed By: Self Edit Transcribed Date: 08/05/2025 11:40 ET Tiara Fields MD IMG XR PROCEDURE S Final Result * (ABNORMAL) CBC auto differential (07/02/2025 1:27 AM EDT) Pathologist [facility] WBC 18.4(H) 4.8 - 10.8 K/mcL LAB HEMETOLOGY METHOD 07/02/2025 1:57 AM EDT [facility] RBC 3.50(L) 4.50 - 5.50 M/mcL LAB HEMETOLOGY METHOD 07/02/2025 1:57 AM EDT [facility] Hemoglobin 11.3(L) 13.5 - 17.5 g/dL LAB HEMETOLOGY METHOD 07/02/2025 1:57 AM EDT [facility] Hematocrit 33.1(L) 42.0 - 54.0 % LAB HEMETOLOGY METHOD 07/02/2025 1:57 [facility] MCV 93.5 79.0 - 98.0 FL LAB HEMETOLOGY METHOD 07/02/2025 1:57 AM EDT [facility] MCH 31.9 27.0 - 32.0 pcg LAB HEMETOLOGY METHOD 07/02/2025 1:57 AM EDT [facility] MCHC 34.1 32.0 - 37.0 g/dL LAB HEMETOLOGY METHOD 07/02/2025 1:57 AM [facility] RDW 15.3(H) 11.0 - 15.0 % LAB HEMETOLOGY METHOD 07/02/2025 1:57 AM [facility] Platelets 259 130 - 400 K/mcL LAB HEMETOLOGY METHOD 07/02/2025 1:57 AM [facility] MPV 10.1 7.0 - 11.0 FL LAB HEMETOLOGY METHOD 07/02/2025 1:57 AM [facility] NRBC 0.0 <1.0 % LAB HEMETOLOGY METHOD 07/02/2025 1:57 AM [facility] NRBC Absolute 0.00 <0.10 K/mcL LAB HEMETOLOGY METHOD 07/02/2025 1:57 AM [facility] Neutrophils Relative 73.5 % LAB HEMETOLOGY METHOD 07/02/2025 1:57 AM [facility] Lymphocytes Relative 18.1 % LAB HEMETOLOGY METHOD 07/02/2025 1:57 AM [facility] Monocytes Relative 4.7 % LAB HEMETOLOGY METHOD 07/02/2025 1:57 AM [facility] Eosinophils Relative 0.1 % LAB HEMETOLOGY METHOD 07/02/2025 1:57 AM [facility] Basophils Relative 0.4 % LAB HEMETOLOGY METHOD 07/02/2025 1:57 AM [facility] Immature Granulocytes Relative 3.2 % LAB HEMETOLOGY METHOD 07/02/2025 1:57 AM [facility] Neutrophils Absolute 13.55(H) 1.50 - 7.00 K/mcL LAB HEMETOLOGY METHOD 07/02/2025 1:57 AM [facility] Lymphocytes Absolute 3.34 1.00 - 5.00 K/mcL LAB HEMETOLOGY METHOD 07/02/2025 1:57 AM [facility] Monocytes Absolute 0.86 0.20 - 1.00 K/mcL LAB HEMETOLOGY METHOD 07/02/2025 1:57 AM [facility] Eosinophils Absolute 0.01 0.00 - 0.50 K/[facility] LAB HEMETOLOGY METHOD 07/02/2025 1:57 AM EDT [facility] Basophils Absolute 0.07 0.00 - 0.20 K/[facility] LAB HEMETOLOGY METHOD 07/02/2025 1:57 AM EDT [facility] Immature Granulocytes Absolute 0.59(H) 0.00 - 0.03 K/[facility] LAB HEMETOLOGY METHOD 07/02/2025 1:57 AM EDT [facility] Blood Venous blood specimen / Unknown Venipuncture / Unknown 07/02/2025 1:27 AM EDT 07/02/2025 1:50 AM EDT us Radames Pate MD LAB BLOOD ORDERABLES Final Result Performing Organization Address [facility]/ZIP Co de Phone Number [facility] [address] [place] [address], [place] [phone] * Type and screen (07/02/2025 1:27 AM EDT) ABO Group A 07/02/2025 2:43 AM EDT [facility] Rh Type Positive 07/02/2025 2:43 AM EDT [facility] Antibody Screen Negative 07/02/2025 2:43 AM EDT [facility] Blood Venous blood specimen / Unknown Venipuncture / Unknown 07/02/2025 1:27 AM EDT 07/02/2025 1:50 AM EDT Radames Pate MD LAB BLOOD BANK TEST ORDERAB LES Final Result Performing Organization Address City/[facility]/ZIP Co de Phone Number [facility] [address] [place] [address], [place] [phone] * Vascular US duplex lower extremity venous [...] performed with the patient in reverse trendelenburg. Biophysics Scientist Details A wu scale, color and doppler analysis ultrasound was performed. During the study longitudinal and transverse views were obtained. Pulsed wave doppler was performed. us Phyllis VERGARA CV VASCULAR PROCEDURES Final Result * (ABNORMAL) Basic metabolic panel (05/24/2025 2:41 PM EDT) Sodium 140 133 - 145 mmol/L LAB CHEMISTRY METHOD 05/24/2025 4:48 PM [facility] Potassium 4.3 3.5 - 5.5 mmol/L LAB CHEMISTRY METHOD 05/24/2025 4:48 PM [facility] Chloride 103 96 - 110 mmol/L LAB CHEMISTRY METHOD 05/24/2025 4:48 PM [facility] CO2 32 21 - 32 mmol/L LAB CHEMISTRY METHOD 05/24/2025 4:48 PM [facility] Anion Gap 5 3 - 11 LAB CHEMISTRY METHOD 05/24/2025 4:48 PM [facility] Glucose 126(H) 70 - 100 mg/dL LAB CHEMISTRY METHOD 05/24/2025 4:48 PM [facility] BUN 72(H) 5 - 25 mg/dL LAB CHEMISTRY METHOD 05/24/2025 4:48 PM [facility] Creatinine 1.73(H) 0.70 - 1.30 mg/dL LAB CHEMISTRY METHOD 05/24/2025 4:48 PM [facility] eGFR 53(L) >=60 mL/min/1. 73m2 LAB CHEMISTRY METHOD 05/24/2025 4:48 PM [facility] Comment:Calculation based on the Chronic Kidney Disease Epidemiology Collaboration (CKD-EPI) equation refit without adjustment for race. BUN/Creatinine Ratio 41.6 LAB CHEMISTRY METHOD 05/24/2025 4:48 PM EDT [facility] Calcium 8.7 8.5 - 10.5 mg/dL LAB CHEMISTRY METHOD 05/24/2025 4:48 PM EDT [facility] Blood Venous blood specimen / Unknown Venipuncture / Unknown 05/24/2025 2:41 PM EDT 05/24/2025 4:16 PM EDT Radames Pate MD LAB BLOOD ORDERABLES Final Result Performing Organization Address [facility]/ZIP Co de Phone Number [facility] [address] [place] [address], [place] [phone] * HIV 1,2 antibody, p24 antigen with reflex to differentiation (01/15/2025 1:17 PM EST) Pathologist [facility] HIV Combo AB/AG Negative Negative LAB CHEMISTRY METHOD 01/15/2025 7:53 PM EST [facility] Blood Venous blood specimen / Unknown Venipuncture / Unknown 01/15/2025 1:17 PM EST 01/15/2025 1:17 PM EST Narrative [facility] - 01/15/2025 7:53 [...] ORDERA BLES Final Result Performing Organization Address [facility]/ZIP Co de Phone Number [facility] [address] [place] [address], [place] [phone] * (ABNORMAL) Lipid panel with reflex to direct LDL (12/14/2024 1:12 PM EST) Cholesterol 235(H) 0 - 200 mg/dL LAB CHEMISTRY METHOD 12/14/2024 5:58 PM EST [facility] Triglycerides 173(H) 0 - 150 mg/dL LAB CHEMISTRY METHOD 12/14/2024 5:58 PM EST [facility] HDL 42 >=40 mg/dL LAB CHEMISTRY METHOD 12/14/2024 5:58 PM EST [facility] LDL Calculated 158(H) 0 - 100 mg/dL LAB CHEMISTRY METHOD 12/14/2024 5:58 PM EST [facility] VLDL Cholesterol Thiago 34.6 mg/dL LAB CHEMISTRY METHOD 12/14/2024 5:58 PM EST [facility] Non HDL Chol. (LDL+VLDL) 193(H) <145 mg/dL LAB CHEMISTRY METHOD 12/14/2024 5:58 PM EST [facility] Chol/HDL Ratio 5.6(H) 0.0 - 4.4 LAB CHEMISTRY METHOD 12/14/2024 5:58 PM EST [facility] Blood Venous blood specimen / Unknown Venipuncture / Unknown 12/14/2024 1:12 PM EST 12/14/2024 1:12 PM EST Tiara Fields MD LAB BLOOD ORDERA BLES Final Result [facility] [address] [place] [address], * Hepatitis C Screening (03/11/2019) Pathologist [facility] Hepatitis C Screening Abstracted us Historical Provider HEALTH MAINTENANCE Final Result from Last 3 Months or Most Recently Relevant to Health Maintenance Additional Health Concerns Infection Onset Date Last Indicated Parainfluenza Virus 05/24/2025 05/24/2025 Insurance [facility] PLAN Advance Directives * Full Code - [...] currently active code status orders. Care Teams Behavioral Therapy Coordinator Relationship Specialty Start Date End Date Tiara Fields MD [address] [place] [phone] PCP - General 02/10/24
--- OUTSIDE RECORDS SUMMARY | 2025-09-22 19:08 | XMS_ITS | Encounter Summary ---
Author Organization [facility] Address [address] [place] [address] Care Team Providers Care Operations Officer Name Role Phone Tiara Fields MD Primary Care Pr ovider Encounter Details Date Type Department Care Team (Late st Contact Info) Description 03/24/[address] [facility] - Main Lab [address] [facility] [place] [address] Lukasz Basurto MD [address] [place] [phone] Proteinuria, unspecified Social History Tobacco Use [...] for your loved ones. For example, child welfare social worker or elderly care for an older [...] 3:30 PM EST Consult Vascular Surgery - [place] [address] [place] [address] Paola Gunter, URSULA [address] [place] [address] 10/27/2025 2:30 PM EST Office Visit [address] [phone] Tiara Fields MD [address] [place] [address] documented as of this encounter Procedures Procedure [...] [facility], Department of Pathology, [place], [place] (CLIA: [id number]). Their diagnosis is summarized as follows: Pathologic [...] report for full kidney biopsy diagnosis from [facility], [place], [place]) 04/13/2025 11:41 AM [facility] Addendum electronically signed by Chinmay Grant MD on 04/13/2025 at 11:41 AM Final Diagnosis Kidney, left-biopsy for light, immunofluorescence and electron microscopy: -Submitted to [place], [place]. See supplemental report 04/13/2025 11:41 AM [facility] Clinical Information 3 18g core samples from left kidney Proteinuria 04/13/2025 11:41 AM [facility] Gross Description A. Kidney, Left, core [...] core. The specimen is entirely submitted to [facility] for analysis. LUKE 04/13/2025 11:41 AM [facility] Disclaimer Unless otherwise specified, all tissue is 10% NB formalin fixed and paraffin embedded. 04/13/2025 11:41 AM [facility] Tissue Left kidney structure / Unknown 03/24/2025 03/24/2025 1:27 PM EDT Lukasz Basurto MD LAB PATHOLOGY ORDERABLES Edited Result - Final [facility] [address] [place] [address], documented in this encounter Visit Diagnoses Diagnosis Proteinuria, unspecified documented in this encounter Additional Health Concerns Infection Onset Date Last Indicated Resolved Time Respiratory Rule-Out 05/24/2025 05/24/2025 025 6:27 PM EDT COVID-19 Rule-Out 05/24/2025 05/24/2025 05/24/2025 6:27 PM EDT Parainfluenza Virus 05/24/2025 05/24/2025 Assessment Noted Time PHQ-9 Depression Total Score: 24 025 9:42 PM EST documented as of this encounter Care Teams Operations Officer Relationship Specialty Start Date End Date Tiara Fields MD [address] [place] [phone] PCP - General 02/10/24 documented as of this encounter
--- OUTSIDE RECORDS SUMMARY | 2025-09-22 19:08 | XMS_ITS | Clinical Summary ---
Author Organization [facility]. 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 Glomerulonephritis 01/26/2025 Localized edema 01/26/2025 Hypertension 01/26/2025 Proteinuria, not otherwise specified 01/25/2025 Nephrotic syndrome 01/14/2025 Fatty liver 01/14/2025 Body mass index 40+ - severely obese 12/14/2024 Vitamin D deficiency 05/18/2020 Overview (01/25/2025): 99916 units for 8 weeks Dyslipidemia 04/07/2019 Resolved Problems Problem Noted Date Diagnosed Date Resolved Date Hematuria, not otherwise specified 01/26/2025 04/14/2025 Pain of multiple joints 12/14/2024 0602/2025 Snoring 03/30/2019 04/14/2025 Overview (01/25/2025): 03/2019 Home Sleep Study did not reveal sleep apnea or nocturnal hypoxia. Social History Tobacco Use Types Packs/Day Years [...] Procedure Name Priority Date/Time Associated Diagnosis Comments PROTEIN / CREATININE RATIO, URINE Routine 08/10/2025 8:29 AM EDT Glomerulonephritis Hypertension Dyslipidemia Nephrotic syndrome Proteinuria, not otherwise specified Vitamin D deficiency, not otherwise specified CBC AND DIFFERENTIAL Routine 08/10/2025 8:29 AM EDT Glomerulonephritis Hypertension Dyslipidemia Nephrotic syndrome Proteinuria, not otherwise specified Vitamin D deficiency, not otherwise specified VITAMIN D 25 HYDROXY Routine 08/10/2025 8:29 AM EDT Glomerulonephritis Hypertension Dyslipidemia Nephrotic syndrome Proteinuria, not otherwise specified Vitamin D deficiency, not otherwise specified PTH, INTACT Routine 08/10/2025 8:29 AM EDT Glomerulonephritis Hypertension Dyslipidemia Nephrotic syndrome Proteinuria, not otherwise specified Vitamin D deficiency, not otherwise specified PHOSPHATE ( PHOSPHORUS) Routine 08/10/2025 8:29 AM EDT Glomerulonephritis Hypertension Dyslipidemia Nephrotic syndrome Proteinuria, not otherwise specified Vitamin D deficiency, not otherwise specified MAGNESIUM Routine 08/10/2025 8:29 AM EDT Glomerulonephritis Hypertension Dyslipidemia Nephrotic syndrome Proteinuria, not otherwise specified Vitamin D deficiency, not otherwise specified URIC ACID Routine 08/10/2025 8:29 AM EDT Glomerulonephritis Hypertension Dyslipidemia Nephrotic syndrome Proteinuria, not otherwise specified Vitamin D deficiency, not otherwise specified COMPREHENSIVE METABOLIC PANEL Routine 08/10/2025 8:29 AM EDT Glomerulonephritis Hypertension Dyslipidemia Nephrotic syndrome Proteinuria, not otherwise specified Vitamin D deficiency, not otherwise specified from Last 3 Months Results * (ABNORMAL) Protein, Total, Random Urine w/Creatinine (Protein/Creat Ratio) (08/10/2025 8:29 AM EDT) Creatinine, Ur 112.7 Not Estab. mg/dL [facility] Protein, Ur 1,025.9 Not Estab. mg/dL [facility] Comment: Results confirmed on dilution. Urine Protein/Creati nine Ratio 9,103(H) 0 - 200 mg/g creat [facility] Urine specimen (specimen) Urine specimen obtained by clean catch procedure / Unknown 08/10/2025 8:29 AM EDT 08/10/2025 us Valeriy Pulliam MD LAB URINE ORDERABLES Final Re sult [facility] [address] [place] [address] * (ABNORMAL) Vitamin D 25 Hydroxy (08/10/2025 8:29 AM EDT) Vitamin D, 25-OH, Total 9.1(L) 30.0 - 100.0 ng/mL [facility] Comment: Vitamin D deficiency has been defined by the [place] of Medicine and an Endocrine Society practice guideline as a level of serum 25-OH vitamin D less than 20 ng/mL (1,2). The Endocrine Society went on to further define vitamin D insufficiency as a level between 21 and 29 ng/mL (2). 1. IOM ([place] of Medicine). 2010. Dietary reference intakes for calcium and D. [place]: The National Academies Press. 2. Magdalena MF, Nita LEON, Sondra CANNON, et al. Evaluation, treatment, and prevention of vitamin D deficiency: an Endocrine Society clinical practice guideline. JCEM. 2010; 96(7):1911-30. Blood specimen (specimen) Venous blood / Unknown 08/10/2025 8:29 AM EDT 08/10/2025 us Valeriy Pulliam MD LAB BLOOD ORDERABLES Final Re sult [facility] [address] [place] [address] * (ABNORMAL) CBC and Differential (08/10/2025 8:29 AM EDT) WBC 14.9(H) 3.4 - 10.8 x10E3/uL [facility] RBC 3.30(L) 4.14 - 5.80 x10E6/uL [facility] Hemoglobin 10.7(L) 13.0 - 17.7 g/dL [facility] Hematocrit 33.0(L) 37.5 - 51.0 % [facility] MCV 100(H) 79 - 97 fL [facility] MCH 32.4 26.6 - 33.0 pg [facility] MCHC 32.4 31.5 - 35.7 g/dL [facility] RDW 14.2 11.6 - 15.4 % [facility] Platelets 267 150 - 450 x10E3/uL [facility] Neutrophils Relative 64 Not Estab. % [facility] Lymphocytes Relative 28 Not Estab. % [facility] Monocytes 5 Not Estab. % [facility] Eosinophils Relative 0 Not Estab. % [facility] Basophils Relative 0 Not Estab. % [facility] Neutrophils Absolute 9.4(H) 1.4 - 7.0 x10E3/uL [facility] Lymphocytes Absolute 4.2(H) 0.7 - 3.1 x10E3/uL [facility] Monocytes Absolute 0.7 0.1 - 0.9 x10E3/uL [facility] Eosinophils Absolute 0.0 0.0 - 0.4 x10E3/uL [facility] Basophils Absolute 0.1 0.0 - 0.2 x10E3/uL [facility] Immature Granulocytes 3 Not Estab. % [facility] Immature Grans (Absolute) 0.5(H) 0.0 - 0.1 x10E3/uL [facility] Comment: (An elevated percentage of Immature Granulocytes has not been found to be clinically significant as a sole clinical predictor of disease. Does NOT include bands or blast cells. associated physiological leukocytosis may also show increased immature granulocytes without clinical significance.) Blood specimen (specimen) Venous blood / Unknown 08/10/2025 8:29 AM EDT 08/10/2025 us Valeriy Pulliam MD LAB BLOOD ORDERABLES Final Re sult Performing Organization Address City/[facility]/ZIP Co de Phone Number [facility] [address] [place] [address] * (ABNORMAL) Uric Acid (08/10/2025 8:29 AM EDT) Uric Acid 12.9(H) 3.8 - 8.4 mg/dL [facility] Comment:Therapeutic target f or gout patients: <6.0 Blood specimen (specimen) Venous blood / Unknown 08/10/2025 8:29 AM EDT 08/10/2025 us Valeriy Pulliam MD LAB BLOOD ORDERABLES Final Re sult [facility] [address] [place] [address] * Phosphorus (08/10/2025 8:29 AM EDT) Phosphorus 3.9 2.8 - 4.1 mg/dL [facility] Blood specimen (specimen) Venous blood / Unknown 08/10/2025 8:29 AM EDT 08/10/2025 us Valeriy Pulliam MD LAB BLOOD ORDERABLES Final Re sult [facility] [address] [place] [address] * PTH, Intact (08/10/2025 8:29 AM EDT) PTH 40 15 - 65 pg/mL [facility] Blood specimen (specimen) Venous blood / Unknown 08/10/2025 8:29 AM EDT 08/10/2025 us Valeriy Pulliam MD LAB BLOOD ORDERABLES Final Re sult Performing Organization Address [facility]/ZIP Co de Phone Number [facility] [address] [place] [address] * (ABNORMAL) Magnesium (08/10/2025 8:29 AM EDT) Magnesium 2.4(H) 1.6 - 2.3 mg/dL [facility] Blood specimen (specimen) Venous blood / Unknown 08/10/2025 8:29 AM EDT 08/10/2025 us Valeriy Pulliam MD LAB BLOOD ORDERABLES Final Re sult Performing Organization Address City/[facility]/ZIP Co de Phone Number [facility] [address] [place] [address] * (ABNORMAL) Comprehensive Metabolic Panel (08/10/2025 8:29 AM EDT) Glucose 103(H) 70 - 99 mg/dL [facility] BUN 69(H) 6 - 20 mg/dL [facility] Chloride 110(H) 96 - 106 mmol/L [facility] Bicarbonate (CO2) 19(L) 20 - 29 mmol/L [facility] Calcium 8.7 8.7 - 10.2 mg/dL [facility] Creatinine 1.64(H) 0.76 - 1.27 mg/dL [facility] eGFR CKD-EPI CR 2020 56(L) >59 mL/min/1.7 3 [facility] BUN/Creatinine Ratio 42(H) 9 - 20 [facility] Sodium 146(H) 134 - 144 mmol/L [facility] Potassium 4.3 3.5 - 5.2 mmol/L [facility] Total Protein 4.6(L) 6.0 - 8.5 g/dL [facility] Albumin 3.0(L) 4.1 - 5.1 g/dL [facility] Globulin 1.6 1.5 - 4.5 g/dL [facility] Total Bilirubin <0.2 0.0 - 1.2 mg/dL [facility] Alkaline Phosphatase 35(L) 47 - 123 IU/L [facility] AST (SGOT) 9 0 - 40 IU/L [facility] ALT (SGPT) 13 0 - 44 IU/L [facility] Blood specimen (specimen) Venous blood / Unknown 08/10/2025 8:29 AM EDT 08/10/2025 us Valeriy Pulliam MD LAB BLOOD ORDERABLES Final Re sult [facility] [address] [place] [address] from Last 3 Months Insurance [facility] Medicaid Care Teams User Interface Engineer Relationship Specialty Start Date End Date Tiara Fields [address] [place] [id number] PCP - General 03/15/25
== END 2025-09-22 16:38 | disposition home or self-care (01) ==
LOC: HO.LAB 16:37
PROVIDERS: PCP Family Medicine; Visit Provider Internal Medicine Nephrology
DX: R60.1 Generalized edema (principal); N05.1 Unspecified nephritic syndrome with focal and segmental glomerular lesions; N17.9 Acute kidney failure, unspecified
CPT/HCPCS: 36415; 80051; 80158; 82310; 82565; 82570; 84156; 84520

== ENCOUNTER 2025-09-23 13:59 | Outpatient (AMB) | payer OTHER, SELFPAY ==
--- NOTE | 2025-09-23 14:03 | HO.NEPHOV ---
Vital Signs 09/23/25 14:04 Height 6 ft 1 in Weight 307 lb BMI 40.5 BP 170/110 H Blood Pressure Location Lt brachial Position Sitting Pulse 106 H Pulse Source Pulse Oximeter Pulse Oximetry (%) 97 Oxygen Delivery Method Room Air Intake Visit Reasons: 4wks f/u w/labs-LVM Industrial Hygiene Manager Required: No Accompanied by: Brother Allergies No Known Allergies Allergy (Verified 09/23/25 14:04) HPI Comments Details: Heather was seen for follow up of MARIA ALEJANDRA and nephrotic range proteinuria on a backdrop of newly diagnosed biopsy proven primary FSGS. He had influenza in December 2024 and after that he started developing edema and was found to have nephrotic range proteinuria. His renal function was normal at that time. He had quite a bit of weight gain with edema as well as shortness of breath. He underwent extensive work by his primary care physician and had seen other renal physicians in different practice for the same complaint. He even underwent renal biopsy and was told at that time that he has FSGS. Initially he refused renal biopsy for some months and he continued to have worsening proteinuria, with a proteinuria going up to over 17 g. He was given Bumex, torsemide, furosemide, metolazone, Aldactone as well as losartan in the past. His previous renal physician felt that he was not adherent with his directions and he had been playing around with medications as well as multiple medical providers. During the course of months his serum creatinine started to rise with a drop in GFR. His previous renal physician has recommended admission to the hospital for intravenous diuretics, kidney biopsy and immunosuppression. He had multiple ER visits as well as urgent care consultations for various reasons including diffuse pains, weight gain and continued worsening of edema. It was thought in the past that he may have bowel wall edema and p.o. medications will be unsuccessful. He was prescribed prednisone by his previous renal MD which he did not take but started taking when transitioned to my care. He has been in prophylactic Bactrim. He claims to be compliant with prednisone as well as losartan & Jardiance. He was told in the past by his past renal MD that he may end up with ESRD. His serum creatinine has been stable. He is also taking [place] [facility] Medical History (Updated 04/27/25 @ 07:01 by Joe Dhaliawl MD) Vitamin D deficiency disease Snoring Polyarthralgia Nephrotic syndrome Morbid obesity with body mass index (BMI) of 40.0 or higher Hyperlipidemia Gastroesophageal reflux disease with esophagitis without hemorrhage Fatty liver Erectile dysfunction due to diseases classified elsewhere Elevated ALT measurement Family History Father Bladder cancer Brother Kidney stone Mother Renal cyst Social History Alcohol intake: never Patient Tobacco Use Status: Never used Tobacco Review of Systems Const All systems reviewed & are unremarkable except as noted in HPI and below Physical Exam Const General: comfortable and no acute distress Orientation/consciousness: patient oriented x3 HEENT Head: Yes normocephalic Mouth: Normal oral and palatal mucosa present Eyes EOM: EOMs intact bilaterally Neck Neck: Yes supple Resp Auscultation: clear to auscultation bilaterally Cardio Jugular venous distension: no JVD Rate: regular rate GI Palpation (GI): Soft to palpation Auscultation: normal bowel sounds General: Yes no CVA tenderness Back/Spine/Pelvis Back: no CVA tenderness Skin General skin exam: no rashes or lesions noted Neuro General: patient oriented x3 and moves all extremities Extrem General: Yes no pedal edema Results Reviewed Nephrology Results: Sodium, (135-145) 142 mmol/L 09/22/25 Potassium, (3.3-5.1) 4.3 mmol/L 09/22/25 Chloride, (96-108) 115 mmol/L H 09/22/25 Carbon Dioxide, (22-29) 20 mmol/L L 09/22/25 BUN, (9-16) 58 mg/dL H 09/22/25 Creatinine, (0.5-1.4) 1.43 mg/dL H 09/22/25 Calcium, (8.4-10.2) 8.9 mg/dL 09/22/25 Urine Creatinine 77.48 mg/dL 09/22/25 Protein/Creatinin Ratio, (<0.2) 15.50 H 09/22/25 Assessment & Plan Assessment & Plan (1) Nephrotic syndrome: Code(s): N04.9 - Nephrotic syndrome with unspecified morphologic changes Category: Medical (2) FSGS (focal segmental glomerulosclerosis): Code(s): N05.1 - Unspecified nephritic syndrome with focal and segmental glomerular lesions Category: Medical Plan Focus of treatment for his FSGS will include the following Dietary sodium restriction Antihypertensive therapy Renin-angiotensin system inhibition SGLT2 inhibitors Lipid lowering Anticoagulation Treatment of edema For the time being he will continue on prednisone 40 mg daily for now. I asked him to continue diuretics and losartan at 50 mg twice daily. ( he has H/O starting and stopping medications in the past including losartan by himself). I asked him to C/W current dose of cyclosporin for now( levels reviewed). I increased his cyclosporin to 250 mg bid. He should continue Jardiance 25 mg daily. Those with glucocorticoid-dependent FSGS may be alternatively treated with MMF/EC-MPS or rituximab or cytotoxic therapy like cyclophosphamide. In general, the duration of therapy varies according to the degree and rapidity of response (eg, faster taper for patients who achieve a quick remission), whether complete or partial remission is achieved, and the degree of glucocorticoid toxicity. If a complete remission is achieved within 8 to 12 weeks, I continue the initial dose of?prednisone and then taper the dose over two to three months. One strategy is to switch to alternate-day prednisone (double the daily dose but to a maximum of 80 to 120 mg), and then decrease the dose by approximately one-third every two to three weeks. If a partial remission is achieved by 8 to 12 weeks, we can taper prednisone slowly over three to nine months. We initially switch to alternate-day dosing and decrease the dose by one-third approximately every six weeks. For patients who have had a substantial reduction (>50 percent from baseline) in proteinuria by 8 to 12 weeks but do not meet criteria for partial remission (ie, proteinuria remains >3.5 g/day), the decision to continue high-dose prednisone or modify therapy is based upon the severity of glucocorticoid toxicity, the risk of continued therapy, and whether protein excretion is continuing to fall. Prednisone can be continued, for example, in patients whose proteinuria continues to decline, provided they are not experiencing severe side effects from therapy. If, at any time after a complete or partial remission is attained, proteinuria increases while the prednisone?is being tapered, we stop the taper and temporarily maintain the current prednisone dose while adding a CNI or, if the eGFR is <30 mL/min/1.73 m2, MMF/EC-MPS. Although the use of MMF/EC-MPS is not supported by evidence, some authors and editors of this topic in [employer] [facility] use it in this setting based on its potential role as a glucocorticoid-sparing agent, its safe use in patients with low eGFR, and its role as maintenance therapy in other glomerular diseases such as minimal change disease and lupus nephritis. Adult patients who have little or no reduction in proteinuria after 16 weeks of daily?prednisone are presumed to be glucocorticoid resistant. In such patients, we prefer to add a CNI (or MMF if the eGFR is low) and switch to alternate-day prednisone with a progressive taper in prednisone therapy, reducing the dose by approximately one-third every week. (some of the references in management as mentioned above are taken from up-to-date ([employer]). Follow-up blood work was ordered and is going to see me for continued care.Answered all questions. Orders: Orders Cyclosporine 2 Weeks N05.1 - Unspecified nephritic syndrome with focal and segmental glomerular lesions Electrolytes 1 Month N04.9 - Nephrotic syndrome with unspecified morphologic changes, N05.1 - Unspecified nephritic syndrome with focal and segmental glomerular lesions Calcium 1 Month N04.9 - Nephrotic syndrome with unspecified morphologic changes, N05.1 - Unspecified nephritic syndrome with focal and segmental glomerular lesions Albumin Level 1 Month N04.9 - Nephrotic syndrome with unspecified morphologic changes, N05.1 - Unspecified nephritic syndrome with focal and segmental glomerular lesions Alanine Aminotransferase 1 Month N04.9 - Nephrotic syndrome with unspecified morphologic changes, N05.1 - Unspecified nephritic syndrome with focal and segmental glomerular lesions Aspartate Amino Transferase 1 Month N04.9 - Nephrotic syndrome with unspecified morphologic changes, N05.1 - Unspecified nephritic syndrome with focal and segmental glomerular lesions Cyclosporine 1 Month N05.1 - Unspecified nephritic syndrome with focal and segmental glomerular lesions Complete Blood Count Auto Diff 1 Month N04.9 - Nephrotic syndrome with unspecified morphologic changes, N05.1 - Unspecified nephritic syndrome with focal and segmental glomerular lesions Protein Creatinine Ratio, Ur 1 Month N04.9 - Nephrotic syndrome with unspecified morphologic changes, N05.1 - Unspecified nephritic syndrome with focal and segmental glomerular lesions Creatinine 1 Month N04.9 - Nephrotic syndrome with unspecified morphologic changes, N05.1 - Unspecified nephritic syndrome with focal and segmental glomerular lesions Blood Urea Nitrogen 1 Month N04.9 - Nephrotic syndrome with unspecified morphologic changes, N05.1 - Unspecified nephritic syndrome with focal and segmental glomerular lesions Coding Level of Care Code Est Pt Level 4 (66834) Diagnoses Nephrotic syndrome N04.9 FSGS (focal segmental glomerulosclerosis) N05.1
[2025-09-23 14:04] VITALS: BP 170/110; PULSE 106; O2SAT 97; BMI 40.5
--- OUTSIDE RECORDS SUMMARY | 2025-09-23 17:22 | XMS_ITS | Clinical Summary ---
Author Organization [facility] Address [address] [facility] [address] [place] [phone] Phone Care Team Providers Care Senior Systems Administrator Name Role Phone Tiara Fields MD Primary [...] topic Medical Devices Not on file Insurance [employer] [address] [place], [place] [address] [place] [address] [place] [address] [employer] [address] [address] [place] [address] [employer] [place] [address] [address] [address] [employer] [facility] Care Teams Senior Systems Administrator Relationship Specialty Start Date End Date Tiara Fields MD [address] [place] [phone] PCP - General Family Medicine 04/27/25 Additional Source Comments The information contained in this document represents components of the legal health record. It is not the complete legal health record.[facility]
--- OUTSIDE RECORDS SUMMARY | 2025-09-23 17:22 | XMS_ITS | Clinical Summary ---
Author Organization [facility]. Address [address] [address] Phone Care Team Providers Care Betting Agency Counter Clerk Name Role Phone Tiara Fields Primary Care [...] 12/14/2024 Vitamin D deficiency 05/18/2020 Overview (01/25/2025): 84718 units for 8 weeks Dyslipidemia 04/07/2019 Resolved [...] Creatinine, Ur 112.7 Not Estab. mg/dL [facility] Protein, Ur 1,025.9 Not Estab. mg/dL [facility] Comment: Results confirmed on dilution. Urine Protein/Creati nine Ratio 9,103(H) 0 - 200 mg/g creat [facility] Urine specimen (specimen) Urine specimen obtained by clean catch procedure / Unknown 08/10/2025 8:29 AM EDT 08/10/2025 us Valeriy Pulliam MD LAB URINE ORDERABLES Final [facility] [address] [place] [address] * (ABNORMAL) Vitamin D 25 Hydroxy (08/10/2025 8:29 AM EDT) Vitamin D, 25-OH, Total 9.1(L) 30.0 - 100.0 ng/mL [facility] Comment: Vitamin D deficiency has been defined by the [place] of [employer] and an Endocrine Society practice guideline as a level of serum 25-OH vitamin D less than 20 ng/mL (1,2). The Endocrine Society went on to further define vitamin D insufficiency as a level between 21 and 29 ng/mL (2). 1. IOM ([place] of [employer]). 2010. Dietary reference intakes for [...] BLOOD ORDERABLES Final Re sult [facility] [address] [place] [address] * (ABNORMAL) CBC and Differential (08/10/2025 8:29 AM EDT) WBC 14.9(H) 3.4 - 10.8 x10E3/uL [facility] RBC 3.30(L) 4.14 - 5.80 x10E6/uL [facility] Hemoglobin 10.7(L) 13.0 - 17.7 g/dL [facility] Hematocrit 33.0(L) 37.5 - 51.0 % [facility] MCV 100(H) 79 - 97 fL [facility] MCH 32.4 26.6 - 33.0 pg [facility] MCHC 32.4 31.5 - 35.7 g/dL [facility] RDW 14.2 11.6 - 15.4 % [facility] Platelets 267 150 - 450 x10E3/uL [facility] Neutrophils Relative 64 Not Estab. % [facility] Lymphocytes Relative 28 Not Estab. % [facility] Monocytes 5 Not Estab. % [facility] Eosinophils Relative 0 Not Estab. % [facility] Basophils Relative 0 Not Estab. % [facility] Neutrophils Absolute 9.4(H) 1.4 - 7.0 x10E3/uL [facility] Lymphocytes Absolute 4.2(H) 0.7 - 3.1 x10E3/uL [facility] Monocytes Absolute 0.7 0.1 - 0.9 x10E3/uL [facility] Eosinophils Absolute 0.0 0.0 - 0.4 x10E3/uL [facility] Basophils Absolute 0.1 0.0 - 0.2 x10E3/uL [facility] Immature Granulocytes 3 Not Estab. % [facility] Immature Grans (Absolute) 0.5(H) 0.0 - 0.1 x10E3/uL [facility] Comment: (An elevated percentage of Immature Granulocytes [...] ORDERABLES Final Re sult Performing Organization Address City/[facility]/ZIP Co de Phone Number [facility] [address] [place] [address] * (ABNORMAL) Uric Acid (08/10/2025 8:29 AM EDT) Uric Acid 12.9(H) 3.8 - 8.4 mg/dL [facility] Comment:Therapeutic target f or gout patients: <6.0 Blood specimen (specimen) Venous blood / Unknown 08/10/2025 8:29 AM EDT 08/10/2025 us Valeriy Pulliam MD LAB BLOOD ORDERABLES Final Re sult [facility] [address] [place] [address] * Phosphorus (08/10/2025 8:29 AM EDT) Phosphorus 3.9 2.8 - 4.1 mg/dL [facility] Blood specimen (specimen) Venous blood / Unknown 08/10/2025 8:29 AM EDT 08/10/2025 us Valeriy Pulliam MD LAB BLOOD ORDERABLES Final Re sult [facility] [address] [place] [address] * PTH, Intact (08/10/2025 8:29 AM EDT) PTH 40 15 - 65 pg/mL [facility] Blood specimen (specimen) Venous blood / Unknown 08/10/2025 8:29 AM EDT 08/10/2025 us Valeriy Pulliam MD LAB BLOOD ORDERABLES Final Re sult Performing Organization Address [facility]/ZIP Co de Phone Number [facility] [place] [address] [place] [address] * (ABNORMAL) Magnesium (08/10/2025 8:29 AM EDT) Magnesium 2.4(H) 1.6 - 2.3 mg/dL [facility] Blood specimen (specimen) Venous blood / Unknown 08/10/2025 8:29 AM EDT 08/10/2025 us Valeriy Pulliam MD LAB BLOOD ORDERABLES Final Re sult Performing Organization Address [facility]/ZIP Co de Phone Number [facility] [address] [place] [address] * (ABNORMAL) Comprehensive Metabolic Panel (08/10/2025 8:29 AM EDT) Glucose 103(H) 70 - 99 mg/dL [facility] BUN 69(H) 6 - 20 mg/dL [facility] Chloride 110(H) 96 - 106 mmol/L [facility] Bicarbonate (CO2) 19(L) 20 - 29 mmol/L [facility] Calcium 8.7 8.7 - 10.2 mg/dL [facility] Creatinine 1.64(H) 0.76 - 1.27 mg/dL [facility] eGFR CKD-EPI CR 2020 56(L) >59 mL/min/1.7 3 [facility] BUN/Creatinine Ratio 42(H) 9 - 20 [facility] Sodium 146(H) 134 - 144 mmol/L [facility] Potassium 4.3 3.5 - 5.2 mmol/L [facility] Total Protein 4.6(L) 6.0 - 8.5 g/dL [facility] Albumin 3.0(L) 4.1 - 5.1 g/dL [facility] Globulin 1.6 1.5 - 4.5 g/dL [facility] Total Bilirubin <0.2 0.0 - 1.2 mg/dL [facility] Alkaline Phosphatase 35(L) 47 - 123 IU/L [facility] AST (SGOT) 9 0 - 40 IU/L [facility] ALT (SGPT) 13 0 - 44 IU/L [facility] Blood specimen (specimen) Venous blood / Unknown 08/10/2025 8:29 AM EDT 08/10/2025 us Valeriy Pulliam MD LAB BLOOD ORDERABLES Final Re sult [facility] [address] [place] [address] from Last 3 Months Insurance [facility] Medicaid Care Teams Betting Agency Counter Clerk Relationship Specialty Start Date End Date Tiara Fields [address] [place] [phone] PCP - General 03/15/25
--- OUTSIDE RECORDS SUMMARY | 2025-09-23 17:22 | XMS_ITS | Encounter Summary ---
Author Organization [facility] Address [address] [place] [address] Care Team Providers Care General Assistant Name Role Phone Tiara Fields MD Primary Care Pr ovider Reason for Visit * Reason Onset Date Comments Extremity Weakness 2025 Leg Swelling 2025 Encounter Details Date Type Department Care Team (Late st Contact Info) Description 2025 Nurse Triage Adult Medicine [address] [phone] Tiara Fields MD [address] [place] [address] Social History Tobacco Use Types Packs/Day Years [...] for your loved ones. For example, child psychometrist or elderly care for an older adult? [...] traveled recently to another state outside of [place], [place], [place], [place], [place], [place], [place]? no o If yes, did you quarantine [...] yes, gather 3rd democrat insurance information Third Constitution Party Information: not applicable PCP: Tiara Fields MD Payor: [employer] PLAN / Plan: [employer] MEDICAID / Product Type: *No Product type* / documented in this encounter Plan of Treatment Upcoming Encounters Date Type Department Care Team (Late st Contact Info) Description 10/15/2025 3:30 PM EST Consult Vascular Surgery - [place] [address] [place] [phone] Paola Gunter PA [address] [place] [phone] 10/27/2025 2:30 PM EST Office Visit Adult Medicine [facility] [address] [place] [address] Tiara Fields MD [address] [place] [address] documented as of this encounter Visit Diagnoses Not on filedocumented in this encounter Additional Health Concerns Infection Onset Date Last Indicated Resolved Time Respiratory Rule-Out 05/24/2025 05/24/2025 025 6:27 PM EDT COVID-19 Rule-Out 05/24/2025 05/24/2025 05/24/2025 6:27 PM EDT Parainfluenza Virus 05/24/2025 05/24/2025 Assessment Noted Time PHQ-9 Depression Total Score: 24 025 9:42 PM EST documented as of this encounter Care Teams General Assistant Relationship Specialty Start Date End Date Tiara Fields MD [address] [place] [address] PCP - General 02/10/24 documented as of this encounter
--- OUTSIDE RECORDS SUMMARY | 2025-09-23 17:22 | XMS_ITS | Clinical Summary ---
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 She is referred to [facility] Orders: Ambulatory referral to Endocrinology; Future [...] obesity with BMI of 4 0.0-44.9, adult (CMS/[facility] V24, CMS/[facility] V28) 12/14/2024 Assessment & Plan [...] Vitamin D deficiency disease 05/18/2020 Overview (11/05/2024): 33715 units for 8 weeks Assessment & Plan [...] Date Diagnosed Date Resolved Date Severe obesity ([facility] V24, [facility] V28) 04/15/2025 07/28/2025 Proteinuria 01/25/2025 07/28/2025 COVID-19 09/04/2021 07/28/2025 Overview (11/05/2024): 08/25/2021, tested at local [employer] through. Was in ER 09/01/2021 as his SOB, cough didn't improve. He doesn't know how he got it. Dyslipidemia 04/07/2019 07/28/2025 Encounters Date Type Department Care Team Description 08/05/2025 9:52 AM EDT - 08/05/2025 11:59 PM EDT Hospital Encounter [address] [phone] History of pneumonia Discharge Disposition: Home or Self Care 07/28/2025 2:00 PM EDT Office Visit Adult Medicine [address] [phone] Tiara Fields MD Nephrotic syndrome (Primary Dx); FSGS (focal segmental glomerulosclerosis) ; Mixed hyperlipidemia; Prediabetes; Vitamin D deficiency disease; Primary hypertension; Petechiae; Drug-induced Brentwood syndrome ([facility] V24); Epidermal cyst; Snoring; Morbid obesity with BMI of 40.0-44.9, adult ([facility] V24, [facility] V28); Neuropathy; Dry skin; History of pneumonia 07/20/2025 Telephone Adult Medicine [address] [phone] Tiara Fields MD 07/02/2025 12:52 AM EDT - 07/02/2025 5:18 AM EDT Emergency [facility] Emergency [address] [place] [address] Discharge Disposition: Left Against Medical Advice 07/02/2025 Telephone Adult Medicine [facility] [address] [place] [address] Tiara Fields MD 07/02/2025 Nurse Triage Adult Medicine [facility] [address] [place] [address] Tiara Fields MD 06/28/2025 1:30 PM EDT Ancillary Procedure [facility] [address] [place] [address] Nephrotic syndrome; Leg swelling from [...] liver Covid-19 09/04/2021 08/25/2021, test ed at [facility]. Was in ER 09/01/2021 as his SOB, [...] for your loved ones. For example, child neurologist or elderly care for an older adult? [...] 3:30 PM EST Consult Vascular Surgery - [place] [address] [place] [address] Paola Gunter PA [address] [place] [address] 10/27/2025 2:30 PM EST Office Visit Adult Medicine [facility] [address] [place] [address] Tiara Fields MD [address] [place], [place] Health Maintenance Due Date Last Done [...] Signed Date: 08/05/2025 11:41 ET Workstation ID: [id number] Transcribed By: Self Edit Transcribed Date: 08/05/2025 [...] Signed Date: 08/05/2025 11:41 ET Workstation ID: [id number] Transcribed By: Self Edit Transcribed Date: 08/05/2025 11:40 ET Tiara Fields MD IMG XR PROCEDURE S Final Result * (ABNORMAL) CBC auto differential (07/02/2025 1:27 AM EDT) Pathologist [facility] WBC 18.4(H) 4.8 - 10.8 K/mcL LAB HEMETOLOGY METHOD 07/02/2025 1:57 AM EDT [facility] RBC 3.50(L) 4.50 - 5.50 M/mcL LAB HEMETOLOGY METHOD 07/02/2025 1:57 AM EDT [facility] Hemoglobin 11.3(L) 13.5 - 17.5 g/dL LAB HEMETOLOGY METHOD 07/02/2025 1:57 AM EDT [facility] Hematocrit 33.1(L) 42.0 - 54.0 % LAB HEMETOLOGY METHOD 07/02/2025 1:57 [facility] MCV 93.5 79.0 - 98.0 FL LAB HEMETOLOGY METHOD 07/02/2025 1:57 AM EDT [facility] MCH 31.9 27.0 - 32.0 pcg LAB HEMETOLOGY METHOD 07/02/2025 1:57 AM EDT [facility] MCHC 34.1 32.0 - 37.0 g/dL LAB HEMETOLOGY METHOD 07/02/2025 1:57 [facility] RDW 15.3(H) 11.0 - 15.0 % LAB HEMETOLOGY METHOD 07/02/2025 1:57 [facility] Platelets 259 130 - 400 K/mcL LAB HEMETOLOGY METHOD 07/02/2025 1:57 [facility] MPV 10.1 7.0 - 11.0 FL LAB HEMETOLOGY METHOD 07/02/2025 1:57 AM [facility] NRBC 0.0 <1.0 % LAB HEMETOLOGY METHOD 07/02/2025 1:57 AM [facility] NRBC Absolute 0.00 <0.10 K/mcL LAB HEMETOLOGY METHOD 07/02/2025 1:57 AM [facility] Neutrophils Relative 73.5 % LAB HEMETOLOGY METHOD 07/02/2025 1:57 AM [facility] Lymphocytes Relative 18.1 % LAB HEMETOLOGY METHOD 07/02/2025 1:57 AM [facility] Monocytes Relative 4.7 % LAB HEMETOLOGY METHOD 07/02/2025 1:57 AM [facility] Eosinophils Relative 0.1 % LAB HEMETOLOGY METHOD 07/02/2025 1:57 AM [facility] Basophils Relative 0.4 % LAB HEMETOLOGY METHOD 07/02/2025 1:57 AM [facility] Immature Granulocytes Relative 3.2 % LAB HEMETOLOGY METHOD 07/02/2025 1:57 AM [facility] Neutrophils Absolute 13.55(H) 1.50 - 7.00 K/mcL LAB HEMETOLOGY METHOD 07/02/2025 1:57 AM [facility] Lymphocytes Absolute 3.34 1.00 - 5.00 K/mcL LAB HEMETOLOGY METHOD 07/02/2025 1:57 AM [facility] Monocytes Absolute 0.86 0.20 - 1.00 K/mcL LAB HEMETOLOGY METHOD 07/02/2025 1:57 AM [facility] Eosinophils Absolute 0.01 0.00 - 0.50 K/[facility] LAB HEMETOLOGY METHOD 07/02/2025 1:57 AM EDT [facility] Basophils Absolute 0.07 0.00 - 0.20 K/[facility] LAB HEMETOLOGY METHOD 07/02/2025 1:57 AM EDT [facility] Immature Granulocytes Absolute 0.59(H) 0.00 - 0.03 K/[facility] LAB HEMETOLOGY METHOD 07/02/2025 1:57 AM EDT [facility] Blood Venous blood specimen / Unknown Venipuncture / Unknown 07/02/2025 1:27 AM EDT 07/02/2025 1:50 AM EDT us Radames Pate MD LAB BLOOD ORDERABLES Final Result Performing Organization Address [facility]/ZIP Co de Phone Number [facility] [address] [place] [address], [place] [phone] * Type and screen (07/02/2025 1:27 AM EDT) ABO Group A 07/02/2025 2:43 AM EDT [facility] Rh Type Positive 07/02/2025 2:43 AM EDT [facility] Antibody Screen Negative 07/02/2025 2:43 AM EDT [facility] Blood Venous blood specimen / Unknown Venipuncture / Unknown 07/02/2025 1:27 AM EDT 07/02/2025 1:50 AM EDT Radames Pate MD LAB BLOOD BANK TEST ORDERAB LES Final Result Performing Organization Address City/[facility]/ZIP Co de Phone Number [facility] [address] [place] [address], [place] [phone] * Vascular US duplex lower extremity venous [...] performed with the patient in reverse trendelenburg. Mannequin Sander And Finisher Details A wu scale, color and doppler analysis ultrasound was performed. During the study longitudinal and transverse views were obtained. Pulsed wave doppler was performed. us Phyllis VERGARA CV VASCULAR PROCEDURES Final Result * (ABNORMAL) Basic metabolic panel (05/24/2025 2:41 PM EDT) Sodium 140 133 - 145 mmol/L LAB CHEMISTRY METHOD 05/24/2025 4:48 PM [facility] Potassium 4.3 3.5 - 5.5 mmol/L LAB CHEMISTRY METHOD 05/24/2025 4:48 PM [facility] Chloride 103 96 - 110 mmol/L LAB CHEMISTRY METHOD 05/24/2025 4:48 PM [facility] CO2 32 21 - 32 mmol/L LAB CHEMISTRY METHOD 05/24/2025 4:48 PM [facility] Anion Gap 5 3 - 11 LAB CHEMISTRY METHOD 05/24/2025 4:48 PM [facility] Glucose 126(H) 70 - 100 mg/dL LAB CHEMISTRY METHOD 05/24/2025 4:48 PM [facility] BUN 72(H) 5 - 25 mg/dL LAB CHEMISTRY METHOD 05/24/2025 4:48 PM [facility] Creatinine 1.73(H) 0.70 - 1.30 mg/dL LAB CHEMISTRY METHOD 05/24/2025 4:48 PM [facility] eGFR 53(L) >=60 mL/min/1. 73m2 LAB CHEMISTRY METHOD 05/24/2025 4:48 PM [facility] Comment:Calculation based on the Chronic Kidney Disease Epidemiology Collaboration (CKD-EPI) equation refit without adjustment for race. BUN/Creatinine Ratio 41.6 LAB CHEMISTRY METHOD 05/24/2025 4:48 PM EDT [facility] Calcium 8.7 8.5 - 10.5 mg/dL LAB CHEMISTRY METHOD 05/24/2025 4:48 PM EDT [facility] Blood Venous blood specimen / Unknown Venipuncture / Unknown 05/24/2025 2:41 PM EDT 05/24/2025 4:16 PM EDT Radames Pate MD LAB BLOOD ORDERABLES Final Result Performing Organization Address [facility]/ZIP Co de Phone Number [facility] [address] [place] [address], [place] [phone] * HIV 1,2 antibody, p24 antigen with reflex to differentiation (01/15/2025 1:17 PM EST) Pathologist [facility] HIV Combo AB/AG Negative Negative LAB CHEMISTRY METHOD 01/15/2025 7:53 PM EST [facility] Blood Venous blood specimen / Unknown Venipuncture / Unknown 01/15/2025 1:17 PM EST 01/15/2025 1:17 PM EST Narrative [facility] - 01/15/2025 7:53 PM EST [...] ORDERA BLES Final Result Performing Organization Address [facility]/ZIP Co de Phone Number [facility] [address] [place] [address], [place] [phone] * (ABNORMAL) Lipid panel with reflex to direct LDL (12/14/2024 1:12 PM EST) Cholesterol 235(H) 0 - 200 mg/dL LAB CHEMISTRY METHOD 12/14/2024 5:58 PM EST [facility] Triglycerides 173(H) 0 - 150 mg/dL LAB CHEMISTRY METHOD 12/14/2024 5:58 PM EST [facility] HDL 42 >=40 mg/dL LAB CHEMISTRY METHOD 12/14/2024 5:58 PM EST [facility] LDL Calculated 158(H) 0 - 100 mg/dL LAB CHEMISTRY METHOD 12/14/2024 5:58 PM EST [facility] VLDL Cholesterol Thiago 34.6 mg/dL LAB CHEMISTRY METHOD 12/14/2024 5:58 PM EST [facility] Non HDL Chol. [...] Final Result [facility] [address] [place] [address], * Hepatitis C Screening (03/11/2019) Pathologist [facility] Hepatitis C Screening Abstracted us Historical Provider HEALTH MAINTENANCE Final Result from Last 3 Months or Most Recently Relevant to Health Maintenance Additional Health Concerns Infection Onset Date Last Indicated Parainfluenza Virus 05/24/2025 05/24/2025 Insurance [employer] Advance Directives * Full Code [...] active code status orders. Care Teams Technical Mgr Relationship Specialty Start Date End Date Tiara Fields MD [address] [place] [phone] PCP - General 02/10/24
--- OUTSIDE RECORDS SUMMARY | 2025-09-23 17:22 | XMS_ITS | Encounter Summary ---
Author Organization [facility] Address [address] [place] [address] Care Team Providers Care Form Builder Helper Name Role Phone Tiara Fields MD Primary Care Pr ovider Encounter Details Date Type Department Care Team (Late st Contact Info) Description 03/24/2025 Lab Requisition [facility] - Main Lab [address] [facility] [place] [address] Lukasz Basurto MD [address] [place] [phone] Proteinuria, unspecified Social History Tobacco Use [...] for your loved ones. For example, children's ministries director or elderly care for an older [...] 3:30 PM EST Consult Vascular Surgery - [place] [address] [place] [address] Paola Gunter, URSULA [address] [place] [address] 10/27/2025 2:30 PM EST Office Visit [address] [phone] Tiara Fields MD [address] [place] [address] documented as of this encounter Procedures Procedure [...] [facility], Department of Pathology, [place], [place] (CLIA: [id number]). Their diagnosis is summarized as follows: Pathologic [...] report for full kidney biopsy diagnosis from [facility], [place], [place]) 04/13/2025 11:[address] [facility] Addendum electronically signed by Chinmay Grant MD on 04/13/2025 at 11:41 AM Final Diagnosis Kidney, left-biopsy for light, immunofluorescence and electron microscopy: -Submitted to [place], [place]. See supplemental report 04/13/2025 11:41 AM [...] core. The specimen is entirely submitted to [facility] for analysis. LUKE 04/13/2025 11:[address] [facility] Disclaimer Unless otherwise specified, all tissue is 10% NB formalin fixed and paraffin embedded. 04/13/2025 11:[address] [facility] Tissue Left kidney structure / Unknown 03/24/2025 03/24/2025 1:27 PM EDT Lukasz Basurto MD LAB PATHOLOGY ORDERABLES Edited Result - Final [facility] ([facility]) [facility] [address] [place] [address], documented in this encounter Visit Diagnoses Diagnosis Proteinuria, unspecified documented in this encounter Additional Health Concerns Infection Onset Date Last Indicated Resolved Time Respiratory Rule-Out 05/24/2025 05/24/2025 025 6:27 PM EDT COVID-19 Rule-Out 05/24/2025 05/24/2025 05/24/2025 6:27 PM EDT Parainfluenza Virus 05/24/2025 05/24/2025 Assessment Noted Time PHQ-9 Depression Total Score: 24 025 9:42 PM EST documented as of this encounter Care Teams Form Builder Helper Relationship Specialty Start Date End Date Tiara Fields MD [address] [place] [phone] PCP - General 02/10/24 documented as of this encounter
== END 2025-09-23 14:41 | disposition home or self-care (01) ==
LOC: HO.HKAS 14:00
PROVIDERS: PCP Family Medicine; Visit Provider Internal Medicine Nephrology
DX: N04.9 Nephrotic syndrome with unspecified morphologic changes (principal); N05.1 Unspecified nephritic syndrome with focal and segmental glomerular lesions
CPT/HCPCS: 99214

== ENCOUNTER → 2025-09-23 13:59 | Outpatient (BNVA) | payer OTHER, SELFPAY | PROVIDERS: PCP Family Medicine; Visit Provider Internal Medicine Nephrology | DX: N04.9 Nephrotic syndrome with unspecified morphologic changes (principal); N05.1 Unspecified nephritic syndrome with focal and segmental glomerular lesions | CPT/HCPCS: 99212 ==

== ENCOUNTER 2025-10-20 16:34 | Outpatient (REF) | payer OTHER, SELFPAY ==
[2025-10-20 16:50] LABS: MANUAL DIFF FLAG NO
[2025-10-20 17:11] LABS: Hematocrit 36.8 % (42.0-52.0); Hemoglobin 12.0 g/dl (14.0-18.0); Imm Gran Abs Auto 0.32 X10*3/uL (0.00-0.03); Imm Gran Pct Auto 2.5 % (0.0-0.4); Lymphocytes Absolute Auto 1.4 X10*3/uL (1.2-4.9); Mean Corpuscular HGB Conc 32.6 g/dl (31.0-36.0); Mean Corpuscular Hemoglobin 30.4 pg (27.0-33.0); Mean Corpuscular Volume 93.2 fL (80.0-98.0); NRBC Abs Auto 0.000 X10*3/uL (0.0-0.012); NRBC Pct Auto 0.0 /100WBC (0.0-0.2); Platelet Count 315 X10*3/uL (160-400); Red Blood Count 3.95 X10*6/uL (4.60-5.80); White Blood Count 13.1 X10*3/uL (4.8-10.8)
[2025-10-20 17:32] LABS: Alanine Aminotransferase 15 U/L (0-40); Albumin Level 3.3 g/dL (3.5-5.0); Anion Gap 15 (12-20); Aspartate Amino Transferase 13 U/L (5-37); Blood Urea Nitrogen 67 mg/dL (9-16); Calcium 8.8 mg/dL (8.4-10.2); Carbon Dioxide 20 mmol/L (22-29); Chloride 111 mmol/L (96-108); Estimated Glomerular Filt Rate 43; Potassium 5.2 mmol/L (3.3-5.1); Sodium 141 mmol/L (135-145)
[2025-10-20 19:59] LABS: Protein/Creatinine Ratio, Ur 8.48 (<0.2); Total Protein Urine Random 765 mg/dL (<12)
--- OUTSIDE RECORDS SUMMARY | 2025-10-21 00:53 | XMS_ITS | Encounter Summary ---
Author Organization [facility] Address [address] [place] [address] Care Team Providers Care Chocolate Finisher Operator Name Role Phone Tiara Fields MD Primary Care Pr ovider Reason for Visit * Reason Onset Date Comments Extremity Weakness 2025 Leg Swelling 2025 Encounter Details Date Type Department Care Team (Late st Contact Info) Description 2025 Nurse Triage Adult Medicine [address] [phone] Tiara Fields MD [address] [place] [address] Social History Tobacco Use Types Packs/Day Years [...] for your loved ones. For example, child day care provider or elderly care for an older adult? [...] traveled recently to another state outside of [place], [place], [place], [place], [place], [place], [place]? no o If yes, did you quarantine [...] yes, gather 3rd democrat insurance information Third Libertarian Information: not applicable PCP: Tiara Fields MD Payor: [employer] PLAN / Plan: [employer] MEDICAID / Product Type: *No Product type* / documented in this encounter Plan of Treatment Upcoming Encounters Date Type Department Care Team (Late st Contact Info) Description 10/27/2025 2:30 PM EST Office Visit Adult Medicine [facility] [address] [place], [place] [phone] Tiara Fields MD [address] [place], [place] 12/13/2025 1:30 PM EST Consult Vascular Surgery - [place] [address] [place] [address] Marilyn Galindo PA 300 [facility] [address] [place] [address] documented as of this encounter Visit Diagnoses Not on filedocumented in this encounter Additional Health Concerns Infection Onset Date Last Indicated Resolved Time Respiratory Rule-Out 05/24/2025 05/24/2025 025 6:27 PM EDT COVID-19 Rule-Out 05/24/2025 05/24/2025 05/24/2025 6:27 PM EDT Parainfluenza Virus 05/24/2025 05/24/2025 Assessment Noted Time PHQ-9 Depression Total Score: 24 025 9:42 PM EST documented as of this encounter Care Teams Chocolate Finisher Operator Relationship Specialty Start Date End Date Tiara Fields MD [address] [place] [address] PCP - General 02/10/24 documented as of this encounter
--- OUTSIDE RECORDS SUMMARY | 2025-10-21 00:53 | XMS_ITS | Clinical Summary ---
Author Organization [facility] Address [address] [address] Phone Care Team Providers Care Foam Machine Operator Name Role Phone Tiara Fields Primary Care [...] 12/14/2024 Vitamin D deficiency 05/18/2020 Overview (01/25/2025): 12750 units for 8 weeks Dyslipidemia 04/07/2019 Resolved [...] Creatinine, Ur 112.7 Not Estab. mg/dL [facility] Protein, Ur 1,025.9 Not Estab. mg/dL [facility] Comment: Results confirmed on dilution. Urine Protein/Creati nine Ratio 9,103(H) 0 - 200 mg/g creat [facility] Urine specimen (specimen) Urine specimen obtained by clean catch procedure / Unknown 08/10/2025 8:29 AM EDT 08/10/2025 us Valeriy Pulliam MD LAB URINE ORDERABLES Final Re sult [facility] [address] [place] [address] * (ABNORMAL) Vitamin D 25 Hydroxy (08/10/2025 8:29 AM EDT) Vitamin D, 25-OH, Total 9.1(L) 30.0 - 100.0 ng/mL [facility] Comment: Vitamin D deficiency has been defined by the [place] of Medicine and an Endocrine Society practice guideline as a level of serum 25-OH vitamin D less than 20 ng/mL (1,2). The Endocrine Society went on to further define vitamin D insufficiency as a level between 21 and 29 ng/mL (2). 1. IOM ([place] of Medicine). 2010. Dietary reference intakes for [...] BLOOD ORDERABLES Final Re sult [facility] [address] [place] [address] * (ABNORMAL) CBC and Differential (08/10/2025 8:29 AM EDT) WBC 14.9(H) 3.4 - 10.8 x10E3/uL [facility] RBC 3.30(L) 4.14 - 5.80 x10E6/uL [facility] Hemoglobin 10.7(L) 13.0 - 17.7 g/dL [facility] Hematocrit 33.0(L) 37.5 - 51.0 % [facility] MCV 100(H) 79 - 97 fL [facility] MCH 32.4 26.6 - 33.0 pg [facility] MCHC 32.4 31.5 - 35.7 g/dL [facility] RDW 14.2 11.6 - 15.4 % [facility] Platelets 267 150 - 450 x10E3/uL [facility] Neutrophils Relative 64 Not Estab. % [facility] Lymphocytes Relative 28 Not Estab. % [facility] Monocytes 5 Not Estab. % [facility] Eosinophils Relative 0 Not Estab. % [facility] Basophils Relative 0 Not Estab. % [facility] Neutrophils Absolute 9.4(H) 1.4 - 7.0 x10E3/uL [facility] Lymphocytes Absolute 4.2(H) 0.7 - 3.1 x10E3/uL [facility] Monocytes Absolute 0.7 0.1 - 0.9 x10E3/uL [facility] Eosinophils Absolute 0.0 0.0 - 0.4 x10E3/uL [facility] Basophils Absolute 0.1 0.0 - 0.2 x10E3/uL [facility] Immature Granulocytes 3 Not Estab. % [facility] Immature Grans (Absolute) 0.5(H) 0.0 - 0.1 x10E3/uL [facility] Comment: (An elevated percentage of Immature Granulocytes [...] ORDERABLES Final Re sult Performing Organization Address City/[facility]/ZIP Co de Phone Number [facility] [address] [place] [address] * (ABNORMAL) Uric Acid (08/10/2025 8:29 AM EDT) Uric Acid 12.9(H) 3.8 - 8.4 mg/dL [facility] Comment:Therapeutic target f or gout patients: <6.0 Blood specimen (specimen) Venous blood / Unknown 08/10/2025 8:29 AM EDT 08/10/2025 us Valeriy Pulliam MD LAB BLOOD ORDERABLES Final Re sult [facility] [address] [place] [address] * Phosphorus (08/10/2025 8:29 AM EDT) Phosphorus 3.9 2.8 - 4.1 mg/dL [facility] Blood specimen (specimen) Venous blood / Unknown 08/10/2025 8:29 AM EDT 08/10/2025 us Valeriy Pulliam MD LAB BLOOD ORDERABLES Final Re sult [facility] [place] [address] [place] [address] * PTH, Intact (08/10/2025 8:29 AM EDT) PTH 40 15 - 65 pg/mL [facility] Blood specimen (specimen) Venous blood / Unknown 08/10/2025 8:29 AM EDT 08/10/2025 us Valeriy Pulliam MD LAB BLOOD ORDERABLES Final Re sult Performing Organization Address [facility]/ZIP Co de Phone Number [facility] [place] [address] [place] [address] * (ABNORMAL) Magnesium (08/10/2025 8:29 AM EDT) Magnesium 2.4(H) 1.6 - 2.3 mg/dL [facility] Blood specimen (specimen) Venous blood / Unknown 08/10/2025 8:29 AM EDT 08/10/2025 us Valeriy Pulliam MD LAB BLOOD ORDERABLES Final Re sult Performing Organization Address City/[facility]/ZIP Co de Phone Number [facility] [address] [place] [address] * (ABNORMAL) Comprehensive Metabolic Panel (08/10/2025 8:29 AM EDT) Glucose 103(H) 70 - 99 mg/dL [facility] BUN 69(H) 6 - 20 mg/dL [facility] Chloride 110(H) 96 - 106 mmol/L [facility] Bicarbonate (CO2) 19(L) 20 - 29 mmol/L [facility] Calcium 8.7 8.7 - 10.2 mg/dL [facility] Creatinine 1.64(H) 0.76 - 1.27 mg/dL [facility] eGFR CKD-EPI CR 2020 56(L) >59 mL/min/1.7 3 [facility] BUN/Creatinine Ratio 42(H) 9 - 20 [facility] Sodium 146(H) 134 - 144 mmol/L [facility] Potassium 4.3 3.5 - 5.2 mmol/L [facility] Total Protein 4.6(L) 6.0 - 8.5 g/dL [facility] Albumin 3.0(L) 4.1 - 5.1 g/dL [facility] Globulin 1.6 1.5 - 4.5 g/dL [facility] Total Bilirubin <0.2 0.0 - 1.2 mg/dL [facility] Alkaline Phosphatase 35(L) 47 - 123 IU/L [facility] AST (SGOT) 9 0 - 40 IU/L [facility] ALT (SGPT) 13 0 - 44 IU/L [facility] Blood specimen (specimen) Venous blood / Unknown 08/10/2025 8:29 AM EDT 08/10/2025 us Valeriy Pulliam MD LAB BLOOD ORDERABLES Final Re sult [facility] [address] [place] [address] from Last 3 Months Insurance [facility] Medicaid Care Teams Foam Machine Operator Relationship Specialty Start Date End Date Tiara Fields [address] [place] [phone] PCP - General 03/15/25
--- OUTSIDE RECORDS SUMMARY | 2025-10-21 00:53 | XMS_ITS | Clinical Summary ---
Author Organization [facility] Address [address] [facility] [address] [place] [phone] Phone Care Team Providers Care Central Office Repairer Name Role Phone Tiara Fields MD Primary [...] topic Medical Devices Not on file Insurance [employer] [place] [address] [place] [address] [employer] [place] [address] [place] [address] [employer] [place] [address] [place] [address] [employer] [address] [place] [address] [employer] [facility] ACO Care Teams Central Office Repairer Relationship Specialty Start Date End Date Tiara Fields MD [address] [place] [phone] PCP - General Family Medicine 04/27/25 Additional Source Comments The information contained in this document represents components of the legal health record. It is not the complete legal health record.[facility]
--- OUTSIDE RECORDS SUMMARY | 2025-10-21 00:53 | XMS_ITS | Encounter Summary ---
Author Organization [facility] Address [address] [place] [address] Care Team Providers Care Pipe Finisher Name Role Phone Tiara Fields MD Primary Care Pr ovider Encounter Details Date Type Department Care Team (Late st Contact Info) Description 03/24/2025 Lab Requisition [facility] [address] [facility] [place] [address] Lukasz Basurto MD [address] [place] [phone] Proteinuria, unspecified Social History Tobacco Use [...] care for your loved ones. For example, childrens club attendant or elderly care for an older adult? [...] 2:30 PM EST Office Visit Adult Medicine [address] [phone] Tiara Fields MD [address] [place] [address] 12/13/2025 1:30 PM EST Consult Vascular Surgery - [place] [address] [place] [address] Marilyn Galindo PA [address] [place] [address] documented as of this encounter Procedures Procedure [...] [facility], Department of Pathology, [place], [place] (CLIA: [id number]). Their diagnosis is summarized as follows: Pathologic [...] report for full kidney biopsy diagnosis from [facility], [place], [place]) 04/13/2025 11:41 AM [facility] Addendum electronically signed by Chinmay Grant MD on 04/13/2025 at 1141 EDT Final Diagnosis Kidney, left-biopsy for light, immunofluorescence and electron microscopy: -Submitted to [place], [place]. See supplemental report 04/13/2025 11:41 AM [facility] at 1525 EDT Clinical Information 3 18g core samples from left kidney Proteinuria 04/13/2025 11:41 AM [facility] Gross Description A. Kidney, [...] core. The specimen is entirely submitted to [facility] for analysis. [facility] 04/13/2025 11:41 AM [facility] Disclaimer Unless otherwise specified, all tissue is 10% NB formalin fixed and paraffin embedded. 04/13/2025 11:41 AM [facility] Tissue Left kidney structure / Unknown 03/24/2025 03/24/2025 1:27 PM EDT Lukasz Basurto MD LAB PATHOLOGY ORDERABLES Edited Result - Final [facility] ([facility] [address] [place] [address], documented in this encounter Visit Diagnoses Diagnosis Proteinuria, unspecified documented in this encounter Additional Health Concerns Infection Onset Date Last Indicated Resolved Time Respiratory Rule-Out 05/24/2025 05/24/2025 025 6:27 PM EDT COVID-19 Rule-Out 05/24/2025 05/24/2025 05/24/2025 6:27 PM EDT Parainfluenza Virus 05/24/2025 05/24/2025 Assessment Noted Time PHQ-9 Depression Total Score: 24 025 9:42 PM EST documented as of this encounter Care Teams Pipe Finisher Relationship Specialty Start Date End Date Tiara Fields MD [address] [place] [phone] PCP - General 02/10/24 documented as of this encounter
--- OUTSIDE RECORDS SUMMARY | 2025-10-21 00:53 | XMS_ITS | Clinical Summary ---
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 She is referred to [place] neurology Orders: Ambulatory referral to Endocrinology; Future [...] Urology; Future Morbid obesity with BMI of 40.0-44.9, adult 01/2025 Assessment & Plan (07/28/2025 5:54 PM EDT): [...] Vitamin D deficiency disease 05/18/2020 Overview (11/05/2024): 89387 units for 8 weeks Assessment & Plan [...] Date Diagnosed Date Resolved Date Severe obesity 04/15/2025 07/28/2025 Proteinuria 01/25/2025 07/28/2025 COVID-19 09/04/2021 07/28/2025 Overview (11/05/2024): 08/25/2021, tested at local drive through. Was in ER 09/01/2021 as his SOB, cough didn't improve. He doesn't know how he got it. Dyslipidemia 04/07/2019 07/28/2025 Encounters Date Type Department Care Team Description 08/05/2025 9:52 AM EDT - 08/05/2025 11:59 PM EDT Hospital Encounter [address] [phone] History of pneumonia Discharge Disposition: Home or Self Care 07/28/2025 2:00 PM EDT Office Visit Adult Medicine [address] [phone] Tiara Fields MD Nephrotic syndrome (Primary Dx); FSGS (focal segmental glomerulosclerosis) ; Mixed hyperlipidemia; Prediabetes; Vitamin D deficiency disease; Primary hypertension; Petechiae; Drug-induced Houston syndrome ([facility] V24); Epidermal cyst; Snoring; Morbid obesity with BMI of 40.0-44.9, adult (CMS/HCC V24, [facility]/HCC V28); Neuropathy; Dry skin; History of pneumonia from Last 3 Months Immunizations Immunization Administration [...] liver Covid-19 09/04/2021 08/25/2021, test ed at [facility]. Was in ER 09/01/2021 as [...] care for your loved ones. For example, healthcare recruiter or elderly care for an older adult? [...] Orientation Straight 12/11/2024 9: 36 PM EST Last Filed Vital Signs Vital Sign [...] EST Office Visit Adult Medicine [facility] [address] [place] [address] Tiara Fields MD [address] [place] [address] 12/13/2025 1:30 PM EST Consult Vascular Surgery - [place] [address] [place] [address] Marilyn Galindo PA 300 [facility] [address] [place] [address] Health Maintenance Due Date Last Done Comments [...] 08/05/2025 9:57 AM EDT History of pneumonia BASIC METABOLIC PANEL STAT 05/24/2025 2:41 PM [...] Signed Date: 08/05/2025 11:41 ET Workstation ID: [id number] Transcribed By: Self Edit Transcribed Date: 08/05/2025 [...] Signed Date: 08/05/2025 11:41 ET Workstation ID: [id number] Transcribed By: Self Edit Transcribed Date: 08/05/2025 11:40 ET Tiara Fields MD IMG XR PROCEDURE S Final Result * (ABNORMAL) Basic metabolic panel (05/24/2025 2:41 PM EDT) Sodium 140 133 - 145 mmol/L LAB CHEMISTRY METHOD 05/24/2025 4:48 PM [facility] Potassium 4.3 3.5 - 5.5 mmol/L LAB CHEMISTRY METHOD 05/24/2025 4:48 PM [facility] Chloride 103 96 - 110 mmol/L LAB CHEMISTRY METHOD 05/24/2025 4:48 PM [facility] CO2 32 21 - 32 mmol/L LAB CHEMISTRY METHOD 05/24/2025 4:48 PM [facility] Anion Gap 5 3 - 11 LAB CHEMISTRY METHOD 05/24/2025 4:48 PM [facility] Glucose 126(H) 70 - 100 mg/dL LAB CHEMISTRY METHOD 05/24/2025 4:48 PM [facility] BUN 72(H) 5 - 25 mg/dL LAB CHEMISTRY METHOD 05/24/2025 4:48 PM [facility] Creatinine 1.73(H) 0.70 - 1.30 mg/dL LAB CHEMISTRY METHOD 05/24/2025 4:48 PM EDT [facility] eGFR 53(L) >=60 mL/min/1. 73m2 LAB CHEMISTRY METHOD 05/24/2025 4:48 PM EDT [facility] Comment:Calculation based on the Chronic Kidney Disease Epidemiology Collaboration (CKD-EPI) equation refit without adjustment for race. BUN/Creatinine Ratio 41.6 LAB CHEMISTRY METHOD 05/24/2025 4:48 PM EDT [facility] Calcium 8.7 8.5 - 10.5 mg/dL LAB CHEMISTRY METHOD 05/24/2025 4:48 PM EDT [facility] Blood Venous blood specimen / Unknown Venipuncture / Unknown 05/24/2025 2:41 PM EDT 05/24/2025 4:16 PM EDT Radames Pate MD LAB BLOOD ORDERABLES Final Result Performing Organization Address [facility]/ZIP Co de Phone Number [facility] [address] [place] [address], * HIV 1,2 antibody, p24 antigen with reflex to differentiation (01/15/2025 1:17 PM EST) HIV Combo AB/AG Negative Negative LAB CHEMISTRY METHOD 01/15/2025 7:53 PM EST [facility] Blood Venous blood specimen / Unknown Venipuncture / Unknown 01/15/2025 1:17 PM EST 01/15/2025 1:17 PM EST Narrative [facility] - 01/15/2025 7:53 PM [...] MD LAB BLOOD ORDERA BLES Final Result [facility] [address] [place] [address], [place] [phone] * (ABNORMAL) Lipid panel with reflex to direct LDL (12/14/2024 1:12 PM EST) Cholesterol 235(H) 0 - 200 mg/dL LAB CHEMISTRY METHOD 12/14/2024 5:58 PM EST [facility] Triglycerides 173(H) 0 - 150 mg/dL LAB CHEMISTRY METHOD 12/14/2024 5:58 PM EST [facility] HDL 42 >=40 mg/dL LAB CHEMISTRY METHOD 12/14/2024 5:58 PM EST [facility] LDL Calculated 158(H) 0 - 100 mg/dL LAB CHEMISTRY METHOD 12/14/2024 5:58 PM EST [facility] VLDL Cholesterol Thiago 34.6 mg/dL LAB CHEMISTRY METHOD 12/14/2024 5:58 PM EST [facility] Non HDL Chol. (LDL+VLDL) 193(H) <145 mg/dL LAB CHEMISTRY METHOD 12/14/2024 5:58 PM EST [facility] Chol/HDL Ratio 5.6(H) 0.0 - 4.4 LAB CHEMISTRY METHOD 12/14/2024 5:58 PM EST [facility] Blood Venous blood specimen / Unknown Venipuncture / Unknown 12/14/2024 1:12 PM EST 12/14/2024 1:12 PM EST Tiara Fields MD LAB BLOOD ORDERA BLES Final Result [facility] [address] [place] [address], [place] [phone] * Hepatitis C Screening (03/11/2019) Pathologist [facility] Hepatitis C Screening Abstracted Historical Provider HEALTH MAINTENANCE Final Result from Last 3 Months or Most Recently Relevant to Health Maintenance Additional Health Concerns Infection Onset Date Last Indicated Parainfluenza Virus 05/24/2025 05/24/2025 Insurance [facility] Advance Directives * Full Code - [...] currently active code status orders. Care Teams Inspector And Clerk Relationship Specialty Start Date End Date Tiara Fields MD [address] [place] [phone] PCP - General 02/10/24
== END 2025-10-20 16:35 | disposition home or self-care (01) ==
LOC: HO.LAB 16:34
PROVIDERS: PCP Family Medicine; Visit Provider Internal Medicine Nephrology
DX: N05.1 Unspecified nephritic syndrome with focal and segmental glomerular lesions (principal); N04.9 Nephrotic syndrome with unspecified morphologic changes
CPT/HCPCS: 36415; 80051; 80158; 82040; 82310; 82565; 82570; 84156; 84450; 84460; 84520; 85025

== ENCOUNTER 2025-10-21 13:37 | Outpatient (AMB) | payer OTHER, SELFPAY ==
--- NOTE | 2025-10-21 13:53 | HO.NEPHOV ---
Vital Signs 10/21/25 13:55 Height 6 ft 1 in Weight 317 lb BMI 41.8 BP 160/112 H Blood Pressure Location Lt brachial Position Sitting Pulse 94 Pulse Source Pulse Oximeter Pulse Oximetry (%) 98 Oxygen Delivery Method Room Air Intake Visit Reasons: 4wk f/u w/labs-Conf Plate Preparer Required: No Accompanied by: Self / Same As Patient Allergies No Known Allergies Allergy (Verified 10/21/25 13:55) HPI Comments Details: Heather was seen for follow up of MARIA ALEJANDRA and nephrotic range proteinuria on a backdrop of newly diagnosed biopsy proven primary FSGS. He had influenza in December 2024 and after that he started developing edema and was found to have nephrotic range proteinuria. His renal function was normal at that time. He had quite a bit of weight gain with edema as well as shortness of breath. He underwent extensive work by his primary care physician and had seen other renal physicians in different practice for the same complaint. He even underwent renal biopsy and was told at that time that he has FSGS. Initially he refused renal biopsy for some months and he continued to have worsening proteinuria, with a proteinuria going up to over 17 g. He was given Bumex, torsemide, furosemide, metolazone, Aldactone as well as losartan in the past. His previous renal physician felt that he was not adherent with his directions and he had been playing around with medications as well as multiple medical providers. During the course of months his serum creatinine started to rise with a drop in GFR. His previous renal physician has recommended admission to the hospital for intravenous diuretics, kidney biopsy and immunosuppression. He had multiple ER visits as well as urgent care consultations for various reasons including diffuse pains, weight gain and continued worsening of edema. It was thought in the past that he may have bowel wall edema and p.o. medications will be unsuccessful. He was prescribed prednisone by his previous renal MD which he did not take but started taking when transitioned to my care. He has been in prophylactic Bactrim. He claims to be compliant with prednisone as well as losartan & Jardiance. He was told in the past by his past renal MD that he may end up with ESRD. His serum creatinine has been stable. He is also taking another opinion from [facility]. [facility] Medical History (Updated 04/27/25 @ 07:01 by Joe Dhaliwal MD) Vitamin D deficiency disease Snoring Polyarthralgia Nephrotic syndrome Morbid obesity with body mass index (BMI) of 40.0 or higher Hyperlipidemia Gastroesophageal reflux disease with esophagitis without hemorrhage Fatty liver Erectile dysfunction due to diseases classified elsewhere Elevated ALT measurement Family History Father Bladder cancer Brother Kidney stone Mother Renal cyst Social History Alcohol intake: never Patient Tobacco Use Status: Never used Tobacco Review of Systems Const All systems reviewed & are unremarkable except as noted in HPI and below Physical Exam Vital Signs: Last Vital Signs Pulse 94 10/21/25 13:55 BP 160/112 H 10/21/25 13:55 Pulse Ox 98 10/21/25 13:55 Oxygen Delivery Method Room Air 10/21/25 13:55 BMI result Body Mass Index 41.8 Const General: comfortable and no acute distress Orientation/consciousness: patient oriented x3 HEENT Head: Yes normocephalic Mouth: Normal oral and palatal mucosa present Eyes EOM: EOMs intact bilaterally Neck Neck: Yes supple Resp Auscultation: clear to auscultation bilaterally Cardio Jugular venous distension: no JVD Rate: regular rate Heart sounds: Murmur heart sound present GI Palpation (GI): Soft to palpation Auscultation: normal bowel sounds General: Yes no CVA tenderness Back/Spine/Pelvis Back: no CVA tenderness Skin General skin exam: no rashes or lesions noted Neuro General: patient oriented x3 and moves all extremities Results Reviewed Nephrology Results: Hgb, (14.0-18.0) 12.0 g/dl L 10/20/25 WBC, (4.8-10.8) 13.1 X10*3/uL H 10/20/25 Plt Count, (160-400) 315 X10*3/uL 10/20/25 Sodium, (135-145) 141 mmol/L 10/20/25 Potassium, (3.3-5.1) 5.2 mmol/L H Δ 10/20/25 Chloride, (96-108) 111 mmol/L H 10/20/25 Carbon Dioxide, (22-29) 20 mmol/L L 10/20/25 BUN, (9-16) 67 mg/dL H 10/20/25 Creatinine, (0.5-1.4) 1.84 mg/dL H 10/20/25 Calcium, (8.4-10.2) 8.8 mg/dL 10/20/25 Urine Creatinine 90.20 mg/dL 10/20/25 Protein/Creatinin Ratio, (<0.2) 8.48 H 10/20/25 Assessment & Plan Assessment & Plan (1) Nephrotic syndrome: Code(s): N04.9 - Nephrotic syndrome with unspecified morphologic changes Category: Medical (2) FSGS (focal segmental glomerulosclerosis): Code(s): N05.1 - Unspecified nephritic syndrome with focal and segmental glomerular lesions Category: Medical (3) MARIA ALEJANDRA (acute kidney injury): Code(s): N17.9 - Acute kidney failure, unspecified Category: Medical (4) Edema: Code(s): R60.9 - Edema, unspecified Category: Medical Qualifiers: Edema type: generalized Qualified Code(s): R60.1 - Generalized edema Plan Focus of treatment for his FSGS will include the following Dietary sodium restriction Antihypertensive therapy Renin-angiotensin system inhibition SGLT2 inhibitors Lipid lowering Anticoagulation Treatment of edema For the time being I reduced his prednisone to 30 mg daily for now. I asked him to continue diuretics and losartan at 50 mg twice daily. ( he has H/O starting and stopping medications in the past including losartan by himself). I asked him to C/W current dose of cyclosporin for now( levels reviewed). C/W cyclosporin to 250 mg bid. He should continue Jardiance 25 mg daily. Those with glucocorticoid-dependent FSGS may be alternatively treated with MMF/EC-MPS or rituximab or cytotoxic therapy like cyclophosphamide. In general, the duration of therapy varies according to the degree and rapidity of response (eg, faster taper for patients who achieve a quick remission), whether complete or partial remission is achieved, and the degree of glucocorticoid toxicity. If a complete remission is achieved within 8 to 12 weeks, I continue the initial dose of?prednisone and then taper the dose over two to three months. One strategy is to switch to alternate-day prednisone (double the daily dose but to a maximum of 80 to 120 mg), and then decrease the dose by approximately one-third every two to three weeks. If a partial remission is achieved by 8 to 12 weeks, we can taper prednisone slowly over three to nine months. We initially switch to alternate-day dosing and decrease the dose by one-third approximately every six weeks. For patients who have had a substantial reduction (>50 percent from baseline) in proteinuria by 8 to 12 weeks but do not meet criteria for partial remission (ie, proteinuria remains >3.5 g/day), the decision to continue high-dose prednisone or modify therapy is based upon the severity of glucocorticoid toxicity, the risk of continued therapy, and whether protein excretion is continuing to fall. Prednisone can be continued, for example, in patients whose proteinuria continues to decline, provided they are not experiencing severe side effects from therapy. If, at any time after a complete or partial remission is attained, proteinuria increases while the prednisone?is being tapered, we stop the taper and temporarily maintain the current prednisone dose while adding a CNI or, if the eGFR is <30 mL/min/1.73 m2, MMF/EC-MPS. Although the use of MMF/EC-MPS is not supported by evidence, some authors and editors of this topic in [employer] use it in this setting based on its potential role as a glucocorticoid-sparing agent, its safe use in patients with low eGFR, and its role as maintenance therapy in other glomerular diseases such as minimal change disease and lupus nephritis. Adult patients who have little or no reduction in proteinuria after 16 weeks of daily?prednisone are presumed to be glucocorticoid resistant. In such patients, we prefer to add a CNI (or MMF if the eGFR is low) and switch to alternate-day prednisone with a progressive taper in prednisone therapy, reducing the dose by approximately one-third every week. (some of the references in management as mentioned above are taken from up-to-date ([employer]). Follow-up blood work was ordered and is going to see me for continued care.Answered all questions. Orders: Orders Blood Urea Nitrogen 4 Weeks N04.9 - Nephrotic syndrome with unspecified morphologic changes, N05.1 - Unspecified nephritic syndrome with focal and segmental glomerular lesions, N17.9 - Acute kidney failure, unspecified, R60.1 - Generalized edema Cyclosporine 4 Weeks N04.9 - Nephrotic syndrome with unspecified morphologic changes, N05.1 - Unspecified nephritic syndrome with focal and segmental glomerular lesions, N17.9 - Acute kidney failure, unspecified, R60.1 - Generalized edema Protein Creatinine Ratio, Ur 4 Weeks N04.9 - Nephrotic syndrome with unspecified morphologic changes, N05.1 - Unspecified nephritic syndrome with focal and segmental glomerular lesions, N17.9 - Acute kidney failure, unspecified, R60.1 - Generalized edema Creatinine 4 Weeks N04.9 - Nephrotic syndrome with unspecified morphologic changes, N05.1 - Unspecified nephritic syndrome with focal and segmental glomerular lesions, N17.9 - Acute kidney failure, unspecified, R60.1 - Generalized edema Electrolytes 4 Weeks N04.9 - Nephrotic syndrome with unspecified morphologic changes, N05.1 - Unspecified nephritic syndrome with focal and segmental glomerular lesions, N17.9 - Acute kidney failure, unspecified, R60.1 - Generalized edema Calcium 4 Weeks N04.9 - Nephrotic syndrome with unspecified morphologic changes, N05.1 - Unspecified nephritic syndrome with focal and segmental glomerular lesions, N17.9 - Acute kidney failure, unspecified, R60.1 - Generalized edema Coding Level of Care Code Est Pt Level 4 (12763) Diagnoses Nephrotic syndrome N04.9 FSGS (focal segmental glomerulosclerosis) N05.1 MARIA ALEJANDRA (acute kidney injury) N17.9 Generalized edema R60.1 Edema type: generalized
[2025-10-21 13:55] VITALS: BP 160/112; PULSE 94; O2SAT 98; BMI 41.8
== END 2025-10-21 14:17 | disposition home or self-care (01) ==
LOC: HO.HKAS 13:38
PROVIDERS: PCP Family Medicine; Visit Provider Internal Medicine Nephrology
DX: N04.9 Nephrotic syndrome with unspecified morphologic changes (principal); N05.1 Unspecified nephritic syndrome with focal and segmental glomerular lesions; N17.9 Acute kidney failure, unspecified; R60.1 Generalized edema
CPT/HCPCS: 99214

== ENCOUNTER → 2025-10-21 13:37 | Outpatient (BNVA) | payer OTHER, SELFPAY | PROVIDERS: PCP Family Medicine; Visit Provider Internal Medicine Nephrology | DX: N17.9 Acute kidney failure, unspecified (principal); N05.1 Unspecified nephritic syndrome with focal and segmental glomerular lesions; R60.1 Generalized edema; Z79.899 Other long term (current) drug therapy; Z79.52 Long term (current) use of systemic steroids | CPT/HCPCS: 99212 ==